=== PATIENT | female | born 1965 | race American Indian/Alaskan Native ===

== ENCOUNTER 2018-03-08 00:20 | Emergency (ER) | payer OTHER ==
[2018-03-08] MEDS ORDERED: NACL 0.9% 1000 ML 1,000 ML IV ONE (00:34)
[2018-03-08 01:25] LABS: Basophils % (Auto) 0.6 % (0.0-1.8); Eosinophils # (Auto) 0.1 K/mm3 (0.0-0.4); Eosinophils % (Auto) 2.9 % (0.0-4.3); Hematocrit 35.9 % (30.3-42.9); Hemoglobin 11.9 gm/dl (10.1-14.3); Lymphocytes # (Auto) 2.3 K/mm3 (1.2-5.4); Lymphocytes % (Auto) 50.6 % (13.4-35.0); Mean Corpuscular HGB Conc 33 % (30-34); Mean Corpuscular Hemoglobin 32 pg (28-32); Mean Corpuscular Volume 96 fl (79-97); Monocytes # (Auto) 0.4 K/mm3 (0.0-0.8); Monocytes % (Auto) 9.4 % (0.0-7.3); Platelet Count 184 K/mm3 (140-440); Red Blood Count 3.73 M/mm3 (3.65-5.03); Red Cell Distribution Width 13.3 % (13.2-15.2)
[2018-03-08 01:58] LABS: Alanine Aminotransferase 670 units/L (7-56); Albumin 3.9 g/dL (3.9-5); BUN/Creatinine Ratio 28; Blood Urea Nitrogen 14 mg/dL (7-17); Hemolysis Index 0; Lipase 40 units/L (13-60)
[2018-03-08] MEDS ORDERED: ZOFRAN IM ONE (04:19)
[2018-03-08] MEDS ORDERED: DILAUDID IM ONE (04:19)
--- NOTE | 2018-03-08 04:21 | Emergency Department Report ---
ED Abdominal Pain HPI - General Chief Complaint: Abdominal Pain Stated Complaint: ABDOMINAL PAIN Time Seen by Provider: 03/08/18 04:05 Source: patient, EMS Mode of arrival: Wheelchair Limitations: No Limitations - History of Present Illness Initial Comments: 52-year-old woman with known cholelithiasis, scheduled to have cholecystectomy in 4 days, presents with intractable right upper quadrant abdominal pain, typical of her cholecystitis, with daughter providing translation services, as patient is [place], noting that patient has no medication for pain or nausea. She's not had any fever chills or diaphoresis, pain has been waxing and waning, localized to the right upper quadrant, with intermittent nausea. MD Complaint: abdominal pain -: month(s) Location: RUQ Radiation: none Migration to: no migration Severity scale (0 -10): 9 Quality: cramping, aching Consistency: intermittent, colicky Improves With: nothing Worsens With: eating Associated Symptoms: denies other symptoms - Related Data Previous Rx's Medication Instructions Recorded Last Taken Type Ondansetron [Zofran ODT TAB] 8 mg PO Q8HR PRN #10 tab.rapdis 03/08/18 Unknown Rx oxyCODONE /ACETAMINOPHEN [Percocet 1 - 2 tab PO Q6H PRN #20 tab 03/08/18 Unknown Rx 5/325] Allergies Allergy/AdvReac Type Severity Reaction Status Date / Time No Known Allergies Allergy Verified 03/08/18 00:33 ED Review of Systems ROS: Stated complaint: ABDOMINAL PAIN Other details as noted in HPI Comment: All other systems reviewed and negative Constitutional: denies: chills, fever Eyes: denies: eye pain, eye discharge, vision change ENT: denies: ear pain, throat pain Cardiovascular: denies: chest pain, palpitations Endocrine: no symptoms reported Gastrointestinal: as per HPI Genitourinary: denies: urgency, dysuria, discharge Skin: denies: rash, lesions Neurological: denies: headache, weakness, paresthesias Psychiatric: denies: anxiety, depression ED Past Medical Hx - Past Medical History Previous Medical History?: Yes Additional medical history: gall bladder - Surgical History Past Surgical History?: No - Social History Smoking Status: Never Smoker Substance Use Type: None - Medications Home Medications: Home Medications Medication Instructions Recorded Confirmed Last Taken Type Ondansetron [Zofran ODT TAB] 8 mg PO Q8HR PRN #10 tab.rapdis 03/08/18 Unknown Rx oxyCODONE /ACETAMINOPHEN [Percocet 1 - 2 tab PO Q6H PRN #20 tab 03/08/18 Unknown Rx 5/325] ED Physical Exam - General Limitations: No Limitations, Language Barrier (speaks Angolan, daughter translates) General appearance: alert, other (appears fairly comfortable at time of reexamination, reports that current pain has subsided substantially) - Head Head exam: Present: atraumatic, normocephalic - Eye Eye exam: Present: normal appearance - ENT ENT exam: Present: mucous membranes moist - Neck Neck exam: Present: normal inspection, full ROM. Absent: tenderness - Respiratory Respiratory exam: Present: normal lung sounds bilaterally. Absent: respiratory distress, wheezes, rales, chest wall tenderness - Cardiovascular Cardiovascular Exam: Present: regular rate, normal heart sounds - GI/Abdominal GI/Abdominal exam: Present: soft, tenderness (upper abdomen, worse in right upper quadrant, positive Singh's sign), guarding (1+), normal bowel sounds. Absent: rebound, rigid - Rectal Rectal exam: Present: deferred - Extremities Exam Extremities exam: Present: normal inspection, full ROM - Back Exam Back exam: Present: normal inspection, full ROM. Absent: CVA tenderness (R), CVA tenderness (L) - Neurological Exam Neurological exam: Present: alert, oriented X3, CN II-XII intact. Absent: motor sensory deficit - Psychiatric Psychiatric exam: Present: normal affect, normal mood ED Course Vital Signs 03/08/18 03/08/18 03/08/18 00:21 00:27 03:19 Temperature 36.9 C 36.7 C 36.5 C Pulse Rate 63 69 47 L Respiratory 16 20 16 Rate Blood Pressure 146/81 146/81 Blood Pressure 135/74 [Left] O2 Sat by Pulse 99 98 100 Oximetry - Reevaluation(s) Reevaluation #1: 03/08/18 04:55 Patient offered medication for control of pain in emergency department, ultimately refuses injection, prefers to have medicine to take home, we'll wait for surgery which is due in 3 days. ED Medical Decision Making - Lab Data Result diagrams: 03/08/18 00:58 03/08/18 00:58 - Medical Decision Making Patient is clinically stable, in moderate discomfort, but improving, to the point where she declines emergency department treatment for her acute discomfort. She is clinically stable, can be treated on an outpatient basis, and I will discharge her with mid dose oxycodone, which she can escalate if she has increasing pain, as well as ondansetron for nausea. She may continue with her plans for surgery in 3 days. Critical Care Time: No Critical care attestation.: If time is entered above; I have spent that time in minutes in the direct care of this critically ill patient, excluding procedure time. ED Disposition Clinical Impression: Biliary colic, Acute cholecystitis Cholelithiasis Qualifiers: Cholelithiasis location: gallbladder Cholecystitis presence: with cholecystitis Cholecystitis acuity: acute and chronic Biliary obstruction: without biliary obstruction Qualified Code(s): K80.12 - Calculus of gallbladder with acute and chronic cholecystitis without obstruction Disposition: TO HOME OR SELFCARE Is pt being admited?: No Does the pt Need Aspirin: No Condition: Stable Instructions: Abdominal Pain (ED) Additional Instructions: Drink plenty of fluids to maintain hydration, and avoid spicy or fatty foods which will aggravate your gallbladder. Take Percocet, one or 2 tablets as needed every 6 hours to control her pain. Take ondansetron, every 8 hours as needed if you have any nausea. Follow-up with your doctor with her plans for surgery in 3 days. Prescriptions: Ondansetron [Zofran ODT TAB] 8 mg PO Q8HR PRN #10 tab.rapdis PRN Reason: Nausea oxyCODONE /ACETAMINOPHEN [Percocet 5/325] 1 - 2 tab PO Q6H PRN #20 tab PRN Reason: Pain , Severe (7-10) Referrals: PRIMARY CARE, [Primary Care Provider] - 3-5 Days Time of Disposition: 04:59
[2018-03-08 05:17] VITALS: BP 120/69
== END 2018-03-08 04:55 | disposition home or self-care (01) ==
LOC: ED 00:20
DX: K80.12 Calculus of gallbladder with acute and chronic cholecystitis without obstruction (principal)
CPT/HCPCS: 36415; 80053; 83690; 85025; 99284; J1170; J2405

== ENCOUNTER 2022-03-05 05:56 | Inpatient (IN) | payer OTHER ==
[2022-03-05] MEDS ORDERED: SODIUM CHLORIDE 0.9% 1000 ML 1,000 ML IV ONE (06:20)
[2022-03-05] MEDS ORDERED: ONDANSETRON 4 MG/2 ML INJ IV ONE (06:20)
[2022-03-05] MEDS ORDERED: FAMOTIDINE 20 MG/2 ML INJ IV ONE (06:21)
[2022-03-05] MEDS ORDERED: MORPHINE 4 MG/1 ML INJ IV ONE ×2 (06:21→07:21)
--- NOTE | 2022-03-05 06:26 | Emergency Department Report ---
ED Abdominal Pain HPI - General Chief Complaint: Abdominal Pain Stated Complaint: ABD PAIN PUI?: No Time Seen by Provider: 03/05/22 06:13 Source: EMS Mode of arrival: Stretcher Limitations: Language Barrier - History of Present Illness Initial Comments: creole language laurie staleyter #[id number] 56-year-old obese female with denial of any known past medical history presents for evaluation of abdominal pain. Patient reports pain began acutely at 5 AM this morning. Pain is constant and radiates throughout her entire abdomen al though it initially began in her upper mid abdomen. She reports nausea and vomiting. Last bowel movement was 1 day ago and she states it was normal. No melena hematochezia or hematemesis. Patient denies any prior surgeries to her abdomen. She states she had pain to her abdomen 3 days ago and went to her primary care doctor's office. She states she was "given "a bottle of pills" but she does not know the name of this medication. She states she consumed this but she did not feel better. No prior history of similar symptoms. She is unable to quantify pain on pain scale. MD Complaint: abdominal pain -: Gradual, hour(s) Location: periumbilical Radiation: none Migration to: no migration Severity: severe Severity scale (0 -10): 8 Quality: cramping, stabbing, aching Consistency: constant Improves With: nothing Worsens With: movement, other (touching her abdomen ) Context: other (none of the above) Associated Symptoms: nausea, vomiting Treatments Prior to Arrival: other (none) - Related Data Previous Rx's Medication Instructions Recorded Last Taken Type Ondansetron [Zofran ODT TAB] 8 mg PO Q8HR PRN #10 tab.rapdis 03/08/18 Unknown Rx oxyCODONE /ACETAMINOPHEN [Percocet 1 - 2 tab PO Q6H PRN #20 tab 03/08/18 Unknown Rx 5/325] Allergies Allergy/AdvReac Type Severity Reaction Status Date / Time No Known Allergies Allergy Verified 03/05/22 09:37 ED Review of Systems ROS: Stated complaint: ABD PAIN Other details as noted in HPI Comment: All other systems reviewed and negative Constitutional: malaise, weakness Eyes: denies: eye pain, eye discharge, vision change ENT: denies: ear pain, throat pain, dental pain, hearing loss, epistaxis Respiratory: denies: no symptoms reported, cough, orthopnea, shortness of breath, SOB with exertion, SOB at rest Cardiovascular: denies: as per HPI, chest pain, palpitations, dyspnea on exertion, orthopnea, edema, syncope, paroxysmal nocturnal dyspnea Endocrine: denies: excessive sweating, flushing, intolerance to cold, intolerance to heat, increased hunger, increased thirst, increased urine, unexplained weight gain, unexplained weight loss Gastrointestinal: as per HPI, abdominal pain, nausea, vomiting. denies: diarrhea, constipation, hematemesis, melena, hematochezia Genitourinary: denies: urgency, dysuria, frequency, hematuria, discharge, abnormal menses, dyspareunia Musculoskeletal: denies: back pain, joint swelling, arthralgia Skin: denies: rash, lesions, change in color, change in hair/nails, pruritus Neurological: weakness. denies: headache, numbness, paresthesias, confusion, abnormal gait, vertigo Psychiatric: denies: anxiety, depression, auditory hallucinations, visual hallucinations, homicidal thoughts, suicidal thoughts Hematological/Lymphatic: denies: easy bleeding, easy bruising, swollen glands ED Past Medical Hx - Past Medical History Previous Medical History?: No Additional medical history: gall bladder - Social History Smoking Status: Never Smoker Substance Use Type: None - Medications Home Medications: Home Medications Medication Instructions Recorded Confirmed Last Taken Type Ondansetron [Zofran ODT TAB] 8 mg PO Q8HR PRN #10 tab.rapdis 03/08/18 Unknown Rx oxyCODONE /ACETAMINOPHEN [Percocet 1 - 2 tab PO Q6H PRN #20 tab 03/08/18 Unknown Rx 5/325] ED Physical Exam - General Limitations: Language Barrier General appearance: alert, in distress - Head Head exam: Present: atraumatic, normocephalic, normal inspection - Eye Eye exam: Present: normal appearance, PERRL, EOMI Pupils: Present: normal accommodation - ENT ENT exam: Present: normal exam, normal orophraynx, mucous membranes moist - Neck Neck exam: Present: normal inspection, full ROM. Absent: tenderness, meningismu s, lymphadenopathy, thyromegaly - Respiratory Respiratory exam: Present: normal lung sounds bilaterally. Absent: respiratory distress, wheezes, rales, rhonchi, stridor, chest wall tenderness, accessory muscle use, decreased breath sounds, prolonged expiratory - Cardiovascular Cardiovascular Exam: Present: regular rate, normal rhythm, normal heart sounds. Absent: bradycardia, tachycardia, irregular rhythm, systolic murmur, diastolic murmur, rubs, gallop, clicks, JVD, S3, S4, other - GI/Abdominal GI/Abdominal exam: Present: soft, tenderness, guarding, hypoactive bowel sounds. Absent: distended, rebound, rigid, normal bowel sounds, diminished bowel sounds, hyperactive bowel sounds, organomegaly, mass, bruit, pulsatile mass, hernia, other - Extremities Exam Extremities exam: Present: normal inspection, full ROM, normal capillary refill. Absent: tenderness, pedal edema, joint swelling, calf tenderness, other - Back Exam Back exam: Present: normal inspection, full ROM. Absent: tenderness, CVA tenderness (R), CVA tenderness (L), muscle spasm - Neurological Exam Neurological exam: Present: alert, oriented X3, CN II-XII intact, normal gait, motor sensory deficit, reflexes normal ED Course Vital Signs 03/05/22 03/05/22 03/05/22 06:38 08:33 08:35 Temperature 97.5 F L 97.6 F Pulse Rate 66 89 Respiratory 18 20 Rate Blood Pressure 167/91 163/83 [Left] O2 Sat by Pulse 98 98 100 Oximetry - Reevaluation(s) Reevaluation #1: 03/05/22 06:26 pt asleep, but when aroused c/o abdominal pain. Will await administration of analgesics and antiemetics. Labs and ct scan have also been ordered. will reassess patient once medications have been administered Reevaluation #2: 03/05/22 08:11 pt reports continued pain. Will give dilaudid 0.5mg IV for additional analgesia. Reevaluation #3: 03/05/22 09:35am: Case reviewed with Dr. Smith, on-call general surgeon. He will review the patient's images on CAT scan independently as well as examine her in person. Per his verbal report he is in agreement with the patient being provided with broad-spectrum antibiotics. He will speak to me once his evaluation of the patient has been completed Reevaluation #4: 03/05/22 10:30am: Dr. Smith reports he has evaluated the patient and her images. Although the patient is uncertain of what surgery she has had her abdomen, he verbally reports that the patient's surgical scar sites are consistent with a prior laparoscopic cholecystectomy. He is requesting that emergent HIDA scan be performed and that the patient be admitted to the hospitalist service. He will remain in consultation on the patient. ED Medical Decision Making - Lab Data Result diagrams: 03/05/22 06:38 03/05/22 06:38 - Medical Decision Making 56-year-old female presents for evaluation of abdominal pain nausea and vomiting. Vital signs stable. Patient has significant transaminitis as well as elevated lipase level concerning for pancreatitis. Diagnostic imaging results reviewed. General surgeon, Dr. Smith, was consulted. Please see patient's electronic health record for his documented impression and plan. HIDA scan ordered. Patient has been accepted for admission to the hospitalist service Critical care attestation.: If time is entered above; I have spent that time in minutes in the direct care of this critically ill patient, excluding procedure time. ED Disposition Clinical Impression: Pancreatitis Disposition: 09 ADMITTED INPATIENT Is pt being admited?: Yes Does the pt Need Aspirin: No Condition: Stable Instructions: Abdominal Pain (ED)
[2022-03-05 07:32] LABS: Basophils % (Auto) 0.3 % (0.0-1.8); Eosinophils # (Auto) 0.1 K/mm3 (0.0-0.4); Eosinophils % (Auto) 0.7 % (0.0-4.3); Hematocrit 40.5 % (30.3-42.9); Hemoglobin 13.6 gm/dl (10.1-14.3); Lymphocytes # (Auto) 2.9 K/mm3 (1.2-5.4); Lymphocytes % (Auto) 31.9 % (13.4-35.0); Mean Corpuscular HGB Conc 34 % (30-34); Mean Corpuscular Volume 96 fl (79-97); Monocytes # (Auto) 0.5 K/mm3 (0.0-0.8); Platelet Count 132 K/mm3 (140-440); Red Cell Distribution Width 13.4 % (13.2-15.2)
[2022-03-05 07:54] LABS: Alanine Aminotransferase 307 units/L (7-56); Albumin 4.1 g/dL (3.9-5); Blood Urea Nitrogen 15 mg/dL (7-17); Calcium 9.4 mg/dL (8.4-10.2); Hemolysis Index 4
[2022-03-05 07:57] LABS: BUN/Creatinine Ratio 25
[2022-03-05] MEDS ORDERED: HYDROmorphone 1 MG/1 ML INJ IV ONE ×2 (08:08→10:05)
--- NOTE | 2022-03-05 08:22 | XRay Report ---
ABDOMEN 1 VIEW 03/05/2022 7:47 AM INDICATION / CLINICAL INFORMATION: mid abdominal pain, vomiting. COMPARISON: None available. FINDINGS: TUBES / LINES: None. BOWEL GAS PATTERN: There is a moderate to large amount of stool noted throughout the colon. FREE AIR / EXTRALUMINAL GAS: None. ADDITIONAL FINDINGS: No significant additional findings. IMPRESSION: 1. There is moderate to large amount of stool noted throughout colon. Signer Name: Ta Lim MD Signed: 03/05/2022 8:18 AM Workstation Name: [email or web address]
[2022-03-05 08:41] LABS: Bilirubin,Urine NEG (Negative); Blood,Urine NEG (Negative); Color,Urine Straw (Yellow); Protein,Urine <15 mg/dL mg/dL (Negative); RBC,Urine < 1.0 /HPF (0.0-6.0); Urobilinogen,Urine < 2.0 mg/dL (<2.0); WBC,Urine < 1.0 /HPF (0.0-6.0)
[2022-03-05 09:02] LABS: Amphetamine Screen,Urine Negative; Benzodiazepines Screen,Urine Negative; Cannabinoid Screen,Urine Negative; Cocaine Screen,Urine Negative; Methadone Screen,Urine Negative
[2022-03-05 09:15] LABS: Opiate Screen,Urine Positive
--- NOTE | 2022-03-05 09:19 | Cat Scan Report ---
CT ABDOMEN AND PELVIS WITH CONTRAST HISTORY: Mid and Periumbilical abdominal pain with vomiting. COMPARISON: None. TECHNIQUE: Helical CT images of the abdomen and pelvis were obtained following administration of intr avenous contrast. Sagittal and coronal reformatted images were reviewed. All CT scans at this [facility] are performed using CT dose reduction for ALARA by means of automated exposure control. CONTRAST: Omnipaque 300 100 ml of intravenous contrast administered. FINDINGS: Abdomen/pelvis: There is a moderate to large amount of fluid in the right upper quadrant throughout the phani hepatis. The etiology of this fluid is not clearly evident. The pancreatic head appears mil dly enlarged and edematous measuring 4.3 cm in diameter. The remainder of the pancreas is unremarkabl e. This could represent acute interstitial pancreatitis. There is mild biliary dilatation with the co mmon bile duct measuring 9 mm in diameter. There is no obvious obstructing lesion in the common bile duct on CT. The gallbladder is not clearly identified but there are no surgical clips in the gallblad ana fossa to suggest cholecystectomy, correlate with the patient's surgical history. The liver, spleen, adrenal glands and vascular structures are unremarkable. There are bilateral simpl e appearing renal cysts measuring 3.6 cm on the right and 2.1 cm on the left. The kidneys and collect ing systems are otherwise unremarkable. The stomach, small bowel loops and colon are unremarkable. The appendix is not confidently identified . The uterus, adnexa and bladder are within normal limits. No evidence for adenopathy, abscess or free air. Lungs/bones: The lung bases are clear. Mild thoracolumbar spondylosis is present. No suspicious bony lesion. IMPRESSION: There is moderate fluid in the right upper quadrant as described. The pancreatic head appears mildly edematous. This probably represents acute interstitial pancreatitis. Correlate with laboratory values and clinical presentation. The gallbladder is not confidently identified but no convincing findings of cholecystectomy. The gall bladder may be collapsed. There is no obvious cholelithiasis on CT. There is mild diffuse biliary dil atation. Please correlate with the patient's surgical history. If there is no history of cholecystect vu, a ruptured gallbladder could be considered. Signer Name: Mahad Lan Jr, MD Signed: 03/05/2022 9:15 AM Workstation Name: [id number]
[2022-03-05] MEDS ORDERED: PIPERACIL/TAZOBACTA 4.5/NS 100 4.5 GM/100 ML VIAL IV ONE (09:31)
--- NOTE | 2022-03-05 13:59 | Nuclear Medicine Report ---
NUCLEAR MEDICINE HEPATOBILIARY SCAN INDICATION: eval for biliary obstruction. TECHNIQUE: Radiotracer: Tc-99m mebrofenin (by IV): 5.5 mCi. COMPARISON: CT earlier today. FINDINGS: There is normal hepatic radiotracer activity on the postinjection images. There is delayed radiotracer activity within the common duct, this is not seen until 2 hours. At this time, there is persistent radiotracer activity throughout the liver. No radiotracer activity is seen within the gallbladder or proximal small bowel. IMPRESSION: No radiotracer activity is seen within the gallbladder or small bowel. Radiotracer activity is only s een in the common duct at 2 hours, at which time there is significant persistent activity throughout the liver. These findings are consistent with distal common duct obstruction. Nonfilling of the gallb ladder could be seen in the setting of acute cholecystitis. However, no gallbladder was visualized on the CT from earlier today, see prior report. Signer Name: Miguel Angel Rodriguez MD Signed: 03/05/2022 1:55 PM Workstation Name: [id number]
--- NOTE | 2022-03-05 15:50 | Consultation ---
History of Present Illness Consult date: 03/05/22 Reason for consult: abdominal pain - History of present illness History of present illness: 56-year-old obese female with denial of any known past medical history presents for evaluation of abdominal pain. Patient reports pain began acutely at 5 AM this morning. Pain is constant and radiates throughout her entire abdomen although it initially began in her upper mid abdomen. She reports nausea and vomiting. Last bowel movement was 1 day ago and she states it was normal. No melena hematochezia or hematemesis. Patient denies any prior surgeries to her abdomen. She states she had pain to her abdomen 3 days ago and went to her primary care doctor's office. ED visit from 2018 indicates that pt was with abdo pain but with plans for cholecystectomy in a few days. Her abdo esam is significant for incisions cw a LC.The CT of the abdo is with fluid in the ruq and changes to the head of the pancrease cw pancreatitis. WBC is normal. Bilirubin is normal. HIDA scan is without extravasation of bile. There is delay in emptying the cbd and nonvis of the gb. Medications and Allergies Allergies Allergy/AdvReac Type Severity Reaction Status Date / Time No Known Allergies Allergy Verified 03/05/22 09:37 Home Medications Medication Instructions Recorded Confirmed Last Taken Type Ondansetron [Zofran ODT TAB] 8 mg PO Q8HR PRN #10 tab.rapdis 03/08/18 Unknown Rx oxyCODONE /ACETAMINOPHEN [Percocet 1 - 2 tab PO Q6H PRN #20 tab 03/08/18 Unknown Rx 5/325] Exam Vital Signs Temp Pulse Resp BP Pulse Ox 97.5 F L 66 18 167/91 98 03/05/22 06:38 03/05/22 06:38 03/05/22 06:38 03/05/22 06:38 03/05/22 06:38 - General physical appearance Positive: well developed, moderate distress - Eyes Positive: PERRL - Neck Positive: no masses, no bruits, trachea midline - Respiratory Positive: normal expansion - Cardiovascular Rhythm: regular - Extremities Extremities: no ischemia - Abdomen Abdomen: Present: soft, tender, other (right subcostal and infraumbilical incisions cw LC) Results - Labs 03/05/22 06:38 03/05/22 06:38 Abnormal lab results 03/05/22 03/05/2203/05/22 Range/Units 06:38 06:38 06:38 Plt Count 132 L (140-440) K/mm3 Glucose 411 H (65-100) mg/dL AST 521 H (5-40) units/L ALT 307 H (7-56) units/L Alkaline Phosphatase 176 H (35-129) units/L Lipase 5728 H (13-60) units/L Diabetes panel 03/05/22 Range/Units 06:38 Sodium 142 (137-145) mmol/L Potassium 3.9 (3.6-5.0) mmol/L Chloride 103.3 (98-107) mmol/L Carbon Dioxide 23 (22-30) mmol/L BUN 15 (7-17) mg/dL Creatinine 0.6 (0.6-1.2) mg/dL Glucose 411 H (65-100) mg/dL Calcium 9.4 (8.4-10.2) mg/dL AST 521 H (5-40) units/L ALT 307 H (7-56) units/L Alkaline Phosphatase 176 H (35-129) units/L Total Protein 7.2 (6.3-8.2) g/dL Albumin 4.1 (3.9-5) g/dL Calcium panel 03/05/22 Range/Units 06:38 Calcium 9.4 (8.4-10.2) mg/dL Albumin 4.1 (3.9-5) g/dL Pituitary panel 03/05/22 Range/Units 06:38 Sodium 142 (137-145) mmol/L Potassium 3.9 (3.6-5.0) mmol/L Chloride 103.3 (98-107) mmol/L Carbon Dioxide 23 (22-30) mmol/L BUN 15 (7-17) mg/dL Creatinine 0.6 (0.6-1.2) mg/dL Glucose 411 H (65-100) mg/dL Calcium 9.4 (8.4-10.2) mg/dL Adrenal panel 03/05/22 Range/Units 06:38 Sodium 142 (137-145) mmol/L Potassium 3.9 (3.6-5.0) mmol/L Chloride 103.3 (98-107) mmol/L Carbon Dioxide 23 (22-30) mmol/L BUN 15 (7-17) mg/dL Creatinine 0.6 (0.6-1.2) mg/dL Glucose 411 H (65-100) mg/dL Calcium 9.4 (8.4-10.2) mg/dL Total Bilirubin 1.00 (0.1-1.2) mg/dL AST 521 H (5-40) units/L ALT 307 H (7-56) units/L Alkaline Phosphatase 176 H (35-129) units/L Total Protein 7.2 (6.3-8.2) g/dL Albumin 4.1 (3.9-5) g/dL Assessment and Plan Although pt is denying hx of surgery she has incsions cw with a LC. CT findings cw pancreatitis. HIDA scan without extravastion of bille as would be expected for a ruptured gb. Plan tx for pancreatitis. NPO, iv fluid and iv ab.
--- NOTE | 2022-03-05 16:01 | History and Physical Report ---
History of Present Illness Date of examination: 03/05/22 Date of admission: 03/05/2022 Chief complaint: Severe abdominal pain for 2 days History of present illness: 56-year-old female who is Creole speaking and a poor historian comes in for severe epigastric pain since 5 AM associated with nausea. Pain is about 10 on a scale of 1-10. Nausea and vomiting present. Last bowel movement was 1 day ago. Patient states that she may have cholecystectomy in the past. However it was at the bedside who is the security architect. She states she has been taking some medicine for epigastric pain but not getting any relief. No fever or - Past Medical History Previous Medical History?: No Additional medical history: gall bladder Past surgical history ??cholecystectomy - Social History Smoking Status: Never Smoker Substance Use Type: None - Medications Home Medications: Home Medications Medication Instructions Recorded Confirmed Last Taken Type Ondansetron [Zofran ODT TAB] 8 mg PO Q8HR PRN #10 tab.rapdis 03/08/18 Unknown Rx oxyCODONE /ACETAMINOPHEN [Percocet 1 - 2 tab PO Q6H PRN #20 tab 03/08/18 Unknown Rx 5/325] Review of Systems ROS: Stated complaint: ABD PAIN Other details as noted in HPI Comment: All other systems reviewed and negative Constitutional: malaise, weakness Eyes: denies: eye pain, eye discharge, vision change ENT: denies: ear pain, throat pain, dental pain, hearing loss, epistaxis Respiratory: denies: no symptoms reported, cough, orthopnea, shortness of breath, SOB with exertion, SOB at rest Cardiovascular: denies: as per HPI, chest pain, palpitations, dyspnea on exertion, orthopnea, edema, syncope, paroxysmal nocturnal dyspnea Endocrine: denies: excessive sweating, flushing, intolerance to cold, intolerance to heat, increased hunger, increased thirst, increased urine, unexplained weight gain, unexplained weight loss Gastrointestinal: as per HPI, abdominal pain, nausea, vomiting. denies: diarrhea, constipation, hematemesis, melena, hematochezia Genitourinary: denies: urgency, dysuria, frequency, hematuria, discharge, abn ormal menses, dyspareunia Musculoskeletal: denies: back pain, joint swelling, arthralgia Skin: denies: rash, lesions, change in color, change in hair/nails, pruritus Neurological: weakness. denies: headache, numbness, paresthesias, confusion, abnormal gait, vertigo Psychiatric: denies: anxiety, depression, auditory hallucinations, visual hallucinations, homicidal thoughts, suicidal thoughts Hematological/Lymphatic: denies: easy bleeding, easy bruising, swollen glands Medications and Allergies Allergies Allergy/AdvReac Type Severity Reaction Status Date / Time No Known Allergies Allergy Verified 03/05/22 09:37 Home Medications Medication Instructions Recorded Confirmed Last Taken Type Ondansetron [Zofran ODT TAB] 8 mg PO Q8HR PRN #10 tab.rapdis 03/08/18 Unknown Rx oxyCODONE /ACETAMINOPHEN [Percocet 1 - 2 tab PO Q6H PRN #20 tab 03/08/18 Unkn own Rx 5/325] Exam - Constitutional Vitals: Temp Pulse Resp BP Pulse Ox 97.6 F 88 20 151/86 100 03/05/22 15:28 03/05/22 15:28 03/05/22 15:28 03/05/22 15:28 03/05/22 15:28 General appearance: Present: severe distress, well-nourished - EENT Eyes: Present: PERRL ENT: hearing intact, clear oral mucosa - Neck Neck: Present: supple, normal ROM - Respiratory Respiratory effort: normal Respiratory: bilateral: CTA - Cardiovascular Heart rate: 78 Rhythm: regular Heart Sounds: Present: S1 & S2. Absent: rub, click - Extremities Extremities: no ischemia, pulses symmetrical, No edema Peripheral Pulses: within normal limits - Abdominal General gastrointestinal: Present: soft, tender, non-distended, normal bowel sounds Localized gastrointestinal: tender: diffuse, epigastric periumbilical, guarding: diffuse, epigastric periumbilical, rebound: diffuse, epigastric periumbilical Female genitourinary: Present: normal - Integumentary Integumentary: Present: clear, warm, dry - Musculoskeletal Musculoskeletal: gait normal, strength equal bilaterally - Psychiatric Psychiatric: appropriate mood/affect, intact judgment & insight - Neurologic Neurologic: CNII-XII intact, moves all extremities - Allied Health Allied health notes reviewed: nursing, case management Results - Labs CBC & Chem 7: 03/05/22 06:38 03/05/22 06:38 Labs: Laboratory Last Values WBC 9.2 K/mm3 (4.5-11.0) 03/05/22 06:38 RBC 4.20 M/mm3 (3.65-5.03) 03/05/22 06:38 Hgb 13.6 gm/dl (10.1-14.3) 03/05/22 06:38 Hct 40.5 % (30.3-42.9) 03/05/22 06:38 MCV 96 fl (79-97) 03/05/22 06:38 MCH 32 pg (28-32) 03/05/22 06:38 MCHC 34 % (30-34) 03/05/22 06:38 RDW 13.4 % (13.2-15.2) 03/05/22 06:38 Plt Count 132 K/mm3 (140-440) L 03/05/22 06:38 Lymph % (Auto) 31.9 % (13.4-35.0) 03/05/22 06:38 Alexander % (Auto) 5.0 % (0.0-7.3) 03/05/22 06:38 Eos % (Auto) 0.7 % (0.0-4.3) 03/05/22 06:38 Baso % (Auto) 0.3 % (0.0-1.8) 03/05/22 06:38 Lymph # (Auto) 2.9 K/mm3 (1.2-5.4) 03/05/22 06:38 Alexander # (Auto) 0.5 K/mm3 (0.0-0.8) 03/05/22 06:38 Eos # (Auto) 0.1 K/mm3 (0.0-0.4) 03/05/22 06:38 Baso # (Auto) 0.0 K/mm3 (0.0-0.1) 03/05/22 06:38 Seg Neutrophils % 62.1 % (40.0-70.0) 03/05/22 06:38 Seg Neutrophils # 5.7 K/mm3 (1.8-7.7) 03/05/22 06:38 Sodium 142 mmol/L (137-145) 03/05/22 06:38 Potassium 3.9 mmol/L (3.6-5.0) 03/05/22 06:38 Chloride 103.3 mmol/L (98-107) 03/05/22 06:38 Carbon Dioxide 23 mmol/L (22-30) 03/05/22 06:38 Anion Gap 20 mmol/L 03/05/22 06:38 BUN 15 mg/dL (7-17) 03/05/22 06:38 Creatinine 0.6 mg/dL (0.6-1.2) 03/05/22 06:38 Estimated GFR > 60 ml/min 03/05/22 06:38 BUN/Creatinine Ratio 25 % 03/05/22 06:38 Glucose 411 mg/dL (65-100) H 03/05/22 06:38 Calcium 9.4 mg/dL (8.4-10.2) 03/05/22 06:38 Total Bilirubin 1.00 mg/dL (0.1-1.2) 03/05/22 06:38 AST 521 units/L (5-40) H 03/05/22 06:38 ALT 307 units/L (7-56) H 03/05/22 06:38 Alkaline Phosphatase 176 units/L (35-129) H 03/05/22 06:38 Total Protein 7.2 g/dL (6.3-8.2) 03/05/22 06:38 Albumin 4.1 g/dL (3.9-5) 03/05/22 06:38 Albumin/Globulin Ratio 1.3 % 03/05/22 06:38 Lipase 5728 units/L (13-60) H 03/05/22 06:38 Urine Color Straw (Yellow) 03/05/22 Unknown Urine Turbidity Clear (Clear) 03/05/22 Unknown Urine pH 5.0 (5.0-7.0) 03/05/22 Unknown Ur Specific [place] 1.025 (1.003-1.030) 03/05/22 Unknown Urine Protein <15 mg/dl mg/dL (Negative) 03/05/22 Unknown Urine Glucose (UA) >=500 mg/dL (Negative) 03/05/22 Unknown Urine Ketones 20 mg/dL (Negative) 03/05/22 Unknown Urine Blood Neg (Negative) 03/05/22 Unknown Urine Nitrite Neg (Negative) 03/05/22 Unknown Urine Bilirubin Neg (Negative) 03/05/22 Unknown Urine Urobilinogen < 2.0 mg/dL (<2.0) 03/05/22 Unknown Ur Leukocyte Esterase Neg (Negative) 03/05/22 Unknown Urine WBC (Auto) < 1.0 /HPF (0.0-6.0) 03/05/22 Unknown Urine RBC (Auto) < 1.0 /HPF (0.0-6.0) 03/05/22 Unknown U Epithel Cells (Auto) < 1.0 /HPF (0-13.0) 03/05/22 Unknown Urine Opiates Screen Positive 03/05/22 08:32 Urine Methadone Screen Negative 03/05/22 08:32 Ur Barbiturates Screen Negative 03/05/22 08:32 Ur Phencyclidine Scrn Negative 03/05/22 08:32 Ur Amphetamines Screen Negative 03/05/22 08:32 U Benzodiazepines Scrn Negative 03/05/22 08:32 Urine Cocaine Screen Negative 03/05/22 08:32 U Marijuana (THC) Screen Negative 03/05/22 08:32 Drugs of Abuse Note Disclamer 03/05/22 08:32 Plasma/Serum Alcohol < 0.01 % (0-0.07) 03/05/22 06:38 Short CBC 03/05/22 Range/Units 06:38 WBC 9.2 (4.5-11.0) K/mm3 Hgb 13.6 (10.1-14.3) gm/dl Hct 40.5 (30.3-42.9) % Plt Count 132 L (140-440) K/mm3 BMP 03/05/22 06:38 Sodium 142 Potassium 3.9 Chloride 103.3 Carbon Dioxide 23 BUN 15 Creatinine 0.6 Glucose 411 H Calcium 9.4 Liver Function 03/05/22 Range/Units 06:38 Total Bilirubin 1.00 (0.1-1.2) mg/dL AST 521 H (5-40) units/L ALT 307 H (7-56) units/L Alkaline Phosphatase 176 H (35-129) units/L Albumin 4.1 (3.9-5) g/dL Urine 03/05/22 Range/Units Unknown Urine Color Straw (Yellow) Urine pH 5.0 (5.0-7.0) Ur Specific [place] 1.025 (1.003-1.030) Urine Protein <15 mg/dl (Negative) mg/dL Urine Glucose (UA) >=500 (Negative) mg/dL - Imaging and Cardiology CT scan - abdomen: report reviewed Imaging and Cardiology: Abdominal CAT scan There is moderate fluid in the right upper quadrant pancreatic head diffuse) This probably represents acute interstitial pancreatitis . Gallbladder alcohol-related and fibrin but no convincing findings of cholecystectomy. To collapse. There is no obvious cholelithiasis on CT. Next mild diffuse biliary regurgitation. Please correlate with patient's surgical history. If there is no history of cholecystectomy could be considered. Nuclear scan No radiotracer activity seen within the gallbladder or small bowel. Patient To: Dr. Mckay. At this time is significant persistent [id number]. These findings are consistent with distal colon wall, duct obstruction. Nonfluent seen in the setting of acute cholecystitis. However no gallbladder CT from earlier today. Assessment and Plan Advance Directives: Yes (Full code) VTE prophylaxis?: Chemical Plan of care discussed with patient/family: Yes - Patient Problems (1) Acute pancreatitis Current Visit: Yes Status: Acute Qualifiers: Acute pancreatitis complication: unspecified Plan to address problem: Lipase is 5728 Amylase is 1650 There is inflammation of the pancreatic head Clinical picture and imaging patient is more consistent with acute pancreatitis. Possibly gallstone induced. Common biliary duct is dilated. May need ERCP. (2) History of cholecystectomy Current Visit: Yes Status: Chronic Plan to address problem: Patient states she had cholecystectomy in the past Poor historian In spite of relative at bedside who speaks Malawian--- patient is not able to stay definitively whether she had cholecystectomy or not (3) Transaminitis Current Visit: Yes Status: Acute Plan to address problem: AST is 521 and ALT is 307 More than 400 from the hospital on induced pancreatitis We will keep the patient n.p.o. IV fluids Surgery consulted GI consulted (4) DVT prophylaxis Current Visit: Yes Status: Acute Plan to address problem: On heparin and GI prophylaxis (5) Advance care planning Current Visit: Yes Status: Acute Plan to address problem: Through the rectal disease education conducted, care plan discussed, diagnosis discussed, prognosis discussed. Patient is full code. Patient acknowledges understanding and agreement with care plan. +30 minutes.
[2022-03-05] MEDS ORDERED: HYDROmorphone 0.5 MG/0.5 ML INJ IV PRN (16:09)
[2022-03-05] MEDS: MORPHINE 2 MG/1 ML INJ IV PRN ×2 (16:39→22:05)
[2022-03-05] MEDS ORDERED: METOCLOPRAMIDE 10 MG/2 ML INJ IV PRN (17:00)
[2022-03-05] MEDS ORDERED: ONDANSETRON 4 MG/2 ML INJ IV PRN (17:00)
[2022-03-05] MEDS: HEPARIN 5,000 UNIT/1 ML VIAL SUB-Q SCH ×2 (21:05→22:01)
[2022-03-05] MEDS: FAMOTIDINE 20 MG/2 ML INJ IV SCH (22:01)
[2022-03-05] MEDS: D5W/0.9% NACL 1,000 ML IV SCH (22:14)
[2022-03-06] MEDS: MORPHINE 2 MG/1 ML INJ IV PRN ×3 (03:09→15:47)
[2022-03-06 06:27] LABS: Hematocrit 46.2 % (30.3-42.9); Hemoglobin 15.3 gm/dl (10.1-14.3); Mean Corpuscular HGB Conc 33 % (30-34); Mean Corpuscular Volume 97 fl (79-97); Platelet Count 150 K/mm3 (140-440); Red Blood Count 4.78 M/mm3 (3.65-5.03); Red Cell Distribution Width 14.5 % (13.2-15.2)
[2022-03-06 06:49] LABS: Alanine Aminotransferase 286 units/L (7-56); Albumin 3.3 g/dL (3.9-5); BUN/Creatinine Ratio 25; Blood Urea Nitrogen 25 mg/dL (7-17); Calcium 8.1 mg/dL (8.4-10.2); Hemolysis Index 25
[2022-03-06] MEDS: INSULIN LISPRO 100 UNIT/ML SUB-Q SCH ×3 (08:03→17:44)
[2022-03-06 08:46] LABS: Band Neutrophils # (Manual) 0.3 K/mm3; Basophils % (Manual) 0 % (0.0-1.8); Myelocytes # (Manual) 0.2 K/mm3; Total Cells Counted 100
[2022-03-06 08:50] LABS: Large Platelets Few; Platelet Estimate Consistent w Auto
[2022-03-06] MEDS: FAMOTIDINE 20 MG/2 ML INJ IV SCH ×2 (09:08→21:20)
[2022-03-06] MEDS: HEPARIN 5,000 UNIT/1 ML VIAL SUB-Q SCH ×2 (09:08→21:20)
--- NOTE | 2022-03-06 11:49 | Consultation ---
History of Present Illness - Reason for Consult Consult date: 03/06/22 Gallstone pancreatitis Requesting physician: CRISTELA RUSH - History of Present Illness 56-year-old Thai woman admitted with a 1 day onset of epigastric pain. History is obtained by phone with translation by her boyfriend, Leda Chan. Patient had lab work consistent with gallstone pancreatitis, and a CT also consistent with mild pancreatitis. She is feeling somewhat better today. Of note, patient was here on March 08, 2018 and had abnormal liver enzymes with an AST of 736 ALT of 670, and an alkaline phosphatase of 168. 4 days later, she underwent cholecystectomy at [facility]. Further details are unknown. Since then, she apparently did well with no abdominal pain until this admission. There is no history of liver disease, or alcohol use. There is been no weight loss. Medications reviewed. Past History Past Surgical History: cholecystectomy (March 2018, at [facility]) Social history: no significant social history. denies: smoking, alcohol abuse Family history: no significant family history Medications and Allergies Allergies Allergy/AdvReac Type Severity Reaction Status Date / Time No Known Allergies Allergy Verified 03/05/22 09:37 Home Medications Medication Instructions Recorded Confirmed Last Taken Type Ondansetron [Zofran ODT TAB] 8 mg PO Q8HR PRN #10 tab.rapdis 03/08/18 Unknown Rx oxyCODONE /ACETAMINOPHEN [Percocet 1 - 2 tab PO Q6H PRN #20 tab 03/08/18 Unknown Rx 5/325] Active Meds: Active Medications Acetaminophen (Acetaminophen 325 Mg Tab) 650 mg PO Q4H PRN PRN Reason: Pain MILD(1-3)/Fever >100.5/PFEIFFER Famotidine (Famotidine 20 Mg/2 Ml Inj) 20 mg IV BID YFN Last Admin: 03/06/22 09:08 Dose: 20 mg Heparin Sodium (Porcine) (Heparin 5,000 Unit/1 Ml Vial) 5,000 unit SUB-Q Q12HR YFN Last Admin: 03/06/22 09:08 Dose: 5,000 unit Hydromorphone HCl (Hydromorphone 1 Mg/1 Ml Inj) 1 mg IV Q3H PRN PRN Reason: Pain , Severe (7-10) Dextrose/Sodium Chloride (D5ns) 1,000 mls @ 100 mls/hr IV DIRECT YFN Last Admin: 03/05/22 22:14 Dose: 100 mls/hr Insulin Human Lispro (Insulin Lispro 100 Unit/Ml) 0 unit SUB-Q Q6HR YFN; Pr otocol Last Admin: 03/06/22 08:03 Dose: 10 unit Metoclopramide HCl (Metoclopramide 10 Mg/2 Ml Inj) 10 mg IV Q6H PRN PRN Reason: Nausea And Vomiting Morphine Sulfate (Morphine 2 Mg/1 Ml Inj) 2 mg IV Q4H PRN PRN Reason: Pain, Moderate (4-6) Last Admin: 03/06/22 10:11 Dose: 2 mg Ondansetron HCl (Ondansetron 4 Mg/2 Ml Inj) 4 mg IV Q3H PRN PRN Reason: Nausea And Vomiting Last Admin: 03/05/22 16:39 Dose: 4 mg Sodium Chloride (Sodium Chloride 0.9% 10 Ml Flush Syringe) 10 ml IV BID YFN Last Admin: 03/06/22 09:09 Dose: 10 ml Sodium Chloride (Sodium Chloride 0.9% 10 Ml Flush Syringe) 10 ml IV PRN PRN PRN Reason: LINE FLUSH Review of Systems All systems: negative (As per HPI) Exam - Constitutional Vitals: Temp Pulse Resp BP Pulse Ox 99.1 F 104 H 18 99/70 100 03/06/22 06:18 03/06/22 06:18 03/06/22 06:18 03/06/22 06:18 03/06/22 07:09 General appearance: Present: no acute distress - EENT Eyes: Present: PERRL, EOM intact ENT: hearing intact - Respiratory Respiratory effort: normal Respiratory: bilateral: CTA - Cardiovascular Rhythm: regular Heart Sounds: Present: S1 & S2 - Abdominal General gastrointestinal: Present: soft, tender (Mild, epigastric) Results - Labs CBC & Chem 7: 03/06/22 05:17 03/06/22 05:17 Labs: Abnormal lab results 03/05/22 03/06/22 03/06/22 Range/Units 16:42 05:17 05:17 Hgb 15.3 H (10.1-14.3) gm/dl Hct 46.2 H (30.3-42.9) % Lymphocytes % (Manual) 11.0 L (13.4-35.0) % Lymphocytes # (Manual) 0.6 L (1.2-5.4) K/mm3 Carbon Dioxide 19 L (22-30) mmol/L BUN 25 H (7-17) mg/dL Glucose 481 H (65-100) mg/dL POC Glucose (70-105) mg/dL Calcium 8.1 L (8.4-10.2) mg/dL AST 213 H (5-40) units/L ALT 286 H (7-56) units/L Alkaline Phosphatase 175 H (35-129) units/L Total Protein 6.2 L (6.3-8.2) g/dL Albumin 3.3 L (3.9-5) g/dL Amylase 1650 H 1360 H (27-131) units/L Lipase 1929 H (13-60) units/L 06/30/ Range/Units 07:52 Hgb (10.1-14.3) gm/dl Hct (30.3-42.9) % Lymphocytes % (Manual) (13.4-35.0) % Lymphocytes # (Manual) (1.2-5.4) K/mm3 Carbon Dioxide (22-30) mmol/L BUN (7-17) mg/dL Glucose (65-100) mg/dL POC Glucose 437 H (70-105) mg/dL Calcium (8.4-10.2) mg/dL AST (5-40) units/L ALT (7-56) units/L Alkaline Phosphatase (35-129) units/L Total Protein (6.3-8.2) g/dL Albumin (3.9-5) g/dL Amylase (27-131) units/L Lipase (13-60) units/L - Imaging and Cardiology CT scan - abdomen: report reviewed (Mild interstitial pancreatitis with swelling of the head.) Assessment and Plan 1. Biliary pancreatitiswith abnormal liver enzymes. Most consistent with retained common bile duct stones causing pancreatitis. This is somewhat perplexing as patient had abnormal liver enzymes 4 years ago, prior to her cholecystectomy, and it is unclear whether this was addressed or not at the time of surgery or subsequently. Patient is clinically better. Check MRCP today. If appropriate, ERCP tomorrow Keep n.p.o. for now.
--- NOTE | 2022-03-06 12:40 | Magnetic Resonance Report ---
MRI ABDOMEN WITHOUT CONTRAST INDICATION / CLINICAL INFORMATION: Gallstone pancreatitis PATIENT UNABLE TO FOLLOW BREATHING INSTRUCTION, BEST POSSIBLE STUDY, BREATHING MOTION.. TECHNIQUE: Multiplanar, multisequence series were obtained through the abdomen without contrast. COMPARISON: CT abdomen and pelvis with contrast and HIDA scan from 03/05/2022. FINDINGS: The study is limited by motion artifact. LOWER CHEST: No significant abnormality. LIVER: No significant abnormality. GALLBLADDER: Not visualized. BILE DUCTS: No biliary ductal dilatation. No distinct choledocholithiasis. PANCREAS: There is edema of the pancreatic head, consistent with the provided history of pancreatitis . No suspicious pancreatic lesion. No significant pancreatic ductal dilatation. Peripancreatic fluid is again seen. SPLEEN: No significant abnormality. ADRENALS: No significant abnormality. RIGHT KIDNEY / URETER: Unchanged upper pole right renal cyst. No other significant abnormality. LEFT KIDNEY / URETER: Unchanged upper pole left renal cysts. No other significant abnormality. STOMACH / VISUALIZED BOWEL: No significant abnormality. PERITONEUM: Moderate amount of free fluid is noted, increased compared to the prior CT. No free air. No fluid collection. LYMPH NODES: No significant adenopathy. AORTA / ARTERIES: No significant abnormality. IVC / VEINS: No significant abnormality. ADDITIONAL FINDINGS: None. SKELETAL SYSTEM: No significant abnormality. IMPRESSION: 1. Limited exam due to motion artifact without significant biliary ductal dilatation or distinct chol edocholithiasis. 2. MRI evidence of pancreatitis without an associated acute complication. Interval increase in amount of free fluid in the abdomen compared to the CT performed yesterday. Signer Name: Doroteo Acosta MD Signed: 03/06/2022 12:35 PM Workstation Name: [id number]
--- NOTE | 2022-03-06 13:45 | Progress Note ---
Assessment and Plan Although pt is denying hx of surgery she has incsions cw with a LC. CT findings cw pancreatitis. HIDA scan without extravastion of bille as would be expected for a ruptured gb. Plan tx for pancreatitis. CLD, iv fluid and iv ab. Subjective Date of service: 03/06/22 Patient Reports: Positive: feels better, still having pain Objective Vital Signs - 12hr 03/06/22 03/06/22 06:18 07:09 Temperature 99.1 F Pulse Rate 104 H Respiratory 18 Rate Blood Pressure 99/70 O2 Sat by Pulse 99 100 Oximetry - Abdomen soft, tender - Labs 03/06/22 05:17 03/06/22 05:17 Diabetes panel 03/06/22 Range/Units 05:17 Sodium 140 (137-145) mmol/L Potassium 3.9 (3.6-5.0) mmol/L Chloride 103.6 (98-107) mmol/L Carbon Dioxide 19 L (22-30) mmol/L BUN 25 H (7-17) mg/dL Creatinine 1.0 D (0.6-1.2) mg/dL Glucose 481 H (65-100) mg/dL Calcium 8.1 L (8.4-10.2) mg/dL AST 213 H (5-40) units/L ALT 286 H (7-56) units/L Alkaline Phosphatase 175 H (35-129) units/L Total Protein 6.2 L (6.3-8.2) g/dL Albumin 3.3 L (3.9-5) g/dL Calcium panel 03/06/22 Range/Units 05:17 Calcium 8.1 L (8.4-10.2) mg/dL Albumin 3.3 L (3.9-5) g/dL Pituitary panel 03/06/22 Range/Units 05:17 Sodium 140 (137-145) mmol/L Potassium 3.9 (3.6-5.0) mmol/L Chloride 103.6 (98-107) mmol/L Carbon Dioxide 19 L (22-30) mmol/L BUN 25 H (7-17) mg/dL Creatinine 1.0 D (0.6-1.2) mg/dL Glucose 481 H (65-100) mg/dL Calcium 8.1 L (8.4-10.2) mg/dL Adrenal panel 03/06/22 Range/Units 05:17 Sodium 140 (137-145) mmol/L Potassium 3.9 (3.6-5.0) mmol/L Chloride 103.6 (98-107) mmol/L Carbon Dioxide 19 L (22-30) mmol/L BUN 25 H (7-17) mg/dL Creatinine 1.0 D (0.6-1.2) mg/dL Glucose 481 H (65-100) mg/dL Calcium 8.1 L (8.4-10.2) mg/dL Total Bilirubin 1.20 (0.1-1.2) mg/dL AST 213 H (5-40) units/L ALT 286 H (7-56) units/L Alkaline Phosphatase 175 H (35-129) units/L Total Protein 6.2 L (6.3-8.2) g/dL Albumin 3.3 L (3.9-5) g/dL
[2022-03-06] MEDS: D5W/0.9% NACL 1,000 ML IV SCH (15:52)
[2022-03-06] MEDS: HYDROmorphone 1 MG/1 ML INJ IV PRN (21:19)
[2022-03-07] MEDS: INSULIN LISPRO 100 UNIT/ML SUB-Q SCH ×5 (00:45→23:39)
[2022-03-07] MEDS: D5W/0.9% NACL 1,000 ML IV SCH ×2 (02:41→10:04)
[2022-03-07] MEDS: HYDROmorphone 1 MG/1 ML INJ IV PRN ×5 (02:59→22:06)
--- NOTE | 2022-03-07 08:57 | Progress Note ---
Assessment and Plan - Patient Problems (1) Acute pancreatitis Current Visit: Yes Status: Acute Qualifiers: Acute pancreatitis complication: unspecified Plan to address problem: Lipase is 5728 Amylase is 1650 There is inflammation of the pancreatic head Clinical picture and imaging patient is more consistent with acute pancreatitis. Possibly gallstone induced. Common biliary duct is dilated. May need ERCP. (2) History of cholecystectomy Current Visit: Yes Status: Chronic Plan to address problem: Patient states she had cholecystectomy in the past Poor historian In spite of relative at bedside who speaks Urdu--- patient is not able to stay definitively whether she had cholecystectomy or not (3) Transaminitis Current Visit: Yes Status: Acute Plan to address problem: AST is 521 and ALT is 307 More than 400 from the hospital on induced pancreatitis We will keep the patient n.p.o. IV fluids Surgery consulted GI consulted (4) DVT prophylaxis Current Visit: Yes Status: Acute Plan to address problem: On heparin and GI prophylaxis (5) Advance care planning Current Visit: Yes Status: Acute Plan to address problem: Through the rectal disease education conducted, care plan discussed, diagnosis discussed, prognosis discussed. Patient is full code. Patient acknowledges understanding and agreement with care plan. +30 minutes. Subjective Date of service: 03/06/22 Principal diagnosis: Acute pancreatitis Interval history: Symptomatically better Pain is less Objective - Constitutional Vitals: Vital Signs - 12hr 03/06/22 03/06/22 03/07/22 21:05 22:46 02:59 Temperature 97.7 F Pulse Rate 119 H 104 H 117 H Respiratory 20 Rate Blood Pressure Blood Pressure 106/70 108/72 [Left] Blood Pressure 109/71 [Right] O2 Sat by Pulse 96 Oximetry 03/07/22 03/07/22 04:52 08:00 Temperature 98.4 F Pulse Rate 101 H Respiratory 18 Rate Blood Pressure 98/65 Blood Pressure [Left] Blood Pressure [Right] O2 Sat by Pulse 99 96 Oximetry General appearance: Present: no acute distress, well-nourished - EENT Eyes: PERRL, EOM intact ENT: hearing intact, clear oral mucosa Ears: bilateral: normal - Neck Neck: supple, normal ROM - Respiratory Respiratory effort: normal Respiratory: bilateral: CTA - Breasts Breasts: normal - Cardiovascular Heart rate: 78 Rhythm: regular Heart Sounds: Present: S1 & S2. Absent: gallop, rub Extremities: pulses intact, No edema, normal color, Full ROM - Gastrointestinal General gastrointestinal: Present: soft, non-tender, non-distended, normal bowel sounds Localized gastrointestinal: tender: diffuse - Genitourinary Female genitourinary: normal - Integumentary Integumentary: clear, warm, dry - Musculoskeletal Musculoskeletal: 1, strength equal bilaterally - Neurologic Neurologic: moves all extremities - Psychiatric Psychiatric: memory intact, appropriate mood/affect, intact judgment & insight - Labs CBC & Chem 7: 03/06/22 05:17 03/06/22 05:17 Labs: Abnormal lab results 03/06/22 03/06/22 03/06/22 Range/Units 14:04 17:37 23:30 POC Glucose 389 H 366 H 355 H (70-105) mg/dL 03/07/22 Range/Units 04:52 POC Glucose 331 H (70-105) mg/dL
--- NOTE | 2022-03-07 09:54 | Gastroenterology Progress Note ---
<DOMINGA BRIZUELA - Last Filed: 03/07/22 09:52> Assessment and Plan 1. Pancreatitis - MRCP negative, will cancel ERCP that was scheduled for today - Plan for outpatient ERCP in 2-3 weeks after pancreatitis has resolved - Okay to start clear liquid diet, advance as tolerated - Continue pain management Subjective Date of service: 03/07/22 Principal diagnosis: Acute pancreatitis Interval history: Pt seen and examined. Lying comfortably in bed. Son present at bedside and provides translation. Pt states that she is still experiencing RUQ pain that is exacerbated by movement. Discussed MRCP results w/ pt and son. Informed them that we will not plan for ERCP today. Pt states that she would like to try clear liquids today. Objective - Constitutional Vitals: Temp Pulse Resp BP Pulse Ox 98.4 F 101 H 18 98/65 96 03/07/22 04:52 03/07/22 04:52 03/07/22 04:52 03/07/22 04:52 03/07/22 08:00 General appearance: no acute distress - Gastrointestinal General gastrointestinal: Present: soft, tender, non-distended - Neurologic Neurological: alert and oriented x3 - Labs CBC & Chem 7: 03/06/22 05:17 03/06/22 05:17 Labs: Laboratory Results - last 24 hr 03/06/22 03/06/22 03/06/22 14:04 17:37 23:30 POC Glucose 389 H 366 H 355 H 03/07/22 04:52 POC Glucose 331 H <YANE YANEZ - Last Filed: 03/07/22 14:36> Assessment and Plan Patient seen and examined. Spoke with her boyfriend, Mr. Chan, to translate. Patient is feeling better. Still has mild right upper quadrant discomfort. Pancreatic enzymes are improved today. MRCP was read as negative and reviewed again with radiology to ensure that it was negative for retained common bile duct stones. Advance diet as tolerated. Check for other etiologies for abnormal liver enzymes. I still believe that an ERCP with sphincterotomy is appropriate since this appears to be a biliary pancreatitis. If there are no stones in the common bile duct, patient may well have papillary stenosis, or possibly outlet dysfunction due to a duodenal diverticulum. Doing an ERCP without a clear stone in the bile duct in the setting of acute pancreatitis is relatively contraindicated since I can significantly exacerbate the pancreatitis. Therefore, I would prefer to let her pancreatitis cool down, exclude other causes of liver disease, and then pr oceed with an ERCP and sphincterotomy after 2 or 3 weeks. This was explained to the patient's boyfriend, to translate to her. Objective - Constitutional Vitals: Temp Pulse Resp BP Pulse Ox 98.6 F 105 H 16 101/60 98 03/07/22 11:46 03/07/22 11:46 03/07/22 11:46 03/07/22 11:46 03/07/22 11:46 - Labs CBC & Chem 7: 03/06/22 05:17 03/06/22 05:17 Labs: Laboratory Results - last 24 hr 03/06/22 03/06/22 03/07/22 17:37 23:30 04:52 POC Glucose 366 H 355 H 331 H Amylase Lipase Hepatitis A IgM Ab Hep Bs Antigen Hep B Core IgM Ab Hepatitis C Antibody 03/07/22 03/07/22 03/07/22 09:28 10:05 11:44 POC Glucose 310 H Amylase 382 H Lipase 377 H Hepatitis A IgM Ab Non-reactive Hep Bs Antigen Non-reactive Hep B Core IgM Ab Non-reactive Hepatitis C Antibody Non-reactive
[2022-03-07] MEDS: HEPARIN 5,000 UNIT/1 ML VIAL SUB-Q SCH ×2 (10:05→22:06)
[2022-03-07] MEDS: FAMOTIDINE 20 MG/2 ML INJ IV SCH ×2 (10:05→22:06)
[2022-03-07 13:21] LABS: Hepatitis B Surface Antigen Non-Reactive (Negative); Hepatitis C Virus Antibody Non-Reactive (NonReactive)
[2022-03-08] MEDS: D5W/0.9% NACL 1,000 ML IV SCH (01:31)
[2022-03-08] MEDS: HYDROmorphone 1 MG/1 ML INJ IV PRN ×3 (01:35→15:19)
[2022-03-08] MEDS: INSULIN LISPRO 100 UNIT/ML SUB-Q SCH ×4 (05:18→22:58)
[2022-03-08] MEDS: HEPARIN 5,000 UNIT/1 ML VIAL SUB-Q SCH ×2 (09:45→22:41)
[2022-03-08] MEDS: FAMOTIDINE 20 MG/2 ML INJ IV SCH ×2 (09:45→22:42)
[2022-03-08] MEDS ORDERED: SENNOSIDES/DOCUSATE SODIUM 8.6/50 MG TAB PO PRN (11:53)
[2022-03-08 13:41] LABS: Alanine Aminotransferase 93 units/L (7-56); Albumin 2.4 g/dL (3.9-5); Blood Urea Nitrogen 9 mg/dL (7-17); Calcium 8.2 mg/dL (8.4-10.2); Hemolysis Index 6
[2022-03-08 13:42] LABS: BUN/Creatinine Ratio 18
--- NOTE | 2022-03-08 15:48 | Progress Note ---
Assessment and Plan 03/08/2022 1. Pancreatitislipase normalized. Once right lower quadrant pain etiology elucidated, may advance diet to soft, and if tolerated, discharged home 2. Abnormal liver enzymesnearly normalized. Etiology unclear. Follow-up on h epatitis serologies, and if normal, I would plan on doing an ERCP as an outpatient, as noted below. 3. Right-sided abdominal painnew onset. This appears to be different from her pancreatitis pain. It may well be related to constipation. Other process such as appendicitis also needs to be excluded. Discussed with Dr. De Oliveira. Obtain CT scan If negative, laxative to see if this will clear the symptoms. If CT negative, recheck liver enzymes and CBC. 03/07/2022 - patient seen and examined. Spoke with her boyfriend, Mr. Chan, to translate. Patient is feeling better. Still has mild right upper quadrant discomfort. Pancreatic enzymes are improved today. MRCP was read as negative and reviewed again with radiology to ensure that it was negative for retained common bile duct stones. Advance diet as tolerated. Check for other etiologies for abnormal liver enzymes. I still believe that an ERCP with sphincterotomy is appropriate since this appears to be a biliary pancreatitis. If there are no stones in the common bile duct, patient may well have papillary stenosis, or possibly outlet dysfunction due to a duodenal diverticulum. Doing an ERCP without a clear stone in the bile duct in the setting of acute pancreatitis is relatively contraindicated since I can significantly exacerbate the pancreatitis. Therefore, I would prefer to let her pancreatitis cool down, exclude other causes of liver disease, and then proceed with an ERCP and sphincterotomy after 2 or 3 weeks. This was explained to the patient's boyfriend, to translate to her. Subjective Date of service: 03/08/22 Principal diagnosis: Acute pancreatitis Interval history: Patient complaining of right lower quadrant/right abdominal pain. Per RN, appears to be colicky in nature. She was given laxatives and had 2 bowel moveme nts. No nausea or vomiting. No fever Objective - Constitutional Vitals: Vital Signs - 12hr 03/08/22 05:00 Temperature 98.6 F Pulse Rate 104 H Respiratory 20 Rate Blood Pressure 119/67 [Left] O2 Sat by Pulse 95 Oximetry General appearance: Present: mild distress (She was in pain when I initially walked in, but during the course of my visit with her, she noticeably improved.) - EENT Eyes: PERRL, EOM intact ENT: hearing intact - Respiratory Respiratory effort: normal - Gastrointestinal General gastrointestinal: Present: soft, tender (And right side with mild guarding and right lower quad), normal bowel sounds - Labs CBC & Chem 7: 03/06/22 05:17 03/08/22 12:46 Labs: Abnormal lab results 03/07/22 03/07/22 03/08/22 Range/Units 17:12 23:33 05:08 Sodium (137-145) mmol/L Potassium (3.6-5.0) mmol/L Carbon Dioxide (22-30) mmol/L Creatinine (0.6-1.2) mg/dL Glucose (65-100) mg/dL POC Glucose 326 H 400 H 306 H (70-105) mg/dL Calcium (8.4-10.2) mg/dL ALT (7-56) units/L Total Protein (6.3-8.2) g/dL Albumin (3.9-5) g/dL Lipase (13-60) units/L 03/08/22 03/08/22 Range/Units 11:17 12:46 Sodium 134 L (137-145) mmol/L Potassium 3.3 L (3.6-5.0) mmol/L Carbon Dioxide 21 L (22-30) mmol/L Creatinine 0.5 L (0.6-1.2) mg/dL Glucose 357 H (65-100) mg/dL POC Glucose 366 H (70-105) mg/dL Calcium 8.2 L (8.4-10.2) mg/dL ALT 93 H (7-56) units/L Total Protein 5.5 L (6.3-8.2) g/dL Albumin 2.4 L (3.9-5) g/dL Lipase 78 H (13-60) units/L Medications & Allergies - Medications Allergies/Adverse Reactions: Allergies No Known Allergies Allergy (Verified 03/05/22 09:37) Home Medications: Home Medications Medication Instructions Recorded Confirmed Last Taken Type Omeprazole 40 mg PO DAILY 03/06/22 03/06/22 Unknown History Active Medications: Generic Name Dose Route Start Last Admin Trade Name Freq PRN Reason Stop Dose Admin Acetaminophen 650 mg 03/05/22 16:30 Acetaminophen 325 Mg Tab PO Q4H PRN Pain MILD(1-3)/Fever >100.5/PFEIFFER Famotidine 20 mg 03/05/22 22:00 03/08/22 09:45 Famotidine 20 Mg/2 Ml Inj IV 20 mg BID YFN Administration Heparin Sodium (Porcine) 5,000 unit 03/05/22 17:00 03/08/22 09:45 Heparin 5,000 Unit/1 Ml Vial SUB-Q 5,000 unit Q12HR YFN Administration Hydromorphone HCl 1 mg 03/05/22 17:00 03/08/22 15:19 Hydromorphone 1 Mg/1 Ml Inj IV 1 mg Q3H PRN Administration Pain , Severe (7-10) Dextrose/Sodium Chloride 1,000 mls @ 100 mls/hr 03/05/22 17:00 03/08/22 01:31 D5ns IV 100 mls/hr DIRECT YFN Administration Insulin Human Lispro 0 unit 03/06/22 07:00 03/08/22 13:26 Insulin Lispro 100 Unit/Ml SUB-Q 10 unit Q6HR YFN Administration Protocol Metoclopramide HCl 10 mg 03/05/22 17:00 Metoclopramide 10 Mg/2 Ml Inj IV Q6H PRN Nausea And Vomiting Morphine Sulfate 2 mg 03/05/22 17:00 03/06/22 15:47 Morphine 2 Mg/1 Ml Inj IV 2 mg Q4H PRN Administration Pain, Moderate (4-6) Ondansetron HCl 4 mg 03/05/22 17:00 03/05/22 16:39 Ondansetron 4 Mg/2 Ml Inj IV 4 mg Q3H PRN Administration Nausea And Vomiting Senna/Docusate Sodium 2 tab 03/08/22 11:53 Sennosides/Docusate Sodium 8.6/50 Mg Tab PO Q12H PRN Laxative Effect Sodium Chloride 10 ml 03/05/22 16:30 03/08/22 09:45 Sodium Chloride 0.9% 10 Ml Flush Syringe IV 10 ml BID YFN Administration Sodium Chloride 10 ml 03/05/22 17:00 Sodium Chloride 0.9% 10 Ml Flush Syringe IV PRN PRN LINE FLUSH
--- NOTE | 2022-03-08 16:58 | Progress Note ---
Assessment and Plan 56 yo F with acute pancreatitis, likely biliary etiology Pt stable. LFTs and Lipase trending down. Discussed with patient and her daughter over telephone. Patient had lap gallbladder surgery in February 2019 at [facility]. Based on her description of the procedure, she may have undergone subtotal CCY?? Plan: 1. adv diet as larry - FLD in am 2. gentle IVF 3. prn pain control 4. OOB/ambulate 5. Request Op records from [facility] - notified neonatal intensive care unit nurse 6. GI on board - recs appreciated 7. Further recs pending review of [facility] records. Thank you, please call with questions. Subjective Date of service: 03/08/22 Narrative: Pt seen and examined. c/o RUQ abdominal pain that is well controlled with pain medications. No n/v. Larry CLD. NO f/c. Objective Vital Signs - 12hr 03/08/22 03/08/22 05:00 08:00 Temperature 98.6 F Pulse Rate 104 H Respiratory 20 Rate Blood Pressure 119/67 [Left] O2 Sat by Pulse 95 94 Oximetry - General physical appearance Narrative Exam: Gen: AAOx3. NAD CV: S1, S2+ Resp: even and unlabored Abd: soft, ND, mild RUQ TTP. Well healed lap surgical scars Ext: no c/c/e - Labs 03/06/22 05:17 03/08/22 12:46 Diabetes panel 03/08/22 Range/Units 12:46 Sodium 134 L (137-145) mmol/L Potassium 3.3 L (3.6-5.0) mmol/L Chloride 101.5 (98-107) mmol/L Carbon Dioxide 21 L (22-30) mmol/L BUN 9 (7-17) mg/dL Creatinine 0.5 L (0.6-1.2) mg/dL Glucose 357 H (65-100) mg/dL Calcium 8.2 L (8.4-10.2) mg/dL AST 30 (5-40) units/L ALT 93 H (7-56) units/L Alkaline Phosphatase 103 (35-129) units/L Total Protein 5.5 L (6.3-8.2) g/dL Albumin 2.4 L (3.9-5) g/dL Calcium panel 03/08/22 Range/Units 12:46 Calcium 8.2 L (8.4-10.2) mg/dL Albumin 2.4 L (3.9-5) g/dL Pituitary panel 03/08/22 Range/Units 12:46 Sodium 134 L (137-145) mmol/L Potassium 3.3 L (3.6-5.0) mmol/L Chloride 101.5 (98-107) mmol/L Carbon Dioxide 21 L (22-30) mmol/L BUN 9 (7-17) mg/dL Creatinine 0.5 L (0.6-1.2) mg/dL Glucose 357 H (65-100) mg/dL Calcium 8.2 L (8.4-10.2) mg/dL Adrenal panel 03/08/22 Range/Units 12:46 Sodium 134 L (137-145) mmol/L Potassium 3.3 L (3.6-5.0) mmol/L Chloride 101.5 (98-107) mmol/L Carbon Dioxide 21 L (22-30) mmol/L BUN 9 (7-17) mg/dL Creatinine 0.5 L (0.6-1.2) mg/dL Glucose 357 H (65-100) mg/dL Calcium 8.2 L (8.4-10.2) mg/dL Total Bilirubin 1.20 (0.1-1.2) mg/dL AST 30 (5-40) units/L ALT 93 H (7-56) units/L Alkaline Phosphatase 103 (35-129) units/L Total Protein 5.5 L (6.3-8.2) g/dL Albumin 2.4 L (3.9-5) g/dL
--- NOTE | 2022-03-08 17:41 | Cat Scan Report ---
CT abdomen pelvis wo con INDICATION / CLINICAL INFORMATION: Right upper quadrant pain. TECHNIQUE: Axial CT imaging of abdomen and pelvis was obtained without contrast. Coronal and sagittal reformatte d imaging obtained and reviewed. All CT scans at this location are performed using CT dose reduction for ALARA by means of automated exposure control. COMPARISON: Prior CT abdomen/pelvis 03/05/2022 FINDINGS: CT abdomen was performed without IV or oral contrast. This limits evaluation of findings in the right upper quadrant as well as comparison with prior contrasted study from 03/05/2022. For noncontrast exam, the liver, spleen, and adrenal glands all appear grossly unremarkable. There co ntinues to be fluid within the right upper quadrant including Morison's pouch as noted on the prior s tudy. The amount of fluid does appear to be increased and is seen tracking down the right paracolic g utter on today's exam. Pancreas is ill-defined especially the pancreatic head consistent with history of acute pancreatitis. Full evaluation of the pancreas is not possible without IV contrast. Abdominal aorta is grossly unremarkable. Bilateral renal cysts are again noted. CT pelvis without contrast is grossly unremarkable other than free fluid tracking down the right para colic gutter. No pelvic mass or focal inflammatory change noted. GI tract is within normal limits. Visualized lung bases show small bilateral pleural effusions with bibasilar atelectasis. These findin gs are new. No acute osseous abnormality noted. IMPRESSION: 1. Exam limited by lack of IV contrast. 2. There is increasing fluid throughout the right upper quadrant and right paracolic gutter compared to recent CT of 03/05/2022. 2. Pancreas is difficult to evaluate but there remains findings suggestive of acute pancreatitis prim arily involving the pancreatic head. 3. Interval development of small bilateral pleural effusions and bibasilar atelectasis. Signer Name: Hoda Lamar MD Signed: 03/08/2022 5:37 PM Workstation Name: [id number]
[2022-03-08] MEDS: MORPHINE 2 MG/1 ML INJ IV PRN (22:28)
[2022-03-09] MEDS: HYDROmorphone 1 MG/1 ML INJ IV PRN ×3 (01:48→19:31)
[2022-03-09] MEDS: D5W/0.9% NACL 1,000 ML IV SCH ×2 (02:00→17:15)
[2022-03-09] MEDS: ACETAMINOPHEN 325 MG TAB PO PRN ×2 (05:00→21:55)
[2022-03-09] MEDS: INSULIN LISPRO 100 UNIT/ML SUB-Q SCH ×3 (06:39→17:16)
[2022-03-09 07:13] LABS: Hematocrit 32.1 % (30.3-42.9); Hemoglobin 10.7 gm/dl (10.1-14.3); Mean Corpuscular HGB Conc 33 % (30-34); Mean Corpuscular Volume 94 fl (79-97); Platelet Count 117 K/mm3 (140-440); Red Cell Distribution Width 14.3 % (13.2-15.2)
[2022-03-09 07:27] LABS: Alanine Aminotransferase 68 units/L (7-56); Albumin 2.3 g/dL (3.9-5); Blood Urea Nitrogen 6 mg/dL (7-17); Calcium 8.3 mg/dL (8.4-10.2); Hemolysis Index 3
[2022-03-09 07:34] LABS: BUN/Creatinine Ratio 15
--- NOTE | 2022-03-09 08:05 | Gastroenterology Progress Note ---
Assessment and Plan pancreatitis clinically improving and LFT's continue their improvement, neg MRCP, therefore more likely than not patient had de shanice cholelithiasis that caused gallstone pancreatitis then passed. Regarding fluid / ascites, patient's pain still severe so I recommend paracentesis to r/o pancreatic ascites (leakage of pancreatic juices due to a disrupted pancreatic duct) Patient with significant hypokalemia, recommend replacement - Patient Problems (1) Right lower quadrant abdominal pain Current Visit: Yes Status: Acute (2) Ascites Current Visit: Yes Status: Acute (3) Acute pancreatitis Current Visit: Yes Status: Acute Qualifiers: Acute pancreatitis complication: unspecified (4) Transaminitis Current Visit: Yes Status: Acute (5) History of cholecystectomy Current Visit: Yes Status: Chronic Subjective Date of service: 03/09/22 Principal diagnosis: Acute pancreatitis Interval history: present at bedside helping with translation Patient still with severe abdominal pain in the right hemiabdomen, constant, severe, sharp, no alleviating factors, worse with palpation Objective - Constitutional Vitals: Temp Pulse Resp BP Pulse Ox 99.2 F 98 H 16 126/70 93 03/09/22 04:37 03/09/22 04:37 03/09/22 04:37 03/09/22 04:37 03/09/22 04:37 General appearance: other (Clearly and abdominal pain) - EENT Eyes: EOM intact ENT: hearing intact - Neck Neck: supple - Respiratory Respiratory effort: normal - Cardiovascular Rhythm: regular - Gastrointestinal General gastrointestinal: Present: soft, tender - Integumentary Integumentary: Present: dry - Musculoskeletal Musculoskeletal: normal - Neurologic Neurological: alert and oriented x3 - Psychiatric Psychiatric: appropriate mood/affect - Labs CBC & Chem 7: 03/09/22 06:12 03/09/22 06:12 Labs: Laboratory Results - last 24 hr 03/08/22 03/08/22 03/08/22 11:17 12:46 16:12 WBC RBC Hgb Hct MCV MCH MCHC RDW Plt Count Sodium 134 L Potassium 3.3 L Chloride 101.5 Carbon Dioxide 21 L Anion Gap 15 BUN 9 Creatinine 0.5 L Estimated GFR > 60 BUN/Creatinine Ratio 18 Glucose 357 H POC Glucose 366 H 222 H Hemoglobin A1c Calcium 8.2 L Total Bilirubin 1.20 AST 30 ALT 93 H Alkaline Phosphatase 103 Total Protein 5.5 L Albumin 2.4 L Albumin/Globulin Ratio 0.8 Lipase 78 H 03/08/22 03/09/22 03/09/22 21:26 01:41 05:53 WBC RBC Hgb Hct MCV MCH MCHC RDW Plt Count Sodium Potassium Chloride Carbon Dioxide Anion Gap BUN Creatinine Estimated GFR BUN/Creatinine Ratio Glucose POC Glucose 250 H 288 H 213 H Hemoglobin A1c Calcium Total Bilirubin AST ALT Alkaline Phosphatase Total Protein Albumin Albumin/Globulin Ratio Lipase 03/09/22 03/09/22 03/09/22 06:12 06:12 06:12 WBC 5.1 RBC 3.40 L Hgb 10.7 Hct 32.1 MCV 94 MCH 31 MCHC 33 RDW 14.3 Plt Count 117 L Sodium 137 Potassium 2.5 L* D Chloride 101.9 Carbon Dioxide 24 Anion Gap 14 BUN 6 L Creatinine 0.4 L Estimated GFR > 60 BUN/Creatinine Ratio 15 Glucose 248 H POC Glucose Hemoglobin A1c 14.0 H Calcium 8.3 L Total Bilirubin 1.00 AST 21 ALT 68 H Alkaline Phosphatase 93 Total Protein 5.5 L Albumin 2.3 L Albumin/Globulin Ratio 0.7 Lipase 43
[2022-03-09] MEDS: HEPARIN 5,000 UNIT/1 ML VIAL SUB-Q SCH ×2 (09:24→21:55)
[2022-03-09] MEDS: FAMOTIDINE 20 MG/2 ML INJ IV SCH ×2 (09:24→21:55)
[2022-03-09] MEDS ORDERED: POTASSIUM CHLORIDE ER 20 MEQ TAB PO SCH ×2 (10:00→13:00)
--- NOTE | 2022-03-09 15:19 | Progress Note ---
Assessment and Plan - Patient Problems (1) Acute pancreatitis Current Visit: Yes Status: Acute Qualifiers: Acute pancreatitis complication: unspecified Plan to address problem: Lipase is 5728 Amylase is 1650 There is inflammation of the pancreatic head Clinical picture and imaging patient is more consistent with acute pancreatitis. Possibly gallstone induced. Common biliary duct is dilated. May need ERCP. (2) History of cholecystectomy Current Visit: Yes Status: Chronic Plan to address problem: Patient states she had cholecystectomy in the past Poor historian In spite of relative at bedside who speaks Yoruba--- patient is not able to stay definitively whether she had cholecystectomy or not (3) Transaminitis Current Visit: Yes Status: Acute Plan to address problem: AST is 521 and ALT is 307 More than 400 from the hospital on induced pancreatitis We will keep the patient n.p.o. IV fluids Surgery consulted GI consulted (4) DVT prophylaxis Current Visit: Yes Status: Acute Plan to address problem: On heparin and GI prophylaxis (5) Advance care planning Current Visit: Yes Status: Acute Plan to address problem: Through the rectal disease education conducted, care plan discussed, diagnosis discussed, prognosis discussed. Patient is full code. Patient acknowledges understanding and agreement with care plan. +30 minutes. Subjective Date of service: 03/07/22 Principal diagnosis: Acute pancreatitis Interval history: Symptomatically better Pain is less Objective - Constitutional Vitals: Vital Signs - 12hr 03/09/22 03/09/22 04:37 12:28 Temperature 99.2 F 98.9 F Pulse Rate 98 H 96 H Respiratory 16 16 Rate Blood Pressure 126/70 Blood Pressure 134/73 [Right] O2 Sat by Pulse 93 95 Oximetry General appearance: Present: no acute distress, well-nourished - EENT Eyes: PERRL, EOM intact ENT: hearing intact, clear oral mucosa Ears: bilateral: normal - Neck Neck: supple, normal ROM - Respiratory Respiratory effort: normal Respiratory: bilateral: CTA - Breasts Breasts: normal - Cardiovascular Heart rate: 78 Rhythm: regular Heart Sounds: Present: S1 & S2. Absent: gallop, rub Extremities: pulses intact, No edema, normal color, Full ROM - Gastrointestinal General gastrointestinal: Present: soft, non-tender, non-distended, normal bowel sounds - Genitourinary Female genitourinary: normal - Integumentary Integumentary: clear, warm, dry - Musculoskeletal Musculoskeletal: 1, strength equal bilaterally - Neurologic Neurologic: moves all extremities - Psychiatric Psychiatric: memory intact, appropriate mood/affect, intact judgment & insight - Labs CBC & Chem 7: 03/11/22 03:06 03/11/22 03:06 Labs: Abnormal lab results 03/08/22 03/08/22 03/09/22 Range/Units 16:12 21:26 01:41 RBC (3.65-5.03) M/mm3 Plt Count (140-440) K/mm3 Potassium (3.6-5.0) mmol/L BUN (7-17) mg/dL Creatinine (0.6-1.2) mg/dL Glucose (65-100) mg/dL POC Glucose 222 H 250 H 288 H (70-105) mg/dL Hemoglobin A1c (4-6) % Calcium (8.4-10.2) mg/dL ALT (7-56) units/L Total Protein (6.3-8.2) g/dL Albumin (3.9-5) g/dL 03/09/22 03/09/22 03/09/22 Range/Units 05:53 06:12 06:12 RBC 3.40 L (3.65-5.03) M/mm3 Plt Count 117 L (140-440) K/mm3 Potassium 2.5 L* D (3.6-5.0) mmol/L BUN 6 L (7-17) mg/dL Creatinine 0.4 L (0.6-1.2) mg/dL Glucose 248 H (65-100) mg/dL POC Glucose 213 H (70-105) mg/dL Hemoglobin A1c (4-6) % Calcium 8.3 L (8.4-10.2) mg/dL ALT 68 H (7-56) units/L Total Protein 5.5 L (6.3-8.2) g/dL Albumin 2.3 L (3.9-5) g/dL 03/09/22 03/09/22 03/09/22 Range/Units 06:12 07:59 11:22 RBC (3.65-5.03) M/mm3 Plt Count (140-440) K/mm3 Potassium (3.6-5.0) mmol/L BUN (7-17) mg/dL Creatinine (0.6-1.2) mg/dL Glucose (65-100) mg/dL POC Glucose 242 H 305 H (70-105) mg/dL Hemoglobin A1c 14.0 H (4-6) % Calcium (8.4-10.2) mg/dL ALT (7-56) units/L Total Protein (6.3-8.2) g/dL Albumin (3.9-5) g/dL
--- NOTE | 2022-03-09 15:19 | Progress Note ---
Assessment and Plan - Patient Problems (1) Acute pancreatitis Current Visit: Yes Status: Acute Qualifiers: Acute pancreatitis complication: unspecified Plan to address problem: Lipase was 5728--- now near normal Amylase was 1650--no near normal There is inflammation of the pancreatic head Clinical picture and imaging patient is more consistent with acute pancreatitis. Possibly gallstone induced. Common biliary duct is dilated. MRCP normal GI follow-up appreciated No ERCP (2) History of cholecystectomy Current Visit: Yes Status: Chronic Plan to address problem: Patient states she had cholecystectomy in the past Poor historian In spite of relative at bedside who speaks Pashto--- patient is not able to stay definitively whether she had cholecystectomy or not (3) Transaminitis Current Visit: Yes Status: Acute Plan to address problem: AST is 521 and ALT is 307 More than 400 from the hospital on induced pancreatitis We will keep the patient n.p.o. IV fluids Surgery consulted GI consulted (4) DVT prophylaxis Current Visit: Yes Status: Acute Plan to address problem: On heparin and GI prophylaxis (5) Advance care planning Current Visit: Yes Status: Acute Plan to address problem: Through the rectal disease education conducted, care plan discussed, diagnosis discussed, prognosis discussed. Patient is full code. Patient acknowledges understanding and agreement with care plan. +30 minutes. Subjective Date of service: 03/08/22 Principal diagnosis: Acute pancreatitis Interval history: Symptomatically better Pain is less 03/08/22 Continues to have pain right flank LFTs and amylase and lipase have come back to normal MRCP was negative Possible gallstone which is passed through GI follow-up appreciated Objective - Constitutional Vitals: Vital Signs - 12hr 03/09/22 03/09/22 04:37 12:28 Temperature 99.2 F 98.9 F Pulse Rate 98 H 96 H Respiratory 16 16 Rate Blood Pressure 126/70 Blood Pressure 134/73 [Right] O2 Sat by Pulse 93 95 Oximetry General appearance: Present: no acute distress, well-nourished - EENT Eyes: PERRL, EOM intact ENT: hearing intact, clear oral mucosa Ears: bilateral: normal - Neck Neck: supple, normal ROM - Respiratory Respiratory effort: normal Respiratory: bilateral: CTA - Breasts Breasts: normal - Cardiovascular Heart rate: 78 Rhythm: regular Heart Sounds: Present: S1 & S2. Absent: gallop, rub Extremities: pulses intact, No edema, normal color, Full ROM - Gastrointestinal General gastrointestinal: Present: soft, tender, non-distended, normal bowel sounds - Genitourinary Female genitourinary: normal - Integumentary Integumentary: clear, warm, dry - Musculoskeletal Musculoskeletal: 1, strength equal bilaterally - Neurologic Neurologic: moves all extremities - Psychiatric Psychiatric: memory intact, appropriate mood/affect, intact judgment & insight - Labs CBC & Chem 7: 03/11/22 03:06 03/11/22 03:06 Labs: Abnormal lab results 03/08/22 03/08/22 03/09/22 Range/Units 16:12 21:26 01:41 RBC (3.65-5.03) M/mm3 Plt Count (140-440) K/mm3 Potassium (3.6-5.0) mmol/L BUN (7-17) mg/dL Creatinine (0.6-1.2) mg/dL Glucose (65-100) mg/dL POC Glucose 222 H 250 H 288 H (70-105) mg/dL Hemoglobin A1c (4-6) % Calcium (8.4-10.2) mg/dL ALT (7-56) units/L Total Protein (6.3-8.2) g/dL Albumin (3.9-5) g/dL 03/09/22 03/09/22 03/09/22 Range/Units 05:53 06:12 06:12 RBC 3.40 L (3.65-5.03) M/mm3 Plt Count 117 L (140-440) K/mm3 Potassium 2.5 L* D (3.6-5.0) mmol/L BUN 6 L (7-17) mg/dL Creatinine 0.4 L (0.6-1.2) mg/dL Glucose 248 H (65-100) mg/dL POC Glucose 213 H (70-105) mg/dL Hemoglobin A1c (4-6) % Calcium 8.3 L (8.4-10.2) mg/dL ALT 68 H (7-56) units/L Total Protein 5.5 L (6.3-8.2) g/dL Albumin 2.3 L (3.9-5) g/dL 03/09/22 03/09/22 03/09/22 Range/Units 06:12 07:59 11:22 RBC (3.65-5.03) M/mm3 Plt Count (140-440) K/mm3 Potassium (3.6-5.0) mmol/L BUN (7-17) mg/dL Creatinine (0.6-1.2) mg/dL Glucose (65-100) mg/dL POC Glucose 242 H 305 H (70-105) mg/dL Hemoglobin A1c 14.0 H (4-6) % Calcium (8.4-10.2) mg/dL ALT (7-56) units/L Total Protein (6.3-8.2) g/dL Albumin (3.9-5) g/dL
--- NOTE | 2022-03-09 15:25 | Progress Note ---
Assessment and Plan - Patient Problems (1) Acute pancreatitis Current Visit: Yes Status: Acute Qualifiers: Acute pancreatitis complication: unspecified Plan to address problem: Lipase was 5728--- now near normal Amylase is 1650--- now near normal There is inflammation of the pancreatic head Clinical picture and imaging patient is more consistent with acute pancreatitis. Possibly gallstone induced. Common biliary duct is dilated. MRCP negative Paracentesis suggestive of GI (2) Hypokalemia Current Visit: Yes Status: Acute Plan to address problem: Supplemented (3) History of cholecystectomy Current Visit: Yes Status: Chronic Plan to address problem: Patient states she had cholecystectomy in the past Poor historian In spite of relative at bedside who speaks Turkish--- patient is not able to stay definitively whether she had cholecystectomy or not (4) Transaminitis Current Visit: Yes Status: Acute Plan to address problem: AST is 521 and ALT is 307 More than 400 from the hospital on induced pancreatitis We will keep the patient n.p.o. IV fluids Surgery consulted GI consulted (5) DVT prophylaxis Current Visit: Yes Status: Acute Plan to address problem: On heparin and GI prophylaxis (6) Advance care planning Current Visit: Yes Status: Acute Plan to address problem: Through the rectal disease education conducted, care plan discussed, diagnosis discussed, prognosis discussed. Patient is full code. Patient acknowledges understanding and agreement with care plan. +30 minutes. Subjective Date of service: 03/09/22 Principal diagnosis: Acute pancreatitis Interval history: Symptomatically better Pain right flank persists 03/08/22 Continues to have pain right flank LFTs and amylase and lipase have come back to normal MRCP was negative Possible gallstone which is passed through GI follow-up appreciated 03/09/2022 Right flank pain ( Hypokalemia Transaminases normal Amylase lipase near normal Objective - Constitutional Vitals: Vital Signs - 12hr 03/09/22 03/09/22 04:37 12:28 Temperature 99.2 F 98.9 F Pulse Rate 98 H 96 H Respiratory 16 16 Rate Blood Pressure 126/70 Blood Pressure 134/73 [Right] O2 Sat by Pulse 93 95 Oximetry General appearance: Present: no acute distress, well-nourished - EENT Eyes: PERRL, EOM intact ENT: hearing intact, clear oral mucosa Ears: bilateral: normal - Neck Neck: supple, normal ROM - Respiratory Respiratory effort: normal Respiratory: bilateral: CTA - Breasts Breasts: normal - Cardiovascular Heart rate: 78 Rhythm: regular Heart Sounds: Present: S1 & S2. Absent: gallop, rub Extremities: pulses intact, No edema, normal color, Full ROM - Gastrointestinal General gastrointestinal: Present: soft, tender, non-distended, normal bowel sounds Localized gastrointestinal: tender: RUQ, guarding: RUQ - Genitourinary Female genitourinary: normal - Integumentary Integumentary: clear, warm, dry - Musculoskeletal Musculoskeletal: 1, strength equal bilaterally - Neurologic Neurologic: moves all extremities - Psychiatric Psychiatric: memory intact, appropriate mood/affect, intact judgment & insight - Labs CBC & Chem 7: 03/11/22 03:06 03/11/22 03:06 Labs: Abnormal lab results 03/08/22 03/08/22 03/09/22 Range/Units 16:12 21:26 01:41 RBC (3.65-5.03) M/mm3 Plt Count (140-440) K/mm3 Potassium (3.6-5.0) mmol/L BUN (7-17) mg/dL Creatinine (0.6-1.2) mg/dL Glucose (65-100) mg/dL POC Glucose 222 H 250 H 288 H (70-105) mg/dL Hemoglobin A1c (4-6) % Calcium (8.4-10.2) mg/dL ALT (7-56) units/L Total Protein (6.3-8.2) g/dL Albumin (3.9-5) g/dL 03/09/22 03/09/22 03/09/22 Range/Units 05:53 06:12 06:12 RBC 3.40 L (3.65-5.03) M/mm3 Plt Count 117 L (140-440) K/mm3 Potassium 2.5 L* D (3.6-5.0) mmol/L BUN 6 L (7-17) mg/dL Creatinine 0.4 L (0.6-1.2) mg/dL Glucose 248 H (65-100) mg/dL POC Glucose 213 H (70-105) mg/dL Hemoglobin A1c (4-6) % Calcium 8.3 L (8.4-10.2) mg/dL ALT 68 H (7-56) units/L Total Protein 5.5 L (6.3-8.2) g/dL Albumin 2.3 L (3.9-5) g/dL 03/09/22 03/09/22 03/09/22 Range/Units 06:12 07:59 11:22 RBC (3.65-5.03) M/mm3 Plt Count (140-440) K/mm3 Potassium (3.6-5.0) mmol/L BUN (7-17) mg/dL Creatinine (0.6-1.2) mg/dL Glucose (65-100) mg/dL POC Glucose 242 H 305 H (70-105) mg/dL Hemoglobin A1c 14.0 H (4-6) % Calcium (8.4-10.2) mg/dL ALT (7-56) units/L Total Protein (6.3-8.2) g/dL Albumin (3.9-5) g/dL
[2022-03-09] MEDS: MORPHINE 2 MG/1 ML INJ IV PRN (17:15)
--- NOTE | 2022-03-09 17:16 | Progress Note ---
Assessment and Plan 56 yo F with acute pancreatitis, likely biliary etiology - hx of CCY at [facility], possible subtotal? Pt stable. LFTs and Lipase continue to trend down. Plan: 1. adv diet as larry 2. gentle IVF 3. prn pain control 4. OOB/ambulate 5. Op records requested from [facility] - have not received yet 6. GI on board - recs appreciated. Agree with paracentesis 7. Further recs pending review of [facility] records. Thank you, please call with questions. Subjective Date of service: 03/09/22 Narrative: Pt seen and examined. c/o RUQ pain. No n/v. Larry diet. Afebrile. Objective Vital Signs - 12hr 03/09/22 03/09/22 12:28 16:31 Temperature 98.9 F 99.0 F Pulse Rate 96 H 100 H Respiratory 16 18 Rate Blood Pressure 153/76 Blood Pressure 134/73 [Right] O2 Sat by Pulse 95 97 Oximetry - General physical appearance Narrative Exam: Gen: AAOx3. NAD CV: S1, S2+ Resp: even and unlabored Abd: soft, ND, RUQ TTP. Well healed lap surgical scars Ext: no c/c/e - Labs 03/09/22 06:12 03/09/22 06:12 Diabetes panel 03/09/22 03/09/22 Range/Units 06:12 06:12 Sodium 137 (137-145) mmol/L Potassium 2.5 L* D (3.6-5.0) mmol/L Chloride 101.9 (98-107) mmol/L Carbon Dioxide 24 (22-30) mmol/L BUN 6 L (7-17) mg/dL Creatinine 0.4 L (0.6-1.2) mg/dL Glucose 248 H (65-100) mg/dL Hemoglobin A1c 14.0 H (4-6) % Calcium 8.3 L (8.4-10.2) mg/dL AST 21 (5-40) units/L ALT 68 H (7-56) units/L Alkaline Phosphatase 93 (35-129) units/L Total Protein 5.5 L (6.3-8.2) g/dL Albumin 2.3 L (3.9-5) g/dL Calcium panel 03/09/22 Range/Units 06:12 Calcium 8.3 L (8.4-10.2) mg/dL Albumin 2.3 L (3.9-5) g/dL Pituitary panel 03/09/22 Range/Units 06:12 Sodium 137 (137-145) mmol/L Potassium 2.5 L* D (3.6-5.0) mmol/L Chloride 101.9 (98-107) mmol/L Carbon Dioxide 24 (22-30) mmol/L BUN 6 L (7-17) mg/dL Creatinine 0.4 L (0.6-1.2) mg/dL Glucose 248 H (65-100) mg/dL Calcium 8.3 L (8.4-10.2) mg/dL Adrenal panel 03/09/22 Range/Units 06:12 Sodium 137 (137-145) mmol/L Potassium 2.5 L* D (3.6-5.0) mmol/L Chloride 101.9 (98-107) mmol/L Carbon Dioxide 24 (22-30) mmol/L BUN 6 L (7-17) mg/dL Creatinine 0.4 L (0.6-1.2) mg/dL Glucose 248 H (65-100) mg/dL Calcium 8.3 L (8.4-10.2) mg/dL Total Bilirubin 1.00 (0.1-1.2) mg/dL AST 21 (5-40) units/L ALT 68 H (7-56) units/L Alkaline Phosphatase 93 (35-129) units/L Total Protein 5.5 L (6.3-8.2) g/dL Albumin 2.3 L (3.9-5) g/dL
[2022-03-09] MEDS: INSULIN GLARGINE 100 UNITS/ML SUB-Q SCH (22:58)
[2022-03-10] MEDS: INSULIN LISPRO 100 UNIT/ML SUB-Q SCH ×5 (00:55→23:35)
[2022-03-10] MEDS: HYDROmorphone 1 MG/1 ML INJ IV PRN ×5 (04:19→21:33)
[2022-03-10] MEDS: D5W/0.9% NACL 1,000 ML IV SCH ×3 (04:22→23:35)
[2022-03-10 06:54] LABS: Basophils % (Auto) 0.4 % (0.0-1.8); Eosinophils % (Auto) 0.2 % (0.0-4.3); Hematocrit 33.2 % (30.3-42.9); Hemoglobin 10.8 gm/dl (10.1-14.3); Lymphocytes # (Auto) 0.9 K/mm3 (1.2-5.4); Lymphocytes % (Auto) 12.8 % (13.4-35.0); Mean Corpuscular HGB Conc 33 % (30-34); Mean Corpuscular Volume 95 fl (79-97); Monocytes # (Auto) 0.9 K/mm3 (0.0-0.8); Monocytes % (Auto) 12.4 % (0.0-7.3); Platelet Count 140 K/mm3 (140-440); Red Blood Count 3.51 M/mm3 (3.65-5.03); Red Cell Distribution Width 14.7 % (13.2-15.2)
[2022-03-10 07:15] LABS: Alanine Aminotransferase 49 units/L (7-56); Albumin 2.2 g/dL (3.9-5); Blood Urea Nitrogen 3 mg/dL (7-17); Calcium 8.1 mg/dL (8.4-10.2); Hemolysis Index 3
[2022-03-10 07:16] LABS: BUN/Creatinine Ratio 8
[2022-03-10] MEDS: POTASSIUM CHLORIDE 10 MEQ 10 MEQ/100 ML BAG IV SCH ×4 (09:16→12:00)
[2022-03-10] MEDS: POTASSIUM CHLORIDE ER 20 MEQ TAB PO SCH ×2 (10:19→11:41)
[2022-03-10] MEDS: FAMOTIDINE 20 MG TAB PO SCH ×2 (10:19→21:32)
[2022-03-10] MEDS: HEPARIN 5,000 UNIT/1 ML VIAL SUB-Q SCH ×2 (10:21→21:33)
--- NOTE | 2022-03-10 11:10 | Gastroenterology Progress Note ---
Assessment and Plan neg MRCP and normal LFT, therefore more likely than not patient had de shanice cholelithiasis that caused gallstone pancreatitis then passed. Regarding fluid / ascites, patient's pain still severe so I recommend paracentesis to r/o pancreatic ascites (leakage of pancreatic juices due to a disrupted pancreatic duct), I spoke with the patient's nurse, she does not have a ETA yet for patient to get the paracentesis Patient with significant hypokalemia, getting replacement I am adding on more laxatives to help with patient's constipation due to her pain medication - Patient Problems (1) Right lower quadrant abdominal pain Current Visit: Yes Status: Acute (2) Ascites Current Visit: Yes Status: Acute (3) Acute pancreatitis Current Visit: Yes Status: Acute Qualifiers: Acute pancreatitis complication: unspecified (4) Transaminitis Current Visit: Yes Status: Acute (5) History of cholecystectomy Current Visit: Yes Status: Chronic Subjective Date of service: 03/10/22 Principal diagnosis: Acute pancreatitis Interval history: Patient still with severe abdominal pain in the right hemiabdomen, constant, severe, sharp, no alleviating factors, worse with palpation Reports constipation though she does report passing hard stool but reports difficulty with passing gas. Also reports nausea Despite potassium repletion yesterday her potassium is very low, I spoke with her and she reports patient has IV and oral potassium ordered Objective - Constitutional Vitals: Temp Pulse Resp BP Pulse Ox 99.6 F 90 20 130/67 95 03/10/22 04:38 03/10/22 04:38 03/10/22 04:38 03/10/22 04:38 03/10/22 04:38 General appearance: no acute distress - EENT Eyes: EOM intact - Neck Neck: supple - Respiratory Respiratory effort: normal - Cardiovascular Rhythm: regular - Gastrointestinal General gastrointestinal: Present: soft, tender - Integumentary Integumentary: Present: dry - Musculoskeletal Musculoskeletal: normal - Labs CBC & Chem 7: 03/10/22 06:34 03/10/22 06:34 Labs: Laboratory Results - last 24 hr 03/09/22 03/09/22 03/09/22 11:22 17:12 22:52 WBC RBC Hgb Hct MCV MCH MCHC RDW Plt Count Lymph % (Auto) Coffey % (Auto) Eos % (Auto) Baso % (Auto) Lymph # (Auto) Coffey # (Auto) Eos # (Auto) Baso # (Auto) Seg Neutrophils % Seg Neutrophils # Sodium Potassium Chloride Carbon Dioxide Anion Gap BUN Creatinine Estimated GFR BUN/Creatinine Ratio Glucose POC Glucose 305 H 315 H 273 H Calcium Total Bilirubin AST ALT Alkaline Phosphatase Total Protein Albumin Albumin/Globulin Ratio Amylase 03/10/22 03/10/22 03/10/22 00:59 06:09 06:34 WBC 7.0 RBC 3.51 L Hgb 10.8 Hct 33.2 MCV 95 MCH 31 MCHC 33 RDW 14.7 Plt Count 140 Lymph % (Auto) 12.8 L Coffey % (Auto) 12.4 H Eos % (Auto) 0.2 Baso % (Auto) 0.4 Lymph # (Auto) 0.9 L Coffey # (Auto) 0.9 H Eos # (Auto) 0.0 Baso # (Auto) 0.0 Seg Neutrophils % 74.2 H Seg Neutrophils # 5.2 Sodium Potassium Chloride Carbon Dioxide Anion Gap BUN Creatinine Estimated GFR BUN/Creatinine Ratio Glucose POC Glucose 297 H 256 H Calcium Total Bilirubin AST ALT Alkaline Phosphatase Total Protein Albumin Albumin/Globulin Ratio Amylase 03/10/22 06:34 WBC RBC Hgb Hct MCV MCH MCHC RDW Plt Count Lymph % (Auto) Coffey % (Auto) Eos % (Auto) Baso % (Auto) Lymph # (Auto) Coffey # (Auto) Eos # (Auto) Baso # (Auto) Seg Neutrophils % Seg Neutrophils # Sodium 137 Potassium 2.6 L* Chloride 100.7 Carbon Dioxide 25 Anion Gap 14 BUN 3 L Creatinine 0.4 L Estimated GFR > 60 BUN/Creatinine Ratio 8 Glucose 266 H POC Glucose Calcium 8.1 L Total Bilirubin 1.00 AST 16 ALT 49 Alkaline Phosphatase 87 Total Protein 5.4 L Albumin 2.2 L Albumin/Globulin Ratio 0.7 Amylase 53
[2022-03-10] MEDS: POLYETHYLENE GLYCOL 3350 17 GM POWDER PO SCH (11:41)
[2022-03-10] MEDS: ACETAMINOPHEN 325 MG TAB PO PRN (11:59)
--- NOTE | 2022-03-10 12:10 | Progress Note ---
Assessment and Plan - Patient Problems (1) Acute pancreatitis Current Visit: Yes Status: Acute Qualifiers: Acute pancreatitis complication: unspecified Plan to address problem: Lipase is 5728--came down to normal Amylase is 1650--- came down to normal There is inflammation of the pancreatic head Clinical picture and imaging patient is more consistent with acute pancreatitis. Possibly gallstone induced. Common biliary duct is dilated. MRCP normal Gallstone induced Transaminitis normal Per GI neg MRCP and normal LFT, therefore more likely that patient had de shanice cholelithiasis that caused gallstone pancreatitis then passed. Regarding fluid / ascites, patient's pain still severe so I recommend paracentesis to r/o pancreatic ascites (leakage of pancreatic juices due to a disrupted pancreatic duct), I spoke with the patient's nurse, she does not have a ETA yet for patient to get the paracentesis Possible paracentesis in a.m. because of the holidays (2) Hypokalemia Current Visit: Yes Status: Acute Plan to address problem: Supplemented (3) History of cholecystectomy Current Visit: Yes Status: Chronic Plan to address problem: Patient states she had cholecystectomy in the past Poor historian In spite of relative at bedside who speaks Scottish--- patient is not able to stay definitively whether she had cholecystectomy or not (4) Transaminitis Current Visit: Yes Status: Acute Plan to address problem: AST is 521 and ALT is 307 More than 400 from the hospital on induced pancreatitis We will keep the patient n.p.o. IV fluids Surgery consulted GI consulted (5) DVT prophylaxis Current Visit: Yes Status: Acute Plan to address problem: On heparin and GI prophylaxis (6) Advance care planning Current Visit: Yes Status: Acute Plan to address problem: Through the rectal disease education conducted, care plan discussed, diagnosis discussed, prognosis discussed. Patient is full code. Patient acknowledges understanding and agreement with care plan. +30 minutes. Subjective Date of service: 03/10/22 Principal diagnosis: Acute pancreatitis Interval history: Symptomatically better Pain is less 03/08/22 Continues to have pain right flank LFTs and amylase and lipase have come back to normal MRCP was negative Possible gallstone which is passed through GI follow-up appreciated 03/09/2022 Right flank pain Hypokalemia Transaminases normal Amylase lipase near normal 03/10/2022 Hypokalemia persists Left flank pain persists For paracentesis in a.m. Objective - Constitutional Vitals: Vital Signs - 12hr 03/10/22 04:38 Temperature 99.6 F Pulse Rate 90 Respiratory 20 Rate Blood Pressure 130/67 O2 Sat by Pulse 95 Oximetry General appearance: Present: no acute distress, well-nourished - EENT Eyes: PERRL, EOM intact ENT: hearing intact, clear oral mucosa Ears: bilateral: normal - Neck Neck: supple, normal ROM - Respiratory Respiratory effort: normal Respiratory: bilateral: CTA - Breasts Breasts: normal - Cardiovascular Heart rate: 78 Rhythm: regular Heart Sounds: Present: S1 & S2. Absent: gallop, rub Extremities: pulses intact, No edema, normal color, Full ROM - Gastrointestinal General gastrointestinal: Present: soft, tender, distended, normal bowel sounds Localized gastrointestinal: tender: RUQ, guarding: RUQ - Genitourinary Female genitourinary: normal - Integumentary Integumentary: clear, warm, dry - Musculoskeletal Musculoskeletal: 1, strength equal bilaterally - Neurologic Neurologic: moves all extremities - Psychiatric Psychiatric: memory intact, appropriate mood/affect, intact judgment & insight - Labs CBC & Chem 7: 03/11/22 03:06 03/11/22 03:06 Labs: Abnormal lab results 03/09/22 03/09/22 03/10/22 Range/Units 17:12 22:52 00:59 RBC (3.65-5.03) M/mm3 Lymph % (Auto) (13.4-35.0) % Bartholomew % (Auto) (0.0-7.3) % Lymph # (Auto) (1.2-5.4) K/mm3 Bartholomew # (Auto) (0.0-0.8) K/mm3 Seg Neutrophils % (40.0-70.0) % Potassium (3.6-5.0) mmol/L BUN (7-17) mg/dL Creatinine (0.6-1.2) mg/dL Glucose (65-100) mg/dL POC Glucose 315 H 273 H 297 H (70-105) mg/dL Calcium (8.4-10.2) mg/dL Total Protein (6.3-8.2) g/dL Albumin (3.9-5) g/dL 03/10/22 03/10/22 03/10/22 Range/Units 06:09 06:34 06:34 RBC 3.51 L (3.65-5.03) M/mm3 Lymph % (Auto) 12.8 L (13.4-35.0) % Bartholomew % (Auto) 12.4 H (0.0-7.3) % Lymph # (Auto) 0.9 L (1.2-5.4) K/mm3 Bartholomew # (Auto) 0.9 H (0.0-0.8) K/mm3 Seg Neutrophils % 74.2 H (40.0-70.0) % Potassium 2.6 L* (3.6-5.0) mmol/L BUN 3 L (7-17) mg/dL Creatinine 0.4 L (0.6-1.2) mg/dL Glucose 266 H (65-100) mg/dL POC Glucose 256 H (70-105) mg/dL Calcium 8.1 L (8.4-10.2) mg/dL Total Protein 5.4 L (6.3-8.2) g/dL Albumin 2.2 L (3.9-5) g/dL 03/10/22 Range/Units 11:22 RBC (3.65-5.03) M/mm3 Lymph % (Auto) (13.4-35.0) % Bartholomew % (Auto) (0.0-7.3) % Lymph # (Auto) (1.2-5.4) K/mm3 Bartholomew # (Auto) (0.0-0.8) K/mm3 Seg Neutrophils % (40.0-70.0) % Potassium (3.6-5.0) mmol/L BUN (7-17) mg/dL Creatinine (0.6-1.2) mg/dL Glucose (65-100) mg/dL POC Glucose 278 H (70-105) mg/dL Calcium (8.4-10.2) mg/dL Total Protein (6.3-8.2) g/dL Albumin (3.9-5) g/dL
[2022-03-10] MEDS: INSULIN GLARGINE 100 UNITS/ML SUB-Q SCH (21:33)
[2022-03-10] MEDS: IBUPROFEN 600 MG TAB PO PRN (23:35)
[2022-03-11 00:32] LABS: Mucus,Urine FEW /HPF; RBC,Urine < 1.0 /HPF (0.0-6.0)
[2022-03-11 00:34] LABS: Color,Urine Yellow (Yellow)
[2022-03-11 00:35] LABS: Bilirubin,Urine Negative (Negative); Blood,Urine Trace (Negative)
[2022-03-11 03:18] LABS: Hematocrit 30.1 % (30.3-42.9); Hemoglobin 10.1 gm/dl (10.1-14.3); Mean Corpuscular HGB Conc 33 % (30-34); Mean Corpuscular Volume 93 fl (79-97); Platelet Count 153 K/mm3 (140-440); Red Blood Count 3.24 M/mm3 (3.65-5.03); Red Cell Distribution Width 15.1 % (13.2-15.2)
[2022-03-11 03:34] LABS: Alanine Aminotransferase 39 units/L (7-56); Blood Urea Nitrogen 3 mg/dL (7-17); Calcium 8.2 mg/dL (8.4-10.2); Hemolysis Index 16
[2022-03-11 04:07] LABS: BUN/Creatinine Ratio 8
[2022-03-11 04:11] LABS: Band Neutrophils # (Manual) 0.7 K/mm3; Basophils % (Manual) 0 % (0.0-1.8); Eosinophils % (Manual) 0 % (0.0-4.3); Total Cells Counted 100
[2022-03-11 04:15] LABS: RBC Morphology Normal
[2022-03-11 04:16] LABS: Platelet Estimate Consistent w Auto
[2022-03-11] MEDS: INSULIN LISPRO 100 UNIT/ML SUB-Q SCH ×3 (05:31→18:18)
[2022-03-11] MEDS ORDERED: POTASSIUM CHLORIDE ER 20 MEQ TAB PO ONE (06:25)
[2022-03-11] MEDS: POTASSIUM CHLORIDE 10 MEQ 10 MEQ/100 ML BAG IV SCH ×4 (07:29→10:13)
--- NOTE | 2022-03-11 07:43 | Gastroenterology Progress Note ---
Assessment and Plan Reviewing orders my order for Paracentesis on 03/09 is no longer active, with new order placed today. Please ensure when para is performed that they send all all labs I requested Patient with significant hypokalemia, getting replacement, gradually improving, I recommend check mag as if low mag that can impair potassium repletion neg MRCP and normal LFT, therefore more likely than not patient had de shanice cholelithiasis that caused gallstone pancreatitis then passed. Regarding fluid / ascites, patient's pain still severe so I recommend paracentesis to r/o pancreatic ascites (leakage of pancreatic juices due to a disrupted pancreatic duct), I spoke with the patient's nurse, she does not have a ETA yet for patient to get the paracentesis Still with constipation, continue MiraLAX - Patient Problems (1) Right lower quadrant abdominal pain Current Visit: Yes Status: Acute (2) Ascites Current Visit: Yes Status: Acute (3) Acute pancreatitis Current Visit: Yes Status: Acute Qualifiers: Acute pancreatitis complication: unspecified (4) Transaminitis Current Visit: Yes Status: Acute (5) History of cholecystectomy Current Visit: Yes Status: Chronic Subjective Date of service: 03/11/22 Principal diagnosis: Acute pancreatitis Interval history: Patient still with mild improvement in abdominal pain now just moderate to severe in the right hemiabdomen, constant, severe, sharp, no alleviating factors, worse with palpation Reports constipation still, did not have a bowel movement since I saw her yester day Objective - Constitutional Vitals: Temp Pulse Resp BP Pulse Ox 97.8 F 87 18 120/75 100 03/11/22 04:51 03/11/22 04:51 03/11/22 04:51 03/11/22 04:51 03/11/22 07:11 General appearance: no acute distress - EENT Eyes: EOM intact - Neck Neck: supple - Respiratory Respiratory effort: normal - Cardiovascular Rhythm: regular - Gastrointestinal General gastrointestinal: Present: soft, tender (Right-sided tenderness to palpation) - Integumentary Integumentary: Present: dry - Psychiatric Psychiatric: appropriate mood/affect - Labs CBC & Chem 7: 03/11/22 03:06 03/11/22 03:06 Labs: Laboratory Results - last 24 hr 03/10/22 03/10/22 03/10/22 11:22 16:40 21:26 WBC RBC Hgb Hct MCV MCH MCHC RDW Plt Count Add Manual Diff Total Counted Seg Neuts % (Manual) Band Neutrophils % Lymphocytes % (Manual) Reactive Lymphs % (Man) Monocytes % (Manual) Eosinophils % (Manual) Basophils % (Manual) Metamyelocytes % Myelocytes % Promyelocytes % Blast Cells % Nucleated RBC % Seg Neutrophils # Man Band Neutrophils # Lymphocytes # (Manual) Abs React Lymphs (Man) Monocytes # (Manual) Eosinophils # (Manual) Basophils # (Manual) Metamyelocytes # Myelocytes # Promyelocytes # Blast Cells # WBC Morphology Hypersegmented Neuts Hyposegmented Neuts Hypogranular Neuts Smudge Cells Toxic Granulation Toxic Vacuolation Dohle Bodies Pelger-Huet Anomaly [place]ash[place] Rods Platelet Estimate Clumped Platelets Plt Clumps, EDTA Large Platelets Giant Platelets Platelet Satelliting Plt Morphology Comment RBC Morphology Dimorphic RBCs Polychromasia Hypochromasia Poikilocytosis Anisocytosis Microcytosis Macrocytosis Spherocytes Pappenheimer Bodies Sickle Cells Target Cells Tear Drop Cells Ovalocytes Helmet Cells [place] Bodies [place] Rings Phani Cells Bite Cells Crenated Cell Elliptocytes Acanthocytes (Spur) Rouleaux Hemoglobin C Crystals Schistocytes Malaria parasites Rosalio Bodies Hem Pathologist Commnt Sodium Potassium Chloride Carbon Dioxide Anion Gap BUN Creatinine Estimated GFR BUN/Creatinine Ratio Glucose POC Glucose 278 H 285 H 292 H Calcium Total Bilirubin AST ALT Alkaline Phosphatase Total Protein Albumin Albumin/Globulin Ratio Urine Color Urine Turbidity Urine pH Ur Specific [place] Urine Protein Urine Glucose (UA) Urine Ketones Urine Blood Urine Nitrite Ur Reducing Substances Urine Bilirubin Urine Ictotest Urine Urobilinogen Ur Leukocyte Esterase Urine WBC (Auto) Urine RBC (Auto) U Epithel Cells (Auto) Urine Mucus 03/10/22 03/11/22 03/11/22 23:16 00:13 03:06 WBC 9.9 RBC 3.24 L Hgb 10.1 Hct 30.1 L MCV 93 MCH 31 MCHC 33 RDW 15.1 Plt Count 153 Add Manual Diff Complete Total Counted 100 Seg Neuts % (Manual) 88.0 H Band Neutrophils % 7.0 Lymphocytes % (Manual) 0 L Reactive Lymphs % (Man) 0 Monocytes % (Manual) 4.0 Eosinophils % (Manual) 0 Basophils % (Manual) 0 Metamyelocytes % 1.0 Myelocytes % 0 Promyelocytes % 0 Blast Cells % 0 Nucleated RBC % Not Reportable Seg Neutrophils # Man 8.7 H Band Neutrophils # 0.7 Lymphocytes # (Manual) 0.0 L Abs React Lymphs (Man) 0.0 Monocytes # (Manual) 0.4 Eosinophils # (Manual) 0.0 Basophils # (Manual) 0.0 Metamyelocytes # 0.1 Myelocytes # 0.0 Promyelocytes # 0.0 Blast Cells # 0.0 WBC Morphology Not Reportable Hypersegmented Neuts Not Reportable Hyposegmented Neuts Not Reportable Hypogranular Neuts Not Reportable Smudge Cells Not Reportable Toxic Granulation Not Reportable Toxic Vacuolation Not Reportable Dohle Bodies Not Reportable Pelger-Huet Anomaly Not Reportable [place] Rods Not Reportable Platelet Estimate Consistent w auto Clumped Platelets Not Reportable Plt Clumps, EDTA Not Reportable Large Platelets Not Reportable Giant Platelets Not Reportable Platelet Satelliting Not Reportable Plt Morphology Comment Not Reportable RBC Morphology Normal Dimorphic RBCs Not Reportable Polychromasia Not Reportable Hypochromasia Not Reportable Poikilocytosis Not Reportable Anisocytosis Not Reportable Microcytosis Not Reportable Macrocytosis Not Reportable Spherocytes Not Reportable Pappenheimer Bodies Not Reportable Sickle Cells Not Reportable Target Cells Not Reportable Tear Drop Cells Not Reportable Ovalocytes Not Reportable Helmet Cells Not Reportable [place] Bodies Not Reportable [place] Rings Not Reportable [place] Cells Not Reportable Bite Cells Not Reportable Crenated Cell Not Reportable Elliptocytes Not Reportable Acanthocytes (Spur) Not Reportable Rouleaux Not Reportable Hemoglobin C Crystals Not Reportable Schistocytes Not Reportable Malaria parasites Not Reportable Rosalio Bodies Not Reportable Hem Pathologist Commnt No Sodium Potassium Chloride Carbon Dioxide Anion Gap BUN Creatinine Estimated GFR BUN/Creatinine Ratio Glucose POC Glucose 289 H Calcium Total Bilirubin AST ALT Alkaline Phosphatase Total Protein Albumin Albumin/Globulin Ratio Urine Color Yellow Urine Turbidity Clear Urine pH 7.0 Ur Specific [place] 1.010 Urine Protein 100 mg/dl Urine Glucose (UA) 4+ Urine Ketones 2+ Urine Blood Trace Urine Nitrite Negative Ur Reducing Substances Not Reportable Urine Bilirubin Negative Urine Ictotest Not Reportable Urine Urobilinogen 8.0 H Ur Leukocyte Esterase Negative Urine WBC (Auto) 1.0 Urine RBC (Auto) < 1.0 U Epithel Cells (Auto) 3.0 Urine Mucus Few 07/05/22 07/05/22 03:06 05:27 WBC RBC Hgb Hct MCV MCH MCHC RDW Plt Count Add Manual Diff Total Counted Seg Neuts % (Manual) Band Neutrophils % Lymphocytes % (Manual) Reactive Lymphs % (Man) Monocytes % (Manual) Eosinophils % (Manual) Basophils % (Manual) Metamyelocytes % Myelocytes % Promyelocytes % Blast Cells % Nucleated RBC % Seg Neutrophils # Man Band Neutrophils # Lymphocytes # (Manual) Abs React Lymphs (Man) Monocytes # (Manual) Eosinophils # (Manual) Basophils # (Manual) Metamyelocytes # Myelocytes # Promyelocytes # Blast Cells # WBC Morphology Hypersegmented Neuts Hyposegmented Neuts Hypogranular Neuts Smudge Cells Toxic Granulation Toxic Vacuolation Dohle Bodies Pelger-Huet Anomaly Lash[place] Rods Platelet Estimate Clumped Platelets Plt Clumps, EDTA Large Platelets Giant Platelets Platelet Satelliting Plt Morphology Comment RBC Morphology Dimorphic RBCs Polychromasia Hypochromasia Poikilocytosis Anisocytosis Microcytosis Macrocytosis Spherocytes Pappenheimer Bodies Sickle Cells Target Cells Tear Drop Cells Ovalocytes Helmet Cells [place] Bodies [place] Rings [place] Cells Bite Cells Crenated Cell Elliptocytes Acanthocytes (Spur) Rouleaux Hemoglobin C Crystals Schistocytes Malaria parasites Rosalio Bodies Hem Pathologist Commnt Sodium 138 Potassium 3.2 L D Chloride 103.0 Carbon Dioxide 27 Anion Gap 11 BUN 3 L Creatinine 0.4 L Estimated GFR > 60 BUN/Creatinine Ratio 8 Glucose 285 H POC Glucose 208 H Calcium 8.2 L Total Bilirubin 0.80 AST 18 ALT 39 Alkaline Phosphatase 91 Total Protein 5.4 L Albumin 2.0 L Albumin/Globulin Ratio 0.6 Urine Color Urine Turbidity Urine pH Ur Specific [place] Urine Protein Urine Glucose (UA) Urine Ketones Urine Blood Urine Nitrite Ur Reducing Substances Urine Bilirubin Urine Ictotest Urine Urobilinogen Ur Leukocyte Esterase Urine WBC (Auto) Urine RBC (Auto) U Epithel Cells (Auto) Urine Mucus
--- NOTE | 2022-03-11 08:56 | XRay Report ---
CHEST 1 VIEW 03/11/2022 7:53 AM INDICATION / CLINICAL INFORMATION: ELEVATED TEMP/ COUGH. COMPARISON: 06/09/2012 FINDINGS: SUPPORT DEVICES: None. HEART / MEDIASTINUM: No significant abnormality. LUNGS / PLEURA: Trace right pleural effusion is suspected. The lungs are clear otherwise. No pneumoth orax. ADDITIONAL FINDINGS: No significant additional findings. IMPRESSION: 1. Trace right pleural effusion Signer Name: Mahad Lan Jr, MD Signed: 03/11/2022 8:51 AM Workstation Name: [id number]
[2022-03-11] MEDS: HEPARIN 5,000 UNIT/1 ML VIAL SUB-Q SCH ×2 (09:02→22:31)
[2022-03-11] MEDS: FAMOTIDINE 20 MG TAB PO SCH ×2 (09:02→22:31)
[2022-03-11] MEDS: POLYETHYLENE GLYCOL 3350 17 GM POWDER PO SCH (09:02)
[2022-03-11] MEDS: D5W/0.9% NACL 1,000 ML IV SCH ×2 (10:15→20:42)
--- NOTE | 2022-03-11 10:49 | Progress Note ---
Assessment and Plan Assessment and plan: Acute pancreatitis Hypokalemia Transaminitis 03/08/22 Continues to have pain right flank LFTs and amylase and lipase have come back to normal MRCP was negative Possible gallstone which is passed through GI follow-up appreciated 03/09/2022 Right flank pain Hypokalemia Transaminases normal Amylase lipase near normal 03/10/2022 Hypokalemia persists Left flank pain persists For paracentesis in a.m. 03/11/2022 Patient with neg MRCP and normal LFT, therefore more likely that patient had de shanice cholelithiasis that caused gallstone pancreatitis then passed. Regarding fluid / ascites, patient's pain still severe so GI recommends paracentesis to r/o pancreatic ascites (leakage of pancreatic juices due to a disrupted pancreatic duct) History Interval history: No new issues overnight. Hospitalist Physical - Constitutional Vitals: Temp Pulse Resp BP Pulse Ox 97.8 F 87 18 120/75 100 03/11/22 04:51 03/11/22 04:51 03/11/22 04:51 03/11/22 04:51 03/11/22 07:11 General appearance: Present: no acute distress, well-nourished - EENT Eyes: Present: PERRL, EOM intact ENT: hearing intact, clear oral mucosa, dentition normal - Neck Neck: Present: supple, normal ROM - Respiratory Respiratory effort: normal Respiratory: bilateral: CTA - Cardiovascular Rhythm: regular Heart Sounds: Present: S1 & S2. Absent: gallop, rub - Extremities Extremities: no ischemia, No edema, Full ROM - Abdominal General gastrointestinal: soft, non-tender, non-distended, normal bowel sounds - Integumentary Integumentary: Present: clear, warm, dry - Neurologic Neurologic: CNII-XII intact, moves all extremities Results - Labs CBC & Chem 7: 03/11/22 03:06 03/11/22 03:06 Labs: Laboratory Last Values WBC 9.9 K/mm3 (4.5-11.0) 03/11/22 03:06 RBC 3.24 M/mm3 (3.65-5.03) L 03/11/22 03:06 Hgb 10.1 gm/dl (10.1-14.3) 03/11/22 03:06 Hct 30.1 % (30.3-42.9) L 03/11/22 03:06 MCV 93 fl (79-97) 03/11/22 03:06 MCH 31 pg (28-32) 03/11/22 03:06 MCHC 33 % (30-34) 03/11/22 03:06 RDW 15.1 % (13.2-15.2) 03/11/22 03:06 Plt Count 153 K/mm3 (140-440) 03/11/22 03:06 Lymph % (Auto) 12.8 % (13.4-35.0) L 03/10/22 06:34 [place] % (Auto) 12.4 % (0.0-7.3) H 03/10/22 06:34 Eos % (Auto) 0.2 % (0.0-4.3) 03/10/22 06:34 Baso % (Auto) 0.4 % (0.0-1.8) 03/10/22 06:34 Lymph # (Auto) 0.9 K/mm3 (1.2-5.4) L 03/10/22 06:34 [place] # (Auto) 0.9 K/mm3 (0.0-0.8) H 03/10/22 06:34 Eos # (Auto) 0.0 K/mm3 (0.0-0.4) 03/10/22 06:34 Baso # (Auto) 0.0 K/mm3 (0.0-0.1) 03/10/22 06:34 Add Manual Diff Complete 03/11/22 03:06 Total Counted 100 03/11/22 03:06 Seg Neutrophils % 74.2 % (40.0-70.0) H 03/10/22 06:34 Seg Neuts % (Manual) 88.0 % (40.0-70.0) H 03/11/22 03:06 Band Neutrophils % 7.0 % 03/11/22 03:06 Lymphocytes % (Manual) 0 % (13.4-35.0) L 03/11/22 03:06 Reactive Lymphs % (Man) 0 % 03/11/22 03:06 Monocytes % (Manual) 4.0 % (0.0-7.3) 03/11/22 03:06 Eosinophils % (Manual) 0 % (0.0-4.3) 03/11/22 03:06 Basophils % (Manual) 0 % (0.0-1.8) 03/11/22 03:06 Metamyelocytes % 1.0 % 03/11/22 03:06 Myelocytes % 0 % 03/11/22 03:06 Promyelocytes % 0 % 03/11/22 03:06 Blast Cells % 0 % 03/11/22 03:06 Nucleated RBC % Not Reportable 03/11/22 03:06 Seg Neutrophils # 5.2 K/mm3 (1.8-7.7) 03/10/22 06:34 Seg Neutrophils # Man 8.7 K/mm3 (1.8-7.7) H 03/11/22 03:06 Band Neutrophils # 0.7 K/mm3 03/11/22 03:06 Lymphocytes # (Manual) 0.0 K/mm3 (1.2-5.4) L 03/11/22 03:06 Abs React Lymphs (Man) 0.0 K/mm3 03/11/22 03:06 Monocytes # (Manual) 0.4 K/mm3 (0.0-0.8) 03/11/22 03:06 Eosinophils # (Manual) 0.0 K/mm3 (0.0-0.4) 03/11/22 03:06 Basophils # (Manual) 0.0 K/mm3 (0.0-0.1) 03/11/22 03:06 Metamyelocytes # 0.1 K/mm3 03/11/22 03:06 Myelocytes # 0.0 K/mm3 03/11/22 03:06 Promyelocytes # 0.0 K/mm3 03/11/22 03:06 Blast Cells # 0.0 K/mm3 03/11/22 03:06 WBC Morphology Not Reportable 03/11/22 03:06 Hypersegmented Neuts Not Reportable 03/11/22 03:06 Hyposegmented Neuts Not Reportable 03/11/22 03:06 Hypogranular Neuts Not Reportable 03/11/22 03:06 Smudge Cells Not Reportable 03/11/22 03:06 Toxic Granulation Not Reportable 03/11/22 03:06 Toxic Vacuolation Not Reportable 03/11/22 03:06 Dohle Bodies Not Reportable 03/11/22 03:06 Pelger-Huet Anomaly Not Reportable 03/11/22 03:06 Lashon Rods Not Reportable 03/11/22 03:06 Platelet Estimate Consistent w auto 03/11/22 03:06 Clumped Platelets Not Reportable 03/11/22 03:06 Plt Clumps, EDTA Not Reportable 03/11/22 03:06 Large Platelets Not Reportable 03/11/22 03:06 Giant Platelets Not Reportable 03/11/22 03:06 Platelet Satelliting Not Reportable 03/11/22 03:06 Plt Morphology Comment Not Reportable 03/11/22 03:06 RBC Morphology Normal 03/11/22 03:06 Dimorphic RBCs Not Reportable 03/11/22 03:06 Polychromasia Not Reportable 03/11/22 03:06 Hypochromasia Not Reportable 03/11/22 03:06 Poikilocytosis Not Reportable 03/11/22 03:06 Anisocytosis Not Reportable 03/11/22 03:06 Microcytosis Not Reportable 03/11/22 03:06 Macrocytosis Not Reportable 03/11/22 03:06 Spherocytes Not Reportable 03/11/22 03:06 Pappenheimer Bodies Not Reportable 03/11/22 03:06 Sickle Cells Not Reportable 03/11/22 03:06 Target Cells Not Reportable 03/11/22 03:06 Tear Drop Cells Not Reportable 03/11/22 03:06 Ovalocytes Not Reportable 03/11/22 03:06 Helmet Cells Not Reportable 03/11/22 03:[address] [place] [address] Bodies Not Reportable 03/11/22 03:06 [place] Rings Not Reportable 03/11/22 03:06 Phani Cells Not Reportable 03/11/22 03:06 Bite Cells Not Reportable 03/11/22 03:06 Crenated Cell Not Reportable 03/11/22 03:06 Elliptocytes Not Reportable 03/11/22 03:06 Acanthocytes (Spur) Not Reportable 03/11/22 03:06 Rouleaux Not Reportable 03/11/22 03:06 Hemoglobin C Crystals Not Reportable 03/11/22 03:06 Schistocytes Not Reportable 03/11/22 03:06 Malaria parasites Not Reportable 03/11/22 03:06 Rosalio Bodies Not Reportable 03/11/22 03:06 Hem Pathologist Commnt No 03/11/22 03:06 Sodium 138 mmol/L (137-145) 03/11/22 03:06 Potassium 3.2 mmol/L (3.6-5.0) L D 03/11/22 03:06 Chloride 103.0 mmol/L (98-107) 03/11/22 03:06 Carbon Dioxide 27 mmol/L (22-30) 03/11/22 03:06 Anion Gap 11 mmol/L 03/11/22 03:06 BUN 3 mg/dL (7-17) L 03/11/22 03:06 Creatinine 0.4 mg/dL (0.6-1.2) L 03/11/22 03:06 Estimated GFR > 60 ml/min 03/11/22 03:06 BUN/Creatinine Ratio 8 % 03/11/22 03:06 Glucose 285 mg/dL (65-100) H 03/11/22 03:06 POC Glucose 208 mg/dL (70-105) H 03/11/22 05:27 Hemoglobin A1c 14.0 % (4-6) H 03/09/22 06:12 Calcium 8.2 mg/dL (8.4-10.2) L 03/11/22 03:06 Total Bilirubin 0.80 mg/dL (0.1-1.2) 03/11/22 03:06 AST 18 units/L (5-40) 03/11/22 03:06 ALT 39 units/L (7-56) 03/11/22 03:06 Alkaline Phosphatase 91 units/L (35-129) 03/11/22 03:06 Total Protein 5.4 g/dL (6.3-8.2) L 03/11/22 03:06 Albumin 2.0 g/dL (3.9-5) L 03/11/22 03:06 Albumin/Globulin Ratio 0.6 % 03/11/22 03:06 Amylase 53 units/L (27-131) 03/10/22 06:34 Lipase 43 units/L (13-60) 03/09/22 06:12 Urine Color Yellow (Yellow) 03/11/22 00:13 Urine Turbidity Clear (Clear) 03/11/22 00:13 Urine pH 7.0 (5.0-7.0) 03/11/22 00:13 Ur Specific [place] 1.010 (1.003-1.030) 03/11/22 00:13 Urine Protein 100 mg/dl mg/dL (Negative) 03/11/22 00:13 Urine Glucose (UA) 4+ mg/dL (Negative) 03/11/22 00:13 Urine Ketones 2+ mg/dL (Negative) 03/11/22 00:13 Urine Blood Trace (Negative) 03/11/22 00:13 Urine Nitrite Negative (Negative) 03/11/22 00:13 Ur Reducing Substances Not Reportable 03/11/22 00:13 Urine Bilirubin Negative (Negative) 03/11/22 00:13 Urine Ictotest Not Reportable 03/11/22 00:13 Urine Urobilinogen 8.0 mg/dL (<2.0) H 03/11/22 00:13 Ur Leukocyte Esterase Negative (Negative) 03/11/22 00:13 Urine WBC (Auto) 1.0 /HPF (0.0-6.0) 03/11/22 00:13 Urine RBC (Auto) < 1.0 /HPF (0.0-6.0) 03/11/22 00:13 U Epithel Cells (Auto) 3.0 /HPF (0-13.0) 03/11/22 00:13 Urine Mucus Few /HPF 03/11/22 00:13 Urine Opiates Screen Positive 03/05/22 08:32 Urine Methadone Screen Negative 03/05/22 08:32 Ur Barbiturates Screen Negative 03/05/22 08:32 Ur Phencyclidine Scrn Negative 03/05/22 08:32 Ur Amphetamines Screen Negative 03/05/22 08:32 U Benzodiazepines Scrn Negative 03/05/22 08:32 Urine Cocaine Screen Negative 03/05/22 08:32 U Marijuana (THC) Screen Negative 03/05/22 08:32 Drugs of Abuse Note Disclamer 03/05/22 08:32 Plasma/Serum Alcohol < 0.01 % (0-0.07) 03/05/22 06:38 Hepatitis A IgM Ab Non-reactive (NonReactive) 03/07/22 10:05 Hep Bs Antigen Non-reactive (Negative) 03/07/22 10:05 Hep B Core IgM Ab Non-reactive (NonReactive) 03/07/22 10:05 Hepatitis C Antibody Non-reactive (NonReactive) 03/07/22 10:05 Microbiology: Microbiology 03/11/22 01:41 Peripheral/Venous Blood Culture - Preliminary Culture in Progress 03/11/22 00:23 Peripheral/Venous Blood Culture - Preliminary Culture in Progress Satnacruz/IV: Voiding Method Toilet Active Medications - Current Medications Current Medications: Generic Name Dose Route Start Last Admin Trade Name Freq PRN Reason Stop Dose Admin Acetaminophen 650 mg 03/05/22 16:30 03/10/22 11:59 Acetaminophen 325 Mg Tab PO 650 mg Q4H PRN Administration Pain MILD(1-3)/Fever >100.5/PFEIFFER Famotidine 20 mg 03/10/22 10:00 03/11/22 09:02 Famotidine 20 Mg Tab PO 20 mg BID YFN Administration Heparin Sodium (Porcine) 5,000 unit 03/05/22 17:00 03/11/22 09:02 Heparin 5,000 Unit/1 Ml Vial SUB-Q 5,000 unit Q12HR YFN Administration Hydromorphone HCl 1 mg 03/05/22 17:00 03/10/22 21:33 Hydromorphone 1 Mg/1 Ml Inj IV 1 mg Q3H PRN Administration Pain , Severe (7-10) Dextrose/Sodium Chloride 1,000 mls @ 100 mls/hr 03/05/22 17:00 03/11/22 10:15 D5ns IV 100 mls/hr DIRECT YFN Administration Potassium Chloride 10 meq in 100 mls @ 100 mls/hr 03/11/22 07:00 03/11/22 10:13 Kcl 10meq/100ml IV 03/11/22 10:59 100 mls/hr Q1H YFN Administration Ibuprofen 600 mg 03/10/22 23:25 03/10/22 23:35 Ibuprofen 600 Mg Tab PO 600 mg Q6HR PRN Administration temp>100 Insulin Glargine 25 units 03/09/22 22:00 03/10/22 21:33 Insulin Glargine 100 Units/Ml SUB-Q 25 units QHS YFN Administration Insulin Human Lispro 0 unit 03/06/22 07:00 03/11/22 05:31 Insulin Lispro 100 Unit/Ml SUB-Q 4 unit Q6HR YFN Administration Protocol Metoclopramide HCl 10 mg 03/05/22 17:00 Metoclopramide 10 Mg/2 Ml Inj IV Q6H PRN Nausea And Vomiting Morphine Sulfate 2 mg 03/05/22 17:00 03/09/22 17:15 Morphine 2 Mg/1 Ml Inj IV 2 mg Q4H PRN Administration Pain, Moderate (4-6) Ondansetron HCl 4 mg 03/05/22 17:00 03/05/22 16:39 Ondansetron 4 Mg/2 Ml Inj IV 4 mg Q3H PRN Administration Nausea And Vomiting Polyethylene Glycol 17 gm 03/10/22 12:00 03/11/22 09:02 Polyethylene Glycol 3350 17 Gm Powder PO 17 gm QDAY YFN Administration Senna/Docusate Sodium 2 tab 03/08/22 11:53 Sennosides/Docusate Sodium 8.6/50 Mg Tab PO Q12H PRN Laxative Effect Sodium Chloride 10 ml 03/05/22 16:30 03/11/22 09:02 Sodium Chloride 0.9% 10 Ml Flush Syringe IV 10 ml BID YFN Administration Sodium Chloride 10 ml 03/05/22 17:00 Sodium Chloride 0.9% 10 Ml Flush Syringe IV PRN PRN LINE FLUSH Nutrition/Malnutrition Assess - Dietary Evaluation Nutrition/Malnutrition Findings: Nutrition Notes Start: 03/06/22 17:24 Freq: Status: Active Protocol: Document 03/06/22 17:24 JOSE MARIA (Rec: 03/06/22 17:45 JOSE MARIA [id number]) Nutrition Notes Need for Assessment generated from: case briefer,MST Initial or Follow up Assessment Other Pertinent Diagnosis Hyperglycemia, Abdominal Pain/ N/V, Biliary Pancreatitis, Transaminitis. Current Diet Clear Liquids Diet (from D ). Labs/Tests 03/06: CO2 19, BUN 25, Glu 481 , Ca 8.1. Pertinent Medications 03/06: D5ns 1000ml @ 100ml/hr, Humalog 10U, others nutritionally unremarkable. Height 5 ft 2 in Weight 88.3 kg [place] Body Weight (kg) 50.00 BMI 35.6 Intake Prior to Admission Poor Weight change and time frame Pt states being unsure if loss body weight [employer]. Weight Status Obese Subjective/Other Information RD consult for risk of malnutrition assessment. No ropert available on Pt's PO intake of meals at the time, will assess at F/U. Pt is on Room Air, O2 saturation @ 100%, according to Physical Assessment History notes. Pt had a Cholecystectomy on , according to Consultation note. Pr shows no signs of concern for risk of malnutrition at the time, according to Physical Assessment History notes. Percent of energy/protein needs met: Prescribed Clear Liquids Diet provides for energy/protein needs (590 Kcal/16 g) during LOS. Burn Absent Trauma Absent GI Symptoms None Food Allergy No Skin Integrity/Comment Assessment WNL. 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 No Is Patient Ambulatory and/or Out of Bed Yes REE-(Tropic-St. Jeor-ambulatory/OOB) [ 1860.625 [id number]] Kcal/Kg value to use for calculation 14 Approximate Energy Requirements Using 1236 kcal/Kg Calculation Used for Recommendations Kcal/kg Additional Notes Protein: 0.8-1 g/Kg AdjBW; 55- 69 g/day. Fluids: 1 ml/Kcal, or as per MD. Nutrition Intervention Change Diet Order: Start Clear Liquid Diet, advance to Full Liquids Diet as tolerated. Follow-Up By: 03/13/22 Additional Comments Continue monitoring food tolerance, %PO intake of meals , and BM.
[2022-03-11] MEDS: IBUPROFEN 600 MG TAB PO PRN (12:11)
[2022-03-11] MEDS: HYDROmorphone 1 MG/1 ML INJ IV PRN ×2 (18:14→22:31)
[2022-03-11] MEDS: INSULIN GLARGINE 100 UNITS/ML SUB-Q SCH (23:23)
[2022-03-12] MEDS: INSULIN LISPRO 100 UNIT/ML SUB-Q SCH ×4 (00:58→19:55)
[2022-03-12] MEDS: IBUPROFEN 600 MG TAB PO PRN (00:58)
[2022-03-12] MEDS: HYDROmorphone 1 MG/1 ML INJ IV PRN ×4 (05:58→19:52)
[2022-03-12] MEDS: D5W/0.9% NACL 1,000 ML IV SCH (06:44)
[2022-03-12 08:44] LABS: Blood Urea Nitrogen 3 mg/dL (7-17); Calcium 8.6 mg/dL (8.4-10.2); Hemolysis Index 4
[2022-03-12 08:50] LABS: Basophils % (Auto) 0.1 % (0.0-1.8); Eosinophils % (Auto) 0.3 % (0.0-4.3); Hematocrit 31.6 % (30.3-42.9); Hemoglobin 10.4 gm/dl (10.1-14.3); Lymphocytes # (Auto) 1.3 K/mm3 (1.2-5.4); Lymphocytes % (Auto) 10.6 % (13.4-35.0); Mean Corpuscular HGB Conc 33 % (30-34); Mean Corpuscular Volume 94 fl (79-97); Monocytes # (Auto) 0.9 K/mm3 (0.0-0.8); Monocytes % (Auto) 7.5 % (0.0-7.3); Platelet Count 216 K/mm3 (140-440); Red Blood Count 3.36 M/mm3 (3.65-5.03); Red Cell Distribution Width 15.1 % (13.2-15.2)
[2022-03-12 08:52] LABS: BUN/Creatinine Ratio 8
[2022-03-12] MEDS: HEPARIN 5,000 UNIT/1 ML VIAL SUB-Q SCH ×2 (09:38→21:48)
[2022-03-12] MEDS: FAMOTIDINE 20 MG TAB PO SCH ×2 (09:38→21:48)
[2022-03-12] MEDS: POLYETHYLENE GLYCOL 3350 17 GM POWDER PO SCH (09:39)
--- NOTE | 2022-03-12 11:18 | Gastroenterology Progress Note ---
Assessment and Plan Still awaiting the paracentesis. I tried calling down to radiology no answer. I asked the nurse to please follow-up on this and ensure the patient gets the paracentesis today. Please ensure when para is performed that they send all all labs I requested Patient with persistent severe hypokalemia, despite getting replacement. I ordered magnesium level to see if hypomagnesemia is the source of the inability to replete the potassium. If normal magnesium, recommend nephrology consultation neg MRCP and normal LFT, therefore more likely than not patient had de shanice cholelithiasis that caused gallstone pancreatitis then passed. Regarding fluid / ascites, patient's pain still significant so I recommend par acentesis to r/o pancreatic ascites constipation improving, continue MiraLAX - Patient Problems (1) Right lower quadrant abdominal pain Current Visit: Yes Status: Acute (2) Ascites Current Visit: Yes Status: Acute (3) Acute pancreatitis Current Visit: Yes Status: Acute Qualifiers: Acute pancreatitis complication: unspecified (4) Transaminitis Current Visit: Yes Status: Acute (5) History of cholecystectomy Current Visit: Yes Status: Chronic Subjective Date of service: 03/12/22 Principal diagnosis: Acute pancreatitis Interval history: Patient still with abdominal pain now just moderate to severe in the right he miabdomen, constant, severe, sharp, no alleviating factors, worse with palpation Reports constipation improving, did have bm Objective - Constitutional Vitals: Temp Pulse Resp BP Pulse Ox 99.8 F H 95 H 20 132/74 98 03/11/22 23:46 03/11/22 23:46 03/11/22 23:46 03/11/22 23:46 03/11/22 23:46 General appearance: no acute distress - EENT Eyes: EOM intact - Respiratory Respiratory effort: normal - Cardiovascular Rhythm: regular - Gastrointestinal General gastrointestinal: Present: soft, tender - Labs CBC & Chem 7: 03/12/22 07:57 03/12/22 07:57 Labs: Laboratory Results - last 24 hr 03/11/22 03/11/22 03/11/22 12:06 18:13 23:07 WBC RBC Hgb Hct MCV MCH MCHC RDW Plt Count Lymph % (Auto) [place] % (Auto) Eos % (Auto) Baso % (Auto) Lymph # (Auto) [place] # (Auto) Eos # (Auto) Baso # (Auto) Seg Neutrophils % Seg Neutrophils # Sodium Potassium Chloride Carbon Dioxide Anion Gap BUN Creatinine Estimated GFR BUN/Creatinine Ratio Glucose POC Glucose 235 H 236 H 237 H Calcium 03/12/22 03/12/22 03/12/22 05:53 07:57 07:57 WBC 12.6 H RBC 3.36 L Hgb 10.4 Hct 31.6 MCV 94 MCH 31 MCHC 33 RDW 15.1 Plt Count 216 Lymph % (Auto) 10.6 L [place] % (Auto) 7.5 H Eos % (Auto) 0.3 Baso % (Auto) 0.1 Lymph # (Auto) 1.3 [place] # (Auto) 0.9 H Eos # (Auto) 0.0 Baso # (Auto) 0.0 Seg Neutrophils % 81.5 H Seg Neutrophils # 10.3 H Sodium 137 Potassium 2.8 L* Chloride 101.4 Carbon Dioxide 27 Anion Gap 11 BUN 3 L Creatinine 0.4 L Estimated GFR > 60 BUN/Creatinine Ratio 8 Glucose 201 H POC Glucose 213 H Calcium 8.6
--- NOTE | 2022-03-12 12:22 | Progress Note ---
Assessment and Plan Assessment and plan: Acute pancreatitis Hypokalemia Transaminitis 03/08/22 Continues to have pain right flank LFTs and amylase and lipase have come back to normal MRCP was negative Possible gallstone which is passed through GI follow-up appreciated 03/09/2022 Right flank pain Hypokalemia Transaminases normal Amylase lipase near normal 03/10/2022 Hypokalemia persists Left flank pain persists For paracentesis in a.m. 03/11/2022 Patient with neg MRCP and normal LFT, therefore more likely that patient had de shanice cholelithiasis that caused gallstone pancreatitis then passed. Regarding fluid / ascites, patient's pain still severe so GI recommends paracentesis to r/o pancreatic ascites (leakage of pancreatic juices due to a disrupted pancreatic duct) 03/12/2022. Awaiting paracentesis. Replete potassium IV for severe hypokalemia. Check magnesium levels History Interval history: No new issues overnight. Hospitalist Physical - Constitutional Vitals: Temp Pulse Resp BP Pulse Ox 99.8 F H 95 H 20 132/74 98 03/11/22 23:46 03/11/22 23:46 03/11/22 23:46 03/11/22 23:46 03/11/22 23:46 General appearance: Present: no acute distress, well-nourished - EENT Eyes: Present: PERRL, EOM intact ENT: hearing intact, clear oral mucosa, dentition normal - Neck Neck: Present: supple, normal ROM - Respiratory Respiratory effort: normal Respiratory: bilateral: CTA - Cardiovascular Rhythm: regular Heart Sounds: Present: S1 & S2. Absent: gallop, rub - Extremities Extremities: no ischemia, No edema, Full ROM - Abdominal General gastrointestinal: soft, non-tender, non-distended, normal bowel sounds - Integumentary Integumentary: Present: clear, warm, dry - Neurologic Neurologic: CNII-XII intact, moves all extremities Results - Labs CBC & Chem 7: 03/12/22 07:57 03/12/22 07:57 Labs: Laboratory Last Values WBC 12.6 K/mm3 (4.5-11.0) H 03/12/22 07:57 RBC 3.36 M/mm3 (3.65-5.03) L 03/12/22 07:57 Hgb 10.4 gm/dl (10.1-14.3) 03/12/22 07:57 Hct 31.6 % (30.3-42.9) 03/12/22 07:57 MCV 94 fl (79-97) 03/12/22 07:57 MCH 31 pg (28-32) 03/12/22 07:57 MCHC 33 % (30-34) 03/12/22 07:57 RDW 15.1 % (13.2-15.2) 03/12/22 07:57 Plt Count 216 K/mm3 (140-440) 03/12/22 07:57 Lymph % (Auto) 10.6 % (13.4-35.0) L 03/12/22 07:57 [place] % (Auto) 7.5 % (0.0-7.3) H 03/12/22 07:57 Eos % (Auto) 0.3 % (0.0-4.3) 03/12/22 07:57 Baso % (Auto) 0.1 % (0.0-1.8) 03/12/22 07:57 Lymph # (Auto) 1.3 K/mm3 (1.2-5.4) 03/12/22 07:57 [place] # (Auto) 0.9 K/mm3 (0.0-0.8) H 03/12/22 07:57 Eos # (Auto) 0.0 K/mm3 (0.0-0.4) 03/12/22 07:57 Baso # (Auto) 0.0 K/mm3 (0.0-0.1) 03/12/22 07:57 Add Manual Diff Complete 03/11/22 03:06 Total Counted 100 03/11/22 03:06 Seg Neutrophils % 81.5 % (40.0-70.0) H 03/12/22 07:57 Seg Neuts % (Manual) 88.0 % (40.0-70.0) H 03/11/22 03:06 Band Neutrophils % 7.0 % 03/11/22 03:06 Lymphocytes % (Manual) 0 % (13.4-35.0) L 03/11/22 03:06 Reactive Lymphs % (Man) 0 % 03/11/22 03:06 Monocytes % (Manual) 4.0 % (0.0-7.3) 03/11/22 03:06 Eosinophils % (Manual) 0 % (0.0-4.3) 03/11/22 03:06 Basophils % (Manual) 0 % (0.0-1.8) 03/11/22 03:06 Metamyelocytes % 1.0 % 03/11/22 03:06 Myelocytes % 0 % 03/11/22 03:06 Promyelocytes % 0 % 03/11/22 03:06 Blast Cells % 0 % 03/11/22 03:06 Nucleated RBC % Not Reportable 03/11/22 03:06 Seg Neutrophils # 10.3 K/mm3 (1.8-7.7) H 03/12/22 07:57 Seg Neutrophils # Man 8.7 K/mm3 (1.8-7.7) H 03/11/22 03:06 Band Neutrophils # 0.7 K/mm3 03/11/22 03:06 Lymphocytes # (Manual) 0.0 K/mm3 (1.2-5.4) L 03/11/22 03:06 Abs React Lymphs (Man) 0.0 K/mm3 03/11/22 03:06 Monocytes # (Manual) 0.4 K/mm3 (0.0-0.8) 03/11/22 03:06 Eosinophils # (Manual) 0.0 K/mm3 (0.0-0.4) 03/11/22 03:06 Basophils # (Manual) 0.0 K/mm3 (0.0-0.1) 03/11/22 03:06 Metamyelocytes # 0.1 K/mm3 03/11/22 03:06 Myelocytes # 0.0 K/mm3 03/11/22 03:06 Promyelocytes # 0.0 K/mm3 03/11/22 03:06 Blast Cells # 0.0 K/mm3 03/11/22 03:06 WBC Morphology Not Reportable 03/11/22 03:06 Hypersegmented Neuts Not Reportable 03/11/22 03:06 Hyposegmented Neuts Not Reportable 03/11/22 03:06 Hypogranular Neuts Not Reportable 03/11/22 03:06 Smudge Cells Not Reportable 03/11/22 03:06 Toxic Granulation Not Reportable 03/11/22 03:06 Toxic Vacuolation Not Reportable 03/11/22 03:06 Dohle Bodies Not Reportable 03/11/22 03:06 Pelger-Huet Anomaly Not Reportable 03/11/22 03:06 Lashon Rods Not Reportable 03/11/22 03:06 Platelet Estimate Consistent w auto 03/11/22 03:06 Clumped Platelets Not Reportable 03/11/22 03:06 Plt Clumps, EDTA Not Reportable 03/11/22 03:06 Large Platelets Not Reportable 03/11/22 03:06 Giant Platelets Not Reportable 03/11/22 03:06 Platelet Satelliting Not Reportable 03/11/22 03:06 Plt Morphology Comment Not Reportable 03/11/22 03:06 RBC Morphology Normal 03/11/22 03:06 Dimorphic RBCs Not Reportable 03/11/22 03:06 Polychromasia Not Reportable 03/11/22 03:06 Hypochromasia Not Reportable 03/11/22 03:06 Poikilocytosis Not Reportable 03/11/22 03:06 Anisocytosis Not Reportable 03/11/22 03:06 Microcytosis Not Reportable 03/11/22 03:06 Macrocytosis Not Reportable 03/11/22 03:06 Spherocytes Not Reportable 03/11/22 03:06 Pappenheimer Bodies Not Reportable 03/11/22 03:06 Sickle Cells Not Reportable 03/11/22 03:06 Target Cells Not Reportable 03/11/22 03:06 Tear Drop Cells Not Reportable 03/11/22 03:06 Ovalocytes Not Reportable 03/11/22 03:06 Helmet Cells Not Reportable 03/11/22 03:06 [place] Bodies Not Reportable 03/11/22 03:06 Cotton Plant Rings Not Reportable 03/11/22 03:06 Phani Cells Not Reportable 03/11/22 03:06 Bite Cells Not Reportable 03/11/22 03:06 Crenated Cell Not Reportable 03/11/22 03:06 Elliptocytes Not Reportable 03/11/22 03:06 Acanthocytes (Spur) Not Reportable 03/11/22 03:06 Rouleaux Not Reportable 03/11/22 03:06 Hemoglobin C Crystals Not Reportable 03/11/22 03:06 Schistocytes Not Reportable 03/11/22 03:06 Malaria parasites Not Reportable 03/11/22 03:06 Rosalio Bodies Not Reportable 03/11/22 03:06 Hem Pathologist Commnt No 03/11/22 03:06 Sodium 137 mmol/L (137-145) 03/12/22 07:57 Potassium 2.8 mmol/L (3.6-5.0) L* 03/12/22 07:57 Chloride 101.4 mmol/L (98-107) 03/12/22 07:57 Carbon Dioxide 27 mmol/L (22-30) 03/12/22 07:57 Anion Gap 11 mmol/L 03/12/22 07:57 BUN 3 mg/dL (7-17) L 03/12/22 07:57 Creatinine 0.4 mg/dL (0.6-1.2) L 03/12/22 07:57 Estimated GFR > 60 ml/min 03/12/22 07:57 BUN/Creatinine Ratio 8 % 03/12/22 07:57 Glucose 201 mg/dL (65-100) H 03/12/22 07:57 POC Glucose 233 mg/dL (70-105) H 03/12/22 11:19 Hemoglobin A1c 14.0 % (4-6) H 03/09/22 06:12 Calcium 8.6 mg/dL (8.4-10.2) 03/12/22 07:57 Total Bilirubin 0.80 mg/dL (0.1-1.2) 03/11/22 03:06 AST 18 units/L (5-40) 03/11/22 03:06 ALT 39 units/L (7-56) 03/11/22 03:06 Alkaline Phosphatase 91 units/L (35-129) 03/11/22 03:06 Total Protein 5.4 g/dL (6.3-8.2) L 03/11/22 03:06 Albumin 2.0 g/dL (3.9-5) L 03/11/22 03:06 Albumin/Globulin Ratio 0.6 % 03/11/22 03:06 Amylase 53 units/L (27-131) 03/10/22 06:34 Lipase 43 units/L (13-60) 03/09/22 06:12 Urine Color Yellow (Yellow) 03/11/22 00:13 Urine Turbidity Clear (Clear) 03/11/22 00:13 Urine pH 7.0 (5.0-7.0) 03/11/22 00:13 Ur Specific [place] 1.010 (1.003-1.030) 03/11/22 00:13 Urine Protein 100 mg/dl mg/dL (Negative) 03/11/22 00:13 Urine Glucose (UA) 4+ mg/dL (Negative) 03/11/22 00:13 Urine Ketones 2+ mg/dL (Negative) 03/11/22 00:13 Urine Blood Trace (Negative) 03/11/22 00:13 Urine Nitrite Negative (Negative) 03/11/22 00:13 Ur Reducing Substances Not Reportable 03/11/22 00:13 Urine Bilirubin Negative (Negative) 03/11/22 00:13 Urine Ictotest Not Reportable 03/11/22 00:13 Urine Urobilinogen 8.0 mg/dL (<2.0) H 03/11/22 00:13 Ur Leukocyte Esterase Negative (Negative) 03/11/22 00:13 Urine WBC (Auto) 1.0 /HPF (0.0-6.0) 03/11/22 00:13 Urine RBC (Auto) < 1.0 /HPF (0.0-6.0) 03/11/22 00:13 U Epithel Cells (Auto) 3.0 /HPF (0-13.0) 03/11/22 00:13 Urine Mucus Few /HPF 03/11/22 00:13 Urine Opiates Screen Positive 03/05/22 08:32 Urine Methadone Screen Negative 03/05/22 08:32 Ur Barbiturates Screen Negative 03/05/22 08:32 Ur Phencyclidine Scrn Negative 03/05/22 08:32 Ur Amphetamines Screen Negative 03/05/22 08:32 U Benzodiazepines Scrn Negative 03/05/22 08:32 Urine Cocaine Screen Negative 03/05/22 08:32 U Marijuana (THC) Screen Negative 03/05/22 08:32 Drugs of Abuse Note Disclamer 03/05/22 08:32 Plasma/Serum Alcohol < 0.01 % (0-0.07) 03/05/22 06:38 Hepatitis A IgM Ab Non-reactive (NonReactive) 03/07/22 10:05 Hep Bs Antigen Non-reactive (Negative) 03/07/22 10:05 Hep B Core IgM Ab Non-reactive (NonReactive) 03/07/22 10:05 Hepatitis C Antibody Non-reactive (NonReactive) 03/07/22 10:05 Microbiology: Microbiology 03/11/22 01:41 Peripheral/Venous Blood Culture - Preliminary NO GROWTH AFTER 24 HOURS 03/11/22 00:23 Peripheral/Venous Blood Culture - Preliminary NO GROWTH AFTER 24 HOURS [place]ruz/IV: Voiding Method Toilet Active Medications - Current Medications Current Medications: Generic Name Dose Route Start Last Admin Trade Name Freq PRN Reason Stop Dose Admin Acetaminophen 650 mg 03/05/22 16:30 03/10/22 11:59 Acetaminophen 325 Mg Tab PO 650 mg Q4H PRN Administration Pain MILD(1-3)/Fever >100.5/PFEIFFER Famotidine 20 mg 03/10/22 10:00 03/12/22 09:38 Famotidine 20 Mg Tab PO 20 mg BID YFN Administration Heparin Sodium (Porcine) 5,000 unit 03/05/22 17:00 03/12/22 09:38 Heparin 5,000 Unit/1 Ml Vial SUB-Q 5,000 unit Q12HR YFN Administration Hydromorphone HCl 1 mg 03/05/22 17:00 03/12/22 09:47 Hydromorphone 1 Mg/1 Ml Inj IV 1 mg Q3H PRN Administration Pain , Severe (7-10) Dextrose/Sodium Chloride 1,000 mls @ 100 mls/hr 03/05/22 17:00 03/12/22 06:44 D5ns IV 100 mls/hr DIRECT YFN Administration Ibuprofen 600 mg 03/10/22 23:25 03/12/22 00:58 Ibuprofen 600 Mg Tab PO 600 mg Q6HR PRN Administration temp>100 Insulin Glargine 25 units 03/09/22 22:00 03/11/22 23:23 Insulin Glargine 100 Units/Ml SUB-Q 25 units QHS YFN Administration Insulin Human Lispro 0 unit 03/06/22 07:00 03/12/22 05:58 Insulin Lispro 100 Unit/Ml SUB-Q 4 unit Q6HR YFN Administration Protocol Metoclopramide HCl 10 mg 03/05/22 17:00 Metoclopramide 10 Mg/2 Ml Inj IV Q6H PRN Nausea And Vomiting Morphine Sulfate 2 mg 03/05/22 17:00 03/09/22 17:15 Morphine 2 Mg/1 Ml Inj IV 2 mg Q4H PRN Administration Pain, Moderate (4-6) Ondansetron HCl 4 mg 03/05/22 17:00 03/05/22 16:39 Ondansetron 4 Mg/2 Ml Inj IV 4 mg Q3H PRN Administration Nausea And Vomiting Polyethylene Glycol 17 gm 03/10/22 12:00 03/12/22 09:39 Polyethylene Glycol 3350 17 Gm Powder PO 17 gm QDAY YFN Administration Senna/Docusate Sodium 2 tab 03/08/22 11:53 Sennosides/Docusate Sodium 8.6/50 Mg Tab PO Q12H PRN Laxative Effect Sodium Chloride 10 ml 03/05/22 16:30 03/12/22 09:38 Sodium Chloride 0.9% 10 Ml Flush Syringe IV 10 ml BID YFN Administration Sodium Chloride 10 ml 03/05/22 17:00 Sodium Chloride 0.9% 10 Ml Flush Syringe IV PRN PRN LINE FLUSH Nutrition/Malnutrition Assess - Dietary Evaluation Nutrition/Malnutrition Findings: Nutrition Notes Start: 03/06/22 17:24 Freq: Status: Active Protocol: Document 03/06/22 17:24 JOSE MARIA (Rec: 03/06/22 17:45 JOSE MARIA [id number]) Nutrition Notes Need for Assessment generated from: gage designer,MST Initial or Follow up Assessment Other Pertinent Diagnosis Hyperglycemia, Abdominal Pain/ N/V, Biliary Pancreatitis, Transaminitis. Current Diet Clear Liquids Diet (from D ). Labs/Tests 03/06: CO2 19, BUN 25, Glu 481 , Ca 8.1. Pertinent Medications 03/06: D5ns 1000ml @ 100ml/hr, Humalog 10U, others nutritionally unremarkable. 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 Weight Status Obese Subjective/Other Information RD consult for risk of malnutrition assessment. No ropert available on Pt's PO intake of meals at the time, will assess at F/U. Pt is on Room Air, O2 saturation @ 100%, according to Physical Assessment History notes. Pt had a Cholecystectomy on , according to Consultation note. Pr shows no signs of concern for risk of malnutrition at the time, according to Physical Assessment History notes. Percent of energy/protein needs met: Prescribed Clear Liquids Diet provides for energy/protein needs (590 Kcal/16 g) during LOS. Burn Absent Trauma Absent GI Symptoms None Food Allergy No Skin Integrity/Comment Assessment WNL. 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 No Is Patient Ambulatory and/or Out of Bed Yes REE-([place]-ambulatory/OOB) [ 1860.625 [id number]] Kcal/Kg value to use for calculation 14 Approximate Energy Requirements Using 1236 kcal/Kg Calculation Used for Recommendations Kcal/kg Additional Notes Protein: 0.8-1 g/Kg AdjBW; 55- 69 g/day. Fluids: 1 ml/Kcal, or as per MD. Nutrition Intervention Change Diet Order: Start Clear Liquid Diet, advance to Full Liquids Diet as tolerated. Follow-Up By: 03/13/22 Additional Comments Continue monitoring food tolerance, %PO intake of meals , and BM.
[2022-03-12] MEDS ORDERED: POTASSIUM CHLORIDE 10 MEQ 10 MEQ/100 ML BAG IV ONE ×3 (13:00→18:00)
--- NOTE | 2022-03-12 15:17 | Ultrasound Report ---
ULTRASOUND-GUIDED PARACENTESIS HISTORY: ASCITES; ABD PAIN. PROCEDURE: The risks (including but not limited to bleeding, infection, and bowel injury) and benefi ts were explained to the patient and informed consent was obtained. A time out procedure was perform ed. All 4 quadrants of the abdomen were scanned. Only trace ascites was identified in the right abdomen. No collection large enough for paracentesis was notified. Ascites appears decreased since CT abdomen/ pelvis dated 03/08/2022. IMPRESSION: Only trace ascites is identified in the right abdomen. No collection large enough for saf e paracentesis was found. Signer Name: Mahad Lan Jr, MD Signed: 03/12/2022 3:13 PM Workstation Name: [id number]
[2022-03-13] MEDS: INSULIN GLARGINE 100 UNITS/ML SUB-Q SCH ×2 (01:27→22:45)
[2022-03-13] MEDS: MORPHINE 2 MG/1 ML INJ IV PRN (05:33)
[2022-03-13 06:05] LABS: Blood Urea Nitrogen 3 mg/dL (7-17); Calcium 8.5 mg/dL (8.4-10.2); Hemolysis Index 4
[2022-03-13 06:20] LABS: BUN/Creatinine Ratio 6
[2022-03-13] MEDS: INSULIN LISPRO 100 UNIT/ML SUB-Q SCH ×4 (06:50→18:39)
--- NOTE | 2022-03-13 07:40 | Gastroenterology Progress Note ---
Assessment and Plan Patient with persistent severe hypokalemia, despite getting replacement. I ordered magnesium level to see if hypomagnesemia is the source of the inability to replete the potassium, I do not see it resulted yet, please follow up. Given refractory hypokalemia I recommend nephrology consultation neg MRCP and normal LFT, therefore more likely than not patient had de shanice cholelithiasis that caused gallstone pancreatitis then passed. Still with pain despite minimal ascites; already s/p CCY; therefore ddx for pain residual peritonitis, functional, less likely kidney related, etc. Therefore trial amitriptyline and titrate up dose I am advancing her diet constipation improving, continue MiraLAX - Patient Problems (1) Right lower quadrant abdominal pain Current Visit: Yes Status: Acute (2) Ascites Current Visit: Yes Status: Acute (3) Acute pancreatitis Current Visit: Yes Status: Acute Qualifiers: Acute pancreatitis complication: unspecified (4) Transaminitis Current Visit: Yes Status: Acute (5) History of cholecystectomy Current Visit: Yes Status: Chronic Subjective Date of service: 03/13/22 Principal diagnosis: Acute pancreatitis Interval history: Patient still with abdominal pain now just moderate to severe in the right hemiabdomen, constant, severe, sharp, no alleviating factors, worse with palpation Reports constipation improving, having bm US showed not enough ascites for para I spoke with her and her partner who was on the phone Objective - Constitutional Vitals: Temp Pulse Resp BP Pulse Ox 99.3 F 107 H 20 126/69 94 03/12/22 21:44 03/12/22 21:44 03/12/22 21:44 03/12/22 21:44 03/12/22 21:44 General appearance: no acute distress - EENT Eyes: EOM intact ENT: hearing intact - Neck Neck: supple - Respiratory Respiratory effort: normal - Cardiovascular Rhythm: regular - Gastrointestinal General gastrointestinal: Present: soft, tender - Integumentary Integumentary: Present: dry - Psychiatric Psychiatric: appropriate mood/affect - Labs CBC & Chem 7: 03/13/22 07:13 03/13/22 05:24 Labs: Laboratory Results - last 24 hr 03/12/22 03/12/22 03/12/22 07:57 07:57 11:19 WBC 12.6 H RBC 3.36 L Hgb 10.4 Hct 31.6 MCV 94 MCH 31 MCHC 33 RDW 15.1 Plt Count 216 Lymph % (Auto) 10.6 L [place] % (Auto) 7.5 H Eos % (Auto) 0.3 Baso % (Auto) 0.1 Lymph # (Auto) 1.3 [place] # (Auto) 0.9 H Eos # (Auto) 0.0 Baso # (Auto) 0.0 Seg Neutrophils % 81.5 H Seg Neutrophils # 10.3 H Sodium 137 Potassium 2.8 L* Chloride 101.4 Carbon Dioxide 27 Anion Gap 11 BUN 3 L Creatinine 0.4 L Estimated GFR > 60 BUN/Creatinine Ratio 8 Glucose 201 H POC Glucose 233 H Calcium 8.6 03/12/22 03/12/22 03/13/22 16:13 23:43 05:24 WBC RBC Hgb Hct MCV MCH MCHC RDW Plt Count Lymph % (Auto) [place] % (Auto) Eos % (Auto) Baso % (Auto) Lymph # (Auto) [place] # (Auto) Eos # (Auto) Baso # (Auto) Seg Neutrophils % Seg Neutrophils # Sodium 139 Potassium 2.9 L* Chloride 102.2 Carbon Dioxide 26 Anion Gap 14 BUN 3 L Creatinine 0.5 L Estimated GFR > 60 BUN/Creatinine Ratio 6 Glucose 166 H POC Glucose 167 H 174 H Calcium 8.5 03/13/22 05:31 WBC RBC Hgb Hct MCV MCH MCHC RDW Plt Count Lymph % (Auto) [place] % (Auto) Eos % (Auto) Baso % (Auto) Lymph # (Auto) [place] # (Auto) Eos # (Auto) Baso # (Auto) Seg Neutrophils % Seg Neutrophils # Sodium Potassium Chloride Carbon Dioxide Anion Gap BUN Creatinine Estimated GFR BUN/Creatinine Ratio Glucose POC Glucose 141 H Calcium
[2022-03-13 07:41] LABS: Basophils % (Auto) 0.3 % (0.0-1.8); Hematocrit 30.6 % (30.3-42.9); Hemoglobin 10.1 gm/dl (10.1-14.3); Lymphocytes # (Auto) 1.3 K/mm3 (1.2-5.4); Lymphocytes % (Auto) 8.5 % (13.4-35.0); Mean Corpuscular HGB Conc 33 % (30-34); Mean Corpuscular Volume 93 fl (79-97); Monocytes # (Auto) 1.1 K/mm3 (0.0-0.8); Monocytes % (Auto) 7.1 % (0.0-7.3); Platelet Count 271 K/mm3 (140-440)
[2022-03-13] MEDS: HYDROmorphone 1 MG/1 ML INJ IV PRN ×2 (07:43→17:20)
[2022-03-13] MEDS: POTASSIUM CHLORIDE 10 MEQ 10 MEQ/100 ML BAG IV SCH ×5 (07:50→14:42)
--- NOTE | 2022-03-13 07:59 | Consultation ---
History of Present Illness - Reason for Consult Consult date: 03/13/22 - History of Present Illness The patient is a 56 YO [place] woman who was admitted to [facility] 03/05/22 with a 1 day h/o R flank pain. Information also obtained from chart. Patient is currently being treated for Acute pancreatitis and elevated Transaminases. Lab work consistent with gallstone pancreatitis, and a CT also consistent with mild pancreatitis. She continues to have R flank pain and swelling. Pt also reports decreased appetite and nausea. Labs and imaging noted. K level remain below 3. Nephrology consulted for further evaluation and treatment of persistent hypokalemia. Past History Past Medical History: other (See HPI.) Past Surgical History: cholecystectomy (March 2018, at [facility]) Social history: no significant social history. denies: smoking, alcohol abuse Family history: no significant family history Medications and Allergies Allergies Allergy/AdvReac Type Severity Reaction Status Date / Time No Known Allergies Allergy Verified 03/05/22 09:37 Home Medications Medication Instructions Recorded Confirmed Last Taken Type Omeprazole 40 mg PO DAILY 03/06/22 03/06/22 Unknown History Active Meds: Active Medications Acetaminophen (Acetaminophen 325 Mg Tab) 650 mg PO Q4H PRN PRN Reason: Pain MILD(1-3)/Fever >100.5/PFEIFFER Last Admin: 03/10/22 11:59 Dose: 650 mg Amitriptyline HCl (Amitriptyline 25 Mg Tab) 25 mg PO QHS YFN Famotidine (Famotidine 20 Mg Tab) 20 mg PO BID YFN Last Admin: 03/12/22 21:48 Dose: 20 mg Heparin Sodium (Porcine) (Heparin 5,000 Unit/1 Ml Vial) 5,000 unit SUB-Q Q12HR YFN Last Admin: 03/12/22 21:48 Dose: 5,000 unit Hydromorphone HCl (Hydromorphone 1 Mg/1 Ml Inj) 1 mg IV Q3H PRN PRN Reason: Pain , Severe (7-10) Last Admin: 03/13/22 07:43 Dose: 1 mg Dextrose/Sodium Chloride (D5ns) 1,000 mls @ 100 mls/hr IV DIRECT YFN Last Admin: 03/12/22 06:44 Dose: 100 mls/hr Potassium Chloride (Kcl 10meq/100ml) 10 meq in 100 mls @ 100 mls/hr IV Q1H YFN Stop: 03/13/22 10:59 Last Admin: 03/13/22 07:50 Dose: 100 mls/hr Ibuprofen (Ibuprofen 600 Mg Tab) 600 mg PO Q6HR PRN PRN Reason: temp>100 Last Admin: 03/12/22 00:58 Dose: 600 mg Insulin Glargine (Insulin Glargine 100 Units/Ml) 25 units SUB-Q QHS [facility] Last Admin: 03/13/22 01:27 Dose: 25 units Insulin Human Lispro (Insulin Lispro 100 Unit/Ml) 0 unit SUB-Q Q6HR [facility]; Protocol Last Admin: 03/13/22 06:50 Dose: Not Given Metoclopramide HCl (Metoclopramide 10 Mg/2 Ml Inj) 10 mg IV Q6H PRN PRN Reason: Nausea And Vomiting Morphine Sulfate (Morphine 2 Mg/1 Ml Inj) 2 mg IV Q4H PRN PRN Reason: Pain, Moderate (4-6) Last Admin: 03/13/22 05:33 Dose: 2 mg Ondansetron HCl (Ondansetron 4 Mg/2 Ml Inj) 4 mg IV Q3H PRN PRN Reason: Nausea And Vomiting Last Admin: 03/05/22 16:39 Dose: 4 mg Polyethylene Glycol (Polyethylene Glycol 3350 17 Gm Powder) 17 gm PO QDAY [facility] Last Admin: 03/12/22 09:39 Dose: 17 gm Senna/Docusate Sodium (Sennosides/Docusate Sodium 8.6/50 Mg Tab) 2 tab PO Q12H PRN PRN Reason: Laxative Effect Sodium Chloride (Sodium Chloride 0.9% 10 Ml Flush Syringe) 10 ml IV BID [facility] Last Admin: 03/12/22 21:49 Dose: 10 ml Sodium Chloride (Sodium Chloride 0.9% 10 Ml Flush Syringe) 10 ml IV PRN PRN PRN Reason: LINE FLUSH Review of Systems All systems: negative Exam - Vital Signs Vital signs: Vital Signs Temp Pulse Resp BP Pulse Ox 97.5 F L 66 18 167/91 98 03/05/22 06:38 03/05/22 06:38 03/05/22 06:38 03/05/22 06:38 03/05/22 06:38 Results - Lab Results 03/13/22 07:13 03/13/22 14:34 Most recent lab results Calcium 8.5 mg/dL (8.4-10.2) 03/13/22 05:24 Assessment and Plan 1. Persistent hypo[place]lem[place]: Hypokalemia likley 2/2 D5 containing IV fluids and decreased PO intake. Stopped IV D5 NS. Replete K. Monitor K level. 2. FEN: Replete Mg. Monitor lytes and volume status. 3. Acute Gall stone Pancreatitis: Followed by GI. Monitor. 4. Ascites. 5. DM: Lantus and SSI. Monitor. Subjective: Patient was seen and examined at the bedside. Nurse at the bedside. Examination: General appearance: well-developed, appears stated age, no distress HEENT: ATNC, no icterus Neck: trachea midline Respiratory: clear to auscultation, diminished bibasilar Heart: S1S2, regular, no murmur Gastrointestinal: soft, large firm tender mass over the R side of the abdomen, abd wall edema noted, BS+ Integumentary: LE stasis changes noted Neurologic: conversing, able to move extremities Ext: trace LE edema noted
--- NOTE | 2022-03-13 09:14 | Progress Note ---
Assessment and Plan Assessment and plan: Acute pancreatitis Hypokalemia Transaminitis 03/08/22 Continues to have pain right flank LFTs and amylase and lipase have come back to normal MRCP was negative Possible gallstone which is passed through GI follow-up appreciated 03/09/2022 Right flank pain Hypokalemia Transaminases normal Amylase lipase near normal 03/10/2022 Hypokalemia persists Left flank pain persists For paracentesis in a.m. 03/11/2022 Patient with neg MRCP and normal LFT, therefore more likely that patient had de shanice cholelithiasis that caused gallstone pancreatitis then passed. Regarding fluid / ascites, patient's pain still severe so GI recommends paracentesis to r/o pancreatic ascites (leakage of pancreatic juices due to a disrupted pancreatic duct) 03/12/2022. Awaiting paracentesis. Replete potassium IV for severe hypokalemia. Check magnesium levels 03/13/2022. Radiology reports too little fluid for paracentesis. Continue to replete potassium and consult nephrology for further evaluation. Given the patient's persistent right upper quadrant pain, we will recall surgery to evaluate. Leukocytosis also persists. ID consultation for further evaluation. We will start empiric antibiotics of Zosyn. History Interval history: No new issues overnight. Hospitalist Physical - Constitutional Vitals: Temp Pulse Resp BP Pulse Ox 99.3 F 107 H 20 126/69 94 03/12/22 21:44 03/12/22 21:44 03/12/22 21:44 03/12/22 21:44 03/12/22 21:44 General appearance: Present: no acute distress, well-nourished - EENT Eyes: Present: PERRL, EOM intact ENT: hearing intact, clear oral mucosa, dentition normal - Neck Neck: Present: supple, normal ROM - Respiratory Respiratory effort: normal Respiratory: bilateral: CTA - Cardiovascular Rhythm: regular Heart Sounds: Present: S1 & S2. Absent: gallop, rub - Extremities Extremities: no ischemia, No edema, Full ROM - Abdominal General gastrointestinal: soft, non-tender, non-distended, normal bowel sounds - Integumentary Integumentary: Present: clear, warm, dry - Neurologic Neurologic: CNII-XII intact, moves all extremities Results - Labs CBC & Chem 7: 03/13/22 07:13 03/13/22 05:24 Labs: Laboratory Last Values WBC 14.8 K/mm3 (4.5-11.0) H 03/13/22 07:13 RBC 3.30 M/mm3 (3.65-5.03) L 03/13/22 07:13 Hgb 10.1 gm/dl (10.1-14.3) 03/13/22 07:13 Hct 30.6 % (30.3-42.9) 03/13/22 07:13 MCV 93 fl (79-97) 03/13/22 07:13 MCH 31 pg (28-32) 03/13/22 07:13 MCHC 33 % (30-34) 03/13/22 07:13 RDW 15.0 % (13.2-15.2) 03/13/22 07:13 Plt Count 271 K/mm3 (140-440) 03/13/22 07:13 Lymph % (Auto) 8.5 % (13.4-35.0) L 03/13/22 07:13 Calhoun % (Auto) 7.1 % (0.0-7.3) 03/13/22 07:13 Eos % (Auto) 0.0 % (0.0-4.3) 03/13/22 07:13 Baso % (Auto) 0.3 % (0.0-1.8) 03/13/22 07:13 Lymph # (Auto) 1.3 K/mm3 (1.2-5.4) 03/13/22 07:13 Calhoun # (Auto) 1.1 K/mm3 (0.0-0.8) H 03/13/22 07:13 Eos # (Auto) 0.0 K/mm3 (0.0-0.4) 03/13/22 07:13 Baso # (Auto) 0.0 K/mm3 (0.0-0.1) 03/13/22 07:13 Add Manual Diff Complete 03/11/22 03:06 Total Counted 100 03/11/22 03:06 Seg Neutrophils % 84.1 % (40.0-70.0) H 03/13/22 07:13 Seg Neuts % (Manual) 88.0 % (40.0-70.0) H 03/11/22 03:06 Band Neutrophils % 7.0 % 03/11/22 03:06 Lymphocytes % (Manual) 0 % (13.4-35.0) L 03/11/22 03:06 Reactive Lymphs % (Man) 0 % 03/11/22 03:06 Monocytes % (Manual) 4.0 % (0.0-7.3) 03/11/22 03:06 Eosinophils % (Manual) 0 % (0.0-4.3) 03/11/22 03:06 Basophils % (Manual) 0 % (0.0-1.8) 03/11/22 03:06 Metamyelocytes % 1.0 % 03/11/22 03:06 Myelocytes % 0 % 03/11/22 03:06 Promyelocytes % 0 % 03/11/22 03:06 Blast Cells % 0 % 03/11/22 03:06 Nucleated RBC % Not Reportable 03/11/22 03:06 Seg Neutrophils # 12.4 K/mm3 (1.8-7.7) H 03/13/22 07:13 Seg Neutrophils # Man 8.7 K/mm3 (1.8-7.7) H 03/11/22 03:06 Band Neutrophils # 0.7 K/mm3 03/11/22 03:06 Lymphocytes # (Manual) 0.0 K/mm3 (1.2-5.4) L 03/11/22 03:06 Abs React Lymphs (Man) 0.0 K/mm3 03/11/22 03:06 Monocytes # (Manual) 0.4 K/mm3 (0.0-0.8) 03/11/22 03:06 Eosinophils # (Manual) 0.0 K/mm3 (0.0-0.4) 03/11/22 03:06 Basophils # (Manual) 0.0 K/mm3 (0.0-0.1) 03/11/22 03:06 Metamyelocytes # 0.1 K/mm3 03/11/22 03:06 Myelocytes # 0.0 K/mm3 03/11/22 03:06 Promyelocytes # 0.0 K/mm3 03/11/22 03:06 Blast Cells # 0.0 K/mm3 03/11/22 03:06 WBC Morphology Not Reportable 03/11/22 03:06 Hypersegmented Neuts Not Reportable 03/11/22 03:06 Hyposegmented Neuts Not Reportable 03/11/22 03:06 Hypogranular Neuts Not Reportable 03/11/22 03:06 Smudge Cells Not Reportable 03/11/22 03:06 Toxic Granulation Not Reportable 03/11/22 03:06 Toxic Vacuolation Not Reportable 03/11/22 03:06 Dohle Bodies Not Reportable 03/11/22 03:06 Pelger-Huet Anomaly Not Reportable 03/11/22 03:06 Lashon Rods Not Reportable 03/11/22 03:06 Platelet Estimate Consistent w auto 03/11/22 03:06 Clumped Platelets Not Reportable 03/11/22 03:06 Plt Clumps, EDTA Not Reportable 03/11/22 03:06 Large Platelets Not Reportable 03/11/22 03:06 Giant Platelets Not Reportable 03/11/22 03:06 Platelet Satelliting Not Reportable 03/11/22 03:06 Plt Morphology Comment Not Reportable 03/11/22 03:06 RBC Morphology Normal 03/11/22 03:06 Dimorphic RBCs Not Reportable 03/11/22 03:06 Polychromasia Not Reportable 03/11/22 03:06 Hypochromasia Not Reportable 03/11/22 03:06 Poikilocytosis Not Reportable 03/11/22 03:06 Anisocytosis Not Reportable 03/11/22 03:06 Microcytosis Not Reportable 03/11/22 03:06 Macrocytosis Not Reportable 03/11/22 03:06 Spherocytes Not Reportable 03/11/22 03:06 Pappenheimer Bodies Not Reportable 03/11/22 03:06 Sickle Cells Not Reportable 03/11/22 03:06 Target Cells Not Reportable 03/11/22 03:06 Tear Drop Cells Not Reportable 03/11/22 03:06 Ovalocytes Not Reportable 03/11/22 03:06 Helmet Cells Not Reportable 03/11/22 03:06 Robledo-Westford Bodies Not Reportable 03/11/22 03:06 Sabine Rings Not Reportable 03/11/22 03:06 Phani Cells Not Reportable 03/11/22 03:06 Bite Cells Not Reportable 03/11/22 03:06 Crenated Cell Not Reportable 03/11/22 03:06 Elliptocytes Not Reportable 03/11/22 03:06 Acanthocytes (Spur) Not Reportable 03/11/22 03:06 Rouleaux Not Reportable 03/11/22 03:06 Hemoglobin C Crystals Not Reportable 03/11/22 03:06 Schistocytes Not Reportable 03/11/22 03:06 Malaria parasites Not Reportable 03/11/22 03:06 Rosalio Bodies Not Reportable 03/11/22 03:06 Hem Pathologist Commnt No 03/11/22 03:06 Sodium 139 mmol/L (137-145) 03/13/22 05:24 Potassium 2.9 mmol/L (3.6-5.0) L* 03/13/22 05:24 Chloride 102.2 mmol/L (98-107) 03/13/22 05:24 Carbon Dioxide 26 mmol/L (22-30) 03/13/22 05:24 Anion Gap 14 mmol/L 03/13/22 05:24 BUN 3 mg/dL (7-17) L 03/13/22 05:24 Creatinine 0.5 mg/dL (0.6-1.2) L 03/13/22 05:24 Estimated GFR > 60 ml/min 03/13/22 05:24 BUN/Creatinine Ratio 6 % 03/13/22 05:24 Glucose 166 mg/dL (65-100) H 03/13/22 05:24 POC Glucose 141 mg/dL (70-105) H 03/13/22 05:31 Hemoglobin A1c 14.0 % (4-6) H 03/09/22 06:12 Calcium 8.5 mg/dL (8.4-10.2) 03/13/22 05:24 Phosphorus 2.50 mg/dL (2.5-4.5) 03/13/22 05:24 Magnesium 1.40 mg/dL (1.7-2.3) L 03/13/22 05:24 Total Bilirubin 0.80 mg/dL (0.1-1.2) 03/11/22 03:06 AST 18 units/L (5-40) 03/11/22 03:06 ALT 39 units/L (7-56) 03/11/22 03:06 Alkaline Phosphatase 91 units/L (35-129) 03/11/22 03:06 Total Protein 5.4 g/dL (6.3-8.2) L 03/11/22 03:06 Albumin 2.0 g/dL (3.9-5) L 03/11/22 03:06 Albumin/Globulin Ratio 0.6 % 03/11/22 03:06 Amylase 53 units/L (27-131) 03/10/22 06:34 Lipase 43 units/L (13-60) 03/09/22 06:12 Urine Color Yellow (Yellow) 03/11/22 00:13 Urine Turbidity Clear (Clear) 03/11/22 00:13 Urine pH 7.0 (5.0-7.0) 03/11/22 00:13 Ur Specific [place] 1.010 (1.003-1.030) 03/11/22 00:13 Urine Protein 100 mg/dl mg/dL (Negative) 03/11/22 00:13 Urine Glucose (UA) 4+ mg/dL (Negative) 03/11/22 00:13 Urine Ketones 2+ mg/dL (Negative) 03/11/22 00:13 Urine Blood Trace (Negative) 03/11/22 00:13 Urine Nitrite Negative (Negative) 03/11/22 00:13 Ur Reducing Substances Not Reportable 03/11/22 00:13 Urine Bilirubin Negative (Negative) 03/11/22 00:13 Urine Ictotest Not Reportable 03/11/22 00:13 Urine Urobilinogen 8.0 mg/dL (<2.0) H 03/11/22 00:13 Ur Leukocyte Esterase Negative (Negative) 03/11/22 00:13 Urine WBC (Auto) 1.0 /HPF (0.0-6.0) 03/11/22 00:13 Urine RBC (Auto) < 1.0 /HPF (0.0-6.0) 03/11/22 00:13 U Epithel Cells (Auto) 3.0 /HPF (0-13.0) 03/11/22 00:13 Urine Mucus Few /HPF 03/11/22 00:13 Urine Opiates Screen Positive 03/05/22 08:32 Urine Methadone Screen Negative 03/05/22 08:32 Ur Barbiturates Screen Negative 03/05/22 08:32 Ur Phencyclidine Scrn Negative 03/05/22 08:32 Ur Amphetamines Screen Negative 03/05/22 08:32 U Benzodiazepines Scrn Negative 03/05/22 08:32 Urine Cocaine Screen Negative 03/05/22 08:32 U Marijuana (THC) Screen Negative 03/05/22 08:32 Drugs of Abuse Note Disclamer 03/05/22 08:32 Plasma/Serum Alcohol < 0.01 % (0-0.07) 03/05/22 06:38 Hepatitis A IgM Ab Non-reactive (NonReactive) 03/07/22 10:05 Hep Bs Antigen Non-reactive (Negative) 03/07/22 10:05 Hep B Core IgM Ab Non-reactive (NonReactive) 03/07/22 10:05 Hepatitis C Antibody Non-reactive (NonReactive) 03/07/22 10:05 Microbiology: Microbiology 03/11/22 01:41 Peripheral/Venous Blood Culture - Preliminary NO GROWTH AFTER 48 HOURS 03/11/22 00:23 Peripheral/Venous Blood Culture - Preliminary NO GROWTH AFTER 48 HOURS Santacruz/IV: Voiding Method Toilet Active Medications - Current Medications Current Medications: Generic Name Dose Route Start Last Admin Trade Name Freq PRN Reason Stop Dose Admin Acetaminophen 650 mg 03/05/22 16:30 03/10/22 11:59 Acetaminophen 325 Mg Tab PO 650 mg Q4H PRN Administration Pain MILD(1-3)/Fever >100.5/PFEIFFER Amitriptyline HCl 25 mg 03/13/22 22:00 Amitriptyline 25 Mg Tab PO QHS YFN Famotidine 20 mg 03/10/22 10:00 03/12/22 21:48 Famotidine 20 Mg Tab PO 20 mg BID YFN Administration Heparin Sodium (Porcine) 5,000 unit 03/05/22 17:00 03/12/22 21:48 Heparin 5,000 Unit/1 Ml Vial SUB-Q 5,000 unit Q12HR YFN Administration Hydromorphone HCl 1 mg 03/05/22 17:00 03/13/22 07:43 Hydromorphone 1 Mg/1 Ml Inj IV 1 mg Q3H PRN Administration Pain , Severe (7-10) Potassium Chloride 10 meq in 100 mls @ 100 mls/hr 03/13/22 07:00 03/13/22 08:55 Kcl 10meq/100ml IV 03/13/22 10:59 100 mls/hr Q1H YFN Administration Ibuprofen 600 mg 03/10/22 23:25 07/06/22 00:58 Ibuprofen 600 Mg Tab PO 600 mg Q6HR PRN Administration temp>100 Insulin Glargine 25 units 03/09/22 22:00 03/13/22 01:27 Insulin Glargine 100 Units/Ml SUB-Q 25 units QHS YFN Administration Insulin Human Lispro 0 unit 03/06/22 07:00 03/13/22 06:50 Insulin Lispro 100 Unit/Ml SUB-Q Not Given Q6HR [facility] Protocol Metoclopramide HCl 10 mg 03/05/22 17:00 Metoclopramide 10 Mg/2 Ml Inj IV Q6H PRN Nausea And Vomiting Morphine Sulfate 2 mg 03/05/22 17:00 03/13/22 05:33 Morphine 2 Mg/1 Ml Inj IV 2 mg Q4H PRN Administration Pain, Moderate (4-6) Ondansetron HCl 4 mg 03/05/22 17:00 03/05/22 16:39 Ondansetron 4 Mg/2 Ml Inj IV 4 mg Q3H PRN Administration Nausea And Vomiting Polyethylene Glycol 17 gm 03/10/22 12:00 03/12/22 09:39 Polyethylene Glycol 3350 17 Gm Powder PO 17 gm QDAY YFN Administration Senna/Docusate Sodium 2 tab 03/08/22 11:53 Sennosides/Docusate Sodium 8.6/50 Mg Tab PO Q12H PRN Laxative Effect Sodium Chloride 10 ml 03/05/22 16:30 03/12/22 21:49 Sodium Chloride 0.9% 10 Ml Flush Syringe IV 10 ml BID YFN Administration Sodium Chloride 10 ml 03/05/22 17:00 Sodium Chloride 0.9% 10 Ml Flush Syringe IV PRN PRN LINE FLUSH Nutrition/Malnutrition Assess - Dietary Evaluation Nutrition/Malnutrition Findings: Nutrition Notes Start: 03/06/22 17:24 Freq: Status: Active Protocol: Document 03/06/22 17:24 JOSE MARIA (Rec: 03/06/22 17:45 JOSE MARIA [id number]) Nutrition Notes Need for Assessment generated from: marker machine,MST Initial or Follow up Assessment Other Pertinent Diagnosis Hyperglycemia, Abdominal Pain/ N/V, Biliary Pancreatitis, Transaminitis. Current Diet Clear Liquids Diet (from D ). Labs/Tests 03/06: CO2 19, BUN 25, Glu 481 , Ca 8.1. Pertinent Medications 03/06: D5ns 1000ml @ 100ml/hr, Humalog 10U, others nutritionally unremarkable. 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 Weight Status Obese Subjective/Other Information RD consult for risk of malnutrition assessment. No ropert available on Pt's PO intake of meals at the time, will assess at F/U. Pt is on Room Air, O2 saturation @ 100%, according to Physical Assessment History notes. Pt had a Cholecystectomy on , according to Consultation note. Pr shows no signs of concern for risk of malnutrition at the time, according to Physical Assessment History notes. Percent of energy/protein needs met: Prescribed Clear Liquids Diet provides for energy/protein needs (590 Kcal/16 g) during LOS. Burn Absent Trauma Absent GI Symptoms None Food Allergy No Skin Integrity/Comment Assessment WNL. 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 No Is Patient Ambulatory and/or Out of Bed Yes REE-([facility]-ambulatory/OOB) [ 1860.625 [id number]] Kcal/Kg value to use for calculation 14 Approximate Energy Requirements Using 1236 kcal/Kg Calculation Used for Recommendations Kcal/kg Additional Notes Protein: 0.8-1 g/Kg AdjBW; 55- 69 g/day. Fluids: 1 ml/Kcal, or as per MD. Nutrition Intervention Change Diet Order: Start Clear Liquid Diet, advance to Full Liquids Diet as tolerated. Follow-Up By: 03/13/22 Additional Comments Continue monitoring food tolerance, %PO intake of meals , and BM.
[2022-03-13] MEDS ORDERED: PIPERACIL/TAZOBACTA 4.5/NS 100 4.5 GM/100 ML VIAL IV SCH (10:00)
[2022-03-13] MEDS: IBUPROFEN 600 MG TAB PO PRN (10:23)
[2022-03-13] MEDS: HEPARIN 5,000 UNIT/1 ML VIAL SUB-Q SCH ×2 (10:23→21:44)
[2022-03-13] MEDS: POLYETHYLENE GLYCOL 3350 17 GM POWDER PO SCH (10:24)
[2022-03-13] MEDS: FAMOTIDINE 20 MG TAB PO SCH ×2 (10:24→21:44)
[2022-03-13] MEDS ORDERED: MAGNESIUM SULFATE 2 GM/50 ML BAG IV ONE (11:00)
[2022-03-13] MEDS ORDERED: POTASSIUM CHLORIDE ER 20 MEQ TAB PO SCH (11:00)
--- NOTE | 2022-03-13 11:04 | Progress Note ---
Assessment and Plan Still awaiting op report from jayson. Pt with increased pain and with pain in the right flank and right hypogastrium. Repeat CT of abdo now. Send amylase and lipase to track pancreatitis. Subjective Date of service: 03/13/22 Patient Reports: Positive: still having pain Narrative: Nursing reporting more pain in last 24 hours. Pt possibly with shift in locaiton of pain to right hypogastric and right flank. No recent lipase and amylase. She has stopped eating solids. Objective - Abdomen tender (right hypogastric and right flank) - Labs 03/13/22 07:13 03/13/22 05:24 Diabetes panel 03/13/22 Range/Units 05:24 Sodium 139 (137-145) mmol/L Potassium 2.9 L* (3.6-5.0) mmol/L Chloride 102.2 (98-107) mmol/L Carbon Dioxide 26 (22-30) mmol/L BUN 3 L (7-17) mg/dL Creatinine 0.5 L (0.6-1.2) mg/dL Glucose 166 H (65-100) mg/dL Calcium 8.5 (8.4-10.2) mg/dL Calcium panel 03/13/22 03/13/22 Range/Units 05:24 05:24 Calcium 8.5 (8.4-10.2) mg/dL Phosphorus 2.50 (2.5-4.5) mg/dL Pituitary panel 03/13/22 Range/Units 05:24 Sodium 139 (137-145) mmol/L Potassium 2.9 L* (3.6-5.0) mmol/L Chloride 102.2 (98-107) mmol/L Carbon Dioxide 26 (22-30) mmol/L BUN 3 L (7-17) mg/dL Creatinine 0.5 L (0.6-1.2) mg/dL Glucose 166 H (65-100) mg/dL Calcium 8.5 (8.4-10.2) mg/dL Adrenal panel 03/13/22 Range/Units 05:24 Sodium 139 (137-145) mmol/L Potassium 2.9 L* (3.6-5.0) mmol/L Chloride 102.2 (98-107) mmol/L Carbon Dioxide 26 (22-30) mmol/L BUN 3 L (7-17) mg/dL Creatinine 0.5 L (0.6-1.2) mg/dL Glucose 166 H (65-100) mg/dL Calcium 8.5 (8.4-10.2) mg/dL
--- NOTE | 2022-03-13 12:30 | Consultation ---
History of Present Illness - Reason for Consult Consult date: 03/13/22 leucocytosis, abdominal pain Requesting physician: PETERSON GODINEZ - History of Present Illness The patient is a 70-year-old female with prior cholecystectomy admitted to the hospital on 03/05/2022 with severe abdominal pain going on for about 2 days. She was found to have elevated LFTs with elevated lipase and CT findings concerning for pancreatitis. She was seen by GI, MRCP did not reveal any choledocholithiasis, she has previously had a cholecystectomy. LFTs are gradually trending down. Still having abdominal pain. On 03/10/2022, patient had a fever of 101.2 F. Due to leukocytosis, infectious diseases was consulted. She was started on IV Zosyn today. Review of Systems: General:fever better HEENT: no new visual disturbance Respiratory: No cough, sputum, hemoptysis or shortness of breath Cardiovascular: No chest pain, syncope Gastrointestinal: Abdominal pain present Genitourinary: No dysuria or hematuria Musculoskeletal: No new or worsening neck pain or back pain Neurologic: No headaches, seizures Hematologic: No easy bruising or bleeding Endocrine: No night sweats or acute weight loss Skin: negative for rash, jaundice Psychiatric: No suicidal or homicidal ideation Past History Past Surgical History: cholecystectomy (March 2018, at [facility]) Social history: no significant social history. denies: smoking, alcohol abuse Family history: no significant family history Medications and Allergies Allergies Allergy/AdvReac Type Severity Reaction Status Date / Time No Known Allergies Allergy Verified 03/05/22 09:37 Home Medications Medication Instructions Recorded Confirmed Last Taken Type Omeprazole 40 mg PO DAILY 03/06/22 03/06/22 Unknown History Active Meds: Active Medications Acetaminophen (Acetaminophen 325 Mg Tab) 650 mg PO Q4H PRN PRN Reason: Pain MILD(1-3)/Fever >100.5/PFEIFFER Last Admin: 03/10/22 11:59 Dose: 650 mg Amitriptyline HCl (Amitriptyline 25 Mg Tab) 25 mg PO QHS [facility] Famotidine (Famotidine 20 Mg Tab) 20 mg PO BID [facility] Last Admin: 03/13/22 10:24 Dose: 20 mg Heparin Sodium (Porcine) (Heparin 5,000 Unit/1 Ml Vial) 5,000 unit SUB-Q Q12HR [facility] Last Admin: 07/07/22 10:23 Dose: 5,000 unit Hydromorphone HCl (Hydromorphone 1 Mg/1 Ml Inj) 1 mg IV Q3H PRN PRN Reason: Pain , Severe (7-10) Last Admin: 03/13/22 07:43 Dose: 1 mg Piperacillin Sod/Tazobactam Sod (Zosyn/Ns 4.5gm/100ml) 4.5 gm in 100 mls @ 200 mls/hr IV Q8H [facility]; Protocol Magnesium Sulfate (Magnesium Sulfate 2gm/50ml) 2 gm in 50 mls @ 25 mls/hr IV ONCE ONE Stop: 03/13/22 12:59 Ibuprofen (Ibuprofen 600 Mg Tab) 600 mg PO Q6HR PRN PRN Reason: temp>100 Last Admin: 03/13/22 10:23 Dose: 600 mg Insulin Glargine (Insulin Glargine 100 Units/Ml) 25 units SUB-Q QHS [facility] Last Admin: 03/13/22 01:27 Dose: 25 units Insulin Human Lispro (Insulin Lispro 100 Unit/Ml) 0 unit SUB-Q Q6HR [facility]; Protocol Last Admin: 03/13/22 06:50 Dose: Not Given Metoclopramide HCl (Metoclopramide 10 Mg/2 Ml Inj) 10 mg IV Q6H PRN PRN Reason: Nausea And Vomiting Morphine Sulfate (Morphine 2 Mg/1 Ml Inj) 2 mg IV Q4H PRN PRN Reason: Pain, Moderate (4-6) Last Admin: 03/13/22 05:33 Dose: 2 mg Ondansetron HCl (Ondansetron 4 Mg/2 Ml Inj) 4 mg IV Q3H PRN PRN Reason: Nausea And Vomiting Last Admin: 03/05/22 16:39 Dose: 4 mg Polyethylene Glycol (Polyethylene Glycol 3350 17 Gm Powder) 17 gm PO QDAY [facility] Last Admin: 03/13/22 10:24 Dose: 17 gm Potassium Chloride (Potassium Chloride Er 20 Meq Tab) 20 meq PO ONCE@1100 [facility] Stop: 03/13/22 15:00 Senna/Docusate Sodium (Sennosides/Docusate Sodium 8.6/50 Mg Tab) 2 tab PO Q12H PRN PRN Reason: Laxative Effect Sodium Chloride (Sodium Chloride 0.9% 10 Ml Flush Syringe) 10 ml IV BID [facility] Last Admin: 03/13/22 10:28 Dose: 10 ml Sodium Chloride (Sodium Chloride 0.9% 10 Ml Flush Syringe) 10 ml IV PRN PRN PRN Reason: LINE FLUSH Physical Examination - Physical Exam Narrative exam: Physical Exam: Constitutional: Alert, cooperative. No acute distress Head, Ears, Nose: Normocephalic, atraumatic. External ears, nose normal Eyes: Conjunctivae/corneas clear. No icterus. No ptosis. Neck: Supple, no meningeal signs Cardiovascular: S1, S2 + Respiratory: Good air entry, clear to auscultation bilaterally GI: Abdominal wall edema, tenderness present, bowel sounds present Musculoskeletal: No pedal edema, no cyanosis. Skin: No rash or abscess Hem/Lymphatic: No palpable cervical or supraclavicular nodes. No lymphangitis Psych: Mood ok. Affect normal Neurological: Awake, alert, oriented. No gross abnormality - Constitutional Vitals: Vital Signs Temp Pulse Resp BP Pulse Ox 99.3 F 107 H 20 126/69 94 03/12/22 21:44 03/12/22 21:44 03/12/22 21:44 03/12/22 21:44 03/12/22 21:44 Temperature -Last 24 Hours Temperature 99.3 F Results - Labs CBC & Chem 7: 03/13/22 07:13 03/13/22 05:24 Labs: Abnormal lab results 03/12/22 03/12/22 03/13/22 Range/Units 16:13 23:43 05:24 WBC (4.5-11.0) K/mm3 RBC (3.65-5.03) M/mm3 Lymph % (Auto) (13.4-35.0) % [place] # (Auto) (0.0-0.8) K/mm3 Seg Neutrophils % (40.0-70.0) % Seg Neutrophils # (1.8-7.7) K/mm3 Potassium 2.9 L* (3.6-5.0) mmol/L BUN 3 L (7-17) mg/dL Creatinine 0.5 L (0.6-1.2) mg/dL Glucose 166 H (65-100) mg/dL POC Glucose 167 H 174 H (70-105) mg/dL Magnesium (1.7-2.3) mg/dL 0703/13/22 03/13/22 Range/Units 05:24 05:31 07:13 WBC 14.8 H (4.5-11.0) K/mm3 RBC 3.30 L (3.65-5.03) M/mm3 Lymph % (Auto) 8.5 L (13.4-35.0) % [place] # (Auto) 1.1 H (0.0-0.8) K/mm3 Seg Neutrophils % 84.1 H (40.0-70.0) % Seg Neutrophils # 12.4 H (1.8-7.7) K/mm3 Potassium (3.6-5.0) mmol/L BUN (7-17) mg/dL Creatinine (0.6-1.2) mg/dL Glucose (65-100) mg/dL POC Glucose 141 H (70-105) mg/dL Magnesium 1.40 L (1.7-2.3) mg/dL 03/13/22 03/13/22 Range/Units 07:58 10:55 WBC (4.5-11.0) K/mm3 RBC (3.65-5.03) M/mm3 Lymph % (Auto) (13.4-35.0) % [place] # (Auto) (0.0-0.8) K/mm3 Seg Neutrophils % (40.0-70.0) % Seg Neutrophils # (1.8-7.7) K/mm3 Potassium (3.6-5.0) mmol/L BUN (7-17) mg/dL Creatinine (0.6-1.2) mg/dL Glucose (65-100) mg/dL POC Glucose 162 H 180 H (70-105) mg/dL Magnesium (1.7-2.3) mg/dL - Imaging and Cardiology Chest x-ray: report reviewed, image reviewed (trace pleural effusion on R side) Assessment and Plan Cultures: 03/11/2022 blood culture: No growth A/P: 70-year-old female with prior cholecystectomy admitted to the hospital on 03/05/2022 with severe abdominal pain going on for about 2 days. She was found to have elevated LFTs with elevated lipase and CT findings concerning for pancreatitis: #Leukocytosis: Likely reactive to acute pancreatitis. No evidence of necrotizing pancreatitis noted on abdominal imaging. Chest x-ray with right- sided pleural effusion likely reactive to pancreatitis. Blood cultures without growth. #Transaminitis: Trending down. #Prior cholecystectomy Recs: -No evidence of infectious process identified at this time. Leukocytosis could be reactive to acute pancreatitis. Monitor off antibiotics for now -Zosyn discontinued Aman Emerson MD, FACP, [facility] O: [phone] F: [phone] C: [phone]
[2022-03-13] MEDS: AMITRIPTYLINE 25 MG TAB PO SCH (21:43)
[2022-03-13] MEDS: ACETAMINOPHEN 325 MG TAB PO PRN (21:46)
[2022-03-14] MEDS: HYDROmorphone 1 MG/1 ML INJ IV PRN ×4 (03:14→22:17)
[2022-03-14 06:04] LABS: BUN/Creatinine Ratio 12; Blood Urea Nitrogen 6 mg/dL (7-17); Calcium 8.3 mg/dL (8.4-10.2); Hemolysis Index 2
[2022-03-14] MEDS: INSULIN LISPRO 100 UNIT/ML SUB-Q SCH ×4 (07:06→20:20)
[2022-03-14 07:32] LABS: Basophils # (Auto) 0.1 K/mm3 (0.0-0.1); Basophils % (Auto) 0.5 % (0.0-1.8); Eosinophils % (Auto) 0.3 % (0.0-4.3); Hematocrit 29.1 % (30.3-42.9); Hemoglobin 9.7 gm/dl (10.1-14.3); Lymphocytes # (Auto) 1.4 K/mm3 (1.2-5.4); Lymphocytes % (Auto) 13.9 % (13.4-35.0); Mean Corpuscular HGB Conc 34 % (30-34); Mean Corpuscular Volume 93 fl (79-97); Monocytes # (Auto) 0.9 K/mm3 (0.0-0.8); Monocytes % (Auto) 8.7 % (0.0-7.3); Platelet Count 341 K/mm3 (140-440); Red Blood Count 3.14 M/mm3 (3.65-5.03)
--- NOTE | 2022-03-14 08:02 | Gastroenterology Progress Note ---
Assessment and Plan - Patient Problems (1) Right lower quadrant abdominal pain Current Visit: Yes Status: Acute (2) Ascites Current Visit: Yes Status: Acute (3) Acute pancreatitis Current Visit: Yes Status: Acute Qualifiers: Acute pancreatitis complication: unspecified (4) Transaminitis Current Visit: Yes Status: Acute (5) History of cholecystectomy Current Visit: Yes Status: Chronic Subjective Principal diagnosis: Acute pancreatitis Objective - Constitutional Vitals: Temp Pulse Resp BP Pulse Ox 101.8 F H 96 H 17 144/73 100 03/13/22 21:38 03/13/22 21:38 03/14/22 03:14 03/13/22 21:38 03/13/22 21:38 - Labs CBC & Chem 7: 03/14/22 07:14 03/14/22 04:44 Labs: Laboratory Results - last 24 hr 03/13/22 03/13/22 03/13/22 05:24 05:24 05:24 WBC RBC Hgb Hct MCV MCH MCHC RDW Plt Count Lymph % (Auto) [place] % (Auto) Eos % (Auto) Baso % (Auto) Lymph # (Auto) [place] # (Auto) Eos # (Auto) Baso # (Auto) Seg Neutrophils % Seg Neutrophils # Sodium Potassium Chloride Carbon Dioxide Anion Gap BUN Creatinine Estimated GFR BUN/Creatinine Ratio Glucose POC Glucose Calcium Phosphorus 2.50 Magnesium 1.40 L Amylase 58 Lipase 36 03/13/22 03/13/22 03/13/22 07:58 10:55 14:34 WBC RBC Hgb Hct MCV MCH MCHC RDW Plt Count Lymph % (Auto) [place] % (Auto) Eos % (Auto) Baso % (Auto) Lymph # (Auto) [place] # (Auto) Eos # (Auto) Baso # (Auto) Seg Neutrophils % Seg Neutrophils # Sodium Potassium 4.2 D Chloride Carbon Dioxide Anion Gap BUN Creatinine Estimated GFR BUN/Creatinine Ratio Glucose POC Glucose 162 H 180 H Calcium Phosphorus Magnesium Amylase Lipase 03/13/22 03/13/22 03/14/22 17:47 22:31 04:44 WBC RBC Hgb Hct MCV MCH MCHC RDW Plt Count Lymph % (Auto) [place] % (Auto) Eos % (Auto) Baso % (Auto) Lymph # (Auto) [place] # (Auto) Eos # (Auto) Baso # (Auto) Seg Neutrophils % Seg Neutrophils # Sodium 140 Potassium 3.7 Chloride 103.7 Carbon Dioxide 27 Anion Gap 13 BUN 6 L Creatinine 0.5 L Estimated GFR > 60 BUN/Creatinine Ratio 12 Glucose 150 H POC Glucose 278 H 199 H Calcium 8.3 L Phosphorus Magnesium 1.60 L Amylase Lipase 03/14/22 03/14/22 06:55 07:14 WBC 10.3 RBC 3.14 L Hgb 9.7 L Hct 29.1 L MCV 93 MCH 31 MCHC 34 RDW 15.0 Plt Count 341 Lymph % (Auto) 13.9 [place] % (Auto) 8.7 H Eos % (Auto) 0.3 Baso % (Auto) 0.5 Lymph # (Auto) 1.4 [place] # (Auto) 0.9 H Eos # (Auto) 0.0 Baso # (Auto) 0.1 Seg Neutrophils % 76.6 H Seg Neutrophils # 7.9 H Sodium Potassium Chloride Carbon Dioxide Anion Gap BUN Creatinine Estimated GFR BUN/Creatinine Ratio Glucose POC Glucose 144 H Calcium Phosphorus Magnesium Amylase Lipase
--- NOTE | 2022-03-14 09:37 | Progress Note ---
Assessment and Plan Assessment and plan: Acute pancreatitis Hypokalemia Transaminitis 03/08/22 Continues to have pain right flank LFTs and amylase and lipase have come back to normal MRCP was negative Possible gallstone which is passed through GI follow-up appreciated 03/09/2022 Right flank pain Hypokalemia Transaminases normal Amylase lipase near normal 03/10/2022 Hypokalemia persists Left flank pain persists For paracentesis in a.m. 03/11/2022 Patient with neg MRCP and normal LFT, therefore more likely that patient had de shanice cholelithiasis that caused gallstone pancreatitis then passed. Regarding fluid / ascites, patient's pain still severe so GI recommends paracentesis to r/o pancreatic ascites (leakage of pancreatic juices due to a disrupted pancreatic duct) 03/12/2022. Awaiting paracentesis. Replete potassium IV for severe hypokalemia. Check magnesium levels 03/13/2022. Radiology reports too little fluid for paracentesis. Continue to replete potassium and consult nephrology for further evaluation. Given the patient's persistent right upper quadrant pain, we will recall surgery to evaluate. Leukocytosis also persists. ID consultation for further evaluation. We will start empiric antibiotics of Zosyn. 03/14/2022. ID recommends following off antibiotics for now. However, patient did have fever spike last night of 101.8. Previous blood cultures on 03/10/2022 have shown no growth to date. No new cultures drawn last night. GI considering endoscopic ultrasound/ERCP. GI, surgery and ID following. History Interval history: No new issues overnight. Hospitalist Physical - Constitutional Vitals: Temp Pulse Resp BP Pulse Ox 101.8 F H 96 H 17 144/73 100 03/13/22 21:38 03/13/22 21:38 03/14/22 03:44 03/13/22 21:38 03/13/22 21:38 General appearance: Present: no acute distress, well-nourished - EENT Eyes: Present: PERRL, EOM intact ENT: hearing intact, clear oral mucosa, dentition normal - Neck Neck: Present: supple, normal ROM - Respiratory Respiratory effort: normal Respiratory: bilateral: CTA - Cardiovascular Rhythm: regular Heart Sounds: Present: S1 & S2. Absent: gallop, rub - Extremities Extremities: no ischemia, No edema, Full ROM - Abdominal General gastrointestinal: soft, non-tender, non-distended, normal bowel sounds - Integumentary Integumentary: Present: clear, warm, dry - Neurologic Neurologic: CNII-XII intact, moves all extremities Results - Labs CBC & Chem 7: 03/14/22 07:14 03/14/22 04:44 Labs: Laboratory Last Values WBC 10.3 K/mm3 (4.5-11.0) 03/14/22 07:14 RBC 3.14 M/mm3 (3.65-5.03) L 03/14/22 07:14 Hgb 9.7 gm/dl (10.1-14.3) L 03/14/22 07:14 Hct 29.1 % (30.3-42.9) L 03/14/22 07:14 MCV 93 fl (79-97) 03/14/22 07:14 MCH 31 pg (28-32) 03/14/22 07:14 MCHC 34 % (30-34) 03/14/22 07:14 RDW 15.0 % (13.2-15.2) 03/14/22 07:14 Plt Count 341 K/mm3 (140-440) 03/14/22 07:14 Lymph % (Auto) 13.9 % (13.4-35.0) 03/14/22 07:14 [place] % (Auto) 8.7 % (0.0-7.3) H 03/14/22 07:14 Eos % (Auto) 0.3 % (0.0-4.3) 03/14/22 07:14 Baso % (Auto) 0.5 % (0.0-1.8) 03/14/22 07:14 Lymph # (Auto) 1.4 K/mm3 (1.2-5.4) 03/14/22 07:14 [place] # (Auto) 0.9 K/mm3 (0.0-0.8) H 03/14/22 07:14 Eos # (Auto) 0.0 K/mm3 (0.0-0.4) 03/14/22 07:14 Baso # (Auto) 0.1 K/mm3 (0.0-0.1) 03/14/22 07:14 Add Manual Diff Complete 03/11/22 03:06 Total Counted 100 03/11/22 03:06 Seg Neutrophils % 76.6 % (40.0-70.0) H 03/14/22 07:14 Seg Neuts % (Manual) 88.0 % (40.0-70.0) H 03/11/22 03:06 Band Neutrophils % 7.0 % 03/11/22 03:06 Lymphocytes % (Manual) 0 % (13.4-35.0) L 03/11/22 03:06 Reactive Lymphs % (Man) 0 % 03/11/22 03:06 Monocytes % (Manual) 4.0 % (0.0-7.3) 03/11/22 03:06 Eosinophils % (Manual) 0 % (0.0-4.3) 03/11/22 03:06 Basophils % (Manual) 0 % (0.0-1.8) 03/11/22 03:06 Metamyelocytes % 1.0 % 03/11/22 03:06 Myelocytes % 0 % 03/11/22 03:06 Promyelocytes % 0 % 03/11/22 03:06 Blast Cells % 0 % 03/11/22 03:06 Nucleated RBC % Not Reportable 03/11/22 03:06 Seg Neutrophils # 7.9 K/mm3 (1.8-7.7) H 03/14/22 07:14 Seg Neutrophils # Man 8.7 K/mm3 (1.8-7.7) H 03/11/22 03:06 Band Neutrophils # 0.7 K/mm3 03/11/22 03:06 Lymphocytes # (Manual) 0.0 K/mm3 (1.2-5.4) L 03/11/22 03:06 Abs React Lymphs (Man) 0.0 K/mm3 03/11/22 03:06 Monocytes # (Manual) 0.4 K/mm3 (0.0-0.8) 03/11/22 03:06 Eosinophils # (Manual) 0.0 K/mm3 (0.0-0.4) 03/11/22 03:06 Basophils # (Manual) 0.0 K/mm3 (0.0-0.1) 03/11/22 03:06 Metamyelocytes # 0.1 K/mm3 03/11/22 03:06 Myelocytes # 0.0 K/mm3 03/11/22 03:06 Promyelocytes # 0.0 K/mm3 03/11/22 03:06 Blast Cells # 0.0 K/mm3 03/11/22 03:06 WBC Morphology Not Reportable 03/11/22 03:06 Hypersegmented Neuts Not Reportable 03/11/22 03:06 Hyposegmented Neuts Not Reportable 03/11/22 03:06 Hypogranular Neuts Not Reportable 03/11/22 03:06 Smudge Cells Not Reportable 03/11/22 03:06 Toxic Granulation Not Reportable 03/11/22 03:06 Toxic Vacuolation Not Reportable 03/11/22 03:06 Dohle Bodies Not Reportable 03/11/22 03:06 Pelger-Huet Anomaly Not Reportable 03/11/22 03:06 Lashon Rods Not Reportable 03/11/22 03:06 Platelet Estimate Consistent w auto 03/11/22 03:06 Clumped Platelets Not Reportable 03/11/22 03:06 Plt Clumps, EDTA Not Reportable 03/11/22 03:06 Large Platelets Not Reportable 03/11/22 03:06 Giant Platelets Not Reportable 03/11/22 03:06 Platelet Satelliting Not Reportable 03/11/22 03:06 Plt Morphology Comment Not Reportable 03/11/22 03:06 RBC Morphology Normal 03/11/22 03:06 Dimorphic RBCs Not Reportable 03/11/22 03:06 Polychromasia Not Reportable 03/11/22 03:06 Hypochromasia Not Reportable 03/11/22 03:06 Poikilocytosis Not Reportable 03/11/22 03:06 Anisocytosis Not Reportable 03/11/22 03:06 Microcytosis Not Reportable 03/11/22 03:06 Macrocytosis Not Reportable 03/11/22 03:06 Spherocytes Not Reportable 03/11/22 03:06 Pappenheimer Bodies Not Reportable 03/11/22 03:06 Sickle Cells Not Reportable 03/11/22 03:06 Target Cells Not Reportable 03/11/22 03:06 Tear Drop Cells Not Reportable 03/11/22 03:06 Ovalocytes Not Reportable 03/11/22 03:06 Helmet Cells Not Reportable 03/11/22 03:06 [place] Bodies Not Reportable 03/11/22 03:06 [place] Rings Not Reportable 03/11/22 03:06 Phani Cells Not Reportable 03/11/22 03:06 Bite Cells Not Reportable 03/11/22 03:06 Crenated Cell Not Reportable 03/11/22 03:06 Elliptocytes Not Reportable 03/11/22 03:06 Acanthocytes (Spur) Not Reportable 03/11/22 03:06 Rouleaux Not Reportable 03/11/22 03:06 Hemoglobin C Crystals Not Reportable 03/11/22 03:06 Schistocytes Not Reportable 03/11/22 03:06 Malaria parasites Not Reportable 03/11/22 03:06 Rosalio Bodies Not Reportable 03/11/22 03:06 Hem Pathologist Commnt No 03/11/22 03:06 Sodium 140 mmol/L (137-145) 03/14/22 04:44 Potassium 3.7 mmol/L (3.6-5.0) 03/14/22 04:44 Chloride 103.7 mmol/L (98-107) 03/14/22 04:44 Carbon Dioxide 27 mmol/L (22-30) 03/14/22 04:44 Anion Gap 13 mmol/L 03/14/22 04:44 BUN 6 mg/dL (7-17) L 03/14/22 04:44 Creatinine 0.5 mg/dL (0.6-1.2) L 03/14/22 04:44 Estimated GFR > 60 ml/min 03/14/22 04:44 BUN/Creatinine Ratio 12 % 03/14/22 04:44 Glucose 150 mg/dL (65-100) H 03/14/22 04:44 POC Glucose 144 mg/dL (70-105) H 03/14/22 06:55 Hemoglobin A1c 14.0 % (4-6) H 03/09/22 06:12 Calcium 8.3 mg/dL (8.4-10.2) L 03/14/22 04:44 Phosphorus 2.50 mg/dL (2.5-4.5) 03/13/22 05:24 Magnesium 1.60 mg/dL (1.7-2.3) L 03/14/22 04:44 Total Bilirubin 0.80 mg/dL (0.1-1.2) 03/11/22 03:06 AST 18 units/L (5-40) 03/11/22 03:06 ALT 39 units/L (7-56) 03/11/22 03:06 Alkaline Phosphatase 91 units/L (35-129) 03/11/22 03:06 Total Protein 5.4 g/dL (6.3-8.2) L 03/11/22 03:06 Albumin 2.0 g/dL (3.9-5) L 03/11/22 03:06 Albumin/Globulin Ratio 0.6 % 03/11/22 03:06 Amylase 53 units/L (27-131) 03/14/22 08:27 Lipase 38 units/L (13-60) 03/14/22 08:27 Urine Color Yellow (Yellow) 03/11/22 00:13 Urine Turbidity Clear (Clear) 03/11/22 00:13 Urine pH 7.0 (5.0-7.0) 03/11/22 00:13 Ur Specific [place] 1.010 (1.003-1.030) 03/11/22 00:13 Urine Protein 100 mg/dl mg/dL (Negative) 03/11/22 00:13 Urine Glucose (UA) 4+ mg/dL (Negative) 03/11/22 00:13 Urine Ketones 2+ mg/dL (Negative) 03/11/22 00:13 Urine Blood Trace (Negative) 03/11/22 00:13 Urine Nitrite Negative (Negative) 03/11/22 00:13 Ur Reducing Substances Not Reportable 03/11/22 00:13 Urine Bilirubin Negative (Negative) 03/11/22 00:13 Urine Ictotest Not Reportable 03/11/22 00:13 Urine Urobilinogen 8.0 mg/dL (<2.0) H 03/11/22 00:13 Ur Leukocyte Esterase Negative (Negative) 03/11/22 00:13 Urine WBC (Auto) 1.0 /HPF (0.0-6.0) 03/11/22 00:13 Urine RBC (Auto) < 1.0 /HPF (0.0-6.0) 03/11/22 00:13 U Epithel Cells (Auto) 3.0 /HPF (0-13.0) 03/11/22 00:13 Urine Mucus Few /HPF 03/11/22 00:13 Urine Opiates Screen Positive 03/05/22 08:32 Urine Methadone Screen Negative 03/05/22 08:32 Ur Barbiturates Screen Negative 03/05/22 08:32 Ur Phencyclidine Scrn Negative 03/05/22 08:32 Ur Amphetamines Screen Negative 03/05/22 08:32 U Benzodiazepines Scrn Negative 03/05/22 08:32 Urine Cocaine Screen Negative 03/05/22 08:32 U Marijuana (THC) Screen Negative 03/05/22 08:32 Drugs of Abuse Note Disclamer 03/05/22 08:32 Plasma/Serum Alcohol < 0.01 % (0-0.07) 03/05/22 06:38 Hepatitis A IgM Ab Non-reactive (NonReactive) 03/07/22 10:05 Hep Bs Antigen Non-reactive (Negative) 03/07/22 10:05 Hep B Core IgM Ab Non-reactive (NonReactive) 03/07/22 10:05 Hepatitis C Antibody Non-reactive (NonReactive) 03/07/22 10:05 Microbiology: Microbiology 03/11/22 01:41 Peripheral/Venous Blood Culture - Preliminary NO GROWTH AFTER 72 HOURS 03/11/22 00:23 Peripheral/Venous Blood Culture - Preliminary NO GROWTH AFTER 72 HOURS Santacruz/IV: Voiding Method Toilet Active Medications - Current Medications Current Medications: Generic Name Dose Route Start Last Admin Trade Name Freq PRN Reason Stop Dose Admin Acetaminophen 650 mg 03/05/22 16:30 03/13/22 21:46 Acetaminophen 325 Mg Tab PO 650 mg Q4H PRN Administration Pain MILD(1-3)/Fever >100.5/PFEIFFER Amitriptyline HCl 25 mg 03/13/22 22:00 03/13/22 21:43 Amitriptyline 25 Mg Tab PO 25 mg QHS YFN Administration Famotidine 20 mg 03/10/22 10:00 03/13/22 21:44 Famotidine 20 Mg Tab PO 20 mg BID YFN Administration Heparin Sodium (Porcine) 5,000 unit 03/05/22 17:00 03/13/22 21:44 Heparin 5,000 Unit/1 Ml Vial SUB-Q 5,000 unit Q12HR YFN Administration Hydromorphone HCl 1 mg 03/05/22 17:00 03/14/22 08:20 Hydromorphone 1 Mg/1 Ml Inj IV 1 mg Q3H PRN Administration Pain , Severe (7-10) Ibuprofen 600 mg 03/10/22 23:25 03/13/22 10:23 Ibuprofen 600 Mg Tab PO 600 mg Q6HR PRN Administration temp>100 Insulin Glargine 25 units 03/09/22 22:00 03/13/22 22:45 Insulin Glargine 100 Units/Ml SUB-Q 25 units QHS YFN Administration Insulin Human Lispro 0 unit 03/06/22 07:00 03/14/22 07:06 Insulin Lispro 100 Unit/Ml SUB-Q Not Given Q6HR [facility] Protocol Metoclopramide HCl 10 mg 03/05/22 17:00 Metoclopramide 10 Mg/2 Ml Inj IV Q6H PRN Nausea And Vomiting Morphine Sulfate 2 mg 03/05/22 17:00 03/13/22 05:33 Morphine 2 Mg/1 Ml Inj IV 2 mg Q4H PRN Administration Pain, Moderate (4-6) Ondansetron HCl 4 mg 03/05/22 17:00 03/05/22 16:39 Ondansetron 4 Mg/2 Ml Inj IV 4 mg Q3H PRN Administration Nausea And Vomiting Polyethylene Glycol 17 gm 03/10/22 12:00 03/13/22 10:24 Polyethylene Glycol 3350 17 Gm Powder PO 17 gm QDAY YFN Administration Senna/Docusate Sodium 2 tab 03/08/22 11:53 Sennosides/Docusate Sodium 8.6/50 Mg Tab PO Q12H PRN Laxative Effect Sodium Chloride 10 ml 03/05/22 16:30 03/13/22 21:44 Sodium Chloride 0.9% 10 Ml Flush Syringe IV 10 ml BID YFN Administration Sodium Chloride 10 ml 03/05/22 17:00 Sodium Chloride 0.9% 10 Ml Flush Syringe IV PRN PRN LINE FLUSH Nutrition/Malnutrition Assess - Dietary Evaluation Nutrition/Malnutrition Findings: Nutrition Notes Start: 03/06/22 17:24 Freq: Status: Active Protocol: Document 03/13/22 11:45 JOSE MARIA (Rec: 03/13/22 12:23 JOSE MARIA [id number]) Nutrition Notes Initial or Follow up Reassessment Other Pertinent Diagnosis Hypokalemia, Abdominal Pain, Ascites, Pancreatitis, Leukocytosis, ... Current Diet Clear Liquids Diet (from L ). Labs/Tests 03/13: K 2.9, BUN 3, Crea 0.5, Glu 166, Mg 1.4. Pertinent Medications 03/13: KCl 20mEq, Lantus 25U, others nutritionally unremarkable. Height 5 ft 2 in Weight 84.7 kg [place] Body Weight (kg) 50.00 BMI 34.1 Weight change and time frame 3.6 Kg body weight loss in 1 week reported. Weight Status Obese Subjective/Other Information RD consult for routine F/U on Dietary advancement. Diet advanced to Full Liquids and then to Regular Diet, but now back to Clear Liquids Diet , Pt refuses to eat (0% PO intake), according to ADL notes. Pt is on Room Air, O2 saturation @ 97%, according to Physical Assessment History notes. Pt complains of severe abdominal pain and bloating, according to Physical Assessment History notes. Percent of energy/protein needs met: Prescribed Clear Liquids Diet provides for energy/protein needs (590 Kcal/16 g) during LOS. Burn Absent Trauma Absent GI Symptoms Other Food Allergy No Skin Integrity/Comment Assessment WNL. Current % PO Negligible Minimum of two criteria Yes Energy Intake (severe) < or equal to 50% Estimated Energy Requirement > or equal to 5 days Fluid Accumulation Mild (non-severe) Reduced Epic [place] Analyst Strength N/A (non-severe) Protein-Calorie Malnutrition Non-Severe #2 Nutrition Diagnosis Malnutrition Etiology Abdominal Pain. As Evidenced by Signs and Symptoms Fluid accumulation (ascites), PO intake of meals <50% for more than 5 days. #1 Nutrition Diagnosis Inadequate protein-energy intake Etiology Abdominal Pain. As Evidenced by Signs and Symptoms Diet advanced to Full Liquids and then to Regular Diet, but now back to Clear Liquids Diet , Pt refuses to eat (0% PO intake), according to ADL notes. Is patient on ventilator? No Is Patient Ambulatory and/or Out of Bed Yes REE-([place]-St. Jeor-ambulatory/OOB) [ 1807.325 [id number]] Kcal/Kg value to use for calculation 15 Approximate Energy Requirements Using 1271 kcal/Kg Calculation Used for Recommendations Kcal/kg Additional Notes Protein: 1.2-1.5 g/Kg AdjBW; 82-102 g/day. Fluids: 1 ml/Kcal, or as per MD. Nutrition Intervention Change Diet Order: Continue Clear Liquid Diet, advance to Full Liquids Diet as tolerated. Nutrition Support: If necessary, start TF-Vital AF 1.2 Maximo @ 45 ml/hr. Flush: 70 ml water Q 4 hr, or as per MD. Kcal 1,285 Protein (gm) 80 Carbohydrates (gm) 118 Fat (gm) 58 Fluid (mL) 868 Fiber (gm) 5 % RDI: 101% Kcal; 98% AA. Goal #1 Adjust the dietary intervention to better serve Pt's needs and clinical conditions during LOS. Follow-Up By: 03/17/22 Additional Comments Continue monitoring food tolerance, %PO intake of meals , and BM.
[2022-03-14] MEDS ORDERED: POTASSIUM CHLORIDE ER 20 MEQ TAB PO ONE (10:02)
[2022-03-14] MEDS ORDERED: MAGNESIUM SULFATE 2 GM/50 ML BAG IV ONE (10:02)
--- NOTE | 2022-03-14 10:03 | Progress Note ---
Assessment and Plan 1. Persistent hypo[place]: Hypokalemia felipe 2/2 D5 containing IV fluids and decreased PO intake. Replete K as needed. K level is better. Monitor K level. 2. FEN: Replete Mg. Monitor lytes and volume status. 3. Acute Gall stone Pancreatitis: Followed by GI. Monitor. 4. Ascites. 5. DM: Lantus and SSI. Monitor. Subjective: Patient was seen and examined at the bedside. Still has pain over the R flank. Nurse at the bedside. Examination: General appearance: well-developed, appears stated age, no distress HEENT: ATNC, no icterus Neck: trachea midline Respiratory: clear to auscultation, diminished bibasilar Heart: S1S2, regular, no murmur Gastrointestinal: soft, fullness and tenderness over the R side of the abdomen, abd wall edema noted, BS+ Integumentary: LE stasis changes noted Neurologic: conversing, able to move extremities Ext: trace LE edema noted Subjective Date of service: 03/14/22 Principal diagnosis: Acute pancreatitis Objective - Vital Signs Vital signs: Vital Signs - 12hr 03/14/22 03/14/22 03:14 03:44 Respiratory 17 17 Rate - Lab 03/14/22 07:14 03/14/22 04:44 Most recent lab results Calcium 8.3 mg/dL (8.4-10.2) L 03/14/22 04:44 Phosphorus 2.50 mg/dL (2.5-4.5) 03/13/22 05:24 Magnesium 1.60 mg/dL (1.7-2.3) L 03/14/22 04:44 Medications & Allergies - Medications Allergies/Adverse Reactions: Allergies No Known Allergies Allergy (Verified 03/05/22 09:37) Home Medications: Home Medications Medication Instructions Recorded Confirmed Last Taken Type Omeprazole 40 mg PO DAILY 03/06/22 03/06/22 Unknown History Active Medications: Generic Name Dose Route Start Last Admin Trade Name Freq PRN Reason Stop Dose Admin Acetaminophen 650 mg 03/05/22 16:30 03/13/22 21:46 Acetaminophen 325 Mg Tab PO 650 mg Q4H PRN Administration Pain MILD(1-3)/Fever >100.5/PFEIFFER Amitriptyline HCl 25 mg 03/13/22 22:00 03/13/22 21:43 Amitriptyline 25 Mg Tab PO 25 mg QHS YFN Administration Famotidine 20 mg 03/10/22 10:00 03/13/22 21:44 Famotidine 20 Mg Tab PO 20 mg BID YFN Administration Heparin Sodium (Porcine) 5,000 unit 03/05/22 17:00 03/13/22 21:44 Heparin 5,000 Unit/1 Ml Vial SUB-Q 5,000 unit Q12HR YFN Administration Hydromorphone HCl 1 mg 03/05/22 17:00 03/14/22 08:20 Hydromorphone 1 Mg/1 Ml Inj IV 1 mg Q3H PRN Administration Pain , Severe (7-10) Magnesium Sulfate 2 gm in 50 mls @ 25 mls/hr 03/14/22 10:02 Magnesium Sulfate 2gm/50ml IV 03/14/22 12:01 ONCE ONE Ibuprofen 600 mg 03/10/22 23:25 03/13/22 10:23 Ibuprofen 600 Mg Tab PO 600 mg Q6HR PRN Administration temp>100 Insulin Glargine 25 units 03/09/22 22:00 03/13/22 22:45 Insulin Glargine 100 Units/Ml SUB-Q 25 units QHS YFN Administration Insulin Human Lispro 0 unit 03/06/22 07:00 03/14/22 07:06 Insulin Lispro 100 Unit/Ml SUB-Q Not Given Q6HR [facility] Protocol Metoclopramide HCl 10 mg 03/05/22 17:00 Metoclopramide 10 Mg/2 Ml Inj IV Q6H PRN Nausea And Vomiting Morphine Sulfate 2 mg 03/05/22 17:00 03/13/22 05:33 Morphine 2 Mg/1 Ml Inj IV 2 mg Q4H PRN Administration Pain, Moderate (4-6) Ondansetron HCl 4 mg 03/05/22 17:00 03/05/22 16:39 Ondansetron 4 Mg/2 Ml Inj IV 4 mg Q3H PRN Administration Nausea And Vomiting Polyethylene Glycol 17 gm 03/10/22 12:00 03/13/22 10:24 Polyethylene Glycol 3350 17 Gm Powder PO 17 gm QDAY YFN Administration Potassium Chloride 40 meq 03/14/22 10:02 Potassium Chloride Er 20 Meq Tab PO 03/14/22 10:03 ONCE ONE Senna/Docusate Sodium 2 tab 03/08/22 11:53 Sennosides/Docusate Sodium 8.6/50 Mg Tab PO Q12H PRN Laxative Effect Sodium Chloride 10 ml 03/05/22 16:30 03/13/22 21:44 Sodium Chloride 0.9% 10 Ml Flush Syringe IV 10 ml BID YFN Administration Sodium Chloride 10 ml 03/05/22 17:00 Sodium Chloride 0.9% 10 Ml Flush Syringe IV PRN PRN LINE FLUSH
--- NOTE | 2022-03-14 10:30 | Gastroenterology Progress Note ---
<DOMINGA BRIZUELA - Last Filed: 03/14/22 10:54> Assessment and Plan 1. 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 Pancreatitis - Continue pain management - labs showing improvement Subjective Principal diagnosis: Acute pancreatitis Interval history: Pt seen and examined. Lying comfortably in bed. Family member provided translation via cell phone. Pt states that she is still experiencing R sided abd pain and R flank pain. She states that the pain feels like cramping/stabbing in nature and that her RLQ/flank feels swollen. She denies aggravating or alleviating factors and states that she is here for us to tell her what is wrong. Denies eating as she reports that each doctor is telling her something different in regards to if she can eat or not. States that she is tolerating fluids well and having BMs. Per extensive [place] chart review, pt had a lap vianney 03/25/[address] Salomon @ [place].. 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 Pt's [facility] was complicated by post op GS pancreatitis from a retained stone that passed w/o intervention. Objective - Constitutional Vitals: Temp Pulse Resp BP Pulse Ox 101.8 F H 96 H 17 144/73 100 03/13/22 21:38 03/13/22 21:38 03/14/22 03:44 03/13/22 21:38 03/13/22 21:38 General appearance: mild distress - EENT ENT: hearing intact - Gastrointestinal General gastrointestinal: Present: tender - Neurologic Neurological: alert and oriented x3 - Labs CBC & Chem 7: 03/14/22 07:14 03/14/22 04:44 Labs: Laboratory Results - last 24 hr 03/13/22 03/13/22 03/13/22 05:24 05:24 10:55 WBC RBC Hgb Hct MCV MCH MCHC RDW Plt Count Lymph % (Auto) [place] % (Auto) Eos % (Auto) Baso % (Auto) Lymph # (Auto) [place] # (Auto) Eos # (Auto) Baso # (Auto) Seg Neutrophils % Seg Neutrophils # Sodium Potassium Chloride Carbon Dioxide Anion Gap BUN Creatinine Estimated GFR BUN/Creatinine Ratio Glucose POC Glucose 180 H Calcium Magnesium Amylase 58 Lipase 36 03/13/22 03/13/22 03/13/22 14:34 17:47 22:31 WBC RBC Hgb Hct MCV MCH MCHC RDW Plt Count Lymph % (Auto) [place] % (Auto) Eos % (Auto) Baso % (Auto) Lymph # (Auto) [place] # (Auto) Eos # (Auto) Baso # (Auto) Seg Neutrophils % Seg Neutrophils # Sodium Potassium 4.2 D Chloride Carbon Dioxide Anion Gap BUN Creatinine Estimated GFR BUN/Creatinine Ratio Glucose POC Glucose 278 H 199 H Calcium Magnesium Amylase Lipase 03/14/22 03/14/22 03/14/22 04:44 06:55 07:14 WBC 10.3 RBC 3.14 L Hgb 9.7 L Hct 29.1 L MCV 93 MCH 31 MCHC 34 RDW 15.0 Plt Count 341 Lymph % (Auto) 13.9 [place] % (Auto) 8.7 H Eos % (Auto) 0.3 Baso % (Auto) 0.5 Lymph # (Auto) 1.4 [place] # (Auto) 0.9 H Eos # (Auto) 0.0 Baso # (Auto) 0.1 Seg Neutrophils % 76.6 H Seg Neutrophils # 7.9 H Sodium 140 Potassium 3.7 Chloride 103.7 Carbon Dioxide 27 Anion Gap 13 BUN 6 L Creatinine 0.5 L Estimated GFR > 60 BUN/Creatinine Ratio 12 Glucose 150 H POC Glucose 144 H Calcium 8.3 L Magnesium 1.60 L Amylase Lipase 03/14/22 08:27 WBC RBC Hgb Hct MCV MCH MCHC RDW Plt Count Lymph % (Auto) [place] % (Auto) Eos % (Auto) Baso % (Auto) Lymph # (Auto) [place] # (Auto) Eos # (Auto) Baso # (Auto) Seg Neutrophils % Seg Neutrophils # Sodium Potassium Chloride Carbon Dioxide Anion Gap BUN Creatinine Estimated GFR BUN/Creatinine Ratio Glucose POC Glucose Calcium Magnesium Amylase 53 Lipase 38 <REUBEN HASTINGS - Last Filed: 03/14/22 18:10> Assessment and Plan I have seen and examined the patient and personally had face to face evaluation of the patient. I have reviewed the advanced practitioner's evaluation, assessment, and plan, and agree with the assessment and plan. I note the following notes/additions: Patient still with severe pain despite extensive eval to date, differential includes Vkof-Urch-Vafcgs syndrome, choledocholithiasis (missed on MRCP and despite normalized LFT), pancreatic ascites, etc. recommend surgery re-eval pt given the findings noted in the op notes as well Can escalate dose of the amitriptyline as well if no side effects Reuben Hastings M.D. - Patient Problems (1) Right lower quadrant abdominal pain Current Visit: Yes Status: Acute (2) Ascites Current Visit: Yes Status: Acute (3) Acute pancreatitis Current Visit: Yes Status: Acute Qualifiers: Acute pancreatitis complication: unspecified (4) Transaminitis Current Visit: Yes Status: Acute (5) History of cholecystectomy Current Visit: Yes Status: Chronic Subjective Date of service: 03/14/22 Objective - Constitutional Vitals: Temp Pulse Resp BP Pulse Ox 98.0 F 95 H 18 140/70 98 03/14/22 15:28 03/14/22 15:28 03/14/22 15:28 03/14/22 15:28 03/14/22 15:28 - Respiratory Respiratory effort: normal - Cardiovascular Rhythm: regular - Gastrointestinal General gastrointestinal: Present: tender (R sided ttp) - Integumentary Integumentary: Present: dry - Labs CBC & Chem 7: 03/14/22 07:14 03/14/22 04:44 Labs: Laboratory Results - last 24 hr 03/13/22 03/14/22 03/14/22 22:31 04:44 06:55 WBC RBC Hgb Hct MCV MCH MCHC RDW Plt Count Lymph % (Auto) [place] % (Auto) Eos % (Auto) Baso % (Auto) Lymph # (Auto) [place] # (Auto) Eos # (Auto) Baso # (Auto) Seg Neutrophils % Seg Neutrophils # Sodium 140 Potassium 3.7 Chloride 103.7 Carbon Dioxide 27 Anion Gap 13 BUN 6 L Creatinine 0.5 L Estimated GFR > 60 BUN/Creatinine Ratio 12 Glucose 150 H POC Glucose 199 H 144 H Calcium 8.3 L Magnesium 1.60 L Amylase Lipase 03/14/22 03/14/22 03/14/22 07:14 08:27 11:48 WBC 10.3 RBC 3.14 L Hgb 9.7 L Hct 29.1 L MCV 93 MCH 31 MCHC 34 RDW 15.0 Plt Count 341 Lymph % (Auto) 13.9 [place] % (Auto) 8.7 H Eos % (Auto) 0.3 Baso % (Auto) 0.5 Lymph # (Auto) 1.4 [place] # (Auto) 0.9 H Eos # (Auto) 0.0 Baso # (Auto) 0.1 Seg Neutrophils % 76.6 H Seg Neutrophils # 7.9 H Sodium Potassium Chloride Carbon Dioxide Anion Gap BUN Creatinine Estimated GFR BUN/Creatinine Ratio Glucose POC Glucose 115 H Calcium Magnesium Amylase 53 Lipase 38 03/14/22 17:47 WBC RBC Hgb Hct MCV MCH MCHC RDW Plt Count Lymph % (Auto) [place] % (Auto) Eos % (Auto) Baso % (Auto) Lymph # (Auto) [place] # (Auto) Eos # (Auto) Baso # (Auto) Seg Neutrophils % Seg Neutrophils # Sodium Potassium Chloride Carbon Dioxide Anion Gap BUN Creatinine Estimated GFR BUN/Creatinine Ratio Glucose POC Glucose 79 Calcium Magnesium Amylase Lipase
--- NOTE | 2022-03-14 10:34 | Progress Note ---
Assessment and Plan Cultures: 03/11/2022 blood culture: No growth A/P: 70-year-old female with prior cholecystectomy admitted to the hospital on 03/05/2022 with severe abdominal pain going on for about 2 days. She was found to have elevated LFTs with elevated lipase and CT findings concerning for pancreatitis: #Leukocytosis: Likely reactive to acute pancreatitis. No evidence of necrotizing pancreatitis noted on abdominal imaging. Chest x-ray with right- sided pleural effusion likely reactive to pancreatitis. Blood cultures without growth. #Fever: ?from pancreatitis v/s abdominal wall cellulitis. Does have significant abdominal wall edema, with superficial tenderness in RLQ region #Transaminitis: Trending down. #Prior cholecystectomy Recs: -febrile again, started IV cefazolin to cover for abdominal wall cellulitis. Has edema and superficial tenderness in RLQ region Aman Emerson MD, FACP, [facility] O: [phone] F: [phone] C: [phone] Subjective Date of service: 03/14/22 Principal diagnosis: Acute pancreatitis Interval history: Had a fever last night of 101.8F. Complains of abdominal pain, more on right side. Objective - Exam Narrative Exam: Physical Exam: Constitutional: Alert, cooperative. No acute distress Head, Ears, Nose: Normocephalic, atraumatic. External ears, nose normal Eyes: Conjunctivae/corneas clear. No icterus. No ptosis. Neck: Supple, no meningeal signs Cardiovascular: S1, S2 + Respiratory: Good air entry, clear to auscultation bilaterally GI: Abdominal wall edema, tenderness present in RLQ region, bowel sounds present Musculoskeletal: No pedal edema, no cyanosis. Skin: No rash or abscess Hem/Lymphatic: No palpable cervical or supraclavicular nodes. No lymphangitis Psych: Mood ok. Affect normal Neurological: Awake, alert, oriented. No gross abnormality - Constitutional Vitals: Vital Signs Temp Pulse Resp BP Pulse Ox 101.8 F H 96 H 17 144/73 100 03/13/22 21:38 03/13/22 21:38 03/14/22 03:44 03/13/22 21:38 03/13/22 21:38 Temperature -Last 24 Hours Temperature 101.8 F Temperature 98.0 F - Labs CBC & Chem 7: 07/08/22 07:14 03/14/22 04:44 Labs: Abnormal lab results 03/13/22 03/13/22 03/13/22 Range/Units 10:55 17:47 22:31 RBC (3.65-5.03) M/mm3 Hgb (10.1-14.3) gm/dl Hct (30.3-42.9) % [place] % (Auto) (0.0-7.3) % [place] # (Auto) (0.0-0.8) K/mm3 Seg Neutrophils % (40.0-70.0) % Seg Neutrophils # (1.8-7.7) K/mm3 BUN (7-17) mg/dL Creatinine (0.6-1.2) mg/dL Glucose (65-100) mg/dL POC Glucose 180 H 278 H 199 H (70-105) mg/dL Calcium (8.4-10.2) mg/dL Magnesium (1.7-2.3) mg/dL 03/14/22 03/14/22 03/14/22 Range/Units 04:44 06:55 07:14 RBC 3.14 L (3.65-5.03) M/mm3 Hgb 9.7 L (10.1-14.3) gm/dl Hct 29.1 L (30.3-42.9) % [place] % (Auto) 8.7 H (0.0-7.3) % [place] # (Auto) 0.9 H (0.0-0.8) K/mm3 Seg Neutrophils % 76.6 H (40.0-70.0) % Seg Neutrophils # 7.9 H (1.8-7.7) K/mm3 BUN 6 L (7-17) mg/dL Creatinine 0.5 L (0.6-1.2) mg/dL Glucose 150 H (65-100) mg/dL POC Glucose 144 H (70-105) mg/dL Calcium 8.3 L (8.4-10.2) mg/dL Magnesium 1.60 L (1.7-2.3) mg/dL
[2022-03-14] MEDS: MORPHINE 2 MG/1 ML INJ IV PRN (11:37)
[2022-03-14] MEDS: ACETAMINOPHEN 325 MG TAB PO PRN (11:38)
--- NOTE | 2022-03-14 13:51 | Progress Note ---
Assessment and Plan Pain is fairly severe and in waves. Pain level and characteristics uncharacteristic for FHC syndrome. Many of these pt's are actually asx. FHC syndrome would also not elevate LFT's or be assoc with pancreatitis. Cont iv ab repeat CT of abdo and pelvis. Amylase and Lipase now normal. Tbili is also normal. Notes from [facility] positive for retained CBD stone after the LC. Subseq MRCP neg for stones. Would wonder about ampulaary stenosis or primary cbd stones. Subjective Date of service: 03/14/22 Patient Reports: Positive: still having pain Narrative: Pain is fairly severe and in waves. Pain level and characteristics uncharacteristic for FHC syndrome. Manhy of these pt's are actually asx. Cont iv ab repeat CT of abdo and pelvis. Amylase and Lipase now normal. Tbili is also normal. Objective Vital Signs - 12hr 03/14/22 03/14/22 03:14 03:44 Respiratory 17 17 Rate - Labs 03/14/22 07:14 03/14/22 04:44 Diabetes panel 03/13/22 03/14/22 Range/Units 14:34 04:44 Sodium 140 (137-145) mmol/L Potassium 4.2 D 3.7 (3.6-5.0) mmol/L Chloride 103.7 (98-107) mmol/L Carbon Dioxide 27 (22-30) mmol/L BUN 6 L (7-17) mg/dL Creatinine 0.5 L (0.6-1.2) mg/dL Glucose 150 H (65-100) mg/dL Calcium 8.3 L (8.4-10.2) mg/dL Calcium panel 03/14/22 Range/Units 04:44 Calcium 8.3 L (8.4-10.2) mg/dL Pituitary panel 03/13/22 03/14/22 Range/Units 14:34 04:44 Sodium 140 (137-145) mmol/L Potassium 4.2 D 3.7 (3.6-5.0) mmol/L Chloride 103.7 (98-107) mmol/L Carbon Dioxide 27 (22-30) mmol/L BUN 6 L (7-17) mg/dL Creatinine 0.5 L (0.6-1.2) mg/dL Glucose 150 H (65-100) mg/dL Calcium 8.3 L (8.4-10.2) mg/dL Adrenal panel 03/13/22 03/14/22 Range/Units 14:34 04:44 Sodium 140 (137-145) mmol/L Potassium 4.2 D 3.7 (3.6-5.0) mmol/L Chloride 103.7 (98-107) mmol/L Carbon Dioxide 27 (22-30) mmol/L BUN 6 L (7-17) mg/dL Creatinine 0.5 L (0.6-1.2) mg/dL Glucose 150 H (65-100) mg/dL Calcium 8.3 L (8.4-10.2) mg/dL
--- NOTE | 2022-03-14 17:50 | Cat Scan Report ---
CT ABDOMEN AND PELVIS WITH CONTRAST INDICATION / CLINICAL INFORMATION: cont abdo pain with pancreatitis. TECHNIQUE: Axial CT images were obtained through the abdomen and pelvis after 100 cc Omnipaque [address] scans at this location are performed using CT dose reduction for ALARA by means of automated exposure control. COMPARISON: 03/08/2022 FINDINGS: LOWER CHEST: Small bilateral pleural effusions with adjacent atelectasis. AORTA / ARTERIES: No significant abnormality. IVC / VEINS: No significant abnormality. LYMPH NODES: No significant adenopathy. COLON: No significant abnormality. APPENDIX: No significant abnormality. STOMACH / SMALL BOWEL: No significant abnormality PERITONEUM: No free fluid. No free air. Along the anterior aspect of the abdomen, adjacent to the gre ater curvature of the stomach there is an ill-defined peripherally enhancing fluid collection measuri ng approximately 4.1 x 3.8 x 4.3 cm. This fluid collection abuts the pancreatic head and may be a per ipancreatic fluid collection. There is a additional fluid collection along the pancreatic tail which has a serpentine morphology and measures roughly 9.5 x 1.7 x 6.7 cm. Within the right retroperitoneum there is a large fluid collection causing mass effect upon the peritoneum, measuring approximately 1 3.4 x 10.4 x 23.2 cm. LIVER: No significant abnormality. GALLBLADDER: Gallbladder is not well seen. BILE DUCTS: Mild intra and extrahepatic bile duct dilation. PANCREAS: The pancreas has homogeneous enhancement. SPLEEN: No significant abnormality. ADRENALS: No significant abnormality. RIGHT KIDNEY / URETER: Right renal cyst. No acute findings. LEFT KIDNEY / URETER: Left renal cysts. No acute findings. URINARY BLADDER: No significant abnormality. REPRODUCTIVE ORGANS: No significant abnormality. SKELETAL SYSTEM: No significant abnormality. ADDITIONAL FINDINGS: There is subcutaneous edema/swelling of the right flank, likely secondary to the underlying retroperitoneal fluid collection. IMPRESSION: 1. As detailed above there multiple fluid collections within the peritoneum as well as the retroperit oneum. Given the presence of prior pancreatitis less than 4 weeks ago these likely represent acute pe ripancreatic fluid collections. The pancreas has a homogeneous enhancement making necrotizing pancrea titis less likely. These fluid collections, especially the right retroperitoneal fluid collection cau ses mass effect upon the peritoneum and causes subcutaneous edema/swelling of the right flank. 2. Increasing bilateral pleural effusions with adjacent atelectasis. Signer Name: Romario Lerner DO Signed: 03/14/2022 5:45 PM Workstation Name: [id number]
[2022-03-14] MEDS: HEPARIN 5,000 UNIT/1 ML VIAL SUB-Q SCH ×2 (20:03→21:44)
[2022-03-14] MEDS: POLYETHYLENE GLYCOL 3350 17 GM POWDER PO SCH (20:04)
[2022-03-14] MEDS: FAMOTIDINE 20 MG TAB PO SCH ×2 (20:05→21:44)
[2022-03-14] MEDS: AMITRIPTYLINE 25 MG TAB PO SCH (21:44)
[2022-03-14] MEDS: IBUPROFEN 600 MG TAB PO PRN (21:48)
[2022-03-15] MEDS: INSULIN LISPRO 100 UNIT/ML SUB-Q SCH ×4 (00:20→17:41)
[2022-03-15] MEDS: INSULIN GLARGINE 100 UNITS/ML SUB-Q SCH (01:15)
[2022-03-15 06:42] LABS: Blood Urea Nitrogen 7 mg/dL (7-17); Calcium 8.3 mg/dL (8.4-10.2); Hemolysis Index 1
[2022-03-15 06:50] LABS: BUN/Creatinine Ratio 14
--- NOTE | 2022-03-15 07:48 | Progress Note ---
Assessment and Plan 1. Persistent hypoaklemia: Hypokalemia felipe 2/2 D5 containing IV fluids and decreased PO intake. Replete K as needed. K level is better. Monitor K level. 2. FEN: Replete Mg. Monitor lytes and volume status. 3. Acute Gall stone Pancreatitis: Followed by GI. Monitor. 4. Ascites. 5. DM: Lantus and SSI. Monitor. Subjective: Patient was seen and examined at the bedside. Doing better today. Examination: General appearance: well-developed, appears stated age, no distress HEENT: ATNC, no icterus Neck: trachea midline Respiratory: clear to auscultation, diminished bibasilar Heart: S1S2, regular, no murmur Gastrointestinal: soft, fullness over the R side of the abdomen, NT Integumentary: LE stasis changes noted Neurologic: conversing, able to move extremities Ext: trace LE edema noted Subjective Date of service: 03/15/22 Principal diagnosis: Acute pancreatitis Objective - Vital Signs Vital signs: Vital Signs - 12hr 03/14/22 03/14/22 03/14/22 21:42 21:48 22:17 Temperature 99.9 F H Pulse Rate 106 H Respiratory 17 17 17 Rate Blood Pressure 131/69 [Right] O2 Sat by Pulse 95 Oximetry 03/14/22 03/15/22 22:47 04:45 Temperature 98 F Pulse Rate 82 Respiratory 17 18 Rate Blood Pressure 121/68 [Right] O2 Sat by Pulse 98 Oximetry - Lab 03/16/22 02:43 03/16/22 02:43 Most recent lab results Calcium 8.3 mg/dL (8.4-10.2) L 03/15/22 05:56 Phosphorus 2.50 mg/dL (2.5-4.5) 03/13/22 05:24 Magnesium 2.10 mg/dL (1.7-2.3) 03/15/22 05:56 Medications & Allergies - Medications Allergies/Adverse Reactions: Allergies No Known Allergies Allergy (Verified 03/05/22 09:37) Home Medications: Home Medications Medication Instructions Recorded Confirmed Last Taken Type Omeprazole 40 mg PO DAILY 03/06/22 03/06/22 Unknown History Active Medications: Generic Name Dose Route Start Last Admin Trade Name Freq PRN Reason Stop Dose Admin Acetaminophen 650 mg 03/05/22 16:30 03/14/22 11:38 Acetaminophen 325 Mg Tab PO 650 mg Q4H PRN Administration Pain MILD(1-3)/Fever >100.5/PFEIFFER Amitriptyline HCl 25 mg 03/13/22 22:00 03/14/22 21:44 Amitriptyline 25 Mg Tab PO 25 mg QHS YFN Administration Famotidine 20 mg 03/10/22 10:00 03/14/22 21:44 Famotidine 20 Mg Tab PO 20 mg BID YFN Administration Heparin Sodium (Porcine) 5,000 unit 03/05/22 17:00 03/14/22 21:44 Heparin 5,000 Unit/1 Ml Vial SUB-Q 5,000 unit Q12HR [facility] Administration Hydromorphone HCl 1 mg 03/05/22 17:00 03/14/22 22:17 Hydromorphone 1 Mg/1 Ml Inj IV 1 mg Q3H PRN Administration Pain , Severe (7-10) Cefazolin Sodium 2 gm/ Sodium 100 mls @ 200 mls/hr 03/14/22 10:45 03/15/22 05:32 Chloride IV Not Given Q8H [facility] Protocol Ibuprofen 600 mg 03/10/22 23:25 03/14/22 21:48 Ibuprofen 600 Mg Tab PO 600 mg Q6HR PRN Administration temp>100 Insulin Glargine 25 units 03/09/22 22:00 03/15/22 01:15 Insulin Glargine 100 Units/Ml SUB-Q Not Given QHS [facility] Insulin Human Lispro 0 unit 03/06/22 07:00 03/15/22 07:22 Insulin Lispro 100 Unit/Ml SUB-Q Not Given Q6HR [facility] Protocol Metoclopramide HCl 10 mg 03/05/22 17:00 Metoclopramide 10 Mg/2 Ml Inj IV Q6H PRN Nausea And Vomiting Morphine Sulfate 2 mg 03/05/22 17:00 03/14/22 11:37 Morphine 2 Mg/1 Ml Inj IV 2 mg Q4H PRN Administration Pain, Moderate (4-6) Ondansetron HCl 4 mg 03/05/22 17:00 03/05/22 16:39 Ondansetron 4 Mg/2 Ml Inj IV 4 mg Q3H PRN Administration Nausea And Vomiting Polyethylene Glycol 17 gm 03/10/22 12:00 03/14/22 20:04 Polyethylene Glycol 3350 17 Gm Powder PO 17 gm QDAY YFN Administration Senna/Docusate Sodium 2 tab 03/08/22 11:53 Sennosides/Docusate Sodium 8.6/50 Mg Tab PO Q12H PRN Laxative Effect Sodium Chloride 10 ml 03/05/22 16:30 03/14/22 21:44 Sodium Chloride 0.9% 10 Ml Flush Syringe IV 10 ml BID YFN Administration Sodium Chloride 10 ml 03/05/22 17:00 Sodium Chloride 0.9% 10 Ml Flush Syringe IV PRN PRN LINE FLUSH
--- NOTE | 2022-03-15 08:35 | Progress Note ---
Assessment and Plan Assessment and plan: Acute pancreatitis Abdominal wall cellulitis Sepsis. Not present on admission. Patient meets criteria given the tachycardia, leukocytosis and diagnosis of abdominal wall cellulitis Hypokalemia Transaminitis 03/08/22 Continues to have pain right flank LFTs and amylase and lipase have come back to normal MRCP was negative Possible gallstone which is passed through GI follow-up appreciated 03/09/2022 Right flank pain Hypokalemia Transaminases normal Amylase lipase near normal 03/10/2022 Hypokalemia persists Left flank pain persists For paracentesis in a.m. 03/11/2022 Patient with neg MRCP and normal LFT, therefore more likely that patient had de shanice cholelithiasis that caused gallstone pancreatitis then passed. Regarding fluid / ascites, patient's pain still severe so GI recommends paracentesis to r/o pancreatic ascites (leakage of pancreatic juices due to a disrupted pancreatic duct) 03/12/2022. Awaiting paracentesis. Replete potassium IV for severe hypokalemia. Check magnesium levels 03/13/2022. Radiology reports too little fluid for paracentesis. Continue to replete potassium and consult nephrology for further evaluation. Given the patient's persistent right upper quadrant pain, we will recall surgery to evaluate. Leukocytosis also persists. ID consultation for further evaluation. We will start empiric antibiotics of Zosyn. 03/14/2022. ID recommends following off antibiotics for now. However, patient did have fever spike last night of 101.8. Previous blood cultures on 03/10/2022 have shown no growth to date. No new cultures drawn last night. GI considering endoscopic ultrasound/ERCP. GI, surgery and ID following. 03/15/2022. Patient started on cefazolin to cover for abdominal wall cellulitis. ID following. Repeat CT scan of the abdomen and pelvis reveals multiple fluid collections within the peritoneum as well as the retroperitoneum. Given the presence of prior pancreatitis less than 4 weeks ago, this likely represents acute peripancreatic fluid collections. The pancreas has a homogeneous enhancement making necrotizing pancreatitis less likely. The fluid collections especially on the right retroperitoneal region causes mass-effect upon the peritoneum and causes subcutaneous edema and swelling of the right flank. History Interval history: No new issues overnight. Hospitalist Physical - Constitutional Vitals: Temp Pulse Resp BP Pulse Ox 98 F 82 18 121/68 98 03/15/22 04:45 07/09/22 04:45 03/15/22 04:45 03/15/22 04:45 03/15/22 04:45 General appearance: Present: no acute distress, well-nourished - EENT Eyes: Present: PERRL, EOM intact ENT: hearing intact, clear oral mucosa, dentition normal - Neck Neck: Present: supple, normal ROM - Respiratory Respiratory effort: normal Respiratory: bilateral: CTA - Cardiovascular Rhythm: regular Heart Sounds: Present: S1 & S2. Absent: gallop, rub - Extremities Extremities: no ischemia, No edema, Full ROM - Abdominal General gastrointestinal: soft, non-tender, non-distended, normal bowel sounds - Integumentary Integumentary: Present: clear, warm, dry - Neurologic Neurologic: CNII-XII intact, moves all extremities Results - Labs CBC & Chem 7: 03/14/22 07:14 03/15/22 05:56 Labs: Laboratory Last Values WBC 10.3 K/mm3 (4.5-11.0) 03/14/22 07:14 RBC 3.14 M/mm3 (3.65-5.03) L 03/14/22 07:14 Hgb 9.7 gm/dl (10.1-14.3) L 03/14/22 07:14 Hct 29.1 % (30.3-42.9) L 03/14/22 07:14 MCV 93 fl (79-97) 03/14/22 07:14 MCH 31 pg (28-32) 03/14/22 07:14 MCHC 34 % (30-34) 03/14/22 07:14 RDW 15.0 % (13.2-15.2) 03/14/22 07:14 Plt Count 341 K/mm3 (140-440) 03/14/22 07:14 Lymph % (Auto) 13.9 % (13.4-35.0) 03/14/22 07:14 [place] % (Auto) 8.7 % (0.0-7.3) H 03/14/22 07:14 Eos % (Auto) 0.3 % (0.0-4.3) 03/14/22 07:14 Baso % (Auto) 0.5 % (0.0-1.8) 03/14/22 07:14 Lymph # (Auto) 1.4 K/mm3 (1.2-5.4) 03/14/22 07:14 [place] # (Auto) 0.9 K/mm3 (0.0-0.8) H 03/14/22 07:14 Eos # (Auto) 0.0 K/mm3 (0.0-0.4) 03/14/22 07:14 Baso # (Auto) 0.1 K/mm3 (0.0-0.1) 03/14/22 07:14 Add Manual Diff Complete 03/11/22 03:06 Total Counted 100 03/11/22 03:06 Seg Neutrophils % 76.6 % (40.0-70.0) H 03/14/22 07:14 Seg Neuts % (Manual) 88.0 % (40.0-70.0) H 03/11/22 03:06 Band Neutrophils % 7.0 % 03/11/22 03:06 Lymphocytes % (Manual) 0 % (13.4-35.0) L 03/11/22 03:06 Reactive Lymphs % (Man) 0 % 03/11/22 03:06 Monocytes % (Manual) 4.0 % (0.0-7.3) 03/11/22 03:06 Eosinophils % (Manual) 0 % (0.0-4.3) 03/11/22 03:06 Basophils % (Manual) 0 % (0.0-1.8) 03/11/22 03:06 Metamyelocytes % 1.0 % 03/11/22 03:06 Myelocytes % 0 % 03/11/22 03:06 Promyelocytes % 0 % 03/11/22 03:06 Blast Cells % 0 % 03/11/22 03:06 Nucleated RBC % Not Reportable 03/11/22 03:06 Seg Neutrophils # 7.9 K/mm3 (1.8-7.7) H 03/14/22 07:14 Seg Neutrophils # Man 8.7 K/mm3 (1.8-7.7) H 03/11/22 03:06 Band Neutrophils # 0.7 K/mm3 03/11/22 03:06 Lymphocytes # (Manual) 0.0 K/mm3 (1.2-5.4) L 03/11/22 03:06 Abs React Lymphs (Man) 0.0 K/mm3 03/11/22 03:06 Monocytes # (Manual) 0.4 K/mm3 (0.0-0.8) 03/11/22 03:06 Eosinophils # (Manual) 0.0 K/mm3 (0.0-0.4) 03/11/22 03:06 Basophils # (Manual) 0.0 K/mm3 (0.0-0.1) 03/11/22 03:06 Metamyelocytes # 0.1 K/mm3 03/11/22 03:06 Myelocytes # 0.0 K/mm3 03/11/22 03:06 Promyelocytes # 0.0 K/mm3 03/11/22 03:06 Blast Cells # 0.0 K/mm3 03/11/22 03:06 WBC Morphology Not Reportable 03/11/22 03:06 Hypersegmented Neuts Not Reportable 03/11/22 03:06 Hyposegmented Neuts Not Reportable 03/11/22 03:06 Hypogranular Neuts Not Reportable 03/11/22 03:06 Smudge Cells Not Reportable 03/11/22 03:06 Toxic Granulation Not Reportable 03/11/22 03:06 Toxic Vacuolation Not Reportable 03/11/22 03:06 Dohle Bodies Not Reportable 03/11/22 03:06 Pelger-Huet Anomaly Not Reportable 03/11/22 03:06 Lashon Rods Not Reportable 03/11/22 03:06 Platelet Estimate Consistent w auto 03/11/22 03:06 Clumped Platelets Not Reportable 03/11/22 03:06 Plt Clumps, EDTA Not Reportable 03/11/22 03:06 Large Platelets Not Reportable 03/11/22 03:06 Giant Platelets Not Reportable 03/11/22 03:06 Platelet Satelliting Not Reportable 03/11/22 03:06 Plt Morphology Comment Not Reportable 03/11/22 03:06 RBC Morphology Normal 03/11/22 03:06 Dimorphic RBCs Not Reportable 03/11/22 03:06 Polychromasia Not Reportable 03/11/22 03:06 Hypochromasia Not Reportable 03/11/22 03:06 Poikilocytosis Not Reportable 03/11/22 03:06 Anisocytosis Not Reportable 03/11/22 03:06 Microcytosis Not Reportable 03/11/22 03:06 Macrocytosis Not Reportable 03/11/22 03:06 Spherocytes Not Reportable 03/11/22 03:06 Pappenheimer Bodies Not Reportable 03/11/22 03:06 Sickle Cells Not Reportable 03/11/22 03:06 Target Cells Not Reportable 03/11/22 03:06 Tear Drop Cells Not Reportable 03/11/22 03:06 Ovalocytes Not Reportable 03/11/22 03:06 Helmet Cells Not Reportable 03/11/22 03:[address] [place] Bodies Not Reportable 03/11/22 03:06 Myra Rings Not Reportable 03/11/22 03:06 [place] Cells Not Reportable 03/11/22 03:06 Bite Cells Not Reportable 03/11/22 03:06 Crenated Cell Not Reportable 03/11/22 03:06 Elliptocytes Not Reportable 03/11/22 03:06 Acanthocytes (Spur) Not Reportable 03/11/22 03:06 Rouleaux Not Reportable 03/11/22 03:06 Hemoglobin C Crystals Not Reportable 03/11/22 03:06 Schistocytes Not Reportable 03/11/22 03:06 Malaria parasites Not Reportable 03/11/22 03:06 Rosalio Bodies Not Reportable 03/11/22 03:06 Hem Pathologist Commnt No 03/11/22 03:06 Sodium 136 mmol/L (137-145) L 03/15/22 05:56 Potassium 3.7 mmol/L (3.6-5.0) 03/15/22 05:56 Chloride 100.9 mmol/L (98-107) 03/15/22 05:56 Carbon Dioxide 26 mmol/L (22-30) 03/15/22 05:56 Anion Gap 13 mmol/L 03/15/22 05:56 BUN 7 mg/dL (7-17) 03/15/22 05:56 Creatinine 0.5 mg/dL (0.6-1.2) L 03/15/22 05:56 Estimated GFR > 60 ml/min 03/15/22 05:56 BUN/Creatinine Ratio 14 % 03/15/22 05:56 Glucose 153 mg/dL (65-100) H 03/15/22 05:56 POC Glucose 133 mg/dL (70-105) H 03/15/22 05:33 Hemoglobin A1c 14.0 % (4-6) H 03/09/22 06:12 Calcium 8.3 mg/dL (8.4-10.2) L 03/15/22 05:56 Phosphorus 2.50 mg/dL (2.5-4.5) 03/13/22 05:24 Magnesium 2.10 mg/dL (1.7-2.3) 03/15/22 05:56 Total Bilirubin 0.80 mg/dL (0.1-1.2) 03/11/22 03:06 AST 18 units/L (5-40) 03/11/22 03:06 ALT 39 units/L (7-56) 03/11/22 03:06 Alkaline Phosphatase 91 units/L (35-129) 03/11/22 03:06 Total Protein 5.4 g/dL (6.3-8.2) L 03/11/22 03:06 Albumin 2.0 g/dL (3.9-5) L 03/11/22 03:06 Albumin/Globulin Ratio 0.6 % 03/11/22 03:06 Amylase 53 units/L (27-131) 03/14/22 08:27 Lipase 38 units/L (13-60) 03/14/22 08:27 Urine Color Yellow (Yellow) 03/11/22 00:13 Urine Turbidity Clear (Clear) 03/11/22 00:13 Urine pH 7.0 (5.0-7.0) 03/11/22 00:13 Ur Specific [place] 1.010 (1.003-1.030) 03/11/22 00:13 Urine Protein 100 mg/dl mg/dL (Negative) 03/11/22 00:13 Urine Glucose (UA) 4+ mg/dL (Negative) 03/11/22 00:13 Urine Ketones 2+ mg/dL (Negative) 03/11/22 00:13 Urine Blood Trace (Negative) 03/11/22 00:13 Urine Nitrite Negative (Negative) 03/11/22 00:13 Ur Reducing Substances Not Reportable 03/11/22 00:13 Urine Bilirubin Negative (Negative) 03/11/22 00:13 Urine Ictotest Not Reportable 03/11/22 00:13 Urine Urobilinogen 8.0 mg/dL (<2.0) H 03/11/22 00:13 Ur Leukocyte Esterase Negative (Negative) 03/11/22 00:13 Urine WBC (Auto) 1.0 /HPF (0.0-6.0) 03/11/22 00:13 Urine RBC (Auto) < 1.0 /HPF (0.0-6.0) 03/11/22 00:13 U Epithel Cells (Auto) 3.0 /HPF (0-13.0) 03/11/22 00:13 Urine Mucus Few /HPF 03/11/22 00:13 Urine Opiates Screen Positive 03/05/22 08:32 Urine Methadone Screen Negative 03/05/22 08:32 Ur Barbiturates Screen Negative 03/05/22 08:32 Ur Phencyclidine Scrn Negative 03/05/22 08:32 Ur Amphetamines Screen Negative 03/05/22 08:32 U Benzodiazepines Scrn Negative 03/05/22 08:32 Urine Cocaine Screen Negative 03/05/22 08:32 U Marijuana (THC) Screen Negative 03/05/22 08:32 Drugs of Abuse Note Disclamer 03/05/22 08:32 Plasma/Serum Alcohol < 0.01 % (0-0.07) 03/05/22 06:38 Hepatitis A IgM Ab Non-reactive (NonReactive) 03/07/22 10:05 Hep Bs Antigen Non-reactive (Negative) 03/07/22 10:05 Hep B Core IgM Ab Non-reactive (NonReactive) 03/07/22 10:05 Hepatitis C Antibody Non-reactive (NonReactive) 03/07/22 10:05 Microbiology: Microbiology 03/11/22 01:41 Peripheral/Venous Blood Culture - Preliminary NO GROWTH AFTER 4 DAYS 03/11/22 00:23 Peripheral/Venous Blood Culture - Preliminary NO GROWTH AFTER 4 DAYS Sant[place]/IV: Voiding Method Toilet Active Medications - Current Medications Current Medications: Generic Name Dose Route Start Last Admin Trade Name Freq PRN Reason Stop Dose Admin Acetaminophen 650 mg 03/05/22 16:30 03/14/22 11:38 Acetaminophen 325 Mg Tab PO 650 mg Q4H PRN Administration Pain MILD(1-3)/Fever >100.5/PFEIFFER Amitriptyline HCl 25 mg 03/13/22 22:00 03/14/22 21:44 Amitriptyline 25 Mg Tab PO 25 mg QHS [facility] Administration Famotidine 20 mg 03/10/22 10:00 03/14/22 21:44 Famotidine 20 Mg Tab PO 20 mg BID [facility] Administration Heparin Sodium (Porcine) 5,000 unit 03/05/22 17:00 03/14/22 21:44 Heparin 5,000 Unit/1 Ml Vial SUB-Q 5,000 unit Q12HR [facility] Administration Hydromorphone HCl 1 mg 03/05/22 17:00 03/14/22 22:17 Hydromorphone 1 Mg/1 Ml Inj IV 1 mg Q3H PRN Administration Pain , Severe (7-10) Cefazolin Sodium 2 gm/ Sodium 100 mls @ 200 mls/hr 03/14/22 10:45 03/15/22 05:32 Chloride IV Not Given Q8H [facility] Protocol Ibuprofen 600 mg 03/10/22 23:25 03/14/22 21:48 Ibuprofen 600 Mg Tab PO 600 mg Q6HR PRN Administration temp>100 Insulin Glargine 25 units 03/09/22 22:00 03/15/22 01:15 Insulin Glargine 100 Units/Ml SUB-Q Not Given QHS [facility] Insulin Human Lispro 0 unit 03/06/22 07:00 03/15/22 07:22 Insulin Lispro 100 Unit/Ml SUB-Q Not Given Q6HR [facility] Protocol Metoclopramide HCl 10 mg 03/05/22 17:00 Metoclopramide 10 Mg/2 Ml Inj IV Q6H PRN Nausea And Vomiting Morphine Sulfate 2 mg 03/05/22 17:00 03/14/22 11:37 Morphine 2 Mg/1 Ml Inj IV 2 mg Q4H PRN Administration Pain, Moderate (4-6) Ondansetron HCl 4 mg 03/05/22 17:00 03/05/22 16:39 Ondansetron 4 Mg/2 Ml Inj IV 4 mg Q3H PRN Administration Nausea And Vomiting Polyethylene Glycol 17 gm 03/10/22 12:00 03/14/22 20:04 Polyethylene Glycol 3350 17 Gm Powder PO 17 gm QDAY [facility] Administration Potassium Chloride 40 meq 03/15/22 10:00 Potassium Chloride Er 20 Meq Tab PO QDAY YFN Senna/Docusate Sodium 2 tab 03/08/22 11:53 Sennosides/Docusate Sodium 8.6/50 Mg Tab PO Q12H PRN Laxative Effect Sodium Chloride 10 ml 03/05/22 16:30 03/14/22 21:44 Sodium Chloride 0.9% 10 Ml Flush Syringe IV 10 ml BID YFN Administration Sodium Chloride 10 ml 03/05/22 17:00 Sodium Chloride 0.9% 10 Ml Flush Syringe IV PRN PRN LINE FLUSH Nutrition/Malnutrition Assess - Dietary Evaluation Nutrition/Malnutrition Findings: Nutrition Notes Start: 03/06/22 17:24 Freq: Status: Active Protocol: Document 03/13/22 11:45 JOSE MARIA (Rec: 03/13/22 12:23 JOSE MARIA [id number]) Nutrition Notes Initial or Follow up Reassessment Other Pertinent Diagnosis Hypokalemia, Abdominal Pain, Ascites, Pancreatitis, Leukocytosis, ... Current Diet Clear Liquids Diet (from L ). Labs/Tests 03/13: K 2.9, BUN 3, Crea 0.5, Glu 166, Mg 1.4. Pertinent Medications 03/13: KCl 20mEq, Lantus 25U, others nutritionally unremarkable. Height 5 ft 2 in Weight 84.7 kg [place] Body Weight (kg) 50.00 BMI 34.1 Weight change and time frame 3.6 Kg body weight loss in 1 week reported. Weight Status Obese Subjective/Other Information RD consult for routine F/U on Dietary advancement. Diet advanced to Full Liquids and then to Regular Diet, but now back to Clear Liquids Diet , Pt refuses to eat (0% PO intake), according to ADL notes. Pt is on Room Air, O2 saturation @ 97%, according to Physical Assessment History notes. Pt complains of severe abdominal pain and bloating, according to Physical Assessment History notes. Percent of energy/protein needs met: Prescribed Clear Liquids Diet provides for energy/protein needs (590 Kcal/16 g) during LOS. Burn Absent Trauma Absent GI Symptoms Other Food Allergy No Skin Integrity/Comment Assessment WNL. Current % PO Negligible Minimum of two criteria Yes Energy Intake (severe) < or equal to 50% Estimated Energy Requirement > or equal to 5 days Fluid Accumulation Mild (non-severe) Reduced [employer] Strength N/A (non-severe) Protein-Calorie Malnutrition Non-Severe #2 Nutrition Diagnosis Malnutrition Etiology Abdominal Pain. As Evidenced by Signs and Symptoms Fluid accumulation (ascites), PO intake of meals <50% for more than 5 days. #1 Nutrition Diagnosis Inadequate protein-energy intake Etiology Abdominal Pain. As Evidenced by Signs and Symptoms Diet advanced to Full Liquids and then to Regular Diet, but now back to Clear Liquids Diet , Pt refuses to eat (0% PO intake), according to ADL notes. Is patient on ventilator? No Is Patient Ambulatory and/or Out of Bed Yes REE-(Juab-St. Jeor-ambulatory/OOB) [ 1807.325 NUTR.[id number]] Kcal/Kg value to use for calculation 15 Approximate Energy Requirements Using 1271 kcal/Kg Calculation Used for Recommendations Kcal/kg Additional Notes Protein: 1.2-1.5 g/Kg AdjBW; 82-102 g/day. Fluids: 1 ml/Kcal, or as per MD. Nutrition Intervention Change Diet Order: Continue Clear Liquid Diet, advance to Full Liquids Diet as tolerated. Nutrition Support: If necessary, start TF-Vital AF 1.2 Maximo @ 45 ml/hr. Flush: 70 ml water Q 4 hr, or as per MD. Kcal 1,285 Protein (gm) 80 Carbohydrates (gm) 118 Fat (gm) 58 Fluid (mL) 868 Fiber (gm) 5 % RDI: 101% Kcal; 98% AA. Goal #1 Adjust the dietary intervention to better serve Pt's needs and clinical conditions during LOS. Follow-Up By: 03/17/22 Additional Comments Continue monitoring food tolerance, %PO intake of meals , and BM.
[2022-03-15] MEDS: HYDROmorphone 1 MG/1 ML INJ IV PRN ×4 (09:35→22:01)
[2022-03-15] MEDS: POTASSIUM CHLORIDE ER 20 MEQ TAB PO SCH (09:37)
[2022-03-15] MEDS: FAMOTIDINE 20 MG TAB PO SCH ×2 (09:37→22:00)
[2022-03-15] MEDS: POLYETHYLENE GLYCOL 3350 17 GM POWDER PO SCH (09:38)
[2022-03-15] MEDS: HEPARIN 5,000 UNIT/1 ML VIAL SUB-Q SCH ×2 (09:39→22:00)
--- NOTE | 2022-03-15 12:05 | Gastroenterology Progress Note ---
Assessment and Plan # Acute pancreatitis - suspect 2/2 biliary pancreatitis either with papillary stenosis vs stones. - MRCP was negative for retained CBD stones. - h/o CCY at [facility] in 2018. 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 - initially lipase up to 5700s on 03/05 and trended down and normal. - LFTs initially elevated but since resolved. - Repeat CT scan of the abdomen and pelvis reveals multiple fluid collections within the peritoneum as well as the retroperitoneum. Given the presence of prior pancreatitis less than 4 weeks ago, this likely represents acute peripancreatic fluid collections. The pancreas has a homogeneous enhancement making necrotizing pancreatitis less likely. The fluid collections especially on the right retroperitoneal region causes mass-effect upon the peritoneum and causes subcutaneous edema and swelling of the right flank. - the fluid collections complications from acute pancreatitis. Still acute phase and may be too early for drain at this time. - will attempt to advance diet and if able to tolerate PO intake, will arrange for outpatient management for peripancreatic fluid collections which may be drained and also may need ERCP with sphincterotomy to prevent recurrent pancreatitis. - if not able to tolerate PO intake, will arrange for inpatient transfer to [facility] for hepatobiliary surgery and advanced GI evaluation. - will follow. - Patient Problems (1) Acute pancreatitis Current Visit: Yes Status: Acute Qualifiers: Acute pancreatitis complication: unspecified (2) Transaminitis Current Visit: Yes Status: Acute (3) History of cholecystectomy Current Visit: Yes Status: Chronic Subjective Date of service: 03/15/22 Principal diagnosis: Acute pancreatitis Interval history: Reports persistent right sided abdominal pain. No nausea/vomiting. Fever yesterday to 101.5. No Bm. Objective - Constitutional Vitals: Temp Pulse Resp BP Pulse Ox 98 F 82 18 121/68 98 03/15/22 04:45 03/15/22 04:45 03/15/22 04:45 03/15/22 04:45 03/15/22 04:45 General appearance: no acute distress - EENT Eyes: EOM intact - Neck Neck: supple - Respiratory Respiratory effort: normal - Cardiovascular Rhythm: regular Heart Sounds: Present: S1 & S2 - Gastrointestinal General gastrointestinal: Present: soft, tender, non-distended - Integumentary Integumentary: Present: clear, warm - Neurologic Neurological: alert and oriented x3 - Psychiatric Psychiatric: appropriate mood/affect - Labs CBC & Chem 7: 03/14/22 07:14 03/15/22 05:56 Labs: Laboratory Results - last 24 hr 03/14/22 03/14/22 03/15/22 17:47 23:47 05:33 Sodium Potassium Chloride Carbon Dioxide Anion Gap BUN Creatinine Estimated GFR BUN/Creatinine Ratio Glucose POC Glucose 79 163 H 133 H Calcium Magnesium 03/15/22 05:56 Sodium 136 L Potassium 3.7 Chloride 100.9 Carbon Dioxide 26 Anion Gap 13 BUN 7 Creatinine 0.5 L Estimated GFR > 60 BUN/Creatinine Ratio 14 Glucose 153 H POC Glucose Calcium 8.3 L Magnesium 2.10 - Imaging CT scan: report reviewed
--- NOTE | 2022-03-15 15:04 | Progress Note ---
Assessment and Plan 57 year old female with pancreatitis and now lisha-pancreatic fluid collections. episodic fevers but stable. Spoke with GI who will continue to follow and arrange for out patient management of fluid collections if tolerates PO, or transfer to OSH for more specialist management. No further surgical intervention planned at this time. Will sign off. Subjective Date of service: 03/15/22 Narrative: No acute events overnight. Pt continues to have abdominal pain. Pt had CT scan that showed 3 large lisha-pancreatic fluid collections. Objective Vital Signs - 12hr 03/15/22 03/15/22 03/15/22 04:45 09:33 11:19 Temperature 98 F 97.6 F 99.2 F Pulse Rate 82 83 Respiratory 18 14 18 Rate Blood Pressure 131/75 120/72 Blood Pressure 121/68 [Right] O2 Sat by Pulse 98 99 Oximetry - General physical appearance well developed, no distress, moderate pain - Eyes PERRL - ENT no hearing loss - Respiratory normal expansion, normal respiratory effort - Abdomen soft, tender, not rebound, not guarding - Neurologic normal coordination, normal sensation - Psychiatric oriented to time, oriented to person - Labs 03/14/22 07:14 03/15/22 05:56 Diabetes panel 03/15/22 Range/Units 05:56 Sodium 136 L (137-145) mmol/L Potassium 3.7 (3.6-5.0) mmol/L Chloride 100.9 (98-107) mmol/L Carbon Dioxide 26 (22-30) mmol/L BUN 7 (7-17) mg/dL Creatinine 0.5 L (0.6-1.2) mg/dL Glucose 153 H (65-100) mg/dL Calcium 8.3 L (8.4-10.2) mg/dL Calcium panel 03/15/22 Range/Units 05:56 Calcium 8.3 L (8.4-10.2) mg/dL Pituitary panel 03/15/22 Range/Units 05:56 Sodium 136 L (137-145) mmol/L Potassium 3.7 (3.6-5.0) mmol/L Chloride 100.9 (98-107) mmol/L Carbon Dioxide 26 (22-30) mmol/L BUN 7 (7-17) mg/dL Creatinine 0.5 L (0.6-1.2) mg/dL Glucose 153 H (65-100) mg/dL Calcium 8.3 L (8.4-10.2) mg/dL Adrenal panel 03/15/22 Range/Units 05:56 Sodium 136 L (137-145) mmol/L Potassium 3.7 (3.6-5.0) mmol/L Chloride 100.9 (98-107) mmol/L Carbon Dioxide 26 (22-30) mmol/L BUN 7 (7-17) mg/dL Creatinine 0.5 L (0.6-1.2) mg/dL Glucose 153 H (65-100) mg/dL Calcium 8.3 L (8.4-10.2) mg/dL
[2022-03-15 18:46] LABS: Albumin 2.4 g/dL (3.9-5); Bilirubin,Direct 0.4 mg/dL (0-0.2)
[2022-03-15 18:56] LABS: Basophils % (Auto) 0.4 % (0.0-1.8); Eosinophils % (Auto) 0.3 % (0.0-4.3); Hemoglobin 9.9 gm/dl (10.1-14.3); Lymphocytes # (Auto) 1.3 K/mm3 (1.2-5.4); Lymphocytes % (Auto) 15.7 % (13.4-35.0); Mean Corpuscular HGB Conc 33 % (30-34); Mean Corpuscular Volume 92 fl (79-97); Monocytes # (Auto) 0.7 K/mm3 (0.0-0.8); Platelet Count 460 K/mm3 (140-440); Red Blood Count 3.25 M/mm3 (3.65-5.03); Red Cell Distribution Width 15.5 % (13.2-15.2)
[2022-03-15] MEDS: AMITRIPTYLINE 25 MG TAB PO SCH (22:00)
[2022-03-16] MEDS: INSULIN LISPRO 100 UNIT/ML SUB-Q SCH ×4 (00:16→17:47)
[2022-03-16] MEDS: INSULIN GLARGINE 100 UNITS/ML SUB-Q SCH (00:16)
[2022-03-16] MEDS: HYDROmorphone 1 MG/1 ML INJ IV PRN ×4 (02:40→20:40)
[2022-03-16] MEDS: ZOLPIDEM 5 MG TAB PO PRN (02:53)
[2022-03-16 05:19] LABS: Basophils # (Auto) 0.1 K/mm3 (0.0-0.1); Eosinophils % (Auto) 0.1 % (0.0-4.3); Hemoglobin 9.2 gm/dl (10.1-14.3); Lymphocytes # (Auto) 1.5 K/mm3 (1.2-5.4); Lymphocytes % (Auto) 13.8 % (13.4-35.0); Mean Corpuscular HGB Conc 33 % (30-34); Mean Corpuscular Volume 94 fl (79-97); Monocytes # (Auto) 1.5 K/mm3 (0.0-0.8); Monocytes % (Auto) 13.7 % (0.0-7.3); Platelet Count 458 K/mm3 (140-440); Red Blood Count 2.99 M/mm3 (3.65-5.03); Red Cell Distribution Width 15.6 % (13.2-15.2)
[2022-03-16 05:28] LABS: Blood Urea Nitrogen 7 mg/dL (7-17); Calcium 8.4 mg/dL (8.4-10.2); Hemolysis Index 22
[2022-03-16 05:59] LABS: BUN/Creatinine Ratio 14
--- NOTE | 2022-03-16 09:13 | Discharge Summary ---
Providers - Providers Date of Admission: 03/05/22 16:03 Date of discharge: 03/16/22 Attending physician: PETERSON GODINEZ 03/05/22 16:09 Consult to Physician [CONS] Routine Comment: Consulting Provider: NUZHAT MANUEL Physician Instructions: Reason For Exam: Acute pancreatitis 03/06/22 06:32 Consult to Physician [CONS] Routine Comment: Consulting Provider: YANE YANEZ Physician Instructions: Reason For Exam: CBd--->.obstruction 03/13/22 07:54 Consult to Physician [CONS] Routine Comment: Consulting Provider: RANDI STUART Physician Instructions: Reason For Exam: persistent hypokalemia 03/13/22 09:21 Consult to Physician [CONS] Routine Comment: Consulting Provider: SHAKILA MON Physician Instructions: Reason For Exam: abd pain, leukocytosis, fever Primary care physician: [employer] Hospitalization Reason for admission: pancreatitis Condition: Stable Disposition: 30 STILL A PATIENT Exam - Constitutional Vitals: Temp Pulse Resp BP Pulse Ox 100.2 F H 102 H 20 118/61 99 03/15/22 21:00 03/15/22 21:18 03/15/22 21:00 03/15/22 21:00 03/16/22 08:48 Plan Follow up with: PRIMARY MD RAFITA [Primary Care Provider] - 7 Days
[2022-03-16] MEDS: HEPARIN 5,000 UNIT/1 ML VIAL SUB-Q SCH ×3 (10:06→21:42)
[2022-03-16] MEDS: POTASSIUM CHLORIDE ER 20 MEQ TAB PO SCH (10:06)
[2022-03-16] MEDS: FAMOTIDINE 20 MG TAB PO SCH ×3 (10:06→21:42)
[2022-03-16] MEDS: POLYETHYLENE GLYCOL 3350 17 GM POWDER PO SCH (10:09)
--- NOTE | 2022-03-16 10:43 | Progress Note ---
Assessment and Plan Assessment and plan: Acute pancreatitis Abdominal wall cellulitis Sepsis. Not present on admission. Patient meets criteria given the tachycardia, leukocytosis and diagnosis of abdominal wall cellulitis Hypokalemia Transaminitis 03/08/22 Continues to have pain right flank LFTs and amylase and lipase have come back to normal MRCP was negative Possible gallstone which is passed through GI follow-up appreciated 03/09/2022 Right flank pain Hypokalemia Transaminases normal Amylase lipase near normal 03/10/2022 Hypokalemia persists Left flank pain persists For paracentesis in a.m. 03/11/2022 Patient with neg MRCP and normal LFT, therefore more likely that patient had de shanice cholelithiasis that caused gallstone pancreatitis then passed. Regarding fluid / ascites, patient's pain still severe so GI recommends paracentesis to r/o pancreatic ascites (leakage of pancreatic juices due to a disrupted pancreatic duct) 03/12/2022. Awaiting paracentesis. Replete potassium IV for severe hypokalemia. Check magnesium levels 03/13/2022. Radiology reports too little fluid for paracentesis. Continue to replete potassium and consult nephrology for further evaluation. Given the patient's persistent right upper quadrant pain, we will recall surgery to evaluate. Leukocytosis also persists. ID consultation for further evaluation. We will start empiric antibiotics of Zosyn. 03/14/2022. ID recommends following off antibiotics for now. However, patient did have fever spike last night of 101.8. Previous blood cultures on 03/10/2022 have shown no growth to date. No new cultures drawn last night. GI considering endoscopic ultrasound/ERCP. GI, surgery and ID following. 03/15/2022. Patient started on cefazolin to cover for abdominal wall cellulitis. ID following. Repeat CT scan of the abdomen and pelvis reveals multiple fluid collections within the peritoneum as well as the retroperitoneum. Given the presence of prior pancreatitis less than 4 weeks ago, this likely represents acute peripancreatic fluid collections. The pancreas has a homogeneous enhancement making necrotizing pancreatitis less likely. The fluid collections especially on the right retroperitoneal region causes mass-effect upon the peritoneum and causes subcutaneous edema and swelling of the right flank. 03/16/2022. Patient still complaining of right upper quadrant abdominal pain and right flank pain. Etiology is likely secondary to the fluid collections from the complications of acute pancreatitis. Patient still appears to be in acute phase and may be too early to drain at this time. We will attempt to continue to advance diet if able to tolerate p.o. intake, we will arrange for discharge. Patient reports she ate minimal breakfast. We will monitor History Interval history: No new issues overnight. Hospitalist Physical - Constitutional Vitals: Temp Pulse Resp BP Pulse Ox 100.2 F H 102 H 20 118/61 99 03/15/22 21:00 03/15/22 21:18 03/15/22 21:00 03/15/22 21:00 03/16/22 08:48 General appearance: Present: no acute distress, well-nourished - EENT Eyes: Present: PERRL, EOM intact ENT: hearing intact, clear oral mucosa, dentition normal - Neck Neck: Present: supple, normal ROM - Respiratory Respiratory effort: normal Respiratory: bilateral: CTA - Cardiovascular Rhythm: regular Heart Sounds: Present: S1 & S2. Absent: gallop, rub - Extremities Extremities: no ischemia, No edema, Full ROM - Abdominal General gastrointestinal: soft, non-tender, non-distended, normal bowel sounds - Integumentary Integumentary: Present: clear, warm, dry - Neurologic Neurologic: CNII-XII intact, moves all extremities Results - Labs CBC & Chem 7: 03/16/22 02:43 03/16/22 02:43 Labs: Laboratory Last Values WBC 10.7 K/mm3 (4.5-11.0) 03/16/22 02:43 RBC 2.99 M/mm3 (3.65-5.03) L 03/16/22 02:43 Hgb 9.2 gm/dl (10.1-14.3) L 03/16/22 02:43 Hct 28.0 % (30.3-42.9) L 03/16/22 02:43 MCV 94 fl (79-97) 03/16/22 02:43 MCH 31 pg (28-32) 03/16/22 02:43 MCHC 33 % (30-34) 03/16/22 02:43 RDW 15.6 % (13.2-15.2) H 03/16/22 02:43 Plt Count 458 K/mm3 (140-440) H 03/16/22 02:43 Lymph % (Auto) 13.8 % (13.4-35.0) 03/16/22 02:43 Kay % (Auto) 13.7 % (0.0-7.3) H 03/16/22 02:43 Eos % (Auto) 0.1 % (0.0-4.3) 03/16/22 02:43 Baso % (Auto) 1.0 % (0.0-1.8) 03/16/22 02:43 Lymph # (Auto) 1.5 K/mm3 (1.2-5.4) 03/16/22 02:43 Kay # (Auto) 1.5 K/mm3 (0.0-0.8) H 03/16/22 02:43 Eos # (Auto) 0.0 K/mm3 (0.0-0.4) 03/16/22 02:43 Baso # (Auto) 0.1 K/mm3 (0.0-0.1) 03/16/22 02:43 Add Manual Diff Complete 03/11/22 03:06 Total Counted 100 03/11/22 03:06 Seg Neutrophils % 71.4 % (40.0-70.0) H 03/16/22 02:43 Seg Neuts % (Manual) 88.0 % (40.0-70.0) H 03/11/22 03:06 Band Neutrophils % 7.0 % 03/11/22 03:06 Lymphocytes % (Manual) 0 % (13.4-35.0) L 03/11/22 03:06 Reactive Lymphs % (Man) 0 % 03/11/22 03:06 Monocytes % (Manual) 4.0 % (0.0-7.3) 03/11/22 03:06 Eosinophils % (Manual) 0 % (0.0-4.3) 03/11/22 03:06 Basophils % (Manual) 0 % (0.0-1.8) 03/11/22 03:06 Metamyelocytes % 1.0 % 03/11/22 03:06 Myelocytes % 0 % 03/11/22 03:06 Promyelocytes % 0 % 03/11/22 03:06 Blast Cells % 0 % 03/11/22 03:06 Nucleated RBC % Not Reportable 03/11/22 03:06 Seg Neutrophils # 7.6 K/mm3 (1.8-7.7) 03/16/22 02:43 Seg Neutrophils # Man 8.7 K/mm3 (1.8-7.7) H 03/11/22 03:06 Band Neutrophils # 0.7 K/mm3 03/11/22 03:06 Lymphocytes # (Manual) 0.0 K/mm3 (1.2-5.4) L 03/11/22 03:06 Abs React Lymphs (Man) 0.0 K/mm3 03/11/22 03:06 Monocytes # (Manual) 0.4 K/mm3 (0.0-0.8) 03/11/22 03:06 Eosinophils # (Manual) 0.0 K/mm3 (0.0-0.4) 03/11/22 03:06 Basophils # (Manual) 0.0 K/mm3 (0.0-0.1) 03/11/22 03:06 Metamyelocytes # 0.1 K/mm3 03/11/22 03:06 Myelocytes # 0.0 K/mm3 03/11/22 03:06 Promyelocytes # 0.0 K/mm3 03/11/22 03:06 Blast Cells # 0.0 K/mm3 03/11/22 03:06 WBC Morphology Not Reportable 03/11/22 03:06 Hypersegmented Neuts Not Reportable 03/11/22 03:06 Hyposegmented Neuts Not Reportable 03/11/22 03:06 Hypogranular Neuts Not Reportable 03/11/22 03:06 Smudge Cells Not Reportable 03/11/22 03:06 Toxic Granulation Not Reportable 03/11/22 03:06 Toxic Vacuolation Not Reportable 03/11/22 03:06 Dohle Bodies Not Reportable 03/11/22 03:06 Pelger-Huet Anomaly Not Reportable 03/11/22 03:06 Lashon Rods Not Reportable 03/11/22 03:06 Platelet Estimate Consistent w auto 03/11/22 03:06 Clumped Platelets Not Reportable 03/11/22 03:06 Plt Clumps, EDTA Not Reportable 03/11/22 03:06 Large Platelets Not Reportable 03/11/22 03:06 Giant Platelets Not Reportable 03/11/22 03:06 Platelet Satelliting Not Reportable 03/11/22 03:06 Plt Morphology Comment Not Reportable 03/11/22 03:06 RBC Morphology Normal 03/11/22 03:06 Dimorphic RBCs Not Reportable 03/11/22 03:06 Polychromasia Not Reportable 03/11/22 03:06 Hypochromasia Not Reportable 03/11/22 03:06 Poikilocytosis Not Reportable 03/11/22 03:06 Anisocytosis Not Reportable 03/11/22 03:06 Microcytosis Not Reportable 03/11/22 03:06 Macrocytosis Not Reportable 03/11/22 03:06 Spherocytes Not Reportable 03/11/22 03:06 Pappenheimer Bodies Not Reportable 03/11/22 03:06 Sickle Cells Not Reportable 03/11/22 03:06 Target Cells Not Reportable 03/11/22 03:06 Tear Drop Cells Not Reportable 03/11/22 03:06 Ovalocytes Not Reportable 03/11/22 03:06 Helmet Cells Not Reportable 03/11/22 03:06 [place] Bodies Not Reportable 03/11/22 03:06 [place] Rings Not Reportable 03/11/22 03:06 [place] Cells Not Reportable 03/11/22 03:06 Bite Cells Not Reportable 03/11/22 03:06 Crenated Cell Not Reportable 03/11/22 03:06 Elliptocytes Not Reportable 03/11/22 03:06 Acanthocytes (Spur) Not Reportable 03/11/22 03:06 Rouleaux Not Reportable 03/11/22 03:06 Hemoglobin C Crystals Not Reportable 03/11/22 03:06 Schistocytes Not Reportable 03/11/22 03:06 Malaria parasites Not Reportable 03/11/22 03:06 [place] Bodies Not Reportable 03/11/22 03:06 Hem Pathologist Commnt No 03/11/22 03:06 Sodium 136 mmol/L (137-145) L 03/16/22 02:43 Potassium 4.0 mmol/L (3.6-5.0) 03/16/22 02:43 Chloride 99.8 mmol/L (98-107) 03/16/22 02:43 Carbon Dioxide 23 mmol/L (22-30) 03/16/22 02:43 Anion Gap 17 mmol/L 03/16/22 02:43 BUN 7 mg/dL (7-17) 03/16/22 02:43 Creatinine 0.5 mg/dL (0.6-1.2) L 03/16/22 02:43 Estimated GFR > 60 ml/min 03/16/22 02:43 BUN/Creatinine Ratio 14 % 03/16/22 02:43 Glucose 161 mg/dL (65-100) H 03/16/22 02:43 POC Glucose 155 mg/dL (70-105) H 03/16/22 04:49 Hemoglobin A1c 14.0 % (4-6) H 03/09/22 06:12 Calcium 8.4 mg/dL (8.4-10.2) 03/16/22 02:43 Phosphorus 2.50 mg/dL (2.5-4.5) 03/13/22 05:24 Magnesium 2.10 mg/dL (1.7-2.3) 03/15/22 05:56 Total Bilirubin 1.00 mg/dL (0.1-1.2) 03/15/22 17:19 Direct Bilirubin 0.4 mg/dL (0-0.2) H 03/15/22 17:19 Indirect Bilirubin 0.6 mg/dL 03/15/22 17:19 AST 29 units/L (5-40) 03/15/22 17:19 ALT 26 units/L (7-56) 03/15/22 17:19 Alkaline Phosphatase 99 units/L (35-129) 03/15/22 17:19 Total Protein 5.6 g/dL (6.3-8.2) L 03/15/22 17:19 Albumin 2.4 g/dL (3.9-5) L 03/15/22 17:19 Albumin/Globulin Ratio 0.8 % 03/15/22 17:19 Amylase 53 units/L (27-131) 03/14/22 08:27 Lipase 38 units/L (13-60) 03/14/22 08:27 Urine Color Yellow (Yellow) 03/11/22 00:13 Urine Turbidity Clear (Clear) 03/11/22 00:13 Urine pH 7.0 (5.0-7.0) 03/11/22 00:13 Ur Specific [place] 1.010 (1.003-1.030) 03/11/22 00:13 Urine Protein 100 mg/dl mg/dL (Negative) 03/11/22 00:13 Urine Glucose (UA) 4+ mg/dL (Negative) 03/11/22 00:13 Urine Ketones 2+ mg/dL (Negative) 03/11/22 00:13 Urine Blood Trace (Negative) 03/11/22 00:13 Urine Nitrite Negative (Negative) 03/11/22 00:13 Ur Reducing Substances Not Reportable 03/11/22 00:13 Urine Bilirubin Negative (Negative) 03/11/22 00:13 Urine Ictotest Not Reportable 03/11/22 00:13 Urine Urobilinogen 8.0 mg/dL (<2.0) H 03/11/22 00:13 Ur Leukocyte Esterase Negative (Negative) 03/11/22 00:13 Urine WBC (Auto) 1.0 /HPF (0.0-6.0) 03/11/22 00:13 Urine RBC (Auto) < 1.0 /HPF (0.0-6.0) 03/11/22 00:13 U Epithel Cells (Auto) 3.0 /HPF (0-13.0) 03/11/22 00:13 Urine Mucus Few /HPF 03/11/22 00:13 Urine Opiates Screen Positive 03/05/22 08:32 Urine Methadone Screen Negative 03/05/22 08:32 Ur Barbiturates Screen Negative 03/05/22 08:32 Ur Phencyclidine Scrn Negative 03/05/22 08:32 Ur Amphetamines Screen Negative 03/05/22 08:32 U Benzodiazepines Scrn Negative 03/05/22 08:32 Urine Cocaine Screen Negative 03/05/22 08:32 U Marijuana (THC) Screen Negative 03/05/22 08:32 Drugs of Abuse Note Disclamer 03/05/22 08:32 Plasma/Serum Alcohol < 0.01 % (0-0.07) 03/05/22 06:38 Hepatitis A IgM Ab Non-reactive (NonReactive) 03/07/22 10:05 Hep Bs Antigen Non-reactive (Negative) 03/07/22 10:05 Hep B Core IgM Ab Non-reactive (NonReactive) 03/07/22 10:05 Hepatitis C Antibody Non-reactive (NonReactive) 03/07/22 10:05 Microbiology: Microbiology 03/11/22 01:41 Peripheral/Venous Blood Culture - Final NO GROWTH AFTER 5 DAYS 03/11/22 00:23 Peripheral/Venous Blood Culture - Final NO GROWTH AFTER 5 DAYS Santacruz/IV: Voiding Method Toilet Active Medications - Current Medications Current Medications: Generic Name Dose Route Start Last Admin Trade Name Freq PRN Reason Stop Dose Admin Acetaminophen 650 mg 03/05/22 16:30 03/14/22 11:38 Acetaminophen 325 Mg Tab PO 650 mg Q4H PRN Administration Pain MILD(1-3)/Fever >100.5/PFEIFFER Amitriptyline HCl 25 mg 03/13/22 22:00 03/15/22 22:00 Amitriptyline 25 Mg Tab PO 25 mg QHS YFN Administration Famotidine 20 mg 03/10/22 10:00 03/16/22 10:06 Famotidine 20 Mg Tab PO 20 mg BID YFN Administration Heparin Sodium (Porcine) 5,000 unit 03/05/22 17:00 03/16/22 10:06 Heparin 5,000 Unit/1 Ml Vial SUB-Q 5,000 unit Q12HR YFN Administration Hydromorphone HCl 1 mg 03/05/22 17:00 03/16/22 10:05 Hydromorphone 1 Mg/1 Ml Inj IV 1 mg Q3H PRN Administration Pain , Severe (7-10) Cefazolin Sodium 2 gm/ Sodium 100 mls @ 200 mls/hr 03/14/22 10:45 03/16/22 02:40 Chloride IV 100 mls/hr Q8H YFN Administration Protocol Ibuprofen 600 mg 03/10/22 23:25 03/14/22 21:48 Ibuprofen 600 Mg Tab PO 600 mg Q6HR PRN Administration temp>100 Insulin Glargine 25 units 03/09/22 22:00 03/16/22 00:16 Insulin Glargine 100 Units/Ml SUB-Q 25 units QHS YFN Administration Insulin Human Lispro 0 unit 03/06/22 07:00 03/16/22 06:22 Insulin Lispro 100 Unit/Ml SUB-Q 3 unit Q6HR YFN Administration Protocol Metoclopramide HCl 10 mg 03/05/22 17:00 Metoclopramide 10 Mg/2 Ml Inj IV Q6H PRN Nausea And Vomiting Morphine Sulfate 2 mg 03/05/22 17:00 03/14/22 11:37 Morphine 2 Mg/1 Ml Inj IV 2 mg Q4H PRN Administration Pain, Moderate (4-6) Ondansetron HCl 4 mg 03/05/22 17:00 03/05/22 16:39 Ondansetron 4 Mg/2 Ml Inj IV 4 mg Q3H PRN Administration Nausea And Vomiting Polyethylene Glycol 17 gm 03/10/22 12:00 03/16/22 10:09 Polyethylene Glycol 3350 17 Gm Powder PO Not Given QDAY YFN Potassium Chloride 40 meq 03/15/22 10:00 03/16/22 10:06 Potassium Chloride Er 20 Meq Tab PO 40 meq QDAY YFN Administration Senna/Docusate Sodium 2 tab 03/08/22 11:53 Sennosides/Docusate Sodium 8.6/50 Mg Tab PO Q12H PRN Laxative Effect Sodium Chloride 10 ml 03/05/22 16:30 03/16/22 10:07 Sodium Chloride 0.9% 10 Ml Flush Syringe IV 10 ml BID YFN Administration Sodium Chloride 10 ml 03/05/22 17:00 Sodium Chloride 0.9% 10 Ml Flush Syringe IV PRN PRN LINE FLUSH Zolpidem Tartrate 5 mg 03/16/22 02:32 03/16/22 02:53 Zolpidem 5 Mg Tab PO 5 mg QHS PRN Administration Sleep Nutrition/Malnutrition Assess - Dietary Evaluation Nutrition/Malnutrition Findings: Nutrition Notes Start: 03/06/22 17:24 Freq: Status: Active Protocol: Document 03/13/22 11:45 JOSE MARIA (Rec: 03/13/22 12:23 JOSE MARIA [id number]) Nutrition Notes Initial or Follow up Reassessment Other Pertinent Diagnosis Hypokalemia, Abdominal Pain, Ascites, Pancreatitis, Leukocytosis, ... Current Diet Clear Liquids Diet (from L ). Labs/Tests 03/13: K 2.9, BUN 3, Crea 0.5, Glu 166, Mg 1.4. Pertinent Medications 03/13: KCl 20mEq, Lantus 25U, others nutritionally unremarkable. Height 5 ft 2 in Weight 84.7 kg [place] Body Weight (kg) 50.00 BMI 34.1 Weight change and time frame 3.6 Kg body weight loss in 1 week reported. Weight Status Obese Subjective/Other Information RD consult for routine F/U on Dietary advancement. Diet advanced to Full Liquids and then to Regular Diet, but now back to Clear Liquids Diet , Pt refuses to eat (0% PO intake), according to ADL notes. Pt is on Room Air, O2 saturation @ 97%, according to Physical Assessment History notes. Pt complains of severe abdominal pain and bloating, according to Physical Assessment History notes. Percent of energy/protein needs met: Prescribed Clear Liquids Diet provides for energy/protein needs (590 Kcal/16 g) during LOS. Burn Absent Trauma Absent GI Symptoms Other Food Allergy No Skin Integrity/Comment Assessment WNL. Current % PO Negligible Minimum of two criteria Yes Energy Intake (severe) < or equal to 50% Estimated Energy Requirement > or equal to 5 days Fluid Accumulation Mild (non-severe) Reduced Ski Maker Strength N/A (non-severe) Protein-Calorie Malnutrition Non-Severe #2 Nutrition Diagnosis Malnutrition Etiology Abdominal Pain. As Evidenced by Signs and Symptoms Fluid accumulation (ascites), PO intake of meals <50% for more than 5 days. #1 Nutrition Diagnosis Inadequate protein-energy intake Etiology Abdominal Pain. As Evidenced by Signs and Symptoms Diet advanced to Full Liquids and then to Regular Diet, but now back to Clear Liquids Diet , Pt refuses to eat (0% PO intake), according to ADL notes. Is patient on ventilator? No Is Patient Ambulatory and/or Out of Bed Yes REE-([facility]-ambulatory/OOB) [ 1807.325 [id number]] Kcal/Kg value to use for calculation 15 Approximate Energy Requirements Using 1271 kcal/Kg Calculation Used for Recommendations Kcal/kg Additional Notes Protein: 1.2-1.5 g/Kg AdjBW; 82-102 g/day. Fluids: 1 ml/Kcal, or as per MD. Nutrition Intervention Change Diet Order: Continue Clear Liquid Diet, advance to Full Liquids Diet as tolerated. Nutrition Support: If necessary, start TF-Vital AF 1.2 Maximo @ 45 ml/hr. Flush: 70 ml water Q 4 hr, or as per MD. Kcal 1,285 Protein (gm) 80 Carbohydrates (gm) 118 Fat (gm) 58 Fluid (mL) 868 Fiber (gm) 5 % RDI: 101% Kcal; 98% AA. Goal #1 Adjust the dietary intervention to better serve Pt's needs and clinical conditions during LOS. Follow-Up By: 03/17/22 Additional Comments Continue monitoring food tolerance, %PO intake of meals , and BM.
--- NOTE | 2022-03-16 11:00 | Progress Note ---
Assessment and Plan 1. Persistent hypo[place]lem[place]: Hypokalemia felipe 2/2 D5 containing IV fluids and decreased PO intake. Replete K as needed. K level is better. Monitor K level. 2. FEN: Replete lytes as needed. Monitor lytes and volume status. 3. Acute Gall stone Pancreatitis: Followed by GI. Monitor. 4. Ascites. 5. DM: Lantus and SSI. Monitor. Will sign off. Subjective: Patient was seen and examined at the bedside. No new symptoms. Examination: General appearance: well-developed, appears stated age, no distress HEENT: ATNC, no icterus Neck: trachea midline Respiratory: clear to auscultation, diminished bibasilar Heart: S1S2, regular, no murmur Gastrointestinal: soft, fullness and tenderness over the R side of the abdomen Integumentary: LE stasis changes noted Neurologic: conversing, able to move extremities Ext: trace LE edema noted Subjective Date of service: 03/16/22 Principal diagnosis: Acute pancreatitis Objective - Vital Signs Vital signs: Vital Signs - 12hr 03/16/22 08:48 O2 Sat by Pulse 99 Oximetry - Lab 03/16/22 02:43 03/16/22 02:43 Most recent lab results Calcium 8.4 mg/dL (8.4-10.2) 03/16/22 02:43 Phosphorus 2.50 mg/dL (2.5-4.5) 03/13/22 05:24 Magnesium 2.10 mg/dL (1.7-2.3) 03/15/22 05:56 Medications & Allergies - Medications Allergies/Adverse Reactions: Allergies No Known Allergies Allergy (Verified 03/05/22 09:37) Home Medications: Home Medications Medication Instructions Recorded Confirmed Last Taken Type Omeprazole 40 mg PO DAILY 03/06/22 03/06/22 Unknown History Active Medications: Generic Name Dose Route Start Last Admin Trade Name Freq PRN Reason Stop Dose Admin Acetaminophen 650 mg 03/05/22 16:30 03/14/22 11:38 Acetaminophen 325 Mg Tab PO 650 mg Q4H PRN Administration Pain MILD(1-3)/Fever >100.5/PFEIFFER Amitriptyline HCl 25 mg 03/13/22 22:00 03/15/22 22:00 Amitriptyline 25 Mg Tab PO 25 mg QHS YFN Administration Famotidine 20 mg 03/10/22 10:00 03/16/22 10:06 Famotidine 20 Mg Tab PO 20 mg BID YFN Administration Heparin Sodium (Porcine) 5,000 unit 03/05/22 17:00 03/16/22 10:06 Heparin 5,000 Unit/1 Ml Vial SUB-Q 5,000 unit Q12HR YFN Administration Hydromorphone HCl 1 mg 03/05/22 17:00 03/16/22 10:05 Hydromorphone 1 Mg/1 Ml Inj IV 1 mg Q3H PRN Administration Pain , Severe (7-10) Cefazolin Sodium 2 gm/ Sodium 100 mls @ 200 mls/hr 03/14/22 10:45 03/16/22 02:40 Chloride IV 100 mls/hr Q8H YFN Administration Protocol Ibuprofen 600 mg 03/10/22 23:25 03/14/22 21:48 Ibuprofen 600 Mg Tab PO 600 mg Q6HR PRN Administration temp>100 Insulin Glargine 25 units 03/09/22 22:00 03/16/22 00:16 Insulin Glargine 100 Units/Ml SUB-Q 25 units QHS YFN Administration Insulin Human Lispro 0 unit 03/06/22 07:00 03/16/22 06:22 Insulin Lispro 100 Unit/Ml SUB-Q 3 unit Q6HR YFN Administration Protocol Metoclopramide HCl 10 mg 03/05/22 17:00 Metoclopramide 10 Mg/2 Ml Inj IV Q6H PRN Nausea And Vomiting Morphine Sulfate 2 mg 03/05/22 17:00 03/14/22 11:37 Morphine 2 Mg/1 Ml Inj IV 2 mg Q4H PRN Administration Pain, Moderate (4-6) Ondansetron HCl 4 mg 03/05/22 17:00 03/05/22 16:39 Ondansetron 4 Mg/2 Ml Inj IV 4 mg Q3H PRN Administration Nausea And Vomiting Polyethylene Glycol 17 gm 03/10/22 12:00 03/16/22 10:09 Polyethylene Glycol 3350 17 Gm Powder PO Not Given QDAY [facility] Potassium Chloride 40 meq 03/15/22 10:00 03/16/22 10:06 Potassium Chloride Er 20 Meq Tab PO 40 meq QDAY [facility] Administration Senna/Docusate Sodium 2 tab 03/08/22 11:53 Sennosides/Docusate Sodium 8.6/50 Mg Tab PO Q12H PRN Laxative Effect Sodium Chloride 10 ml 03/05/22 16:30 03/16/22 10:07 Sodium Chloride 0.9% 10 Ml Flush Syringe IV 10 ml BID YFN Administration Sodium Chloride 10 ml 03/05/22 17:00 Sodium Chloride 0.9% 10 Ml Flush Syringe IV PRN PRN LINE FLUSH Zolpidem Tartrate 5 mg 03/16/22 02:32 03/16/22 02:53 Zolpidem 5 Mg Tab PO 5 mg QHS PRN Administration Sleep
--- NOTE | 2022-03-16 12:03 | Gastroenterology Progress Note ---
Assessment and Plan # Acute pancreatitis - suspect 2/2 biliary pancreatitis either with papillary stenosis vs stones. - MRCP was negative for retained CBD stones. - h/o CCY at [facility] in 2018. 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 - initially lipase up to 5700s on 03/05 and trended down and normal. - LFTs initially elevated but since resolved. - Repeat CT scan of the abdomen and pelvis reveals multiple fluid collections within the peritoneum as well as the retroperitoneum. Given the presence of prior pancreatitis less than 4 weeks ago, this likely represents acute peripancreatic fluid collections. The pancreas has a homogeneous enhancement making necrotizing pancreatitis less likely. The fluid collections especially on the right retroperitoneal region causes mass-effect upon the peritoneum and causes subcutaneous edema and swelling of the right flank. - the fluid collections complications from acute pancreatitis. Still acute phase and may be too early for drain at this time. Rec - given patient still with low grade temp and persistent pain, trying to do inpatient transfer to [facility] for hepatobiliary surgery and advanced GI evaluation but no room available at this time. on the list. - in the meantime, will attempt to advance diet. - on empiric antibiotics. - will follow. - Patient Problems (1) Acute pancreatitis Current Visit: Yes Status: Acute Qualifiers: Acute pancreatitis complication: unspecified (2) Transaminitis Current Visit: Yes Status: Acute (3) History of cholecystectomy Current Visit: Yes Status: Chronic Subjective Date of service: 03/16/22 Principal diagnosis: Acute pancreatitis Interval history: Reports persistent abdominal pain mainly on the right side. No vomiting. temp at 100.2 Objective - Constitutional Vitals: Temp Pulse Resp BP Pulse Ox 100.2 F H 102 H 20 118/61 99 03/15/22 21:00 03/15/22 21:18 03/15/22 21:00 03/15/22 21:00 03/16/22 08:48 General appearance: no acute distress - EENT Eyes: EOM intact ENT: hearing intact - Respiratory Respiratory effort: normal - Cardiovascular Rhythm: regular Heart Sounds: Present: S1 & S2 - Gastrointestinal General gastrointestinal: Present: soft, tender, distended - Integumentary Integumentary: Present: clear, warm - Neurologic Neurological: alert and oriented x3 - Psychiatric Psychiatric: appropriate mood/affect - Labs CBC & Chem 7: 03/16/22 02:43 07/10/22 02:43 Labs: Laboratory Results - last 24 hr 03/15/22 03/15/22 03/15/22 11:19 17:04 17:19 WBC 8.6 RBC 3.25 L Hgb 9.9 L Hct 30.0 L MCV 92 MCH 31 MCHC 33 RDW 15.5 H Plt Count 460 H Lymph % (Auto) 15.7 Kerr % (Auto) 8.0 H Eos % (Auto) 0.3 Baso % (Auto) 0.4 Lymph # (Auto) 1.3 Kerr # (Auto) 0.7 Eos # (Auto) 0.0 Baso # (Auto) 0.0 Seg Neutrophils % 75.6 H Seg Neutrophils # 6.5 Sodium Potassium Chloride Carbon Dioxide Anion Gap BUN Creatinine Estimated GFR BUN/Creatinine Ratio Glucose POC Glucose 179 H 194 H Calcium Total Bilirubin Direct Bilirubin Indirect Bilirubin AST ALT Alkaline Phosphatase Total Protein Albumin Albumin/Globulin Ratio 03/15/22 03/16/22 03/16/22 17:19 00:01 02:43 WBC 10.7 RBC 2.99 L Hgb 9.2 L Hct 28.0 L MCV 94 MCH 31 MCHC 33 RDW 15.6 H Plt Count 458 H Lymph % (Auto) 13.8 Kerr % (Auto) 13.7 H Eos % (Auto) 0.1 Baso % (Auto) 1.0 Lymph # (Auto) 1.5 Kerr # (Auto) 1.5 H Eos # (Auto) 0.0 Baso # (Auto) 0.1 Seg Neutrophils % 71.4 H Seg Neutrophils # 7.6 Sodium Potassium Chloride Carbon Dioxide Anion Gap BUN Creatinine Estimated GFR BUN/Creatinine Ratio Glucose POC Glucose 169 H Calcium Total Bilirubin 1.00 Direct Bilirubin 0.4 H Indirect Bilirubin 0.6 AST 29 ALT 26 Alkaline Phosphatase 99 Total Protein 5.6 L Albumin 2.4 L Albumin/Globulin Ratio 0.8 03/16/22 03/16/22 02:43 04:49 WBC RBC Hgb Hct MCV MCH MCHC RDW Plt Count Lymph % (Auto) Kerr % (Auto) Eos % (Auto) Baso % (Auto) Lymph # (Auto) Kerr # (Auto) Eos # (Auto) Baso # (Auto) Seg Neutrophils % Seg Neutrophils # Sodium 136 L Potassium 4.0 Chloride 99.8 Carbon Dioxide 23 Anion Gap 17 BUN 7 Creatinine 0.5 L Estimated GFR > 60 BUN/Creatinine Ratio 14 Glucose 161 H POC Glucose 155 H Calcium 8.4 Total Bilirubin Direct Bilirubin Indirect Bilirubin AST ALT Alkaline Phosphatase Total Protein Albumin Albumin/Globulin Ratio - Imaging CT scan: report reviewed
[2022-03-16] MEDS: AMITRIPTYLINE 25 MG TAB PO SCH ×2 (20:44→21:41)
[2022-03-17] MEDS: INSULIN GLARGINE 100 UNITS/ML SUB-Q SCH ×2 (00:19→22:48)
[2022-03-17] MEDS: HYDROmorphone 1 MG/1 ML INJ IV PRN ×5 (00:19→22:25)
[2022-03-17] MEDS: INSULIN LISPRO 100 UNIT/ML SUB-Q SCH ×5 (00:19→22:27)
[2022-03-17] MEDS: ZOLPIDEM 5 MG TAB PO PRN (00:20)
[2022-03-17 05:48] LABS: Basophils % (Auto) 0.5 % (0.0-1.8); Eosinophils % (Auto) 0.3 % (0.0-4.3); Hematocrit 24.9 % (30.3-42.9); Hemoglobin 8.7 gm/dl (10.1-14.3); Lymphocytes # (Auto) 1.8 K/mm3 (1.2-5.4); Lymphocytes % (Auto) 16.9 % (13.4-35.0); Mean Corpuscular HGB Conc 35 % (30-34); Mean Corpuscular Volume 92 fl (79-97); Monocytes # (Auto) 1.6 K/mm3 (0.0-0.8); Monocytes % (Auto) 15.4 % (0.0-7.3); Platelet Count 437 K/mm3 (140-440); Red Blood Count 2.71 M/mm3 (3.65-5.03); Red Cell Distribution Width 15.1 % (13.2-15.2)
[2022-03-17 05:59] LABS: Blood Urea Nitrogen 5 mg/dL (7-17); Calcium 8.4 mg/dL (8.4-10.2); Hemolysis Index 2
[2022-03-17 06:05] LABS: BUN/Creatinine Ratio 10
--- NOTE | 2022-03-17 09:02 | Progress Note ---
Assessment and Plan Assessment and plan: Acute pancreatitis Abdominal wall cellulitis Sepsis. Not present on admission. Patient meets criteria given the tachycardia, leukocytosis and diagnosis of abdominal wall cellulitis Hypokalemia Transaminitis 03/08/22 Continues to have pain right flank LFTs and amylase and lipase have come back to normal MRCP was negative Possible gallstone which is passed through GI follow-up appreciated 03/09/2022 Right flank pain Hypokalemia Transaminases normal Amylase lipase near normal 03/10/2022 Hypokalemia persists Left flank pain persists For paracentesis in a.m. 03/11/2022 Patient with neg MRCP and normal LFT, therefore more likely that patient had de shanice cholelithiasis that caused gallstone pancreatitis then passed. Regarding fluid / ascites, patient's pain still severe so GI recommends paracentesis to r/o pancreatic ascites (leakage of pancreatic juices due to a disrupted pancreatic duct) 03/12/2022. Awaiting paracentesis. Replete potassium IV for severe hypokalemia. Check magnesium levels 03/13/2022. Radiology reports too little fluid for paracentesis. Continue to replete potassium and consult nephrology for further evaluation. Given the patient's persistent right upper quadrant pain, we will recall surgery to evaluate. Leukocytosis also persists. ID consultation for further evaluation. We will start empiric antibiotics of Zosyn. 03/14/2022. ID recommends following off antibiotics for now. However, patient did have fever spike last night of 101.8. Previous blood cultures on 03/10/2022 have shown no growth to date. No new cultures drawn last night. GI considering endoscopic ultrasound/ERCP. GI, surgery and ID following. 03/15/2022. Patient started on cefazolin to cover for abdominal wall cellulitis. ID following. Repeat CT scan of the abdomen and pelvis reveals multiple fluid collections within the peritoneum as well as the retroperitoneum. Given the presence of prior pancreatitis less than 4 weeks ago, this likely represents acute peripancreatic fluid collections. The pancreas has a homogeneous enhancement making necrotizing pancreatitis less likely. The fluid collections especially on the right retroperitoneal region causes mass-effect upon the peritoneum and causes subcutaneous edema and swelling of the right flank. 03/16/2022. Patient still complaining of right upper quadrant abdominal pain and right flank pain. Etiology is likely secondary to the fluid collections from the complications of acute pancreatitis. Patient still appears to be in acute phase and may be too early to drain at this time. We will attempt to continue to advance diet if able to tolerate p.o. intake, we will arrange for discharge. Patient reports she ate minimal breakfast. We will monitor 03/17/2022. The patient still with low-grade temp and persistent pain. GI initiated inpatient transfer to [facility] for hepatobiliary surgery and advanced GI evaluation but no room available at this time. Patient is currently on the waiting list. Continue to advance diet as tolerated. Continue empiric antibiotics History Interval history: No new issues overnight. Hospitalist Physical - Constitutional Vitals: Temp Pulse Resp BP Pulse Ox 100.2 F H 101 H 20 135/71 97 03/17/22 00:21 03/17/22 00:21 03/17/22 00:21 03/17/22 00:21 03/17/22 08:00 General appearance: Present: no acute distress, well-nourished - EENT Eyes: Present: PERRL, EOM intact ENT: hearing intact, clear oral mucosa, dentition normal - Neck Neck: Present: supple, normal ROM - Respiratory Respiratory effort: normal Respiratory: bilateral: CTA - Cardiovascular Rhythm: regular Heart Sounds: Present: S1 & S2. Absent: gallop, rub - Extremities Extremities: no ischemia, No edema, Full ROM - Abdominal General gastrointestinal: soft, non-tender, non-distended, normal bowel sounds - Integumentary Integumentary: Present: clear, warm, dry - Neurologic Neurologic: CNII-XII intact, moves all extremities Results - Labs CBC & Chem 7: 03/17/22 05:02 03/17/22 05:02 Labs: Laboratory Last Values WBC 10.6 K/mm3 (4.5-11.0) 03/17/22 05:02 RBC 2.71 M/mm3 (3.65-5.03) L 03/17/22 05:02 Hgb 8.7 gm/dl (10.1-14.3) L 03/17/22 05:02 Hct 24.9 % (30.3-42.9) L 03/17/22 05:02 MCV 92 fl (79-97) 03/17/22 05:02 MCH 32 pg (28-32) 03/17/22 05:02 MCHC 35 % (30-34) H 03/17/22 05:02 RDW 15.1 % (13.2-15.2) 03/17/22 05:02 Plt Count 437 K/mm3 (140-440) 03/17/22 05:02 Lymph % (Auto) 16.9 % (13.4-35.0) 03/17/22 05:02 Dickinson % (Auto) 15.4 % (0.0-7.3) H 03/17/22 05:02 Eos % (Auto) 0.3 % (0.0-4.3) 03/17/22 05:02 Baso % (Auto) 0.5 % (0.0-1.8) 03/17/22 05:02 Lymph # (Auto) 1.8 K/mm3 (1.2-5.4) 03/17/22 05:02 Dickinson # (Auto) 1.6 K/mm3 (0.0-0.8) H 03/17/22 05:02 Eos # (Auto) 0.0 K/mm3 (0.0-0.4) 03/17/22 05:02 Baso # (Auto) 0.0 K/mm3 (0.0-0.1) 03/17/22 05:02 Add Manual Diff Complete 03/11/22 03:06 Total Counted 100 03/11/22 03:06 Seg Neutrophils % 66.9 % (40.0-70.0) 03/17/22 05:02 Seg Neuts % (Manual) 88.0 % (40.0-70.0) H 03/11/22 03:06 Band Neutrophils % 7.0 % 03/11/22 03:06 Lymphocytes % (Manual) 0 % (13.4-35.0) L 03/11/22 03:06 Reactive Lymphs % (Man) 0 % 03/11/22 03:06 Monocytes % (Manual) 4.0 % (0.0-7.3) 03/11/22 03:06 Eosinophils % (Manual) 0 % (0.0-4.3) 03/11/22 03:06 Basophils % (Manual) 0 % (0.0-1.8) 03/11/22 03:06 Metamyelocytes % 1.0 % 03/11/22 03:06 Myelocytes % 0 % 03/11/22 03:06 Promyelocytes % 0 % 03/11/22 03:06 Blast Cells % 0 % 03/11/22 03:06 Nucleated RBC % Not Reportable 03/11/22 03:06 Seg Neutrophils # 7.1 K/mm3 (1.8-7.7) 03/17/22 05:02 Seg Neutrophils # Man 8.7 K/mm3 (1.8-7.7) H 03/11/22 03:06 Band Neutrophils # 0.7 K/mm3 03/11/22 03:06 Lymphocytes # (Manual) 0.0 K/mm3 (1.2-5.4) L 03/11/22 03:06 Abs React Lymphs (Man) 0.0 K/mm3 03/11/22 03:06 Monocytes # (Manual) 0.4 K/mm3 (0.0-0.8) 03/11/22 03:06 Eosinophils # (Manual) 0.0 K/mm3 (0.0-0.4) 03/11/22 03:06 Basophils # (Manual) 0.0 K/mm3 (0.0-0.1) 03/11/22 03:06 Metamyelocytes # 0.1 K/mm3 03/11/22 03:06 Myelocytes # 0.0 K/mm3 03/11/22 03:06 Promyelocytes # 0.0 K/mm3 03/11/22 03:06 Blast Cells # 0.0 K/mm3 03/11/22 03:06 WBC Morphology Not Reportable 03/11/22 03:06 Hypersegmented Neuts Not Reportable 03/11/22 03:06 Hyposegmented Neuts Not Reportable 03/11/22 03:06 Hypogranular Neuts Not Reportable 03/11/22 03:06 Smudge Cells Not Reportable 03/11/22 03:06 Toxic Granulation Not Reportable 03/11/22 03:06 Toxic Vacuolation Not Reportable 03/11/22 03:06 Dohle Bodies Not Reportable 03/11/22 03:06 Pelger-Huet Anomaly Not Reportable 03/11/22 03:06 Lashon Rods Not Reportable 03/11/22 03:06 Platelet Estimate Consistent w auto 03/11/22 03:06 Clumped Platelets Not Reportable 03/11/22 03:06 Plt Clumps, EDTA Not Reportable 03/11/22 03:06 Large Platelets Not Reportable 03/11/22 03:06 Giant Platelets Not Reportable 03/11/22 03:06 Platelet Satelliting Not Reportable 03/11/22 03:06 Plt Morphology Comment Not Reportable 03/11/22 03:06 RBC Morphology Normal 03/11/22 03:06 Dimorphic RBCs Not Reportable 03/11/22 03:06 Polychromasia Not Reportable 03/11/22 03:06 Hypochromasia Not Reportable 03/11/22 03:06 Poikilocytosis Not Reportable 03/11/22 03:06 Anisocytosis Not Reportable 03/11/22 03:06 Microcytosis Not Reportable 03/11/22 03:06 Macrocytosis Not Reportable 03/11/22 03:06 Spherocytes Not Reportable 03/11/22 03:06 Pappenheimer Bodies Not Reportable 03/11/22 03:06 Sickle Cells Not Reportable 03/11/22 03:06 Target Cells Not Reportable 03/11/22 03:06 Tear Drop Cells Not Reportable 03/11/22 03:06 Ovalocytes Not Reportable 03/11/22 03:06 Helmet Cells Not Reportable 03/11/22 03:06 [place] Bodies Not Reportable 03/11/22 03:06 [place] Rings Not Reportable 03/11/22 03:06 [place] Cells Not Reportable 03/11/22 03:06 Bite Cells Not Reportable 03/11/22 03:06 Crenated Cell Not Reportable 03/11/22 03:06 Elliptocytes Not Reportable 03/11/22 03:06 Acanthocytes (Spur) Not Reportable 03/11/22 03:06 Rouleaux Not Reportable 03/11/22 03:06 Hemoglobin C Crystals Not Reportable 03/11/22 03:06 Schistocytes Not Reportable 03/11/22 03:06 Malaria parasites Not Reportable 03/11/22 03:06 Rosalio Bodies Not Reportable 03/11/22 03:06 Hem Pathologist Commnt No 03/11/22 03:06 Sodium 135 mmol/L (137-145) L 03/17/22 05:02 Potassium 3.5 mmol/L (3.6-5.0) L 03/17/22 05:02 Chloride 97.5 mmol/L (98-107) L 03/17/22 05:02 Carbon Dioxide 27 mmol/L (22-30) 03/17/22 05:02 Anion Gap 14 mmol/L 03/17/22 05:02 BUN 5 mg/dL (7-17) L 03/17/22 05:02 Creatinine 0.5 mg/dL (0.6-1.2) L 03/17/22 05:02 Estimated GFR > 60 ml/min 03/17/22 05:02 BUN/Creatinine Ratio 10 % 03/17/22 05:02 Glucose 107 mg/dL (65-100) H 03/17/22 05:02 POC Glucose 104 mg/dL (70-105) 03/17/22 05:19 Hemoglobin A1c 14.0 % (4-6) H 03/09/22 06:12 Calcium 8.4 mg/dL (8.4-10.2) 03/17/22 05:02 Phosphorus 2.50 mg/dL (2.5-4.5) 03/13/22 05:24 Magnesium 2.10 mg/dL (1.7-2.3) 03/15/22 05:56 Total Bilirubin 1.00 mg/dL (0.1-1.2) 03/15/22 17:19 Direct Bilirubin 0.4 mg/dL (0-0.2) H 03/15/22 17:19 Indirect Bilirubin 0.6 mg/dL 03/15/22 17:19 AST 29 units/L (5-40) 03/15/22 17:19 ALT 26 units/L (7-56) 03/15/22 17:19 Alkaline Phosphatase 99 units/L (35-129) 03/15/22 17:19 Total Protein 5.6 g/dL (6.3-8.2) L 03/15/22 17:19 Albumin 2.4 g/dL (3.9-5) L 03/15/22 17:19 Albumin/Globulin Ratio 0.8 % 03/15/22 17:19 Amylase 53 units/L (27-131) 03/14/22 08:27 Lipase 38 units/L (13-60) 03/14/22 08:27 Urine Color Yellow (Yellow) 03/11/22 00:13 Urine Turbidity Clear (Clear) 03/11/22 00:13 Urine pH 7.0 (5.0-7.0) 03/11/22 00:13 Ur Specific [place] 1.010 (1.003-1.030) 03/11/22 00:13 Urine Protein 100 mg/dl mg/dL (Negative) 03/11/22 00:13 Urine Glucose (UA) 4+ mg/dL (Negative) 03/11/22 00:13 Urine Ketones 2+ mg/dL (Negative) 03/11/22 00:13 Urine Blood Trace (Negative) 03/11/22 00:13 Urine Nitrite Negative (Negative) 03/11/22 00:13 Ur Reducing Substances Not Reportable 03/11/22 00:13 Urine Bilirubin Negative (Negative) 03/11/22 00:13 Urine Ictotest Not Reportable 03/11/22 00:13 Urine Urobilinogen 8.0 mg/dL (<2.0) H 03/11/22 00:13 Ur Leukocyte Esterase Negative (Negative) 03/11/22 00:13 Urine WBC (Auto) 1.0 /HPF (0.0-6.0) 03/11/22 00:13 Urine RBC (Auto) < 1.0 /HPF (0.0-6.0) 03/11/22 00:13 U Epithel Cells (Auto) 3.0 /HPF (0-13.0) 03/11/22 00:13 Urine Mucus Few /HPF 03/11/22 00:13 Urine Opiates Screen Positive 03/05/22 08:32 Urine Methadone Screen Negative 03/05/22 08:32 Ur Barbiturates Screen Negative 03/05/22 08:32 Ur Phencyclidine Scrn Negative 03/05/22 08:32 Ur Amphetamines Screen Negative 03/05/22 08:32 U Benzodiazepines Scrn Negative 03/05/22 08:32 Urine Cocaine Screen Negative 03/05/22 08:32 U Marijuana (THC) Screen Negative 03/05/22 08:32 Drugs of Abuse Note Disclamer 03/05/22 08:32 Plasma/Serum Alcohol < 0.01 % (0-0.07) 03/05/22 06:38 Hepatitis A IgM Ab Non-reactive (NonReactive) 03/07/22 10:05 Hep Bs Antigen Non-reactive (Negative) 03/07/22 10:05 Hep B Core IgM Ab Non-reactive (NonReactive) 03/07/22 10:05 Hepatitis C Antibody Non-reactive (NonReactive) 03/07/22 10:05 Santacruz/IV: Voiding Method Toilet Active Medications - Current Medications Current Medications: Generic Name Dose Route Start Last Admin Trade Name Freq PRN Reason Stop Dose Admin Acetaminophen 650 mg 03/05/22 16:30 03/14/22 11:38 Acetaminophen 325 Mg Tab PO 650 mg Q4H PRN Administration Pain MILD(1-3)/Fever >100.5/PFEIFFER Amitriptyline HCl 25 mg 03/13/22 22:00 03/16/22 21:41 Amitriptyline 25 Mg Tab PO Not Given QHS [facility] Famotidine 20 mg 03/10/22 10:00 03/16/22 21:42 Famotidine 20 Mg Tab PO Not Given BID [facility] Heparin Sodium (Porcine) 5,000 unit 03/05/22 17:00 03/16/22 21:42 Heparin 5,000 Unit/1 Ml Vial SUB-Q Not Given Q12HR [facility] Hydromorphone HCl 1 mg 03/05/22 17:00 03/17/22 06:15 Hydromorphone 1 Mg/1 Ml Inj IV 1 mg Q3H PRN Administration Pain , Severe (7-10) Cefazolin Sodium 2 gm/ Sodium 100 mls @ 200 mls/hr 03/14/22 10:45 03/17/22 02:50 Chloride IV 100 mls/hr Q8H [facility] Administration Protocol Ibuprofen 600 mg 03/10/22 23:25 03/14/22 21:48 Ibuprofen 600 Mg Tab PO 600 mg Q6HR PRN Administration temp>100 Insulin Glargine 25 units 03/09/22 22:00 03/17/22 00:19 Insulin Glargine 100 Units/Ml SUB-Q 25 units QHS [facility] Administration Insulin Human Lispro 0 unit 03/06/22 07:00 03/17/22 06:10 Insulin Lispro 100 Unit/Ml SUB-Q Not Given Q6HR [facility] Protocol Metoclopramide HCl 10 mg 03/05/22 17:00 Metoclopramide 10 Mg/2 Ml Inj IV Q6H PRN Nausea And Vomiting Morphine Sulfate 2 mg 03/05/22 17:00 03/14/22 11:37 Morphine 2 Mg/1 Ml Inj IV 2 mg Q4H PRN Administration Pain, Moderate (4-6) Ondansetron HCl 4 mg 03/05/22 17:00 03/05/22 16:39 Ondansetron 4 Mg/2 Ml Inj IV 4 mg Q3H PRN Administration Nausea And Vomiting Polyethylene Glycol 17 gm 03/10/22 12:00 03/16/22 10:09 Polyethylene Glycol 3350 17 Gm Powder PO Not Given QDAY YFN Potassium Chloride 40 meq 03/15/22 10:00 03/16/22 10:06 Potassium Chloride Er 20 Meq Tab PO 40 meq QDAY YFN Administration Senna/Docusate Sodium 2 tab 03/08/22 11:53 Sennosides/Docusate Sodium 8.6/50 Mg Tab PO Q12H PRN Laxative Effect Sodium Chloride 10 ml 03/05/22 16:30 03/16/22 21:42 Sodium Chloride 0.9% 10 Ml Flush Syringe IV Not Given BID YFN Sodium Chloride 10 ml 03/05/22 17:00 Sodium Chloride 0.9% 10 Ml Flush Syringe IV PRN PRN LINE FLUSH Zolpidem Tartrate 5 mg 03/16/22 02:32 03/17/22 00:20 Zolpidem 5 Mg Tab PO 5 mg QHS PRN Administration Sleep Nutrition/Malnutrition Assess - Dietary Evaluation Nutrition/Malnutrition Findings: Nutrition Notes Start: 03/06/22 17:24 Freq: Status: Active Protocol: Document 03/13/22 11:45 JOSE MARIA (Rec: 03/13/22 12:23 JOSE MARIA [id number]) Nutrition Notes Initial or Follow up Reassessment Other Pertinent Diagnosis Hypokalemia, Abdominal Pain, Ascites, Pancreatitis, Leukocytosis, ... Current Diet Clear Liquids Diet (from L ). Labs/Tests 03/13: K 2.9, BUN 3, Crea 0.5, Glu 166, Mg 1.4. Pertinent Medications 03/13: KCl 20mEq, Lantus 25U, others nutritionally unremarkable. Height 5 ft 2 in Weight 84.7 kg [place] Body Weight (kg) 50.00 BMI 34.1 Weight change and time frame 3.6 Kg body weight loss in 1 week reported. Weight Status Obese Subjective/Other Information RD consult for routine F/U on Dietary advancement. Diet advanced to Full Liquids and then to Regular Diet, but now back to Clear Liquids Diet , Pt refuses to eat (0% PO intake), according to ADL notes. Pt is on Room Air, O2 saturation @ 97%, according to Physical Assessment History notes. Pt complains of severe abdominal pain and bloating, according to Physical Assessment History notes. Percent of energy/protein needs met: Prescribed Clear Liquids Diet provides for energy/protein needs (590 Kcal/16 g) during LOS. Burn Absent Trauma Absent GI Symptoms Other Food Allergy No Skin Integrity/Comment Assessment WNL. Current % PO Negligible Minimum of two criteria Yes Energy Intake (severe) < or equal to 50% Estimated Energy Requirement > or equal to 5 days Fluid Accumulation Mild (non-severe) Reduced Oncology Specialist Strength N/A (non-severe) Protein-Calorie Malnutrition Non-Severe #2 Nutrition Diagnosis Malnutrition Etiology Abdominal Pain. As Evidenced by Signs and Symptoms Fluid accumulation (ascites), PO intake of meals <50% for more than 5 days. #1 Nutrition Diagnosis Inadequate protein-energy intake Etiology Abdominal Pain. As Evidenced by Signs and Symptoms Diet advanced to Full Liquids and then to Regular Diet, but now back to Clear Liquids Diet , Pt refuses to eat (0% PO intake), according to ADL notes. Is patient on ventilator? No Is Patient Ambulatory and/or Out of Bed Yes REE-([facility]-ambulatory/OOB) [ 1807.325 [id number]] Kcal/Kg value to use for calculation 15 Approximate Energy Requirements Using 1271 kcal/Kg Calculation Used for Recommendations Kcal/kg Additional Notes Protein: 1.2-1.5 g/Kg AdjBW; 82-102 g/day. Fluids: 1 ml/Kcal, or as per MD. Nutrition Intervention Change Diet Order: Continue Clear Liquid Diet, advance to Full Liquids Diet as tolerated. Nutrition Support: If necessary, start TF-Vital AF 1.2 Maximo @ 45 ml/hr. Flush: 70 ml water Q 4 hr, or as per MD. Kcal 1,285 Protein (gm) 80 Carbohydrates (gm) 118 Fat (gm) 58 Fluid (mL) 868 Fiber (gm) 5 % RDI: 101% Kcal; 98% AA. Goal #1 Adjust the dietary intervention to better serve Pt's needs and clinical conditions during LOS. Follow-Up By: 03/17/22 Additional Comments Continue monitoring food tolerance, %PO intake of meals , and BM.
--- NOTE | 2022-03-17 09:06 | Discharge Summary ---
Providers - Providers Date of Admission: 03/05/22 16:03 Date of discharge: 03/17/22 Attending physician: PETERSON GODINEZ 03/05/22 16:09 Consult to Physician [CONS] Routine Comment: Consulting Provider: NUZHAT MANUEL Physician Instructions: Reason For Exam: Acute pancreatitis 03/06/22 06:32 Consult to Physician [CONS] Routine Comment: Consulting Provider: YANE YANEZ Physician Instructions: Reason For Exam: CBd--->.obstruction 03/13/22 07:54 Consult to Physician [CONS] Routine Comment: Consulting Provider: RANDI STUART Physician Instructions: Reason For Exam: persistent hypokalemia 03/13/22 09:21 Consult to Physician [CONS] Routine Comment: Consulting Provider: SHAKILA MON Physician Instructions: Reason For Exam: abd pain, leukocytosis, fever Primary care physician: [facility] Hospitalization Reason for admission: abd pain Condition: Stable Hospital course: The patient is a 70-year-old female with prior cholecystectomy admitted to the hospital on 03/05/2022 with severe abdominal pain going on for about 2 days. She was found to have elevated LFTs with elevated lipase and CT findings concerning for pancreatitis. The patient was admitted with diagnosis of acute pancreatitis, hypokalemia and transaminitis. Hospital course: 03/08/22 Continues to have pain right flank LFTs and amylase and lipase have come back to normal MRCP was negative Possible gallstone which is passed through GI follow-up appreciated 03/09/2022 Right flank pain Hypokalemia Transaminases normal Amylase lipase near normal 03/10/2022 Hypokalemia persists Left flank pain persists For paracentesis in a.m. 03/11/2022 Patient with neg MRCP and normal LFT, therefore more likely that patient had de shanice cholelithiasis that caused gallstone pancreatitis then passed. Regarding fluid / ascites, patient's pain still severe so GI recommends paracentesis to r/o pancreatic ascites (leakage of pancreatic juices due to a disrupted pancreatic duct) 03/12/2022. Awaiting paracentesis. Replete potassium IV for severe hypokalemia. Check magnesium levels 03/13/2022. Radiology reports too little fluid for paracentesis. Continue to replete potassium and consult nephrology for further evaluation. Given the patient's persistent right upper quadrant pain, we will recall surgery to evaluate. Leukocytosis also persists. ID consultation for further evaluation. We will start empiric antibiotics of Zosyn. 03/14/2022. ID recommends following off antibiotics for now. However, patient did have fever spike last night of 101.8. Previous blood cultures on 03/10/2022 have shown no growth to date. No new cultures drawn last night. GI considering endoscopic ultrasound/ERCP. GI, surgery and ID following. 03/15/2022. Patient started on cefazolin to cover for abdominal wall cellulitis. ID following. Repeat CT scan of the abdomen and pelvis reveals multiple fluid collections within the peritoneum as well as the retroperitoneum. Given the presence of prior pancreatitis less than 4 weeks ago, this likely represents acute peripancreatic fluid collections. The pancreas has a homogeneous enhancement making necrotizing pancreatitis less likely. The fluid collections especially on the right retroperitoneal region causes mass-effect upon the peritoneum and causes subcutaneous edema and swelling of the right flank. 03/16/2022. Patient still complaining of right upper quadrant abdominal pain and right flank pain. Etiology is likely secondary to the fluid collections from the complications of acute pancreatitis. Patient still appears to be in acute phase and may be too early to drain at this time. We will attempt to continue to advance diet if able to tolerate p.o. intake, we will arrange for discharge. Patient reports she ate minimal breakfast. We will monitor 03/17/2022. The patient still with low-grade temp and persistent pain. GI initi ated inpatient transfer to [facility] for hepatobiliary surgery and advanced GI evaluation but no room available at this time. Patient is currently on the waiting list. Continue to advance diet as tolerated. Continue empiric antibiotics. Dedicated discharge time 38 minutes Disposition: 02 [facility]ORT TERM [facility] Final Discharge Diagnosis (Prints w/discharge instructions): Acute pancreatitis. Abdominal wall cellulitis. Sepsis. Not present on admission. Patient meets criteria given the tachycardia, leukocytosis and diagnosis of abdominal wall cellulitis. Hypokalemia. Transaminitis Core Measure Documentation - Palliative Care Palliative Care/ Comfort Measures: Not Applicable - Core Measures Any of the following diagnoses?: none Exam - Constitutional Vitals: Temp Pulse Resp BP Pulse Ox 100.2 F H 101 H 20 135/71 97 03/17/22 00:21 03/17/22 00:21 03/17/22 00:03/17/22 00:21 03/17/22 08:00 General appearance: Present: no acute distress, well-nourished - EENT Eyes: Present: PERRL ENT: hearing intact, clear oral mucosa - Neck Neck: Present: supple, normal ROM - Respiratory Respiratory effort: normal Respiratory: bilateral: CTA - Cardiovascular Heart Sounds: Present: S1 & S2. Absent: rub, click - Extremities Extremities: pulses symmetrical, No edema Peripheral Pulses: within normal limits - Abdominal General gastrointestinal: Present: soft, non-tender, non-distended, normal bowel sounds Female genitourinary: Present: normal - Integumentary Integumentary: Present: clear, warm, dry - Musculoskeletal Musculoskeletal: gait normal, strength equal bilaterally - Psychiatric Psychiatric: appropriate mood/affect, intact judgment & insight - Neurologic Neurologic: CNII-XII intact, moves all extremities Plan Activity: advance as tolerated Weight Bearing Status: Weight Bear as Tolerated Diet: regular Follow up with: PRIMARY CARE, [Primary Care Provider] - 7 Days
[2022-03-17] MEDS: POTASSIUM CHLORIDE ER 20 MEQ TAB PO SCH (09:39)
[2022-03-17] MEDS: HEPARIN 5,000 UNIT/1 ML VIAL SUB-Q SCH ×2 (09:39→22:26)
[2022-03-17] MEDS: FAMOTIDINE 20 MG TAB PO SCH ×2 (09:40→22:26)
[2022-03-17] MEDS: POLYETHYLENE GLYCOL 3350 17 GM POWDER PO SCH (09:40)
--- NOTE | 2022-03-17 10:44 | Progress Note ---
Assessment and Plan Cultures: 03/11/2022 blood culture: No growth A/P: 70-year-old female with prior cholecystectomy admitted to the hospital on 03/05/2022 with severe abdominal pain going on for about 2 days. She was found to have elevated LFTs with elevated lipase and CT findings concerning for pancreatitis: #Leukocytosis: Likely reactive to acute pancreatitis and peripancreatic fluid collections. No evidence of necrotizing pancreatitis noted on abdominal imaging. Chest x-ray with right-sided pleural effusion likely reactive to pancreatitis. Blood cultures without growth. #Fever: ?from pancreatitis and fluid collections v/s abdominal wall cellulitis. Does have significant abdominal wall edema, with superficial tenderness in RLQ region #Transaminitis: Trending down. #Prior cholecystectomy Recs: -fever ?from pancreatitis and fluid collections v/s abdominal wall cellulitis. Continue IV cefazolin, D4 of 5 to cover for abdominal wall cellulitis -noted plans for possible transfer to [facility] Aman Emerson MD, F[facility]ENJI [facility] O: [phone] F: [phone] C: [phone] Subjective Date of service: 03/17/22 Principal diagnosis: Acute pancreatitis Interval history: Low-grade temperatures present. Her abdominal pain is slightly better, right- sided abdominal pain is improving. Objective - Exam Narrative Exam: Physical Exam: Constitutional: Alert, cooperative. No acute distress Head, Ears, Nose: Normocephalic, atraumatic. External ears, nose normal Eyes: Conjunctivae/corneas clear. No icterus. No ptosis. Neck: Supple, no meningeal signs Cardiovascular: S1, S2 + Respiratory: Good air entry, clear to auscultation bilaterally GI: Abdominal wall edema, bowel sounds present Musculoskeletal: No pedal edema, no cyanosis. Skin: No rash or abscess Hem/Lymphatic: No palpable cervical or supraclavicular nodes. No lymphangitis Psych: Mood ok. Affect normal Neurological: Awake, alert, oriented. No gross abnormality - Constitutional Vitals: Vital Signs Temp Pulse Resp BP Pulse Ox 100.2 F H 101 H 20 135/71 97 03/17/22 00:21 03/17/22 00:21 03/17/22 00:21 03/17/22 00:21 03/17/22 08:00 Temperature -Last 24 Hours Temperature 100.2 F Temperature 99.9 F - Labs CBC & Chem 7: 03/17/22 05:02 03/17/22 05:02 Labs: Abnormal lab results 03/16/22 03/16/22 03/17/22 Range/Units 12:17 17:29 00:05 RBC (3.65-5.03) M/mm3 Hgb (10.1-14.3) gm/dl Hct (30.3-42.9) % MCHC (30-34) % [place] % (Auto) (0.0-7.3) % [place] # (Auto) (0.0-0.8) K/mm3 Sodium (137-145) mmol/L Potassium (3.6-5.0) mmol/L Chloride (98-107) mmol/L BUN (7-17) mg/dL Creatinine (0.6-1.2) mg/dL Glucose (65-100) mg/dL POC Glucose 202 H 142 H 166 H (70-105) mg/dL 03/17/22 03/17/22 Range/Units 05:02 05:02 RBC 2.71 L (3.65-5.03) M/mm3 Hgb 8.7 L (10.1-14.3) gm/dl Hct 24.9 L (30.3-42.9) % MCHC 35 H (30-34) % [place] % (Auto) 15.4 H (0.0-7.3) % [place] # (Auto) 1.6 H (0.0-0.8) K/mm3 Sodium 135 L (137-145) mmol/L Potassium 3.5 L (3.6-5.0) mmol/L Chloride 97.5 L (98-107) mmol/L BUN 5 L (7-17) mg/dL Creatinine 0.5 L (0.6-1.2) mg/dL Glucose 107 H (65-100) mg/dL POC Glucose (70-105) mg/dL
[2022-03-17] MEDS: ACETAMINOPHEN 325 MG TAB PO PRN (12:56)
--- NOTE | 2022-03-17 14:17 | Gastroenterology Progress Note ---
Assessment and Plan # Acute pancreatitis - suspect 2/2 biliary pancreatitis either with papillary stenosis vs stones. - MRCP was negative for retained CBD stones. - h/o CCY at [place] in 2018. scarring noted and was noted to have questions of Kat-Lfgg-Lzykdh syndrome. - initially lipase up to 5700s on 03/05 and trended down and normal. - LFTs initially elevated but since resolved. - Repeat CT scan of the abdomen and pelvis reveals multiple fluid collections within the peritoneum as well as the retroperitoneum. Given the presence of prior pancreatitis less than 4 weeks ago, this likely represents acute peripancreatic fluid collections. The pancreas has a homogeneous enhancement making necrotizing pancreatitis less likely. The fluid collections especially on the right retroperitoneal region causes mass-effect upon the peritoneum and causes subcutaneous edema and swelling of the right flank. - the fluid collections complications from acute pancreatitis. Still acute phase and may be too early for drain at this time. - patient with persistent pain and low grade temp. Rec - patient awaiting inpatient transfer to [facility] for hepatobiliary surgery and advanced GI evaluation but no room available at this time. on the list. - in the meantime, will attempt to advance diet. - supportive care. - on empiric antibiotics. - will follow. - Patient Problems (1) Acute pancreatitis Current Visit: Yes Status: Acute Qualifiers: Acute pancreatitis complication: unspecified (2) Transaminitis Current Visit: Yes Status: Acute (3) History of cholecystectomy Current Visit: Yes Status: Chronic Subjective Date of service: 03/17/22 Principal diagnosis: Acute pancreatitis Interval history: Patient reports right sided abdominal pain, somewhat improved. Tolerated full liquids. No BM. Temp at 100. Objective - Constitutional Vitals: Temp Pulse Resp BP Pulse Ox 100.4 F H 90 18 131/74 94 03/17/22 12:16 03/17/22 12:16 03/17/22 12:16 03/17/22 12:00 03/17/22 12:16 General appearance: no acute distress - EENT Eyes: EOM intact ENT: hearing intact - Neck Neck: supple - Respiratory Respiratory effort: normal - Cardiovascular Rhythm: regular Heart Sounds: Present: S1 & S2 - Gastrointestinal General gastrointestinal: Present: soft, tender, distended - Integumentary Integumentary: Present: clear, warm - Psychiatric Psychiatric: appropriate mood/affect - Labs CBC & Chem 7: 03/17/22 05:02 03/17/22 05:02 Labs: Laboratory Results - last 24 hr 03/16/22 03/17/22 03/17/22 17:29 00:05 05:02 WBC 10.6 RBC 2.71 L Hgb 8.7 L Hct 24.9 L MCV 92 MCH 32 MCHC 35 H RDW 15.1 Plt Count 437 Lymph % (Auto) 16.9 Rogers % (Auto) 15.4 H Eos % (Auto) 0.3 Baso % (Auto) 0.5 Lymph # (Auto) 1.8 Rogers # (Auto) 1.6 H Eos # (Auto) 0.0 Baso # (Auto) 0.0 Seg Neutrophils % 66.9 Seg Neutrophils # 7.1 Sodium Potassium Chloride Carbon Dioxide Anion Gap BUN Creatinine Estimated GFR BUN/Creatinine Ratio Glucose POC Glucose 142 H 166 H Calcium 03/17/22 03/17/22 03/17/22 05:02 05:19 11:46 WBC RBC Hgb Hct MCV MCH MCHC RDW Plt Count Lymph % (Auto) Rogers % (Auto) Eos % (Auto) Baso % (Auto) Lymph # (Auto) Rogers # (Auto) Eos # (Auto) Baso # (Auto) Seg Neutrophils % Seg Neutrophils # Sodium 135 L Potassium 3.5 L Chloride 97.5 L Carbon Dioxide 27 Anion Gap 14 BUN 5 L Creatinine 0.5 L Estimated GFR > 60 BUN/Creatinine Ratio 10 Glucose 107 H POC Glucose 104 194 H Calcium 8.4 - Imaging CT scan: report reviewed
[2022-03-17] MEDS: AMITRIPTYLINE 25 MG TAB PO SCH (22:26)
[2022-03-18] MEDS: ZOLPIDEM 5 MG TAB PO PRN (01:47)
[2022-03-18] MEDS: HYDROmorphone 1 MG/1 ML INJ IV PRN ×4 (05:36→20:41)
[2022-03-18 08:19] LABS: Hemoglobin 8.3 gm/dl (10.1-14.3); Mean Corpuscular HGB Conc 33 % (30-34); Mean Corpuscular Volume 92 fl (79-97); Platelet Count 438 K/mm3 (140-440); Red Blood Count 2.71 M/mm3 (3.65-5.03); Red Cell Distribution Width 15.2 % (13.2-15.2)
[2022-03-18 08:42] LABS: BUN/Creatinine Ratio 10; Blood Urea Nitrogen 5 mg/dL (7-17); Calcium 8.5 mg/dL (8.4-10.2); Hemolysis Index 2
[2022-03-18] MEDS: INSULIN LISPRO 100 UNIT/ML SUB-Q SCH ×4 (09:00→22:19)
[2022-03-18] MEDS: POTASSIUM CHLORIDE ER 20 MEQ TAB PO SCH (09:56)
[2022-03-18] MEDS: FAMOTIDINE 20 MG TAB PO SCH ×2 (09:56→22:20)
[2022-03-18] MEDS: HEPARIN 5,000 UNIT/1 ML VIAL SUB-Q SCH ×2 (09:56→22:18)
[2022-03-18] MEDS: POLYETHYLENE GLYCOL 3350 17 GM POWDER PO SCH (09:57)
--- NOTE | 2022-03-18 10:53 | Progress Note ---
Assessment and Plan Cultures: 03/11/2022 blood culture: No growth A/P: 70-year-old female with prior cholecystectomy admitted to the hospital on 03/05/2022 with severe abdominal pain going on for about 2 days. She was found to have elevated LFTs with elevated lipase and CT findings concerning for pancreatitis: #Leukocytosis: Likely reactive to acute pancreatitis and peripancreatic fluid collections. No evidence of necrotizing pancreatitis noted on abdominal imaging. Chest x-ray with right-sided pleural effusion likely reactive to pancreatitis. Blood cultures without growth. #Fever: ?from pancreatitis and fluid collections v/s abdominal wall cellulitis. Does have significant abdominal wall edema, with superficial tenderness in RLQ region #Transaminitis: Trending down. #Prior cholecystectomy Recs: -Continue IV cefazolin, D5 of 5 to cover for abdominal wall cellulitis -noted plans for possible transfer to [facility] Aman Emerson MD, FACP, [facility] O: [phone] F: [phone] C: [phone] Subjective Date of service: 03/18/22 Principal diagnosis: Acute pancreatitis Interval history: Low-grade temperatures present. Abdominal pain present, reports some itching on right side of the abdomen Objective - Exam Narrative Exam: Physical Exam: Constitutional: Alert, cooperative. No acute distress Head, Ears, Nose: Normocephalic, atraumatic. External ears, nose normal Eyes: Conjunctivae/corneas clear. No icterus. No ptosis. Neck: Supple, no meningeal signs Cardiovascular: S1, S2 + Respiratory: Good air entry, clear to auscultation bilaterally GI: Abdominal wall edema, tenderness +, bowel sounds + Musculoskeletal: No pedal edema, no cyanosis. Skin: No rash or abscess Hem/Lymphatic: No palpable cervical or supraclavicular nodes. No lymphangitis Psych: Mood ok. Affect normal Neurological: Awake, alert, oriented. No gross abnormality - Constitutional Vitals: Vital Signs Temp Pulse Resp BP Pulse Ox 100.4 F H 90 17 131/74 97 03/17/22 12:16 03/17/22 12:16 03/18/22 06:06 03/17/22 12:00 03/17/22 20:00 Temperature -Last 24 Hours Temperature 100.4 F - Labs CBC & Chem 7: 03/18/22 07:31 03/18/22 07:31 Labs: Abnormal lab results 03/17/22 03/17/22 03/17/22 Range/Units 11:46 16:33 21:37 RBC (3.65-5.03) M/mm3 Hgb (10.1-14.3) gm/dl Hct (30.3-42.9) % Sodium (137-145) mmol/L BUN (7-17) mg/dL Creatinine (0.6-1.2) mg/dL Glucose (65-100) mg/dL POC Glucose 194 H 191 H 156 H (70-105) mg/dL 03/18/22 03/18/22 03/18/22 Range/Units 07:31 07:31 08:00 RBC 2.71 L (3.65-5.03) M/mm3 Hgb 8.3 L (10.1-14.3) gm/dl Hct 25.0 L (30.3-42.9) % Sodium 136 L (137-145) mmol/L BUN 5 L (7-17) mg/dL Creatinine 0.5 L (0.6-1.2) mg/dL Glucose 171 H (65-100) mg/dL POC Glucose 161 H (70-105) mg/dL
[2022-03-18 11:51] LABS: Band Neutrophils # (Manual) 0.7 K/mm3; Basophils % (Manual) 0 % (0.0-1.8); Eosinophils % (Manual) 0 % (0.0-4.3); Total Cells Counted 100
[2022-03-18 11:53] LABS: Hypochromasia 1+; Large Platelets Rare
[2022-03-18 11:54] LABS: Platelet Estimate Consistent w Auto
--- NOTE | 2022-03-18 17:59 | Gastroenterology Progress Note ---
Assessment and Plan # Acute pancreatitis - suspect 2/2 biliary pancreatitis either with papillary stenosis vs stones. - MRCP was negative for retained CBD stones. - h/o CCY at [place] in 2018. scarring noted and was noted to have questions of Cnz-Xhis-Nduwcx syndrome. - initially lipase up to 5700s on 03/05 and trended down and normal. - LFTs initially elevated but since resolved. - Repeat CT scan of the abdomen and pelvis reveals multiple fluid collections within the peritoneum as well as the retroperitoneum. Given the presence of prior pancreatitis less than 4 weeks ago, this likely represents acute peripancreatic fluid collections. The pancreas has a homogeneous enhancement making necrotizing pancreatitis less likely. The fluid collections especially on the right retroperitoneal region causes mass-effect upon the peritoneum and causes subcutaneous edema and swelling of the right flank. - the fluid collections complications from acute pancreatitis. Still acute phase and may be too early for drain at this time. - patient with persistent pain and low grade temp. - tolerating diet. Rec - patient awaiting inpatient transfer to [facility] for hepatobiliary surgery and advanced GI evaluation but no room available at this time. on the list. - if pain improves and tolerating diet and remains afebrile, ok for discharge tomorrow with plans to follow up with advanced GI and hepatobiliary surgery at [facility] outpatient. - supportive care. - on empiric antibiotics. - will follow. - Patient Problems (1) Acute pancreatitis Current Visit: Yes Status: Acute Qualifiers: Acute pancreatitis complication: unspecified (2) Transaminitis Current Visit: Yes Status: Acute (3) History of cholecystectomy Current Visit: Yes Status: Chronic Subjective Date of service: 03/18/22 Principal diagnosis: Acute pancreatitis Interval history: Reports persistent right-sided abdominal pain. No nausea or vomiting. Objective - Constitutional Vitals: Temp Pulse Resp BP Pulse Ox 98.5 F 98 H 18 114/70 95 03/18/22 12:05 03/18/22 12:05 03/18/22 12:05 03/18/22 12:05 03/18/22 12:05 General appearance: no acute distress - EENT ENT: hearing intact - Neck Neck: supple - Respiratory Respiratory effort: normal - Gastrointestinal General gastrointestinal: Present: soft, tender, distended - Integumentary Integumentary: Present: clear, warm - Neurologic Neurological: alert and oriented x3 - Psychiatric Psychiatric: appropriate mood/affect - Labs CBC & Chem 7: 03/18/22 07:31 07 07:31 Labs: Laboratory Results - last 24 hr 03/17/22 03/18/22 03/18/22 21:37 07:31 07:31 WBC 9.9 RBC 2.71 L Hgb 8.3 L Hct 25.0 L MCV 92 MCH 31 MCHC 33 RDW 15.2 Plt Count 438 Add Manual Diff Complete Total Counted 100 Seg Neuts % (Manual) 78.0 H Band Neutrophils % 7.0 Lymphocytes % (Manual) 7.0 L Reactive Lymphs % (Man) 0 Monocytes % (Manual) 8.0 H Eosinophils % (Manual) 0 Basophils % (Manual) 0 Metamyelocytes % 0 Myelocytes % 0 Promyelocytes % 0 Blast Cells % 0 Nucleated RBC % Not Reportable Seg Neutrophils # Man 7.7 Band Neutrophils # 0.7 Lymphocytes # (Manual) 0.7 L Abs React Lymphs (Man) 0.0 Monocytes # (Manual) 0.8 Eosinophils # (Manual) 0.0 Basophils # (Manual) 0.0 Metamyelocytes # 0.0 Myelocytes # 0.0 Promyelocytes # 0.0 Blast Cells # 0.0 WBC Morphology Not Reportable Hypersegmented Neuts Not Reportable Hyposegmented Neuts 2+ Hypogranular Neuts Not Reportable Smudge Cells Not Reportable Toxic Granulation Not Reportable Toxic Vacuolation Not Reportable Dohle Bodies Not Reportable Pelger-Huet Anomaly Not Reportable Lashon Rods Not Reportable Platelet Estimate Consistent w auto Clumped Platelets Not Reportable Plt Clumps, EDTA Not Reportable Large Platelets Rare Giant Platelets Not Reportable Platelet Satelliting Not Reportable Plt Morphology Comment Not Reportable RBC Morphology Not Reportable Dimorphic RBCs Not Reportable Polychromasia Not Reportable Hypochromasia 1+ Poikilocytosis Not Reportable Anisocytosis Not Reportable Microcytosis Not Reportable Macrocytosis Not Reportable Spherocytes Not Reportable Pappenheimer Bodies Not Reportable Sickle Cells Not Reportable Target Cells Not Reportable Tear Drop Cells Not Reportable Ovalocytes Not Reportable Helmet Cells Not Reportable Robledo-[place] Bodies Not Reportable [place] Rings Not Reportable [place] Cells Not Reportable Bite Cells Not Reportable Crenated Cell Not Reportable Elliptocytes Not Reportable Acanthocytes (Spur) Not Reportable Rouleaux Not Reportable Hemoglobin C Crystals Not Reportable Schistocytes Not Reportable Malaria parasites Not Reportable Rosalio Bodies Not Reportable Hem Pathologist Commnt No Sodium 136 L Potassium 4.1 Chloride 99.1 Carbon Dioxide 27 Anion Gap 14 BUN 5 L Creatinine 0.5 L Estimated GFR > 60 BUN/Creatinine Ratio 10 Glucose 171 H POC Glucose 156 H Calcium 8.5 03/18/22 03/18/22 03/18/22 08:00 12:05 16:28 WBC RBC Hgb Hct MCV MCH MCHC RDW Plt Count Add Manual Diff Total Counted Seg Neuts % (Manual) Band Neutrophils % Lymphocytes % (Manual) Reactive Lymphs % (Man) Monocytes % (Manual) Eosinophils % (Manual) Basophils % (Manual) Metamyelocytes % Myelocytes % Promyelocytes % Blast Cells % Nucleated RBC % Seg Neutrophils # Man Band Neutrophils # Lymphocytes # (Manual) Abs React Lymphs (Man) Monocytes # (Manual) Eosinophils # (Manual) Basophils # (Manual) Metamyelocytes # Myelocytes # Promyelocytes # Blast Cells # WBC Morphology Hypersegmented Neuts Hyposegmented Neuts Hypogranular Neuts Smudge Cells Toxic Granulation Toxic Vacuolation Dohle Bodies Pelger-Huet Anomaly Lashon Rods Platelet Estimate Clumped Platelets Plt Clumps, EDTA Large Platelets Giant Platelets Platelet Satelliting Plt Morphology Comment RBC Morphology Dimorphic RBCs Polychromasia Hypochromasia Poikilocytosis Anisocytosis Microcytosis Macrocytosis Spherocytes Pappenheimer Bodies Sickle Cells Target Cells Tear Drop Cells Ovalocytes Helmet Cells Robledo-[place] Bodies [place] Rings Phani Cells Bite Cells Crenated Cell Elliptocytes Acanthocytes (Spur) Rouleaux Hemoglobin C Crystals Schistocytes Malaria parasites Rosalio Bodies Hem Pathologist Commnt Sodium Potassium Chloride Carbon Dioxide Anion Gap BUN Creatinine Estimated GFR BUN/Creatinine Ratio Glucose POC Glucose 161 H 226 H 179 H Calcium
--- NOTE | 2022-03-18 19:33 | Progress Note ---
Assessment and Plan Assessment and plan: Acute pancreatitis Secondary to biliary pancreatitis at the papillary stenosis or stones MRCP negative for common bile duct stones Patient had history of CC Y at [place] in 2018 Lipase levels are normal range today significantly improved from 5700 on 03/05/2022 Normal range today LFTs significantly improved. CT scan of the abdomen and pelvis findings reviewed GI and ID evaluation recommendations noted and appreciated Advance the diet to GI soft today Abdominal wall cellulitis; Continue IV antibiotics per ID Sepsis secondary to abdominal wall cellulitis/pancreatitis patient meets criteria given the tachycardia, leukocytosis and diagnosis of abdominal wall cellulitis Hypokalemia; resolved Transaminitis; resolved We will closely monitor the patient and adjust the management as needed If patient tolerates diet, and hemodynamically stable May plan discharge tomorrow And patient may see devops solutions architect as outpatient Plan of care reviewed with the patient and her nurse Copy Messenger recommendations noted and appreciated Disposition; pending transfer to [facility] versus [place] home tomorrow if stable 03/08/22 Continues to have pain right flank LFTs and amylase and lipase have come back to normal MRCP was negative Possible gallstone which is passed through GI follow-up appreciated 03/09/2022 Right flank pain Hypokalemia Transaminases normal Amylase lipase near normal 03/10/2022 Hypokalemia persists Left flank pain persists For paracentesis in a.m. 03/11/2022 Patient with neg MRCP and normal LFT, therefore more likely that patient had de shanice cholelithiasis that caused gallstone pancreatitis then passed. Regarding fluid / ascites, patient's pain still severe so GI recommends paracentesis to r/o pancreatic ascites (leakage of pancreatic juices due to a disrupted pancreatic duct) 03/12/2022. Awaiting paracentesis. Replete potassium IV for severe hypokalemia. Check magnesium levels 03/13/2022. Radiology reports too little fluid for paracentesis. Continue to replete potassium and consult nephrology for further evaluation. Given the patient's persistent right upper quadrant pain, we will recall surgery to evaluate. Leukocytosis also persists. ID consultation for further evaluation. We will start empiric antibiotics of Zosyn. 03/14/2022. ID recommends following off antibiotics for now. However, patient did have fever spike last night of 101.8. Previous blood cultures on 03/10/2022 have shown no growth to date. No new cultures drawn last night. GI considering endoscopic ultrasound/ERCP. GI, surgery and ID following. 03/15/2022. Patient started on cefazolin to cover for abdominal wall cellulitis. ID following. Repeat CT scan of the abdomen and pelvis reveals multiple fluid collections within the peritoneum as well as the retroperitoneum. Given the presence of prior pancreatitis less than 4 weeks ago, this likely represents acute peripancreatic fluid collections. The pancreas has a homogeneous enhancement making necrotizing pancreatitis less likely. The fluid collections especially on the right retroperitoneal region causes mass-effect upon the peritoneum and causes subcutaneous edema and swelling of the right flank. 03/16/2022. Patient still complaining of right upper quadrant abdominal pain and right flank pain. Etiology is likely secondary to the fluid collections from the complications of acute pancreatitis. Patient still appears to be in acute phase and may be too early to drain at this time. We will attempt to continue to advance diet if able to tolerate p.o. intake, we will arrange for discharge. Patient reports she ate minimal breakfast. We will monitor 03/17/2022. The patient still with low-grade temp and persistent pain. GI initiated inpatient transfer to [facility] for hepatobiliary surgery and advanced GI evaluation but no room available at this time. Patient is currently on the waiting list. Continue to advance diet as tolerated. Continue empiric antibiotics 03/18/22; patient feels slightly better, pancreatic enzymes in normal limit, GI advance the diet to soft Closely monitor, patient is stable tomorrow tolerate food, will discharge her home and follow-up with devops solutions architect as outpatient Or if transfer is accepted patient may be transferred to [facility]. History Interval history: I have seen and examined the patient at the bedside Patient's chart and medications reviewed Patient is awaiting transfer to [facility] for further evaluation However no beds available Meanwhile patient is doing much better Pancreatic enzymes within normal limits GI advance the diet to soft Vital signs Hospitalist Physical - Constitutional Vitals: Temp Pulse Resp BP Pulse Ox 98.5 F 116 H 18 111/67 96 03/18/22 16:42 03/18/22 16:42 03/18/22 16:42 03/18/22 16:42 03/18/22 16:42 General appearance: Present: no acute distress, well-nourished, obese - EENT Eyes: Present: PERRL, EOM intact - Neck Neck: Present: supple, normal ROM - Respiratory Respiratory effort: normal Respiratory: bilateral: diminished, negative: rales, rhonchi, wheezing - Cardiovascular Rhythm: regular Heart Sounds: Present: S1 & S2 - Extremities Extremities: no ischemia, No edema - Abdominal General gastrointestinal: soft, non-tender, non-distended, normal bowel sounds - Integumentary Integumentary: Present: clear, warm - Psychiatric Psychiatric: appropriate mood/affect, cooperative - Neurologic Neurologic: moves all extremities Results - Labs CBC & Chem 7: 03/18/22 07:31 03/18/22 07:31 Labs: Laboratory Last Values WBC 9.9 K/mm3 (4.5-11.0) 03/18/22 07: RBC 2.71 M/mm3 (3.65-5.03) L 03/18/22 07:31 Hgb 8.3 gm/dl (10.1-14.3) L 03/18/22 07:31 Hct 25.0 % (30.3-42.9) L 03/18/22 07:31 MCV 92 fl (79-97) 03/18/22 07:31 MCH 31 pg (28-32) 03/18/22 07:31 MCHC 33 % (30-34) 03/18/22 07:31 RDW 15.2 % (13.2-15.2) 03/18/22 07:31 Plt Count 438 K/mm3 (140-440) 03/18/22 07:31 Lymph % (Auto) 16.9 % (13.4-35.0) 03/17/22 05:02 Elliott % (Auto) 15.4 % (0.0-7.3) H 03/17/22 05:02 Eos % (Auto) 0.3 % (0.0-4.3) 03/17/22 05:02 Baso % (Auto) 0.5 % (0.0-1.8) 03/17/22 05:02 Lymph # (Auto) 1.8 K/mm3 (1.2-5.4) 03/17/22 05:02 Elliott # (Auto) 1.6 K/mm3 (0.0-0.8) H 03/17/22 05:02 Eos # (Auto) 0.0 K/mm3 (0.0-0.4) 03/17/22 05:02 Baso # (Auto) 0.0 K/mm3 (0.0-0.1) 03/17/22 05:02 Add Manual Diff Complete 03/18/22 07:31 Total Counted 100 03/18/22 07:31 Seg Neutrophils % 66.9 % (40.0-70.0) 03/17/22 05:02 Seg Neuts % (Manual) 78.0 % (40.0-70.0) H 03/18/22 07:31 Band Neutrophils % 7.0 % 03/18/22 07:31 Lymphocytes % (Manual) 7.0 % (13.4-35.0) L 03/18/22 07:31 Reactive Lymphs % (Man) 0 % 03/18/22 07:31 Monocytes % (Manual) 8.0 % (0.0-7.3) H 03/18/22 07:31 Eosinophils % (Manual) 0 % (0.0-4.3) 03/18/22 07:31 Basophils % (Manual) 0 % (0.0-1.8) 03/18/22 07:31 Metamyelocytes % 0 % 03/18/22 07:31 Myelocytes % 0 % 03/18/22 07:31 Promyelocytes % 0 % 03/18/22 07:31 Blast Cells % 0 % 03/18/22 07:31 Nucleated RBC % Not Reportable 03/18/22 07:31 Seg Neutrophils # 7.1 K/mm3 (1.8-7.7) 03/17/22 05:02 Seg Neutrophils # Man 7.7 K/mm3 (1.8-7.7) 03/18/22 07:31 Band Neutrophils # 0.7 K/mm3 03/18/22 07:31 Lymphocytes # (Manual) 0.7 K/mm3 (1.2-5.4) L 03/18/22 07:31 Abs React Lymphs (Man) 0.0 K/mm3 03/18/22 07:31 Monocytes # (Manual) 0.8 K/mm3 (0.0-0.8) 03/18/22 07:31 Eosinophils # (Manual) 0.0 K/mm3 (0.0-0.4) 03/18/22 07:31 Basophils # (Manual) 0.0 K/mm3 (0.0-0.1) 03/18/22 07:31 Metamyelocytes # 0.0 K/mm3 03/18/22 07:31 Myelocytes # 0.0 K/mm3 03/18/22 07:31 Promyelocytes # 0.0 K/mm3 03/18/22 07:31 Blast Cells # 0.0 K/mm3 03/18/22 07:31 WBC Morphology Not Reportable 03/18/22 07:31 Hypersegmented Neuts Not Reportable 03/18/22 07:31 Hyposegmented Neuts 2+ 03/18/22 07:31 Hypogranular Neuts Not Reportable 03/18/22 07:31 Smudge Cells Not Reportable 03/18/22 07:31 Toxic Granulation Not Reportable 03/18/22 07:31 Toxic Vacuolation Not Reportable 03/18/22 07:31 Dohle Bodies Not Reportable 03/18/22 07:31 Pelger-Huet Anomaly Not Reportable 03/18/22 07:31 Lashon Rods Not Reportable 03/18/22 07:31 Platelet Estimate Consistent w auto 03/18/22 07:31 Clumped Platelets Not Reportable 03/18/22 07:31 Plt Clumps, EDTA Not Reportable 03/18/22 07:31 Large Platelets Rare 03/18/22 07:31 Giant Platelets Not Reportable 03/18/22 07:31 Platelet Satelliting Not Reportable 03/18/22 07:31 Plt Morphology Comment Not Reportable 03/18/22 07:31 RBC Morphology Not Reportable 03/18/22 07:31 Dimorphic RBCs Not Reportable 03/18/22 07:31 Polychromasia Not Reportable 03/18/22 07:31 Hypochromasia 1+ 03/18/22 07:31 Poikilocytosis Not Reportable 03/18/22 07:31 Anisocytosis Not Reportable 03/18/22 07:31 Microcytosis Not Reportable 03/18/22 07:31 Macrocytosis Not Reportable 03/18/22 07:31 Spherocytes Not Reportable 03/18/22 07:31 Pappenheimer Bodies Not Reportable 03/18/22 07:31 Sickle Cells Not Reportable 03/18/22 07:31 Target Cells Not Reportable 03/18/22 07:31 Tear Drop Cells Not Reportable 03/18/22 07:31 Ovalocytes Not Reportable 03/18/22 07:31 Helmet Cells Not Reportable 03/18/22 07:31 Robleod-Ovando Bodies Not Reportable 03/18/22 07:31 [place] Rings Not Reportable 03/18/22 07:31 [place] Cells Not Reportable 03/18/22 07:31 Bite Cells Not Reportable 03/18/22 07:31 Crenated Cell Not Reportable 03/18/22 07:31 Elliptocytes Not Reportable 03/18/22 07:31 Acanthocytes (Spur) Not Reportable 03/18/22 07:31 Rouleaux Not Reportable 03/18/22 07:31 Hemoglobin C Crystals Not Reportable 03/18/22 07:31 Schistocytes Not Reportable 03/18/22 07:31 Malaria parasites Not Reportable 03/18/22 07:31 Rosalio Bodies Not Reportable 03/18/22 07:31 Hem Pathologist Commnt No 03/18/22 07:31 Sodium 136 mmol/L (137-145) L 03/18/22 07:31 Potassium 4.1 mmol/L (3.6-5.0) 03/18/22 07:31 Chloride 99.1 mmol/L (98-107) 03/18/22 07:31 Carbon Dioxide 27 mmol/L (22-30) 03/18/22 07:31 Anion Gap 14 mmol/L 03/18/22 07:31 BUN 5 mg/dL (7-17) L 03/18/22 07:31 Creatinine 0.5 mg/dL (0.6-1.2) L 03/18/22 07:31 Estimated GFR > 60 ml/min 03/18/22 07:31 BUN/Creatinine Ratio 10 % 03/18/22 07:31 Glucose 171 mg/dL (65-100) H 03/18/22 07:31 POC Glucose 179 mg/dL (70-105) H 03/18/22 16:28 Hemoglobin A1c 14.0 % (4-6) H 03/09/22 06:12 Calcium 8.5 mg/dL (8.4-10.2) 03/18/22 07:31 Phosphorus 2.50 mg/dL (2.5-4.5) 03/13/22 05:24 Magnesium 2.10 mg/dL (1.7-2.3) 03/15/22 05:56 Total Bilirubin 1.00 mg/dL (0.1-1.2) 03/15/22 17:19 Direct Bilirubin 0.4 mg/dL (0-0.2) H 03/15/22 17:19 Indirect Bilirubin 0.6 mg/dL 03/15/22 17:19 AST 29 units/L (5-40) 03/15/22 17:19 ALT 26 units/L (7-56) 03/15/22 17:19 Alkaline Phosphatase 99 units/L (35-129) 03/15/22 17:19 Total Protein 5.6 g/dL (6.3-8.2) L 03/15/22 17:19 Albumin 2.4 g/dL (3.9-5) L 03/15/22 17:19 Albumin/Globulin Ratio 0.8 % 03/15/22 17:19 Amylase 53 units/L (27-131) 03/14/22 08:27 Lipase 38 units/L (13-60) 03/14/22 08:27 Urine Color Yellow (Yellow) 03/11/22 00:13 Urine Turbidity Clear (Clear) 03/11/22 00:13 Urine pH 7.0 (5.0-7.0) 03/11/22 00:13 Ur Specific [place] 1.010 (1.003-1.030) 03/11/22 00:13 Urine Protein 100 mg/dl mg/dL (Negative) 03/11/22 00:13 Urine Glucose (UA) 4+ mg/dL (Negative) 03/11/22 00:13 Urine Ketones 2+ mg/dL (Negative) 03/11/22 00:13 Urine Blood Trace (Negative) 03/11/22 00:13 Urine Nitrite Negative (Negative) 03/11/22 00:13 Ur Reducing Substances Not Reportable 03/11/22 00:13 Urine Bilirubin Negative (Negative) 03/11/22 00:13 Urine Ictotest Not Reportable 03/11/22 00:13 Urine Urobilinogen 8.0 mg/dL (<2.0) H 03/11/22 00:13 Ur Leukocyte Esterase Negative (Negative) 03/11/22 00:13 Urine WBC (Auto) 1.0 /HPF (0.0-6.0) 03/11/22 00:13 Urine RBC (Auto) < 1.0 /HPF (0.0-6.0) 03/11/22 00:13 U Epithel Cells (Auto) 3.0 /HPF (0-13.0) 03/11/22 00:13 Urine Mucus Few /HPF 03/11/22 00:13 Urine Opiates Screen Positive 03/05/22 08:32 Urine Methadone Screen Negative 03/05/22 08:32 Ur Barbiturates Screen Negative 03/05/22 08:32 Ur Phencyclidine Scrn Negative 03/05/22 08:32 Ur Amphetamines Screen Negative 03/05/22 08:32 U Benzodiazepines Scrn Negative 03/05/22 08:32 Urine Cocaine Screen Negative 03/05/22 08:32 U Marijuana (THC) Screen Negative 03/05/22 08:32 Drugs of Abuse Note Disclamer 03/05/22 08:32 Plasma/Serum Alcohol < 0.01 % (0-0.07) 03/05/22 06:38 Hepatitis A IgM Ab Non-reactive (NonReactive) 03/07/22 10:05 Hep Bs Antigen Non-reactive (Negative) 03/07/22 10:05 Hep B Core IgM Ab Non-reactive (NonReactive) 03/07/22 10:05 Hepatitis C Antibody Non-reactive (NonReactive) 03/07/22 10:05 Santacruz/IV: Voiding Method Toilet Active Medications - Current Medications Current Medications: Generic Name Dose Route Start Last Admin Trade Name Freq PRN Reason Stop Dose Admin Acetaminophen 650 mg 03/05/22 16:30 03/17/22 12:56 Acetaminophen 325 Mg Tab PO 650 mg Q4H PRN Administration Pain MILD(1-3)/Fever >100.5/PFEIFFER Amitriptyline HCl 25 mg 03/13/22 22:00 03/17/22 22:26 Amitriptyline 25 Mg Tab PO 25 mg QHS YFN Administration Famotidine 20 mg 03/10/22 10:00 03/18/22 09:56 Famotidine 20 Mg Tab PO 20 mg BID YFN Administration Heparin Sodium (Porcine) 5,000 unit 03/05/22 17:00 03/18/22 09:56 Heparin 5,000 Unit/1 Ml Vial SUB-Q 5,000 unit Q12HR YFN Administration Hydromorphone HCl 1 mg 03/05/22 17:00 03/18/22 16:44 Hydromorphone 1 Mg/1 Ml Inj IV 1 mg Q3H PRN Administration Pain , Severe (7-10) Cefazolin Sodium 2 gm/ Sodium 100 mls @ 200 mls/hr 03/14/22 10:45 03/18/22 18:23 Chloride IV 03/19/22 03:14 100 mls/hr Q8H YFN Administration Protocol Ibuprofen 600 mg 03/10/22 23:25 03/14/22 21:48 Ibuprofen 600 Mg Tab PO 600 mg Q6HR PRN Administration temp>100 Insulin Glargine 25 units 03/09/22 22:00 03/17/22 22:48 Insulin Glargine 100 Units/Ml SUB-Q 25 units QHS YFN Administration Insulin Human Lispro 0 unit 03/17/22 22:00 03/18/22 16:45 Insulin Lispro 100 Unit/Ml SUB-Q 3 unit ACHS YFN Administration Protocol Metoclopramide HCl 10 mg 03/05/22 17:00 Metoclopramide 10 Mg/2 Ml Inj IV Q6H PRN Nausea And Vomiting Morphine Sulfate 2 mg 03/05/22 17:00 03/14/22 11:37 Morphine 2 Mg/1 Ml Inj IV 2 mg Q4H PRN Administration Pain, Moderate (4-6) Ondansetron HCl 4 mg 03/05/22 17:00 03/05/22 16:39 Ondansetron 4 Mg/2 Ml Inj IV 4 mg Q3H PRN Administration Nausea And Vomiting Polyethylene Glycol 17 gm 03/10/22 12:00 03/18/22 09:57 Polyethylene Glycol 3350 17 Gm Powder PO 17 gm QDAY YFN Administration Potassium Chloride 40 meq 03/15/22 10:00 03/18/22 09:56 Potassium Chloride Er 20 Meq Tab PO 40 meq QDAY YFN Administration Senna/Docusate Sodium 2 tab 03/08/22 11:53 Sennosides/Docusate Sodium 8.6/50 Mg Tab PO Q12H PRN Laxative Effect Sodium Chloride 10 ml 03/05/22 16:30 03/18/22 09:58 Sodium Chloride 0.9% 10 Ml Flush Syringe IV 10 ml BID YFN Administration Sodium Chloride 10 ml 03/05/22 17:00 Sodium Chloride 0.9% 10 Ml Flush Syringe IV PRN PRN LINE FLUSH Zolpidem Tartrate 5 mg 03/16/22 02:32 03/18/22 01:47 Zolpidem 5 Mg Tab PO 5 mg QHS PRN Administration Sleep Nutrition/Malnutrition Assess - Dietary Evaluation Nutrition/Malnutrition Findings: Nutrition Notes Start: 03/06/22 17:24 Freq: Status: Active Protocol: Document 03/17/22 17:39 SILVIA (Rec: 03/17/22 17:45 SILVIA [id number]) Nutrition Notes Initial or Follow up Reassessment Current Diagnosis Sepsis Other Pertinent Diagnosis Acute pancreatitis, abdominal wall cellulitis Current Diet GI soft Labs/Tests K 3.5 Pertinent Medications 40mEq KCl Height 5 ft 2 in Weight 84.7 kg Fowler Body Weight (kg) 50.00 BMI 34.1 Weight Status Obese Subjective/Other Information Pt only speaks Creole; her son translated assessment questions for her. Observed 25% of lunch eaten today. She says she feels a little better; it does not hurt as much when she eats. Amenable to ONS. D/C summary written this am. trying to transfer pt to another facility for hepatobiliary surgery and advanced GI evaluation. Burn Absent Trauma Absent #2 Nutrition Diagnosis Malnutrition Diagnosis Progress(for reassessment Continues documentation) #1 Nutrition Diagnosis Inadequate protein-energy intake Diagnosis Progress(for reassessment Continues documentation) Is patient on ventilator? No Is Patient Ambulatory and/or Out of Bed Yes REE-([facility]-ambulatory/OOB) [ 1807.325 [id number]] Kcal/Kg value to use for calculation 15 Approximate Energy Requirements Using 1271 kcal/Kg Calculation Used for Recommendations Kcal/kg Additional Notes Pro needs 0.8-1g/kg adjBW: 54- 67g/day Fluid needs 1ml/kcal Nutrition Intervention Change Diet Order: Continue current diet order Add Supplement/Snack (indicate name/kcal Ensure High Protein (chocolate /protein ) ) Provides kCal: 320 Provides Protein (gm) 32 Goal #1 PO tolerance Goal #2 PO intake of meals plus ONS to meet at least 75% energy and pro needs Follow-Up By: 03/20/22 Additional Comments F/U: intakes (meals/ONS), wt
[2022-03-18] MEDS: AMITRIPTYLINE 25 MG TAB PO SCH (22:18)
[2022-03-18] MEDS: INSULIN GLARGINE 100 UNITS/ML SUB-Q SCH (22:20)
[2022-03-19] MEDS: ZOLPIDEM 5 MG TAB PO PRN (00:32)
[2022-03-19] MEDS: IBUPROFEN 600 MG TAB PO PRN (00:32)
[2022-03-19] MEDS: INSULIN LISPRO 100 UNIT/ML SUB-Q SCH ×2 (07:30→11:30)
--- NOTE | 2022-03-19 09:06 | Gastroenterology Progress Note ---
Assessment and Plan # Acute pancreatitis - suspect 2/2 biliary pancreatitis either with papillary stenosis vs stones. - MRCP was negative for retained CBD stones. - h/o CCY at [place] in 2018. 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 - initially lipase up to 5700s on 03/05 and trended down and normal. - LFTs initially elevated but since resolved. - Repeat CT scan of the abdomen and pelvis reveals multiple fluid collections within the peritoneum as well as the retroperitoneum. Given the presence of prior pancreatitis less than 4 weeks ago, this likely represents acute peripancreatic fluid collections. The pancreas has a homogeneous enhancement making necrotizing pancreatitis less likely. The fluid collections especially on the right retroperitoneal region causes mass-effect upon the peritoneum and causes subcutaneous edema and swelling of the right flank. - the fluid collections complications from acute pancreatitis. Still acute phase and may be too early for drain at this time. - patient with persistent pain and low grade temp. - tolerating diet. Rec -Patient was on the list for transfer to [facility] but the hospital was on diversion. Patient currently feeling better. Tolerating diet. We will arrange for outpatient follow-up with advanced [facility]. [place] at [facility] next Thursday on March 26 at 8:30 AM. -Patient was advised to go to the ER at [facility] in case of worsening symptoms including nausea vomiting worsening abdominal pain and fever. -Discussed with IMS. We will sign off. - Patient Problems (1) Acute pancreatitis Current Visit: Yes Status: Acute Qualifiers: Acute pancreatitis complication: unspecified (2) Transaminitis Current Visit: Yes Status: Acute (3) History of cholecystectomy Current Visit: Yes Status: Chronic Subjective Date of service: 03/19/22 Principal diagnosis: Acute pancreatitis Interval history: Patient reports feeling little bit better. Tolerating solids. No nausea or vomiting. Having bowel movements. Objective - Constitutional Vitals: Temp Pulse Resp BP Pulse Ox 97.9 F 89 20 122/73 98 03/19/22 05:28 03/19/22 05:28 03/19/22 05:28 03/19/22 05:28 03/19/22 05:28 General appearance: no acute distress - EENT Eyes: EOM intact ENT: hearing intact - Respiratory Respiratory effort: normal - Cardiovascular Rhythm: regular Heart Sounds: Present: S1 & S2 - Gastrointestinal General gastrointestinal: Present: soft, tender, distended - Integumentary Integumentary: Present: clear, warm - Neurologic Neurological: alert and oriented x3 - Labs CBC & Chem 7: 03/18/22 07:31 07 07:31 Labs: Laboratory Results - last 24 hr 03/18/22 03/18/22 03/18/22 07:31 12:05 16:28 Add Manual Diff Complete Total Counted 100 Seg Neuts % (Manual) 78.0 H Band Neutrophils % 7.0 Lymphocytes % (Manual) 7.0 L Reactive Lymphs % (Man) 0 Monocytes % (Manual) 8.0 H Eosinophils % (Manual) 0 Basophils % (Manual) 0 Metamyelocytes % 0 Myelocytes % 0 Promyelocytes % 0 Blast Cells % 0 Nucleated RBC % Not Reportable Seg Neutrophils # Man 7.7 Band Neutrophils # 0.7 Lymphocytes # (Manual) 0.7 L Abs React Lymphs (Man) 0.0 Monocytes # (Manual) 0.8 Eosinophils # (Manual) 0.0 Basophils # (Manual) 0.0 Metamyelocytes # 0.0 Myelocytes # 0.0 Promyelocytes # 0.0 Blast Cells # 0.0 WBC Morphology Not Reportable Hypersegmented Neuts Not Reportable Hyposegmented Neuts 2+ Hypogranular Neuts Not Reportable Smudge Cells Not Reportable Toxic Granulation Not Reportable Toxic Vacuolation Not Reportable Dohle Bodies Not Reportable Pelger-Huet Anomaly Not Reportable Lashon Rods Not Reportable Platelet Estimate Consistent w auto Clumped Platelets Not Reportable Plt Clumps, EDTA Not Reportable Large Platelets Rare Giant Platelets Not Reportable Platelet Satelliting Not Reportable Plt Morphology Comment Not Reportable RBC Morphology Not Reportable Dimorphic RBCs Not Reportable Polychromasia Not Reportable Hypochromasia 1+ Poikilocytosis Not Reportable Anisocytosis Not Reportable Microcytosis Not Reportable Macrocytosis Not Reportable Spherocytes Not Reportable Pappenheimer Bodies Not Reportable Sickle Cells Not Reportable Target Cells Not Reportable Tear Drop Cells Not Reportable Ovalocytes Not Reportable Helmet Cells Not Reportable [place]. [place] Bodies Not Reportable [place] Rings Not Reportable [place] Cells Not Reportable Bite Cells Not Reportable Crenated Cell Not Reportable Elliptocytes Not Reportable Acanthocytes (Spur) Not Reportable Rouleaux Not Reportable Hemoglobin C Crystals Not Reportable Schistocytes Not Reportable Malaria parasites Not Reportable Rosalio Bodies Not Reportable Hem Pathologist Commnt No POC Glucose 226 H 179 H 03/18/22 03/19/22 20:26 08:01 Add Manual Diff Total Counted Seg Neuts % (Manual) Band Neutrophils % Lymphocytes % (Manual) Reactive Lymphs % (Man) Monocytes % (Manual) Eosinophils % (Manual) Basophils % (Manual) Metamyelocytes % Myelocytes % Promyelocytes % Blast Cells % Nucleated RBC % Seg Neutrophils # Man Band Neutrophils # Lymphocytes # (Manual) Abs React Lymphs (Man) Monocytes # (Manual) Eosinophils # (Manual) Basophils # (Manual) Metamyelocytes # Myelocytes # Promyelocytes # Blast Cells # WBC Morphology Hypersegmented Neuts Hyposegmented Neuts Hypogranular Neuts Smudge Cells Toxic Granulation Toxic Vacuolation Dohle Bodies Pelger-Huet Anomaly Lashon Rods Platelet Estimate Clumped Platelets Plt Clumps, EDTA Large Platelets Giant Platelets Platelet Satelliting Plt Morphology Comment RBC Morphology Dimorphic RBCs Polychromasia Hypochromasia Poikilocytosis Anisocytosis Microcytosis Macrocytosis Spherocytes Pappenheimer Bodies Sickle Cells Target Cells Tear Drop Cells Ovalocytes Helmet Cells [place]o-St. [place]ila[place] Bodies [place] Rings [place] Cells Bite Cells Crenated Cell Elliptocytes Acanthocytes (Spur) Rouleaux Hemoglobin C Crystals Schistocytes Malaria parasites Rosalio Bodies Hem Pathologist Commnt POC Glucose 166 H 151 H - Imaging CT scan: report reviewed
[2022-03-19 09:46] LABS: Hematocrit 27.4 % (30.3-42.9); Mean Corpuscular HGB Conc 33 % (30-34); Mean Corpuscular Volume 93 fl (79-97); Platelet Count 485 K/mm3 (140-440); Red Blood Count 2.95 M/mm3 (3.65-5.03); Red Cell Distribution Width 15.2 % (13.2-15.2)
[2022-03-19 09:47] LABS: Alanine Aminotransferase 13 units/L (7-56); Albumin 2.4 g/dL (3.9-5); Blood Urea Nitrogen 5 mg/dL (7-17); Calcium 8.8 mg/dL (8.4-10.2); Hemolysis Index 3
[2022-03-19 10:07] LABS: BUN/Creatinine Ratio 13
--- NOTE | 2022-03-19 10:35 | Progress Note ---
Assessment and Plan Cultures: 03/11/2022 blood culture: No growth A/P: 70-year-old female with prior cholecystectomy admitted to the hospital on 03/05/2022 with severe abdominal pain going on for about 2 days. She was found to have elevated LFTs with elevated lipase and CT findings concerning for pancreatitis: #Leukocytosis: Likely reactive to acute pancreatitis and peripancreatic fluid collections. No evidence of necrotizing pancreatitis noted on abdominal imaging. Chest x-ray with right-sided pleural effusion likely reactive to pancreatitis. Blood cultures without growth. #Fever: ?from pancreatitis and fluid collections v/s abdominal wall cellulitis. Does have significant abdominal wall edema, with superficial tenderness in RLQ region #Transaminitis: Trending down. #Prior cholecystectomy Recs: -Seen by GI, transfer to [facility] on hold with plans for outpt f/u with advanced GI. -completed abx. WBC remains normal. Aman Emerson MD, FACP, [facility] O: [phone] F: [phone] C: [phone] Subjective Date of service: 03/19/22 Principal diagnosis: Acute pancreatitis Interval history: No fever. Tolerating diet better. Seen by GI, transfer to [facility] on hold with plans for outpt f/u with advanced GI. Objective - Exam Narrative Exam: Physical Exam: Constitutional: Alert, cooperative. No acute distress Head, Ears, Nose: Normocephalic, atraumatic. External ears, nose normal Eyes: Conjunctivae/corneas clear. No icterus. No ptosis. Neck: Supple, no meningeal signs Cardiovascular: S1, S2 + Respiratory: Good air entry, clear to auscultation bilaterally GI: Abdominal wall edema, minimal tenderness, bowel sounds + Musculoskeletal: No pedal edema, no cyanosis. Skin: No rash or abscess Hem/Lymphatic: No palpable cervical or supraclavicular nodes. No lymphangitis Psych: Mood ok. Affect normal Neurological: Awake, alert, oriented. No gross abnormality - Constitutional Vitals: Vital Signs Temp Pulse Resp BP Pulse Ox 97.9 F 89 20 122/73 98 03/19/22 05:28 03/19/22 05:28 03/19/22 05:28 03/19/22 05:28 03/19/22 05:28 Temperature -Last 24 Hours Temperature 97.9 F Temperature 100.4 F Temperature 98.5 F Temperature 122.0 F Temperature 98.5 F - Labs CBC & Chem 7: 03/19/22 09:18 03/19/22 09:18 Labs: Abnormal lab results 03/18/22 03/18/22 03/18/22 Range/Units 07:31 12:05 16:28 RBC (3.65-5.03) M/mm3 Hgb (10.1-14.3) gm/dl Hct (30.3-42.9) % Plt Count (140-440) K/mm3 Seg Neuts % (Manual) 78.0 H (40.0-70.0) % Lymphocytes % (Manual) 7.0 L (13.4-35.0) % Monocytes % (Manual) 8.0 H (0.0-7.3) % Lymphocytes # (Manual) 0.7 L (1.2-5.4) K/mm3 Sodium (137-145) mmol/L BUN (7-17) mg/dL Creatinine (0.6-1.2) mg/dL Glucose (65-100) mg/dL POC Glucose 226 H 179 H (70-105) mg/dL Albumin (3.9-5) g/dL 03/18/22 03/19/22 03/19/22 Range/Units 20:26 08:01 09:18 RBC 2.95 L (3.65-5.03) M/mm3 Hgb 9.0 L (10.1-14.3) gm/dl Hct 27.4 L (30.3-42.9) % Plt Count 485 H (140-440) K/mm3 Seg Neuts % (Manual) (40.0-70.0) % Lymphocytes % (Manual) (13.4-35.0) % Monocytes % (Manual) (0.0-7.3) % Lymphocytes # (Manual) (1.2-5.4) K/mm3 Sodium (137-145) mmol/L BUN (7-17) mg/dL Creatinine (0.6-1.2) mg/dL Glucose (65-100) mg/dL POC Glucose 166 H 151 H (70-105) mg/dL Albumin (3.9-5) g/dL 07/13/22 Range/Units 09:18 RBC (3.65-5.03) M/mm3 Hgb (10.1-14.3) gm/dl Hct (30.3-42.9) % Plt Count (140-440) K/mm3 Seg Neuts % (Manual) (40.0-70.0) % Lymphocytes % (Manual) (13.4-35.0) % Monocytes % (Manual) (0.0-7.3) % Lymphocytes # (Manual) (1.2-5.4) K/mm3 Sodium 136 L (137-145) mmol/L BUN 5 L (7-17) mg/dL Creatinine 0.4 L (0.6-1.2) mg/dL Glucose 177 H (65-100) mg/dL POC Glucose (70-105) mg/dL Albumin 2.4 L (3.9-5) g/dL
[2022-03-19 11:40] VITALS: BP 117/96
[2022-03-19] MEDS: FAMOTIDINE 20 MG TAB PO SCH (11:42)
[2022-03-19] MEDS: POTASSIUM CHLORIDE ER 20 MEQ TAB PO SCH (11:42)
[2022-03-19] MEDS: HEPARIN 5,000 UNIT/1 ML VIAL SUB-Q SCH (11:42)
[2022-03-19] MEDS: POLYETHYLENE GLYCOL 3350 17 GM POWDER PO SCH (11:42)
--- NOTE | 2022-03-19 12:25 | Discharge Summary ---
Providers - Providers Date of Admission: 03/05/22 16:03 Date of discharge: 03/19/22 Attending physician: ELIER BAILEY 03/05/22 16:09 Consult to Physician [CONS] Routine Comment: Consulting Provider: NUZHAT MANUEL Physician Instructions: Reason For Exam: Acute pancreatitis 03/06/22 06:32 Consult to Physician [CONS] Routine Comment: Consulting Provider: YANE YANEZ Physician Instructions: Reason For Exam: CBd--->.obstruction 03/13/22 07:54 Consult to Physician [CONS] Routine Comment: Consulting Provider: RANDI STUART Physician Instructions: Reason For Exam: persistent hypokalemia 03/13/22 09:21 Consult to Physician [CONS] Routine Comment: Consulting Provider: SHAKILA MON Physician Instructions: Reason For Exam: abd pain, leukocytosis, fever 03/19/22 09:29 Physical Therapy Evaluation and Treat [CONS] Routine Comment: General debility Reason For Exam: Evaluate and treat/DC needs Primary care physician: [employer] Hospitalization Condition: Stable Hospital course: Acute pancreatitis Secondary to biliary pancreatitis at the papillary stenosis or stones MRCP negative for common bile duct stones Patient had history of CC Y at [place] in 2018 Lipase levels are normal range today significantly improved from 5700 on 03/05/2022 Normal range today LFTs significantly improved. CT scan of the abdomen and pelvis findings reviewed GI and ID evaluation recommendations noted and appreciated Advance the diet to GI soft today Abdominal wall cellulitis; Continue IV antibiotics per ID Sepsis secondary to abdominal wall cellulitis/pancreatitis patient meets criteria given the tachycardia, leukocytosis and diagnosis of abdominal wall cellulitis Hypokalemia; resolved Transaminitis; resolved We will closely monitor the patient and adjust the management as needed If patient tolerates diet, and hemodynamically stable May plan discharge tomorrow And patient may see pleater as outpatient Plan of care reviewed with the patient and her nurse [employer] recommendations noted and appreciated Disposition; pending transfer to [facility] versus MD home tomorrow if stable 03/08/22 Continues to have pain right flank LFTs and amylase and lipase have come back to normal MRCP was negative Possible gallstone which is passed through GI follow-up appreciated 03/09/2022 Right flank pain Hypokalemia Transaminases normal Amylase lipase near normal 03/10/2022 Hypokalemia persists Left flank pain persists For paracentesis in a.m. 03/11/2022 Patient with neg MRCP and normal LFT, therefore more likely that patient had de shanice cholelithiasis that caused gallstone pancreatitis then passed. Regarding fluid / ascites, patient's pain still severe so GI recommends pa racentesis to r/o pancreatic ascites (leakage of pancreatic juices due to a disrupted pancreatic duct) 03/12/2022. Awaiting paracentesis. Replete potassium IV for severe hypokalemia. Check magnesium levels 03/13/2022. Radiology reports too little fluid for paracentesis. Continue to replete potassium and consult nephrology for further evaluation. Given the patient's persistent right upper quadrant pain, we will recall surgery to evaluate. Leukocytosis also persists. ID consultation for further evaluation. We will start empiric antibiotics of Zosyn. 03/14/2022. ID recommends following off antibiotics for now. However, patient did have fever spike last night of 101.8. Previous blood cultures on 03/10/2022 have shown no growth to date. No new cultures drawn last night. GI considering endoscopic ultrasound/ERCP. GI, surgery and ID following. 03/15/2022. Patient started on cefazolin to cover for abdominal wall cellulitis. ID following. Repeat CT scan of the abdomen and pelvis reveals multiple fluid collections within the peritoneum as well as the retroperitoneum. Given the presence of prior pancreatitis less than 4 weeks ago, this likely represents acute peripancreatic fluid collections. The pancreas has a homogeneous enhancement making necrotizing pancreatitis less likely. The fluid collections especially on the right retroperitoneal region causes mass-effect upon the peritoneum and causes subcutaneous edema and swelling of the right flank. 03/16/2022. Patient still complaining of right upper quadrant abdominal pain and right flank pain. Etiology is likely secondary to the fluid collections from the complications of acute pancreatitis. Patient still appears to be in acute phase and may be too early to drain at this time. We will attempt to continue to advance diet if able to tolerate p.o. intake, we will arrange for discharge. Patient reports she ate minimal breakfast. We will monitor 03/17/2022. The patient still with low-grade temp and persistent pain. GI initiated inpatient transfer to [facility] for hepatobiliary surgery and advanced GI evaluation but no room available at this time. Patient is currently on the waiting list. Continue to advance diet as tolerated. Continue empiric antibiotics 03/18/22; patient feels slightly better, pancreatic enzymes in normal limit, GI advance the diet to soft Closely monitor, patient is stable tomorrow tolerate food, will discharge her home and follow-up with pleater as outpatient Or if transfer is accepted patient may be transferred to [facility]. Disposition: 02 SHORT TERM HOSPITAL Final Discharge Diagnosis (Prints w/discharge instructions): Acute pancreatitis. Transaminitis. History of cholecystectomy. Multiple fluid collections within the peritoneum and retroperitoneum on CT. Abdominal wall cellulitis improved. Sepsis improved. Hypokalemia resolved. Transaminitis resolved Time spent for discharge: 40 min Core Measure Documentation - Palliative Care Palliative Care/ Comfort Measures: Not Applicable - Core Measures Any of the following diagnoses?: none Exam - Constitutional Vitals: Temp Pulse Resp BP Pulse Ox 98 F 85 20 117/96 98 03/19/22 11:40 03/19/22 11:40 03/19/22 11:40 03/19/22 11:40 03/19/22 05:28 Plan Activity: advance as tolerated Diet: other (Soft diet advance as tolerated) Additional Instructions: Advised to see [[facility]] on 03/26/2022Thursday 8:30 AM at [facility], [address], [facility]. . If you have worsening symptoms contact MD or go to the nearest emergency room as needed Follow up with: PRIMARY CAREMD [Primary Care Provider] - 7 Days MIN,SHANNON ESCOBAR MD [Staff Physician] - 10 Days Prescriptions: Zolpidem [Ambien] 5 mg PO QHS PRN #7 tablet PRN Reason: Sleep Amitriptyline [Elavil] 25 mg PO QHS #30 tab Lispro Insulin [HumaLOG] 3 unit SUB-Q ACHS #2 vial Insulin Glargine [Lantus VIAL] 25 unit SUB-Q QHS #2 vial polyethylene glycoL 3350 [Miralax 3350] 17 gm PO QDAY #30 packet Famotidine [Pepcid] 20 mg PO BID #60 tablet
== END 2022-03-19 15:17 | disposition home or self-care (01) | DRG 438 ==
LOC: ED 05:56 → 3A 16:03
PROVIDERS: ADMIT Internal Medicine; ATTEND Internal Medicine
DX: K85.10 Biliary acute pancreatitis without necrosis or infection (principal); A41.9 Sepsis, unspecified organism; R18.8 Other ascites; L03.311 Cellulitis of abdominal wall; E87.6 Hypokalemia; R74.01 Elevation of levels of liver transaminase levels; R73.9 Hyperglycemia, unspecified; Z90.49 Acquired absence of other specified parts of digestive tract
CPT/HCPCS: 36415; 71045; 74018; 74176; 74177; 74181; 76705; 78226; 80048; 80053; 80074; 80076; 80307; 80320; 81001; 82150; 82962; 83036; 83690; 83735; 84100; 84132; 85007; 85025; 85027; 87040; G0378; J3490; Q9967; A9537; G0480; J0690; J1170; J1644; J1815; J2270; J2405; J2543; J3475; J3480; J7030; J7042